=== PATIENT | male | born 1945 | race Caucasian/White ===

== ENCOUNTER 2017-01-04 10:10 | Inpatient (IN) | payer OTHER ==
[2017-01-04] MEDS ORDERED: DUONEB 0.5 MG/3 MG ONE (11:15)
[2017-01-04] MEDS: DUONEB 0.5 MG/3 MG NEB SCH ×4 (11:27→21:01)
[2017-01-04] MEDS ORDERED: NS 1/2 1000 ML IV 1,000 ML IV ONE (12:21)
[2017-01-04] MEDS: LEVAQUIN PREMIX IV 750 MG 750 MG/150 ML BAG IV SCH (12:40)
[2017-01-04] MEDS: NS 1/2 1000 ML IV 1,000 ML IV SCH (12:40)
[2017-01-04] MEDS: ZOSYN VIAL 4.5 GM IV SCH ×3 (12:40→21:33)
[2017-01-04 12:41] LABS: BASOPHILS % (AUTO) 0 % (0.2-1.0); EOSINOPHILS # (AUTO) 0.1 x10^3/uL (0.0-0.2); EOSINOPHILS % (AUTO) 0.7 % (0.9-2.9); HEMATOCRIT 36.9 % (42.0-54.0); HEMOGLOBIN 12.6 g/dL (13.5-18.0); LYMPHOCYTES # (AUTO) 1.8 X10^3/uL (1.3-2.9); LYMPHOCYTES % (AUTO) 9.5 % (21.0-51.0); MEAN CORPUSCULAR HEMOGLOBIN 28.9 pg (27.0-34.0); MEAN CORPUSCULAR HGB CONC 34.2 g/dL (33.0-35.0); MEAN CORPUSCULAR VOLUME 84.6 fL (80.0-100.0); MEAN PLATELET VOLUME 8.8 fL (7.4-11.0); MONOCYTES # (AUTO) 1.7 x10^3/uL (0.3-0.8); MONOCYTES % (AUTO) 8.6 % (0.0-13.0); NEUTROPHILS # (AUTO) 15.8 x10^3/uL (2.2-4.8); NEUTROPHILS % (AUTO) 81.2 % (42.0-75.0); PLATELET COUNT 205 X10^3/uL (150.0-450.0); RED BLOOD COUNT 4.37 X10^6/uL (4.7-6.0); RED CELL DISTRIBUTION WIDTH 14.3 % (11.6-16.5); WHITE BLOOD COUNT 19.5 X10^3/uL (3.6-10.0)
[2017-01-04] MEDS ORDERED: NS 100 ML IV + SPIKE MINIBAG* 100 ML IV ONE ×2 (12:44→20:03)
[2017-01-04 12:50] LABS: ALANINE AMINOTRANSFERASE 16 Units/L (12-78); ALBUMIN 3.1 g/dL (3.4-5.0); ALKALINE PHOSPHATASE 72 Units/L (46-116); ASPARTATE AMINO TRANSFERASE 17 Units/L (15-37); BLOOD UREA NITROGEN 14 mg/dL (7-18); CALCIUM 9.6 mg/dL (8.5-10.1); CARBON DIOXIDE 23.8 mmol/L (21-32); CHLORIDE 102 mmol/L (98-107); COR CA(FOR HYPOALB) 10.3 mg/dL (8.5-10.1); CREATININE 0.96 mg/dL (0.70-1.30); SODIUM 133 mmol/L (136-145); TOTAL PROTEIN 7.5 g/dL (6.4-8.2); eGFR BLACK RACES > 60 (>60); eGFR NON BLACK RACES > 60 (>60)
[2017-01-04] MEDS: ROBITUSSIN DM PO SCH ×3 (12:54→21:31)
--- NOTE | 2017-01-04 16:00 | RAD ---
History: Pneumonia Study: Chest PA/lateral Findings: PA and left lateral projections of the chest are compared to the previous study of January 23, 2016. Heart size is unchanged. The lower right heart border is now obscured due to contiguous par enchymal disease atelectasis versus pneumonia. The left perihilar mass obscuring the main pulmonary a rtery is again demonstrated. The left subclavian Port-A-Cath remains in place. There is been interval placement of a dual lead right-sided permanent cardiac pacemaker. Plate and screws of the base the c ervical spine are demonstrated. Impression: Interval placement of right-sided permanent cardiac pacemaker. Increasing left perihilar mass. Right middle lobe atelectasis and or pneumonia. Reported By:
--- NOTE | 2017-01-04 19:01 | DR.H&P ---
H&P - History & Physical for Day of: H&P Date: 01/04/17 - Chief Complaint Chief Complaint: is a 71 year old patient of ours who was a direct admission from our office. He presented to us with complaints of fever, productive cough and shortness of breath for the past week. Patient reports that shortness of breath is worse on exertion. On examination, lungs were noted with course wheezing and rhonchi bilaterally to auscultation. Sputum is noted to be thick and yellow. Breath sounds are diminished. Abdomen is soft, round, and non-tender. Bowel sounds are noted normal in all quadrants. We admitted patient for further treatment and evaluation. He was started on the pneumonia protocol. We planned to check CBC, CMP, chest xray, blood cultures, and sputum culture on admission. We planned to start him on Duoneb 0.5/3mg neb Q4hr, Pulmicort neb BID, Robitussin Dm 10ml po QID, Levaquin 750mg IV daily, Zosyn 4.5gm IV TID, 1/2 NS @75ml/hr. On admission, vital signs were 99.9, 83, 28, 95 % 2L NC, 141/67. He was placed on supplemental oxygen at 3l/min via nasal cannula. Labs and xrays were obtained. Abnormal lab results are as follows: WBC 19.5, RBC 4.37, Hgb 12.6, Hct 36.9, Sodium 133, Glucose 103, Calcium 10.3, Albumin 3.1, A/G Ratio 0.7. Blood Cultures x2 and sputum cultures are pending. Chest xray reported increasing left perihilar mass and right middle lobe atelectasis and or pneumonia. We planned to follow up with am labs and chest xray and continue to monitor patient. - Allergies Allergies/Adverse Reactions: Allergies Allergy/AdvReac Type Severity Reaction Status Date / Time codeine Allergy Unknown Verified 01/04/17 10:57 - Past Medical History Past Medical History: Asthma, CHF, COPD, Coronary Artery Disease, Diabetes, Dyslipidemia, GERD, Hypertension, VA Additional Medical History: Cataracts, Constipation, DDD, Lung CA - Past Surgical History Surgical History: Angioplasty/Stents, Appendectomy, Ortho Surgery, Other - Family History Family Medical History: Diabetes Mellitus, Cancer, [place], Coronary Artery Disease, Heart Failure, Hypertension - Social History Does patient currently use any type of tobacco product: No Have you used tobacco products in the last 12 months: No Type of Tobacco Use: Cigarettes How many years tobacco product used: 37 Does any household member use tobacco: No Alcohol Use: None - Medications Home Medications: Dutasteride [AVODART 0.5 MG *] 0.5 mg PO HS 01/04/17 [History Confirmed 01/04/17 ] Megestrol Acetate [MEGACE TAB 40 MG *] 20 mg PO DAILY 01/04/17 [History Confirmed 01/04/17] Pantoprazole Sodium 40 mg [PROTONIX 40 MG *] 40 mg PO DAILY 01/04/17 [History Confirmed 01/04/17] Prednisone [PREDNISONE TAB 5 MG *] 5 mg PO .QOD 01/04/17 [History Confirmed ] Vit D3-Vit K/[place]/Hops [Ostera Tablet] 1 tab PO DAILY 01/04/17 [History Confirmed 01/04/17] - Review of Systems Constitutional: Fever, Weakness Eyes: No Symptoms Reported ENT: No Symptoms Reported Respiratory: See HPI, Cough, Shortness of Breath, Sputum, Wheezing Cardiovascular: No Symptoms Reported Gastrointestinal: No Symptoms Reported Genitourinary: No Symptoms Reported Musculoskeletal: No Symptoms Reported Skin: No Symptoms Reported Neurological: Weakness - Physical Exam Vital Signs: Temperature 99.6 F Pulse Rate [Right Brachial] 103 Pulse Rate 81 Respiratory Rate 25 Blood Pressure [r arm] 141/67 Blood Pressure [Left Arm] 127/65 Blood Pressure 131/58 O2 Sat by Pulse Oximetry 96 Oriented: Normal Eyes: Normal Ear: Normal Nose: Normal Throat: Normal Respiratory: Rhonchi Throughout, Wheezes Throughout Cardiovascular: Normal : Normal Auscultation: Bowel Sounds: Normal Palpation: Normal Tenderness: Normal Skin: Normal Musculoskeletal: Normal Psychiatric: Normal Mood Description: Calm Affect: Normal Speech Pattern: Clear - Assessment/Plan (1) Community acquired pneumonia Qualifiers: Laterality: right Lung location: middle lobe of lung Qualified Code(s): J18.1 - Lobar pneumonia, unspecified organism Status: Acute Plan: ZOSYN IV, LEVAQUIN IV, DUONEBS, SUPPLEMENTAL OXYGEN, ROBITUSSIN DM QID, TUSSIONEX 5ML PO Q12H PRN, MONITOR CHEST XRAY, CONTINUE TO MONITOR PATIENT.
[2017-01-04] MEDS ORDERED: NITROGLYCERIN SL PRN (20:05)
[2017-01-04] MEDS ORDERED: IPRATROPIUM IN PRN (20:05)
[2017-01-04] MEDS ORDERED: [UNRECOGNIZED DRUG - OTHER] IN PRN (20:05)
[2017-01-04] MEDS ORDERED: ALBUTEROL SULFATE IN PRN (20:05)
[2017-01-04] MEDS ORDERED: PATIENT'S HOME MEDICATION (Multivit-Min/Fa/Lycopen/Lutein [Centrum Silver Tablet] 1 TAB) PO SCH (20:15)
[2017-01-04] MEDS ORDERED: PATIENT'S HOME MEDICATION (Levocetirizine Dihydrochloride [Xyzal] 5 MG) PO SCH (21:00)
[2017-01-04] MEDS ORDERED: CLONAZEPAM 0.5 MG PO SCH (21:00)
[2017-01-04] MEDS ORDERED: PATIENT'S HOME MEDICATION (Budesonide-Formoterol 2 INH) INH SCH (21:00)
[2017-01-04] MEDS: PULMICORT NEB TX 0.5 MG NEB SCH (21:01)
[2017-01-04] MEDS ORDERED: NITROSTAT SL PRN (21:04)
[2017-01-04] MEDS ORDERED: GLUCOPHAGE ONE (21:18)
[2017-01-04] MEDS: NEURONTIN CAP 300 MG PO SCH (21:32)
[2017-01-04] MEDS: MEGACE PO SCH (21:32)
[2017-01-04] MEDS: KLONOPIN TAB 0.5 MG PO SCH (21:32)
[2017-01-04] MEDS: FLOMAX PO SCH (21:32)
[2017-01-04] MEDS: GLUCOPHAGE PO SCH (21:33)
[2017-01-04] MEDS: AVODART PO SCH (21:33)
[2017-01-04] MEDS: LIPITOR TAB 40 MG PO SCH (21:33)
[2017-01-04] MEDS: [UNRECOGNIZED DRUG - OTHER] PO SCH (21:46)
[2017-01-04] MEDS: LOPRESSOR TAB 25 MG PO SCH (21:53)
[2017-01-04] MEDS: TYLENOL 325 MG TAB PO PRN (22:18)
[2017-01-05] MEDS: ZyrTEC TAB 10 MG PO SCH ×2 (00:22→20:30)
[2017-01-05] MEDS: DUONEB 0.5 MG/3 MG NEB SCH ×6 (01:30→21:50)
[2017-01-05] MEDS ORDERED: NS 1/2 1000 ML IV 1,000 ML IV ONE ×2 (05:18→20:19)
[2017-01-05] MEDS ORDERED: NS 100 ML IV + SPIKE MINIBAG* 100 ML IV ONE ×3 (05:19→20:21)
[2017-01-05] MEDS: ZOSYN VIAL 4.5 GM IV SCH ×3 (05:25→21:19)
[2017-01-05] MEDS: NS 1/2 1000 ML IV 1,000 ML IV SCH ×3 (05:26→20:34)
[2017-01-05] MEDS: NEURONTIN CAP 300 MG PO SCH ×3 (05:26→21:19)
[2017-01-05 06:41] LABS: BASOPHILS % (AUTO) 0 % (0.2-1.0); EOSINOPHILS # (AUTO) 0.1 x10^3/uL (0.0-0.2); EOSINOPHILS % (AUTO) 0.6 % (0.9-2.9); HEMATOCRIT 34.3 % (42.0-54.0); HEMOGLOBIN 11.6 g/dL (13.5-18.0); LYMPHOCYTES # (AUTO) 1.4 X10^3/uL (1.3-2.9); LYMPHOCYTES % (AUTO) 8.6 % (21.0-51.0); MEAN CORPUSCULAR HEMOGLOBIN 28.8 pg (27.0-34.0); MEAN CORPUSCULAR HGB CONC 33.9 g/dL (33.0-35.0); MEAN CORPUSCULAR VOLUME 84.8 fL (80.0-100.0); MEAN PLATELET VOLUME 9.5 fL (7.4-11.0); MONOCYTES # (AUTO) 1.7 x10^3/uL (0.3-0.8); MONOCYTES % (AUTO) 10.6 % (0.0-13.0); NEUTROPHILS % (AUTO) 80.2 % (42.0-75.0); PLATELET COUNT 212 X10^3/uL (150.0-450.0); RED BLOOD COUNT 4.04 X10^6/uL (4.7-6.0); RED CELL DISTRIBUTION WIDTH 14.5 % (11.6-16.5); WHITE BLOOD COUNT 16.2 X10^3/uL (3.6-10.0)
[2017-01-05 06:55] LABS: ALANINE AMINOTRANSFERASE 15 Units/L (12-78); ALBUMIN 2.7 g/dL (3.4-5.0); ALKALINE PHOSPHATASE 80 Units/L (46-116); ASPARTATE AMINO TRANSFERASE 18 Units/L (15-37); BLOOD UREA NITROGEN 9 mg/dL (7-18); CALCIUM 8.8 mg/dL (8.5-10.1); CARBON DIOXIDE 22.2 mmol/L (21-32); CHLORIDE 103 mmol/L (98-107); COR CA(FOR HYPOALB) 9.8 mg/dL (8.5-10.1); COR NA(FOR HYPERGLY) 137 mmol/L (136-145); CREATININE 0.93 mg/dL (0.70-1.30); SODIUM 136 mmol/L (136-145); TOTAL PROTEIN 6.9 g/dL (6.4-8.2); eGFR BLACK RACES > 60 (>60); eGFR NON BLACK RACES > 60 (>60)
[2017-01-05] MEDS ORDERED: GLUCOPHAGE ONE ×2 (08:16→20:21)
[2017-01-05 08:23] VITALS: BMI 17.9
[2017-01-05] MEDS: PULMICORT NEB TX 0.5 MG NEB SCH ×3 (08:59→21:50)
--- NOTE | 2017-01-05 08:59 | RAD ---
HISTORY: Pneumonia Study: Chest AP portable Comparison: January 04, 2017 Findings: There is a pacemaker present on the right. The heart is within normal limits in size. No congestive h eart failure is noted. Once again noted is the patient's left hilar mass unchanged from the prior exa mination. The lungs are mildly hyperinflated but free of acute alveolar infiltrates. No pleural effus ions are identified. The bony thorax is unremarkable. IMPRESSION: No change left hilar mass Mild hyperinflation No definite residual acute infiltrates Reported By:
[2017-01-05] MEDS ORDERED: DIGOXIN 250 MCG PO SCH (09:00)
[2017-01-05] MEDS ORDERED: VIT D3 VIT K PO SCH (09:00)
[2017-01-05] MEDS ORDERED: HOPS PO SCH (09:00)
[2017-01-05] MEDS ORDERED: [UNRECOGNIZED DRUG - OTHER] PO SCH (09:00)
[2017-01-05] MEDS ORDERED: BERBERINE PO SCH (09:00)
[2017-01-05] MEDS ORDERED: MONTELUKAST SODIUM 10 MG PO SCH (09:00)
[2017-01-05] MEDS ORDERED: PATIENT'S HOME MEDICATION (Multiple Vitamins W/ Minerals [Multiple Vitamins W/ Minerals] 1 PO SCH (09:00)
[2017-01-05] MEDS: LEVAQUIN PREMIX IV 750 MG 750 MG/150 ML BAG IV SCH (09:14)
[2017-01-05] MEDS: LANOXIN PO SCH (09:14)
[2017-01-05] MEDS: PROTONIX TAB 40 MG PO SCH (09:15)
[2017-01-05] MEDS: SINGULAIR TAB 10 MG PO SCH (09:15)
[2017-01-05] MEDS: COLACE CAP 100 MG PO SCH (09:15)
[2017-01-05] MEDS: MEGACE PO SCH (09:15)
[2017-01-05] MEDS: ROBITUSSIN DM PO SCH ×4 (09:16→20:31)
[2017-01-05] MEDS: TAB-A-VITE PO SCH (09:16)
[2017-01-05] MEDS: GLUCOPHAGE PO SCH ×2 (09:16→20:30)
[2017-01-05] MEDS: LOPRESSOR TAB 25 MG PO SCH ×2 (09:17→20:31)
[2017-01-05] MEDS: VITAMIN B-12 PO SCH (09:17)
[2017-01-05] MEDS: [UNRECOGNIZED DRUG - OTHER] PO SCH (09:25)
--- NOTE | 2017-01-05 12:26 | PCM.PROG ---
Progress Note - Progress Note for Day of Date: 01/05/17 - Subjective Subjective: WAS ADMITTED YESTERDAY FOR COMMUNITY ACQUIRED PNEUMONIA. PATIENT HAD BEEN RECEIVING ANTIBIOTICS IN THE OFFICE PRIOR TO ADMISSION, HOWEVER , PATIENT CONTINUED WITH SYMPTOMS OF PRODUCTIVE COUGH AND SHORTNESS OF BREATH DESPITE TX. HE IS ALERT AND ORIENTED, SITTING UP IN BED ON MORNING ROUNDS. PATIENT'S IS AT BEDSIDE. TODAY, PATIENT CONTINUES WITH COMPLAINTS OF PRODUCTIVE COUGH AND SHORTNESS OF BREATH. SPUTUM IN CONTAINER AT BEDSIDE IS THICK AND YELLOW. ON EXAMINATION, BILATERAL LUNGS WERE NOTED WITH COURSE WHEEZING AND RHONCHI TO AUSCULTATION. ABDOMEN IS SOFT, ROUND, AND NON TENDER. NORMAL BOWEL SOUNDS ARE NOTED IN ALL QUADRANTS. HIS VITAL SIGNS THIS MORNING ARE 98.5-97-21-99%-119/57. A CBC, CMP, AND CHEST XRAY WERE OBTAINED THIS MORNING. ABNORMAL LAB VALUES INCLUDE THE FOLLOWING: WBC 16.2, RBC 4.04, HGB 11.6 , HCT 34.3, GLUCOSE 155, ALBUMIN 2.7. BLOOD CULTURES AND SPUTUM CULTURES ARE PENDING. TODAYS CHEST XRAY REPORTED NO CHANGE IN LEFT HILAR MASS, NO ACUTE INFILTRATES. WE WILL CONTINUE WITH CURRENT PLAN OF CARE. WE PLAN TO FOLLOW UP WITH AM LABS AND CHEST XRAY AND CONTINUE TO MONITOR PATIENT. - Past Medical Family Social History Past Med/Fam/Surg Hx: No changes since H&P Allergies: Allergies codeine Allergy (Unknown, Verified 01/04/17 10:57) - Review of Systems ROS: No change since H&P - Vital Signs and I&O's Vital Signs: Temperature 99.0 F Pulse Rate [Right Brachial] 100 Pulse Rate 107 Respiratory Rate 23 Blood Pressure [r arm] 117/62 Blood Pressure [Left Arm] 119/57 Blood Pressure 131/58 O2 Sat by Pulse Oximetry 89 Intake and Output: Intake & Output 01/03/17 01/04/17 01/05/17 01/06/17 11:59 11:59 11:59 11:59 Intake Total 2605 Output Total 1700 Balance 905 - Physical Exam Oriented: Normal Eyes: Normal Ear: Normal Nose: Normal Throat: Normal Respiratory: Right, Left, Generalized, Wheezes, Rhonchi Cardiovascular: Normal : Normal Auscultation: Bowel Sounds: Normal Palpation: Normal Tenderness: Normal Skin: Normal Musculoskeletal: Normal Psychiatric: Normal Mood Description: Calm Affect: Normal Speech Pattern: Clear, Appropriate - Laboratory and Diagnostics Result Diagrams: 01/05/17 03:45 01/05/17 03:45 Labs: 01/04/17 11:30 Sputum - Expectorated Sputum Sputum Culture - Final 01/04/17 11:30 Sputum - Expectorated Sputum - Final Laboratory WBC 16.2 X10^3/uL (3.6-10.0) H 01/05/17 03:45 RBC 4.04 X10^6/uL (4.7-6.0) L 01/05/17 03:45 Hgb 11.6 g/dL (13.5-18.0) L 01/05/17 03:45 Hct 34.3 % (42.0-54.0) L 01/05/17 03:45 MCV 84.8 fL (80.0-100.0) 01/05/17 03:45 MCH 28.8 pg (27.0-34.0) 01/05/17 03:45 MCHC 33.9 g/dL (33.0-35.0) 01/05/17 03:45 RDW 14.5 % (11.6-16.5) 01/05/17 03:45 Plt Count 212 X10^3/uL (150.0-450.0) 01/05/17 03:45 MPV 9.5 fL (7.4-11.0) 01/05/17 03:45 Neut % 80.2 % (42.0-75.0) H 01/05/17 03:45 Lymph % 8.6 % (21.0-51.0) L 01/05/17 03:45 [place] % 10.6 % (0.0-13.0) 01/05/17 03:45 Eos % 0.6 % (0.9-2.9) L 01/05/17 03:45 Baso % 0 % (0.2-1.0) L 01/05/17 03:45 Neut # 13.0 x10^3/uL (2.2-4.8) H 01/05/17 03:45 Lymph # 1.4 X10^3/uL (1.3-2.9) 01/05/17 03:45 [place] # 1.7 x10^3/uL (0.3-0.8) H 01/05/17 03:45 Eos # 0.1 x10^3/uL (0.0-0.2) 01/05/17 03:45 Baso # 0.0 X10^3/uL (0.0-0.1) 01/05/17 03:45 Absolute Nucleated RBC 0.0 /100WBC 01/05/17 03:45 Sodium 136 mmol/L (136-145) 01/05/17 03:45 Corrected Sodium 137 mmol/L (136-145) 01/05/17 03:45 Potassium 3.9 mmol/L (3.5-5.1) 01/05/17 03:45 Chloride 103 mmol/L (98-107) 01/05/17 03:45 Carbon Dioxide 22.2 mmol/L (21-32) 01/05/17 03:45 BUN 9 mg/dL (7-18) 01/05/17 03:45 Creatinine 0.93 mg/dL (0.70-1.30) 01/05/17 03:45 Est GFR (MDRD) Af Amer > 60 (>60) 01/05/17 03:45 Est GFR (MDRD) Non-Af > 60 (>60) 01/05/17 03:45 Glucose 155 mg/dL (65-99) H 01/05/17 03:45 Calcium 8.8 mg/dL (8.5-10.1) 01/05/17 03:45 Corrected Calcium 9.8 mg/dL (8.5-10.1) 01/05/17 03:45 Total Bilirubin 0.70 mg/dL (0.2-1.0) 01/05/17 03:45 AST 18 Units/L (15-37) 01/05/17 03:45 ALT 15 Units/L (12-78) 01/05/17 03:45 Alkaline Phosphatase 80 Units/L (46-116) 01/05/17 03:45 Total Protein 6.9 g/dL (6.4-8.2) 01/05/17 03:45 Albumin 2.7 g/dL (3.4-5.0) L 01/05/17 03:45 Globulin 4.2 g/dL (2.5-4.5) 01/05/17 03:45 Albumin/Globulin Ratio 0.6 Ratio (1.1-2.1) L 01/05/17 03:45 - Plan (1) Community acquired pneumonia Status: Acute Qualifiers: Laterality: right Lung location: middle lobe of lung Qualified Code(s): J18.1 - Lobar pneumonia, unspecified organism Plan: ZOSYN IV, LEVAQUIN IV, DUONEBS, SUPPLEMENTAL OXYGEN, ROBITUSSIN DM QID, TUSSIONEX 5ML PO Q12H PRN, MONITOR CHEST XRAY, CONTINUE TO MONITOR PATIENT. (2) Hypertension Status: Chronic Qualifiers: Hypertension type: essential hypertension Qualified Code(s): I10 - Essential (primary) hypertension Plan: CONTINUE METOPROLOL 25MG PO BID, CONTINUE TO MONITOR (3) Decreased appetite Status: Chronic Plan: CONTINUE MEGACE 20MG PO DAILY, CONTINUE TO MONITOR (4) BPH (benign prostatic hyperplasia) Status: Chronic Qualifiers: Lower urinary tract symptom presence: symptoms present Qualified Code(s): N40.1 - Benign prostatic hyperplasia with lower urinary tract symptoms Plan: CONTINUE TAMSULOSIN 0.8MG PO HS, CONTINUE TO MONITOR (5) CAD (coronary artery disease) Status: Chronic Qualifiers: Coronary Disease-Associated Artery/Lesion type: [place] artery [place] vs. transplanted heart: [place] heart Associated angina: without angina Qualified Code(s): I25.10 - Atherosclerotic heart disease of [place] coronary artery without angina pectoris Plan: CONTINUE ASA DAILY, CONTINUE TO MONITOR (6) Diabetes Status: Chronic Qualifiers: Diabetes mellitus type: type 2 Diabetes mellitus complication status: with neurologic complications Diabetes mellitus complication detail: with unspecified neuropathy Diabetes mellitus long-term insulin use: without long-term use Qualified Code(s): E11.40 - Type 2 diabetes mellitus with diabetic neuropathy, unspecified Plan: CONTINUE METFORMIN 500MG BID (7) GERD (gastroesophageal reflux disease) Status: Chronic Qualifiers: Esophagitis presence: esophagitis presence not specified Qualified Code(s) : K21.9 - Gastro-esophageal reflux disease without esophagitis Plan: CONTINUE PROTONIX, CONTINUE TO MONITOR (8) Hyperlipidemia Status: Chronic Qualifiers: Hyperlipidemia type: mixed hyperlipidemia Qualified Code(s): E78.2 - Mixed hyperlipidemia Plan: CONTINUE LIPITOR 40MG PO HS, CONTINUE TO MONITOR
[2017-01-05] MEDS: DUONEB 0.5 MG/3 MG NEB PRN (13:28)
[2017-01-05] MEDS: TYLENOL 325 MG TAB PO PRN (16:22)
[2017-01-05] MEDS: AVODART PO SCH (20:30)
[2017-01-05] MEDS: LIPITOR TAB 40 MG PO SCH (20:30)
[2017-01-05] MEDS: FLOMAX PO SCH (20:30)
[2017-01-05] MEDS: KLONOPIN TAB 0.5 MG PO SCH (20:31)
[2017-01-06] MEDS: DUONEB 0.5 MG/3 MG NEB SCH ×6 (01:51→20:20)
[2017-01-06] MEDS ORDERED: NS 100 ML IV + SPIKE MINIBAG* 100 ML IV ONE ×3 (05:34→21:03)
[2017-01-06] MEDS: ZOSYN VIAL 4.5 GM IV SCH ×3 (05:42→21:20)
[2017-01-06] MEDS: NEURONTIN CAP 300 MG PO SCH ×3 (05:42→21:17)
[2017-01-06 06:45] LABS: BASOPHILS # (AUTO) 0.1 X10^3/uL (0.0-0.1); BASOPHILS % (AUTO) 0.7 % (0.2-1.0); EOSINOPHILS # (AUTO) 0.6 x10^3/uL (0.0-0.2); EOSINOPHILS % (AUTO) 4.1 % (0.9-2.9); HEMOGLOBIN 11.5 g/dL (13.5-18.0); LYMPHOCYTES # (AUTO) 1.5 X10^3/uL (1.3-2.9); LYMPHOCYTES % (AUTO) 11.3 % (21.0-51.0); MEAN CORPUSCULAR HEMOGLOBIN 28.5 pg (27.0-34.0); MEAN CORPUSCULAR HGB CONC 33.7 g/dL (33.0-35.0); MEAN CORPUSCULAR VOLUME 84.6 fL (80.0-100.0); MEAN PLATELET VOLUME 9.2 fL (7.4-11.0); MONOCYTES # (AUTO) 1.4 x10^3/uL (0.3-0.8); NEUTROPHILS # (AUTO) 10.1 x10^3/uL (2.2-4.8); NEUTROPHILS % (AUTO) 73.9 % (42.0-75.0); PLATELET COUNT 254 X10^3/uL (150.0-450.0); RED BLOOD COUNT 4.02 X10^6/uL (4.7-6.0); RED CELL DISTRIBUTION WIDTH 14.3 % (11.6-16.5); WHITE BLOOD COUNT 13.6 X10^3/uL (3.6-10.0)
[2017-01-06 06:46] LABS: BLOOD UREA NITROGEN 8 mg/dL (7-18); CALCIUM 9.2 mg/dL (8.5-10.1); CHLORIDE 102 mmol/L (98-107); COR NA(FOR HYPERGLY) 136 mmol/L (136-145); CREATININE 0.87 mg/dL (0.70-1.30); SODIUM 135 mmol/L (136-145); eGFR BLACK RACES > 60 (>60); eGFR NON BLACK RACES > 60 (>60)
[2017-01-06] MEDS: PULMICORT NEB TX 0.5 MG NEB SCH ×2 (08:30→20:20)
[2017-01-06] MEDS ORDERED: GLUCOPHAGE ONE ×2 (09:17→21:02)
[2017-01-06] MEDS: TORADOL 30 MG VIAL IVP SCH ×3 (09:35→21:19)
[2017-01-06] MEDS: LANOXIN PO SCH (09:39)
[2017-01-06] MEDS: LEVAQUIN PREMIX IV 750 MG 750 MG/150 ML BAG IV SCH (09:39)
[2017-01-06] MEDS: VSL#3 PO SCH (09:39)
[2017-01-06] MEDS: COLACE CAP 100 MG PO SCH (09:40)
[2017-01-06] MEDS: MEGACE PO SCH (09:40)
[2017-01-06] MEDS: LOPRESSOR TAB 25 MG PO SCH ×2 (09:40→21:18)
[2017-01-06] MEDS: PROTONIX TAB 40 MG PO SCH (09:41)
[2017-01-06] MEDS: TAB-A-VITE PO SCH (09:41)
[2017-01-06] MEDS: GLUCOPHAGE PO SCH ×2 (09:41→21:18)
[2017-01-06] MEDS: SINGULAIR TAB 10 MG PO SCH (09:41)
[2017-01-06] MEDS: ROBITUSSIN DM PO SCH ×5 (09:42→21:20)
[2017-01-06] MEDS: NS 1/2 1000 ML IV 1,000 ML IV SCH ×3 (09:43→20:51)
[2017-01-06] MEDS: VITAMIN B-12 PO SCH (09:43)
[2017-01-06] MEDS ORDERED: NS 1/2 1000 ML IV 1,000 ML IV ONE (09:53)
[2017-01-06 14:10] LABS: ALANINE AMINOTRANSFERASE 18 Units/L (12-78); ALBUMIN 2.6 g/dL (3.4-5.0); ALKALINE PHOSPHATASE 75 Units/L (46-116); ASPARTATE AMINO TRANSFERASE 15 Units/L (15-37); COR CA(FOR HYPOALB) 10.3 mg/dL (8.5-10.1); TOTAL PROTEIN 7.1 g/dL (6.4-8.2)
[2017-01-06] MEDS: DUONEB 0.5 MG/3 MG NEB PRN (17:26)
--- NOTE | 2017-01-06 20:07 | PCM.PROG ---
Progress Note - Progress Note for Day of Date: 01/06/17 - Subjective Subjective: WAS ADMITTED FOR COMMUNITY ACQUIRED PNEUMONIA. TODAY, HE IS ALERT AND ORIENTED, SITTING UP IN BED ON MORNING ROUNDS. PATIENT'S IS AT BEDSIDE. PATIENT CONTINUES WITH COMPLAINTS OF COUGH AND SHORTNESS OF BREATH, BUT DESCRIBES IT IMPROVING SINCE YESTERDAY. HE REPORTS THAT COUGH REMAINS PRODUCTIVE. HE IS ALSO NOTED WITH COMPLAINTS OF PAIN IN THE AREA OF HIS RIBS. HE REPORTS THAT IT IS WORSE WHEN HE COUGHS. ON EXAMINATION, BILATERAL LUNGS CONTINUE WITH COURSE WHEEZING AND RHONCHI TO AUSCULTATION. ABDOMEN IS SOFT, ROUND, AND NON TENDER. NORMAL BOWEL SOUNDS ARE NOTED IN ALL QUADRANTS. HIS VITAL SIGNS THIS MORNING ARE 99.2-94-24-95%-118/74. A CBC AND CMP WERE OBTAINED THIS MORNING. ABNORMAL LAB VALUES INCLUDE THE FOLLOWING: WBC 13.6, RBC 4.02, HGB 11.5, HCT 34, GLUCOSE 135, ALBUMIN 2.6. BLOOD CULTURES AND SPUTUM CULTURES ARE PENDING. A CHEST XRAY IS ALSO PENDING. TODAY, WE WILL START TORADOL 30MG IV Q6H FOR PAIN. OTHERWISE WE WILL CONTINUE WITH CURRENT PLAN OF CARE. WE PLAN TO FOLLOW UP WITH AM LABS AND CHEST XRAY AND CONTINUE TO MONITOR PATIENT. - Past Medical Family Social History Past Med/Fam/Surg Hx: No changes since H&P Allergies: Allergies codeine Allergy (Unknown, Verified 01/04/17 10:57) - Review of Systems ROS: No change since H&P - Vital Signs and I&O's Vital Signs: Temperature 99.1 F Pulse Rate [Right Brachial] 106 Pulse Rate 126 Respiratory Rate 37 Blood Pressure [r arm] 135/67 Blood Pressure [Left Arm] 118/74 Blood Pressure 131/58 O2 Sat by Pulse Oximetry 94 Intake and Output: Intake & Output 01/04/17 01/05/17 01/06/17 01/07/17 11:59 11:59 11:59 11:59 Intake Total 2605 4920 1833 Output Total 1700 3150 750 Balance 905 1770 1083 - Physical Exam Oriented: Normal Eyes: Normal Ear: Normal Nose: Normal Throat: Normal Respiratory: Right, Left, Generalized, Wheezes, Rhonchi Cardiovascular: Normal : Normal Auscultation: Bowel Sounds: Normal Palpation: Normal Tenderness: Normal Skin: Normal Musculoskeletal: Right (RIB PAIN, WORSE WHEN COUGHING), Left, Tender Psychiatric: Normal Mood Description: Calm Affect: Normal Speech Pattern: Clear, Appropriate - Laboratory and Diagnostics Result Diagrams: 01/06/17 05:57 01/06/17 05:57 Labs: 01/04/17 12:20 Blood Blood Culture - Preliminary 01/04/17 12:10 Blood Blood Culture - Preliminary 01/04/17 11:30 Sputum - Expectorated Sputum Sputum Culture - Final 01/04/17 11:30 Sputum - Expectorated Sputum - Final Laboratory WBC 13.6 X10^3/uL (3.6-10.0) H 01/06/17 05:57 RBC 4.02 X10^6/uL (4.7-6.0) L 01/06/17 05:57 Hgb 11.5 g/dL (13.5-18.0) L 01/06/17 05:57 Hct 34.0 % (42.0-54.0) L 01/06/17 05:57 MCV 84.6 fL (80.0-100.0) 01/06/17 05:57 MCH 28.5 pg (27.0-34.0) 01/06/17 05:57 MCHC 33.7 g/dL (33.0-35.0) 01/06/17 05:57 RDW 14.3 % (11.6-16.5) 01/06/17 05:57 Plt Count 254 X10^3/uL (150.0-450.0) 01/06/17 05:57 MPV 9.2 fL (7.4-11.0) 01/06/17 05:57 Neut % 73.9 % (42.0-75.0) 01/06/17 05:57 Lymph % 11.3 % (21.0-51.0) L 01/06/17 05:57 [place] % 10.0 % (0.0-13.0) 01/06/17 05:57 Eos % 4.1 % (0.9-2.9) H 01/06/17 05:57 Baso % 0.7 % (0.2-1.0) 01/06/17 05:57 Neut # 10.1 x10^3/uL (2.2-4.8) H 01/06/17 05:57 Lymph # 1.5 X10^3/uL (1.3-2.9) 01/06/17 05:57 [place] # 1.4 x10^3/uL (0.3-0.8) H 01/06/17 05:57 Eos # 0.6 x10^3/uL (0.0-0.2) H 01/06/17 05:57 Baso # 0.1 X10^3/uL (0.0-0.1) 01/06/17 05:57 Absolute Nucleated RBC 0.0 /100WBC 01/06/17 05:57 Sodium 135 mmol/L (136-145) L 01/06/17 05:57 Corrected Sodium 136 mmol/L (136-145) 01/06/17 05:57 Potassium 3.7 mmol/L (3.5-5.1) 01/06/17 05:57 Chloride 102 mmol/L (98-107) 01/06/17 05:57 Carbon Dioxide 24.0 mmol/L (21-32) 01/06/17 05:57 BUN 8 mg/dL (7-18) 01/06/17 05:57 Creatinine 0.87 mg/dL (0.70-1.30) 01/06/17 05:57 Est GFR (MDRD) Af Amer > 60 (>60) 01/06/17 05:57 Est GFR (MDRD) Non-Af > 60 (>60) 01/06/17 05:57 Glucose 134 mg/dL (65-99) H 01/06/17 05:57 POC Glucose (mg/dL) 110 mg/dL (65-99) H 01/06/17 16:02 Calcium 9.2 mg/dL (8.5-10.1) 01/06/17 05:57 Corrected Calcium 10.3 mg/dL (8.5-10.1) H 01/06/17 05:57 Total Bilirubin 0.60 mg/dL (0.2-1.0) 01/06/17 05:57 AST 15 Units/L (15-37) 01/06/17 05:57 ALT 18 Units/L (12-78) 01/06/17 05:57 Alkaline Phosphatase 75 Units/L (46-116) 01/06/17 05:57 Total Protein 7.1 g/dL (6.4-8.2) 01/06/17 05:57 Albumin 2.6 g/dL (3.4-5.0) L 01/06/17 05:57 Globulin 4.5 g/dL (2.5-4.5) 01/06/17 05:57 Albumin/Globulin Ratio 0.6 Ratio (1.1-2.1) L 01/06/17 05:57 Digoxin 0.99 ng/mL (0.9-2) 01/06/17 05:57 - Plan (1) Community acquired pneumonia Status: Acute Qualifiers: Laterality: right Lung location: middle lobe of lung Qualified Code(s): J18.1 - Lobar pneumonia, unspecified organism Plan: ZOSYN IV, LEVAQUIN IV, DUONEBS, SUPPLEMENTAL OXYGEN, ROBITUSSIN DM QID, TUSSIONEX 5ML PO Q12H PRN, MONITOR CHEST XRAY, CONTINUE TO MONITOR PATIENT. (2) Pleurisy without effusion Status: Acute Plan: TORADOL 30MG IV Q6H, CONTINUE TO MONITOR (3) Hypertension Status: Chronic Qualifiers: Hypertension type: essential hypertension Qualified Code(s): I10 - Essential (primary) hypertension Plan: CONTINUE METOPROLOL 25MG PO BID, CONTINUE TO MONITOR (4) Decreased appetite Status: Chronic Plan: CONTINUE MEGACE 20MG PO DAILY, CONTINUE TO MONITOR (5) BPH (benign prostatic hyperplasia) Status: Chronic Qualifiers: Lower urinary tract symptom presence: symptoms present Qualified Code(s): N40.1 - Benign prostatic hyperplasia with lower urinary tract symptoms Plan: CONTINUE TAMSULOSIN 0.8MG PO HS, CONTINUE TO MONITOR (6) CAD (coronary artery disease) Status: Chronic Qualifiers: Coronary Disease-Associated Artery/Lesion type: [place] artery [place] vs. 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
[2017-01-06] MEDS: AVODART PO SCH (21:17)
[2017-01-06] MEDS: FLOMAX PO SCH (21:18)
[2017-01-06] MEDS: LIPITOR TAB 40 MG PO SCH (21:18)
[2017-01-06] MEDS: ZyrTEC TAB 10 MG PO SCH (21:19)
[2017-01-06] MEDS: KLONOPIN TAB 0.5 MG PO SCH (21:19)
[2017-01-06] MEDS ORDERED: LOPRESSOR INJ 5 MG AMP IVP ONE (23:06)
[2017-01-07] MEDS ORDERED: NS 1/2 1000 ML IV 1,000 ML IV ONE ×2 (01:59→20:57)
[2017-01-07] MEDS ORDERED: NS 100 ML IV + SPIKE MINIBAG* 100 ML IV ONE ×3 (04:48→20:32)
[2017-01-07] MEDS: TORADOL 30 MG VIAL IVP SCH ×4 (04:57→21:04)
[2017-01-07] MEDS: ZOSYN VIAL 4.5 GM IV SCH ×3 (05:00→21:04)
[2017-01-07] MEDS: NEURONTIN CAP 300 MG PO SCH ×3 (05:00→21:06)
[2017-01-07] MEDS: Atrovent NEB TX 0.02% NEB SCH ×3 (05:01→17:06)
[2017-01-07] MEDS: XOPENEX 1.25 MG/3 ML NEBULE NEB SCH ×3 (05:01→17:06)
[2017-01-07] MEDS: NS 1/2 1000 ML IV 1,000 ML IV SCH ×3 (05:04→21:04)
[2017-01-07 05:11] LABS: BASOPHILS # (AUTO) 0.1 X10^3/uL (0.0-0.1); BASOPHILS % (AUTO) 0.7 % (0.2-1.0); EOSINOPHILS # (AUTO) 0.7 x10^3/uL (0.0-0.2); EOSINOPHILS % (AUTO) 6.5 % (0.9-2.9); HEMATOCRIT 33.6 % (42.0-54.0); HEMOGLOBIN 11.6 g/dL (13.5-18.0); LYMPHOCYTES # (AUTO) 1.8 X10^3/uL (1.3-2.9); MEAN CORPUSCULAR HEMOGLOBIN 29.1 pg (27.0-34.0); MEAN CORPUSCULAR HGB CONC 34.4 g/dL (33.0-35.0); MEAN CORPUSCULAR VOLUME 84.8 fL (80.0-100.0); MONOCYTES # (AUTO) 1.2 x10^3/uL (0.3-0.8); MONOCYTES % (AUTO) 10.7 % (0.0-13.0); NEUTROPHILS # (AUTO) 7.4 x10^3/uL (2.2-4.8); NEUTROPHILS % (AUTO) 66.1 % (42.0-75.0); PLATELET COUNT 263 X10^3/uL (150.0-450.0); RED BLOOD COUNT 3.97 X10^6/uL (4.7-6.0); RED CELL DISTRIBUTION WIDTH 14.3 % (11.6-16.5); WHITE BLOOD COUNT 11.2 X10^3/uL (3.6-10.0)
[2017-01-07 05:24] LABS: ALANINE AMINOTRANSFERASE 19 Units/L (12-78); ALBUMIN 2.4 g/dL (3.4-5.0); ALKALINE PHOSPHATASE 72 Units/L (46-116); ASPARTATE AMINO TRANSFERASE 18 Units/L (15-37); BLOOD UREA NITROGEN 10 mg/dL (7-18); CALCIUM 9.3 mg/dL (8.5-10.1); CHLORIDE 105 mmol/L (98-107); COR CA(FOR HYPOALB) 10.6 mg/dL (8.5-10.1); CREATININE 0.97 mg/dL (0.70-1.30); SODIUM 138 mmol/L (136-145); TOTAL PROTEIN 7.1 g/dL (6.4-8.2); eGFR BLACK RACES > 60 (>60); eGFR NON BLACK RACES > 60 (>60)
[2017-01-07] MEDS ORDERED: GLUCOPHAGE ONE ×2 (07:49→20:31)
[2017-01-07] MEDS: VSL#3 PO SCH (08:58)
[2017-01-07] MEDS: VITAMIN B-12 PO SCH (08:59)
[2017-01-07] MEDS: MEGACE PO SCH (08:59)
[2017-01-07] MEDS: TAB-A-VITE PO SCH (08:59)
[2017-01-07] MEDS: LANOXIN PO SCH (09:00)
[2017-01-07] MEDS: LOPRESSOR TAB 25 MG PO SCH ×2 (09:00→21:05)
[2017-01-07] MEDS: ROBITUSSIN DM PO SCH ×4 (09:01→21:05)
[2017-01-07] MEDS: SINGULAIR TAB 10 MG PO SCH (09:01)
[2017-01-07] MEDS: PROTONIX TAB 40 MG PO SCH (09:02)
[2017-01-07] MEDS: GLUCOPHAGE PO SCH ×2 (09:02→21:06)
[2017-01-07] MEDS: COLACE CAP 100 MG PO SCH (09:02)
[2017-01-07] MEDS: ALBUMIN HUMAN 25%- 100ML 100 ML IV SCH ×2 (09:04→09:05)
[2017-01-07] MEDS: PULMICORT NEB TX 0.5 MG NEB SCH ×2 (09:42→20:28)
--- NOTE | 2017-01-07 10:07 | PCM.PROG ---
Progress Note - Progress Note for Day of Date: 01/07/17 - Subjective Subjective: WAS ADMITTED FOR COMMUNITY ACQUIRED PNEUMONIA. TODAY, HE IS ALERT AND ORIENTED, SITTING UP IN BED ON MORNING ROUNDS. PATIENT'S IS AT BEDSIDE. PATIENT REPORTS THAT SHORTNESS OF BREATH HAS IMPROVED. HE CONTINUES WITH PRODUCTIVE COUGH AND MILD PAIN IN THE RIB AREA. ON EXAMINATION, BILATERAL LUNGS CONTINUE WITH COURSE WHEEZING AND RHONCHI TO AUSCULTATION. ABDOMEN IS SOFT , ROUND, AND NON TENDER. NORMAL BOWEL SOUNDS ARE NOTED IN ALL QUADRANTS. HIS VITAL SIGNS THIS MORNING ARE 97.9-93-16-97%-131/65. A CBC AND CMP WERE OBTAINED THIS MORNING. ABNORMAL LAB VALUES INCLUDE THE FOLLOWING: WBC 11.2, RBC 3.97, HGB 11.6, HCT 33.6, GLUCOSE 100, ALBUMIN 2.4, GLOBULIN 4.7. PRELIMINARY BLOOD CULTURE REPORTS NO GROWTH. SPUTUM CULTURE WAS REJECTED FOR POOR SAMPLE QUALITY. A CHEST XRAY IS PENDING. STAFF REPORTED THAT PATIENT COMPLAINED OF SHORTNESS OF BREATH AND FEELING LIKE HIS HEART WAS RACING THROUGHOUT THE NIGHT. AN EKG WAS OBTAINED AND REPORTED SUPRAVENTRICULAR TACHYCARDIA WITH PVCs. HR 154. HE WAS GIVEN LOPRESSOR 5MG IV X 1 DOSE. HEARTRATE RETURNED TO PATIENTS BASELINE. TODAY , WE WILL CONTINUE WITH CURRENT PLAN OF CARE. WE PLAN TO FOLLOW UP WITH AM LABS AND CHEST XRAY AND CONTINUE TO MONITOR PATIENT. - Past Medical Family Social History Past Med/Fam/Surg Hx: No changes since H&P Allergies: Allergies codeine Allergy (Unknown, Verified 01/04/17 10:57) - Review of Systems ROS: No change since H&P - Vital Signs and I&O's Vital Signs: Temperature 97.9 F Pulse Rate [Right Brachial] 92 Pulse Rate 97 Respiratory Rate 21 Blood Pressure [r arm] 136/65 Blood Pressure [Left Arm] 118/74 Blood Pressure 130/68 O2 Sat by Pulse Oximetry 97 Intake and Output: Intake & Output 01/04/17 01/05/17 01/06/17 01/07/17 11:59 11:59 11:59 11:59 Intake Total 2605 4920 3426 Output Total 1700 3150 1150 Balance 905 1770 2276 - Physical Exam Oriented: Normal Eyes: Normal Ear: Normal Nose: Normal Throat: Normal Respiratory: Right, Left, Generalized, Wheezes, Rhonchi Cardiovascular: Normal : Normal Auscultation: Bowel Sounds: Normal Palpation: Normal Tenderness: Normal Skin: Normal Musculoskeletal: Right (RIB PAIN, WORSE WHEN COUGHING), Left, Tender Psychiatric: Normal Mood Description: Calm Affect: Normal Speech Pattern: Clear, Appropriate - Laboratory and Diagnostics Result Diagrams: 01/07/17 04:15 01/07/17 04:15 Labs: 01/04/17 12:20 Blood Blood Culture - Preliminary 01/04/17 12:10 Blood Blood Culture - Preliminary 01/04/17 11:30 Sputum - Expectorated Sputum Sputum Culture - Final 01/04/17 11:30 Sputum - Expectorated Sputum - Final Laboratory WBC 11.2 X10^3/uL (3.6-10.0) H 01/07/17 04:15 RBC 3.97 X10^6/uL (4.7-6.0) L 01/07/17 04:15 Hgb 11.6 g/dL (13.5-18.0) L 01/07/17 04:15 Hct 33.6 % (42.0-54.0) L 01/07/17 04:15 MCV 84.8 fL (80.0-100.0) 01/07/17 04:15 MCH 29.1 pg (27.0-34.0) 01/07/17 04:15 MCHC 34.4 g/dL (33.0-35.0) 01/07/17 04:15 RDW 14.3 % (11.6-16.5) 01/07/17 04:15 Plt Count 263 X10^3/uL (150.0-450.0) 01/07/17 04:15 MPV 9.0 fL (7.4-11.0) 01/07/17 04:15 Neut % 66.1 % (42.0-75.0) 01/07/17 04:15 Lymph % 16.0 % (21.0-51.0) L 01/07/17 04:15 [place] % 10.7 % (0.0-13.0) 01/07/17 04:15 Eos % 6.5 % (0.9-2.9) H 01/07/17 04:15 Baso % 0.7 % (0.2-1.0) 01/07/17 04:15 Neut # 7.4 x10^3/uL (2.2-4.8) H 01/07/17 04:15 Lymph # 1.8 X10^3/uL (1.3-2.9) 01/07/17 04:15 [place] # 1.2 x10^3/uL (0.3-0.8) H 01/07/17 04:15 Eos # 0.7 x10^3/uL (0.0-0.2) H 01/07/17 04:15 Baso # 0.1 X10^3/uL (0.0-0.1) 01/07/17 04:15 Absolute Nucleated RBC 0.0 /100WBC 01/07/17 04:15 Sodium 138 mmol/L (136-145) 01/07/17 04:15 Corrected Sodium TNP 01/07/17 04:15 Potassium 3.7 mmol/L (3.5-5.1) 01/07/17 04:15 Chloride 105 mmol/L (98-107) 01/07/17 04:15 Carbon Dioxide 22.0 mmol/L (21-32) 01/07/17 04:15 BUN 10 mg/dL (7-18) 01/07/17 04:15 Creatinine 0.97 mg/dL (0.70-1.30) 01/07/17 04:15 Est GFR (MDRD) Af Amer > 60 (>60) 01/07/17 04:15 Est GFR (MDRD) Non-Af > 60 (>60) 01/07/17 04:15 Glucose 100 mg/dL (65-99) H 01/07/17 04:15 POC Glucose (mg/dL) 109 mg/dL (65-99) H 01/07/17 06:09 Calcium 9.3 mg/dL (8.5-10.1) 01/07/17 04:15 Corrected Calcium 10.6 mg/dL (8.5-10.1) H 01/07/17 04:15 Total Bilirubin 0.40 mg/dL (0.2-1.0) 01/07/17 04:15 AST 18 Units/L (15-37) 01/07/17 04:15 ALT 19 Units/L (12-78) 01/07/17 04:15 Alkaline Phosphatase 72 Units/L (46-116) 01/07/17 04:15 Total Protein 7.1 g/dL (6.4-8.2) 01/07/17 04:15 Albumin 2.4 g/dL (3.4-5.0) L 01/07/17 04:15 Globulin 4.7 g/dL (2.5-4.5) H 01/07/17 04:15 Albumin/Globulin Ratio 0.5 Ratio (1.1-2.1) L 01/07/17 04:15 Digoxin 0.99 ng/mL (0.9-2) 01/06/17 05:57 - Plan (1) Community acquired pneumonia Status: Acute Qualifiers: Laterality: right Lung location: middle lobe of lung Qualified Code(s): J18.1 - Lobar pneumonia, unspecified organism Plan: ZOSYN IV, LEVAQUIN IV, DUONEBS, SUPPLEMENTAL OXYGEN, ROBITUSSIN DM QID, TUSSIONEX 5ML PO Q12H PRN, MONITOR CHEST XRAY, CONTINUE TO MONITOR PATIENT. (2) Pleurisy without effusion Status: Acute Plan: TORADOL 30MG IV Q6H, CONTINUE TO MONITOR (3) Hypertension Status: Chronic Qualifiers: Hypertension type: essential hypertension Qualified Code(s): I10 - Essential (primary) hypertension Plan: CONTINUE METOPROLOL 25MG PO BID, CONTINUE TO MONITOR (4) Decreased appetite Status: Chronic Plan: CONTINUE MEGACE 20MG PO DAILY, CONTINUE TO MONITOR (5) BPH (benign prostatic hyperplasia) Status: Chronic Qualifiers: Lower urinary tract symptom presence: symptoms present Qualified Code(s): N40.1 - Benign prostatic hyperplasia with lower urinary tract symptoms Plan: CONTINUE TAMSULOSIN 0.8MG PO HS, CONTINUE TO MONITOR (6) CAD (coronary artery disease) Status: Chronic Qualifiers: Coronary Disease-Associated Artery/Lesion type: [place] artery [place] vs. transplanted heart: [place] heart Associated angina: without angina Qualified Code(s): I25.10 - Atherosclerotic heart disease of [place] coronary artery without angina pectoris Plan: CONTINUE ASA DAILY, CONTINUE TO MONITOR (7) Diabetes Status: Chronic Qualifiers: Diabetes mellitus type: type 2 Diabetes mellitus complication status: with neurologic complications Diabetes mellitus complication detail: with unspecified neuropathy Diabetes mellitus content development manager insulin use: without content development manager use Qualified Code(s): E11.40 - Type 2 diabetes mellitus with diabetic neuropathy, unspecified Plan: CONTINUE METFORMIN 500MG BID (8) GERD (gastroesophageal reflux disease) Status: Chronic Qualifiers: Esophagitis presence: esophagitis presence not specified Qualified Code(s) : K21.9 - Gastro-esophageal reflux disease without esophagitis Plan: CONTINUE PROTONIX, CONTINUE TO MONITOR (9) Hyperlipidemia Status: Chronic Qualifiers: Hyperlipidemia type: mixed hyperlipidemia Qualified Code(s): E78.2 - Mixed hyperlipidemia Plan: CONTINUE LIPITOR 40MG PO HS, CONTINUE TO MONITOR
[2017-01-07] MEDS: LEVAQUIN PREMIX IV 750 MG 750 MG/150 ML BAG IV SCH (10:10)
[2017-01-07] MEDS: SNACK - Diabetic Appropriate PO SCH ×2 (10:11→21:14)
[2017-01-07] MEDS: AVODART PO SCH (21:05)
[2017-01-07] MEDS: FLOMAX PO SCH (21:05)
[2017-01-07] MEDS: LIPITOR TAB 40 MG PO SCH (21:05)
[2017-01-07] MEDS: KLONOPIN TAB 0.5 MG PO SCH (21:06)
[2017-01-07] MEDS: ZyrTEC TAB 10 MG PO SCH (21:06)
[2017-01-08] MEDS: Atrovent NEB TX 0.02% NEB SCH ×4 (00:30→17:13)
[2017-01-08] MEDS: XOPENEX 1.25 MG/3 ML NEBULE NEB SCH ×4 (00:30→17:16)
[2017-01-08] MEDS: NS 1/2 1000 ML IV 1,000 ML IV SCH ×4 (03:26→13:12)
[2017-01-08] MEDS ORDERED: NS 100 ML IV + SPIKE MINIBAG* 100 ML IV ONE ×3 (04:51→20:45)
[2017-01-08] MEDS: TORADOL 30 MG VIAL IVP SCH ×4 (05:19→21:50)
[2017-01-08] MEDS: NEURONTIN CAP 300 MG PO SCH ×3 (05:20→21:49)
[2017-01-08] MEDS: ZOSYN VIAL 4.5 GM IV SCH ×3 (05:20→21:48)
[2017-01-08 08:32] LABS: BASOPHILS # (AUTO) 0.1 X10^3/uL (0.0-0.1); BASOPHILS % (AUTO) 0.7 % (0.2-1.0); EOSINOPHILS # (AUTO) 0.6 x10^3/uL (0.0-0.2); EOSINOPHILS % (AUTO) 5.1 % (0.9-2.9); HEMATOCRIT 29.4 % (42.0-54.0); HEMOGLOBIN 9.9 g/dL (13.5-18.0); LYMPHOCYTES # (AUTO) 1.7 X10^3/uL (1.3-2.9); LYMPHOCYTES % (AUTO) 14.7 % (21.0-51.0); MEAN CORPUSCULAR HEMOGLOBIN 28.7 pg (27.0-34.0); MEAN CORPUSCULAR HGB CONC 33.8 g/dL (33.0-35.0); MEAN CORPUSCULAR VOLUME 84.9 fL (80.0-100.0); MEAN PLATELET VOLUME 8.7 fL (7.4-11.0); MONOCYTES # (AUTO) 1.1 x10^3/uL (0.3-0.8); MONOCYTES % (AUTO) 9.9 % (0.0-13.0); NEUTROPHILS % (AUTO) 69.6 % (42.0-75.0); PLATELET COUNT 276 X10^3/uL (150.0-450.0); RED BLOOD COUNT 3.46 X10^6/uL (4.7-6.0); RED CELL DISTRIBUTION WIDTH 14.3 % (11.6-16.5); WHITE BLOOD COUNT 11.5 X10^3/uL (3.6-10.0)
[2017-01-08] MEDS ORDERED: GLUCOPHAGE ONE ×2 (08:38→20:42)
[2017-01-08 08:48] LABS: ALANINE AMINOTRANSFERASE 20 Units/L (12-78); ALBUMIN 2.5 g/dL (3.4-5.0); ALKALINE PHOSPHATASE 67 Units/L (46-116); ASPARTATE AMINO TRANSFERASE 20 Units/L (15-37); BLOOD UREA NITROGEN 11 mg/dL (7-18); CALCIUM 8.6 mg/dL (8.5-10.1); CARBON DIOXIDE 21.7 mmol/L (21-32); CHLORIDE 106 mmol/L (98-107); COR CA(FOR HYPOALB) 9.8 mg/dL (8.5-10.1); COR NA(FOR HYPERGLY) 140 mmol/L (136-145); CREATININE 0.96 mg/dL (0.70-1.30); SODIUM 139 mmol/L (136-145); TOTAL PROTEIN 6.6 g/dL (6.4-8.2); eGFR BLACK RACES > 60 (>60); eGFR NON BLACK RACES > 60 (>60)
[2017-01-08] MEDS: PULMICORT NEB TX 0.5 MG NEB SCH ×2 (08:51→20:30)
[2017-01-08] MEDS ORDERED: NS 1/2 1000 ML IV 1,000 ML IV ONE (09:21)
[2017-01-08] MEDS: ALBUMIN HUMAN 25%- 100ML 100 ML IV SCH (09:23)
[2017-01-08] MEDS: VSL#3 PO SCH (09:27)
[2017-01-08] MEDS: LANOXIN PO SCH (09:27)
[2017-01-08] MEDS: TAB-A-VITE PO SCH (09:29)
[2017-01-08] MEDS: PROTONIX TAB 40 MG PO SCH (09:29)
[2017-01-08] MEDS: COLACE CAP 100 MG PO SCH (09:30)
[2017-01-08] MEDS: SINGULAIR TAB 10 MG PO SCH (09:30)
[2017-01-08] MEDS: GLUCOPHAGE PO SCH ×2 (09:30→21:49)
[2017-01-08] MEDS: LOPRESSOR TAB 25 MG PO SCH ×2 (09:30→21:50)
[2017-01-08] MEDS: VITAMIN B-12 PO SCH (09:31)
[2017-01-08] MEDS: MEGACE PO SCH (09:31)
[2017-01-08] MEDS: ROBITUSSIN DM PO SCH ×4 (09:32→21:52)
[2017-01-08] MEDS: LEVAQUIN PREMIX IV 750 MG 750 MG/150 ML BAG IV SCH (10:07)
[2017-01-08] MEDS: MUCOMYST 20% 200 MG/ML NEB SCH (11:59)
[2017-01-08] MEDS ORDERED: MUCOMYST 20% 200 MG/ML NEB SCH (13:00)
[2017-01-08] MEDS: ZOFRAN INJ 4 MG VIAL IVP PRN (17:10)
[2017-01-08] MEDS: XOPENEX 1.25 MG/3 ML NEBULE NEB PRN (20:30)
[2017-01-08] MEDS: LIPITOR TAB 40 MG PO SCH (21:49)
[2017-01-08] MEDS: AVODART PO SCH (21:49)
[2017-01-08] MEDS: FLOMAX PO SCH (21:49)
[2017-01-08] MEDS: ZyrTEC TAB 10 MG PO SCH (21:50)
[2017-01-08] MEDS: KLONOPIN TAB 0.5 MG PO SCH (21:50)
[2017-01-08] MEDS: SNACK - Diabetic Appropriate PO SCH (21:58)
[2017-01-09] MEDS: MUCOMYST 20% 200 MG/ML NEB SCH ×4 (00:19→17:04)
[2017-01-09] MEDS: XOPENEX 1.25 MG/3 ML NEBULE NEB SCH ×4 (00:20→17:04)
[2017-01-09] MEDS: Atrovent NEB TX 0.02% NEB SCH ×4 (00:20→17:04)
[2017-01-09] MEDS ORDERED: NS 1/2 1000 ML IV 1,000 ML IV ONE (01:58)
[2017-01-09] MEDS: NS 1/2 1000 ML IV 1,000 ML IV SCH ×2 (03:30→23:01)
[2017-01-09] MEDS ORDERED: NS 100 ML IV + SPIKE MINIBAG* 100 ML IV ONE (04:28)
[2017-01-09] MEDS: TORADOL 30 MG VIAL IVP SCH (04:59)
[2017-01-09] MEDS: NEURONTIN CAP 300 MG PO SCH ×3 (05:00→21:04)
[2017-01-09] MEDS: ZOSYN VIAL 4.5 GM IV SCH (05:00)
[2017-01-09 05:23] LABS: ALANINE AMINOTRANSFERASE 20 Units/L (12-78); ALBUMIN 2.5 g/dL (3.4-5.0); ALKALINE PHOSPHATASE 60 Units/L (46-116); ASPARTATE AMINO TRANSFERASE 19 Units/L (15-37); BLOOD UREA NITROGEN 11 mg/dL (7-18); CALCIUM 8.7 mg/dL (8.5-10.1); CARBON DIOXIDE 23.8 mmol/L (21-32); CHLORIDE 107 mmol/L (98-107); COR CA(FOR HYPOALB) 9.9 mg/dL (8.5-10.1); CREATININE 0.89 mg/dL (0.70-1.30); SODIUM 139 mmol/L (136-145); TOTAL PROTEIN 6.3 g/dL (6.4-8.2); eGFR BLACK RACES > 60 (>60); eGFR NON BLACK RACES > 60 (>60)
[2017-01-09 05:52] LABS: BASOPHILS # (AUTO) 0.1 X10^3/uL (0.0-0.1); BASOPHILS % (AUTO) 0.7 % (0.2-1.0); EOSINOPHILS # (AUTO) 0.6 x10^3/uL (0.0-0.2); EOSINOPHILS % (AUTO) 4.8 % (0.9-2.9); HEMATOCRIT 29.7 % (42.0-54.0); HEMOGLOBIN 10.1 g/dL (13.5-18.0); LYMPHOCYTES # (AUTO) 1.8 X10^3/uL (1.3-2.9); MEAN CORPUSCULAR HEMOGLOBIN 28.9 pg (27.0-34.0); MEAN CORPUSCULAR HGB CONC 34.1 g/dL (33.0-35.0); MEAN CORPUSCULAR VOLUME 84.7 fL (80.0-100.0); MONOCYTES # (AUTO) 1.4 x10^3/uL (0.3-0.8); MONOCYTES % (AUTO) 11.4 % (0.0-13.0); NEUTROPHILS # (AUTO) 8.3 x10^3/uL (2.2-4.8); NEUTROPHILS % (AUTO) 68.1 % (42.0-75.0); PLATELET COUNT 266 X10^3/uL (150.0-450.0); RED CELL DISTRIBUTION WIDTH 14.1 % (11.6-16.5); WHITE BLOOD COUNT 12.2 X10^3/uL (3.6-10.0)
[2017-01-09] MEDS ORDERED: GLUCOPHAGE ONE ×2 (08:34→20:19)
[2017-01-09] MEDS: PULMICORT NEB TX 0.5 MG NEB SCH ×2 (08:38→20:16)
[2017-01-09] MEDS: LEVAQUIN PREMIX IV 750 MG 750 MG/150 ML BAG IV SCH (08:49)
[2017-01-09] MEDS: GLUCOPHAGE PO SCH ×2 (08:52→21:04)
[2017-01-09] MEDS: ALBUMIN HUMAN 25%- 100ML 100 ML IV SCH (08:52)
[2017-01-09] MEDS: LOPRESSOR TAB 25 MG PO SCH ×2 (08:54→21:04)
[2017-01-09] MEDS: PROTONIX TAB 40 MG PO SCH (08:54)
[2017-01-09] MEDS: MEGACE PO SCH (08:54)
[2017-01-09] MEDS: COLACE CAP 100 MG PO SCH (08:54)
[2017-01-09] MEDS: SINGULAIR TAB 10 MG PO SCH (08:55)
[2017-01-09] MEDS: ROBITUSSIN DM PO SCH ×4 (08:55→21:03)
[2017-01-09] MEDS: VITAMIN B-12 PO SCH (08:55)
[2017-01-09] MEDS: VSL#3 PO SCH (08:55)
[2017-01-09] MEDS: TAB-A-VITE PO SCH (08:55)
[2017-01-09] MEDS: LANOXIN PO SCH (09:15)
[2017-01-09] MEDS ORDERED: PHARMACY CONSULT - TPN XX SCH (10:00)
[2017-01-09] MEDS: LOMOTIL PO PRN ×2 (10:19→16:04)
[2017-01-09] MEDS: DIFLUCAN 200 MG IV PREMIX* 200 MG/100 ML BAG IV SCH (10:19)
[2017-01-09] MEDS: NYSTATIN SUSP MT SCH ×4 (10:19→21:03)
[2017-01-09] MEDS: PROCALAMINE 3 % 1,000 ML IV SCH (12:12)
[2017-01-09] MEDS: ZOFRAN INJ 4 MG VIAL IVP PRN (14:06)
--- NOTE | 2017-01-09 18:04 | PCM.PROG ---
Progress Note - Progress Note for Day of Date: 01/08/17 - Subjective Subjective: WAS ADMITTED FOR COMMUNITY ACQUIRED PNEUMONIA. TODAY, HE IS ALERT AND ORIENTED, SITTING UP IN BED ON MORNING ROUNDS. PATIENT'S IS AT BEDSIDE. PATIENT CONTINUES WITH PRODUCTIVE COUGH AND SHORTNESS OF BREATH. THICK, YELLOW SPUTUM IS NOTED AT BEDSIDE. ON EXAMINATION, BILATERAL LUNGS ARE NOTED WITH COURSE WHEEZING AND RALES TO AUSCULTATION. ABDOMEN IS SOFT, ROUND, AND NON TENDER. NORMAL BOWEL SOUNDS ARE NOTED IN ALL QUADRANTS. HIS VITAL SIGNS THIS MORNING ARE 99.0, 99, 21, 97% 3L NC, 133/66. A CBC AND CMP WERE OBTAINED THIS MORNING. ABNORMAL LAB VALUES INCLUDE THE FOLLOWING: WBC 11.5, RBC 3.46, Hgb 9.9, Hct 29.4, Glucose 124, Albumin 2.5, A/G Ratio 0.6. PRELIMINARY BLOOD CULTURE REPORTS NO GROWTH. A CHEST XRAY WAS OBTAINED AND REPORTED CARDIOMEGALY AND COPD CHANGE, PATCHY PULMONARY OPACITIES CONCERNING FOR PNEUMONIA, AND CHRONIC LEFT HILAR FULLNESS. TODAY, WE WILL ADD MUCOMYST TO NEB TX AND TRANSFER PATIENT TO THE MED/SURG FLOOR. OTHERWISE, WE WILL CONTINUE WITH CURRENT PLAN OF CARE. WE PLAN TO FOLLOW UP WITH AM LABS AND CHEST XRAY AND CONTINUE TO MONITOR PATIENT. - Past Medical Family Social History Past Med/Fam/Surg Hx: No changes since H&P Allergies: Allergies codeine Allergy (Unknown, Verified 01/04/17 10:57) - Review of Systems ROS: No change since H&P - Vital Signs and I&O's Vital Signs: Temperature 98.9 F Pulse Rate [Left Brachial] 104 Pulse Rate [Right Brachial] 100 Pulse Rate 103 Respiratory Rate 18 Blood Pressure [r arm] 137/78 Blood Pressure [Left Arm] 131/70 Blood Pressure 130/68 O2 Sat by Pulse Oximetry 96 Intake and Output: Intake & Output 01/07/17 01/08/17 01/09/17 01/10/17 11:59 11:59 11:59 11:59 Intake Total 3426 3394 3282 1530 Output Total 1150 550 775 100 Balance 2276 2844 2507 1430 - Physical Exam Oriented: Normal Eyes: Normal Ear: Normal Nose: Normal Throat: Normal Respiratory: Right, Left, Generalized, Wheezes, Rales Cardiovascular: Normal : Normal Auscultation: Bowel Sounds: Normal Palpation: Normal Tenderness: Normal Skin: Normal Musculoskeletal: Right (RIB PAIN, WORSE WHEN COUGHING), Left, Tender Psychiatric: Normal Mood Description: Calm Affect: Normal Speech Pattern: Clear, Appropriate - Laboratory and Diagnostics Result Diagrams: 01/09/17 03:30 01/09/17 03:30 Labs: 01/04/17 12:20 Blood Blood Culture - Preliminary 01/04/17 12:10 Blood Blood Culture - Preliminary 01/04/17 11:30 Sputum - Expectorated Sputum Sputum Culture - Final 01/04/17 11:30 Sputum - Expectorated Sputum - Final Laboratory WBC 12.2 X10^3/uL (3.6-10.0) H 01/09/17 03:30 RBC 3.50 X10^6/uL (4.7-6.0) L 01/09/17 03:30 Hgb 10.1 g/dL (13.5-18.0) L 01/09/17 03:30 Hct 29.7 % (42.0-54.0) L 01/09/17 03:30 MCV 84.7 fL (80.0-100.0) 01/09/17 03:30 MCH 28.9 pg (27.0-34.0) 01/09/17 03:30 MCHC 34.1 g/dL (33.0-35.0) 01/09/17 03:30 RDW 14.1 % (11.6-16.5) 01/09/17 03:30 Plt Count 266 X10^3/uL (150.0-450.0) 01/09/17 03:30 MPV 9.0 fL (7.4-11.0) 01/09/17 03:30 Neut % 68.1 % (42.0-75.0) 01/09/17 03:30 Lymph % 15.0 % (21.0-51.0) L 01/09/17 03:30 [place] % 11.4 % (0.0-13.0) 01/09/17 03:30 Eos % 4.8 % (0.9-2.9) H 01/09/17 03:30 Baso % 0.7 % (0.2-1.0) 01/09/17 03:30 Neut # 8.3 x10^3/uL (2.2-4.8) H 01/09/17 03:30 Lymph # 1.8 X10^3/uL (1.3-2.9) 01/09/17 03:30 [place] # 1.4 x10^3/uL (0.3-0.8) H 01/09/17 03:30 Eos # 0.6 x10^3/uL (0.0-0.2) H 01/09/17 03:30 Baso # 0.1 X10^3/uL (0.0-0.1) 01/09/17 03:30 Absolute Nucleated RBC 0.0 /100WBC 01/09/17 03:30 Sodium 139 mmol/L (136-145) 01/09/17 03:30 Corrected Sodium TNP 01/09/17 03:30 Potassium 4.1 mmol/L (3.5-5.1) 01/09/17 03:30 Chloride 107 mmol/L (98-107) 01/09/17 03:30 Carbon Dioxide 23.8 mmol/L (21-32) 01/09/17 03:30 BUN 11 mg/dL (7-18) 01/09/17 03:30 Creatinine 0.89 mg/dL (0.70-1.30) 01/09/17 03:30 Est GFR (MDRD) Af Amer > 60 (>60) 01/09/17 03:30 Est GFR (MDRD) Non-Af > 60 (>60) 01/09/17 03:30 Glucose 89 mg/dL (65-99) 01/09/17 03:30 POC Glucose (mg/dL) 127 mg/dL (65-99) H 01/09/17 16:02 Calcium 8.7 mg/dL (8.5-10.1) 01/09/17 03:30 Corrected Calcium 9.9 mg/dL (8.5-10.1) 01/09/17 03:30 Total Bilirubin 0.40 mg/dL (0.2-1.0) 01/09/17 03:30 AST 19 Units/L (15-37) 01/09/17 03:30 ALT 20 Units/L (12-78) 01/09/17 03:30 Alkaline Phosphatase 60 Units/L (46-116) 01/09/17 03:30 Total Protein 6.3 g/dL (6.4-8.2) L 01/09/17 03:30 Albumin 2.5 g/dL (3.4-5.0) L 01/09/17 03:30 Globulin 3.8 g/dL (2.5-4.5) 01/09/17 03:30 Albumin/Globulin Ratio 0.7 Ratio (1.1-2.1) L 01/09/17 03:30 Stl C. diff Tox B Gene Negative (NEGATIVE) 01/07/17 19:18 Stl C. diff [id number]-[id number] Negative (NEGATIVE) 01/07/17 19:18 Digoxin 1.02 ng/mL (0.9-2) 01/09/17 03:30 - Plan (1) Community acquired pneumonia Status: Acute Qualifiers: Laterality: right Lung location: middle lobe of lung Qualified Code(s): J18.1 - Lobar pneumonia, unspecified organism Plan: ZOSYN IV, LEVAQUIN IV, DUONEBS, MUCOMYST TO NEB [place], SUPPLEMENTAL OXYGEN, ROBITUSSIN DM QID, TUSSIONEX 5ML PO Q12H PRN, MONITOR CHEST XRAY, CONTINUE TO MONITOR PATIENT. (2) Pleurisy without effusion Status: Acute Plan: TORADOL 30MG IV Q6H, CONTINUE TO MONITOR (3) Hypertension Status: Chronic Qualifiers: Hypertension type: essential hypertension Qualified Code(s): I10 - Essential (primary) hypertension Plan: CONTINUE METOPROLOL 25MG PO BID, CONTINUE TO MONITOR (4) Decreased appetite Status: Chronic Plan: CONTINUE MEGACE 20MG PO DAILY, CONTINUE TO MONITOR (5) BPH (benign prostatic hyperplasia) Status: Chronic Qualifiers: Lower urinary tract symptom presence: symptoms present Plan: CONTINUE TAMSULOSIN 0.8MG PO HS, CONTINUE TO MONITOR (6) CAD (coronary artery disease) Status: Chronic Qualifiers: Coronary Disease-Associated Artery/Lesion type: [place] artery [place] vs. transplanted heart: [place] heart Associated angina: without angina Qualified Code(s): I25.10 - Atherosclerotic heart disease of [place] coronary artery without angina pectoris Plan: CONTINUE ASA DAILY, CONTINUE TO MONITOR (7) Diabetes Status: Chronic Qualifiers: Diabetes mellitus type: type 2 Diabetes mellitus complication status: with neurologic complications Diabetes mellitus complication detail: with unspecified neuropathy Diabetes mellitus manager terminal insulin use: without halfway use Qualified Code(s): E11.40 - Type 2 diabetes mellitus with diabetic neuropathy, unspecified Plan: CONTINUE METFORMIN 500MG BID (8) GERD (gastroesophageal reflux disease) Status: Chronic Qualifiers: Esophagitis presence: esophagitis presence not specified Qualified Code(s) : K21.9 - Gastro-esophageal reflux disease without esophagitis Plan: CONTINUE PROTONIX, CONTINUE TO MONITOR (9) Hyperlipidemia Status: Chronic Qualifiers: Hyperlipidemia type: mixed hyperlipidemia Qualified Code(s): E78.2 - Mixed hyperlipidemia Plan: CONTINUE LIPITOR 40MG PO HS, CONTINUE TO MONITOR
[2017-01-09] MEDS: XOPENEX 1.25 MG/3 ML NEBULE NEB PRN (20:16)
[2017-01-09] MEDS: FLOMAX PO SCH (21:03)
[2017-01-09] MEDS: LIPITOR TAB 40 MG PO SCH (21:04)
[2017-01-09] MEDS: KLONOPIN TAB 0.5 MG PO SCH (21:04)
[2017-01-09] MEDS: ZyrTEC TAB 10 MG PO SCH (21:04)
[2017-01-09] MEDS: AVODART PO SCH (21:04)
[2017-01-09 21:34] LABS: ABG ALLEN TEST POS; ABG BASE EXCESS -0.3 mmol/L (-2.0-2.0); ABG HCO3 22.6 mmol/L (22-26)
[2017-01-09] MEDS: TYLENOL 325 MG TAB PO PRN (22:34)
[2017-01-09] MEDS: SNACK - Diabetic Appropriate PO SCH (22:44)
[2017-01-10] MEDS: MUCOMYST 20% 200 MG/ML NEB SCH ×4 (00:18→17:08)
[2017-01-10] MEDS: Atrovent NEB TX 0.02% NEB SCH ×4 (00:18→17:08)
[2017-01-10] MEDS: XOPENEX 1.25 MG/3 ML NEBULE NEB SCH ×4 (00:18→17:08)
[2017-01-10] MEDS ORDERED: NS 1/2 1000 ML IV 1,000 ML IV ONE (02:21)
[2017-01-10 04:50] LABS: BASOPHILS # (AUTO) 0.1 X10^3/uL (0.0-0.1); BASOPHILS % (AUTO) 0.5 % (0.2-1.0); EOSINOPHILS # (AUTO) 0.4 x10^3/uL (0.0-0.2); EOSINOPHILS % (AUTO) 3.4 % (0.9-2.9); HEMATOCRIT 29.4 % (42.0-54.0); LYMPHOCYTES # (AUTO) 1.8 X10^3/uL (1.3-2.9); LYMPHOCYTES % (AUTO) 14.1 % (21.0-51.0); MEAN CORPUSCULAR HEMOGLOBIN 28.9 pg (27.0-34.0); MEAN CORPUSCULAR HGB CONC 34.1 g/dL (33.0-35.0); MEAN CORPUSCULAR VOLUME 84.9 fL (80.0-100.0); MONOCYTES # (AUTO) 1.4 x10^3/uL (0.3-0.8); MONOCYTES % (AUTO) 10.8 % (0.0-13.0); NEUTROPHILS # (AUTO) 9.2 x10^3/uL (2.2-4.8); NEUTROPHILS % (AUTO) 71.2 % (42.0-75.0); PLATELET COUNT 274 X10^3/uL (150.0-450.0); RED BLOOD COUNT 3.46 X10^6/uL (4.7-6.0); RED CELL DISTRIBUTION WIDTH 14.2 % (11.6-16.5); WHITE BLOOD COUNT 12.9 X10^3/uL (3.6-10.0)
[2017-01-10 05:17] LABS: ALANINE AMINOTRANSFERASE 23 Units/L (12-78); ALBUMIN 2.7 g/dL (3.4-5.0); ALKALINE PHOSPHATASE 58 Units/L (46-116); ASPARTATE AMINO TRANSFERASE 19 Units/L (15-37); BLOOD UREA NITROGEN 13 mg/dL (7-18); CALCIUM 8.7 mg/dL (8.5-10.1); CARBON DIOXIDE 22.4 mmol/L (21-32); CHLORIDE 105 mmol/L (98-107); COR CA(FOR HYPOALB) 9.7 mg/dL (8.5-10.1); COR NA(FOR HYPERGLY) 138 mmol/L (136-145); CREATININE 0.84 mg/dL (0.70-1.30); SODIUM 138 mmol/L (136-145); TOTAL PROTEIN 6.5 g/dL (6.4-8.2); eGFR BLACK RACES > 60 (>60); eGFR NON BLACK RACES > 60 (>60)
[2017-01-10] MEDS: NEURONTIN CAP 300 MG PO SCH ×3 (05:18→21:01)
[2017-01-10] MEDS: NS 1/2 1000 ML IV 1,000 ML IV SCH ×3 (05:19→21:01)
[2017-01-10] MEDS ORDERED: GLUCOPHAGE ONE (07:45)
[2017-01-10] MEDS: PULMICORT NEB TX 0.5 MG NEB SCH ×2 (08:24→20:32)
[2017-01-10] MEDS: ALBUMIN HUMAN 25%- 100ML 100 ML IV SCH (08:48)
[2017-01-10] MEDS: DIFLUCAN 200 MG IV PREMIX* 200 MG/100 ML BAG IV SCH (08:48)
[2017-01-10] MEDS: COLACE CAP 100 MG PO SCH (08:48)
[2017-01-10] MEDS: LOPRESSOR TAB 25 MG PO SCH ×2 (08:49→20:52)
[2017-01-10] MEDS: LEVAQUIN PREMIX IV 750 MG 750 MG/150 ML BAG IV SCH (08:49)
[2017-01-10] MEDS: LANOXIN PO SCH (08:49)
[2017-01-10] MEDS: GLUCOPHAGE PO SCH (08:49)
[2017-01-10] MEDS: PROTONIX TAB 40 MG PO SCH (08:50)
[2017-01-10] MEDS: VITAMIN B-12 PO SCH (08:50)
[2017-01-10] MEDS: SINGULAIR TAB 10 MG PO SCH (08:50)
[2017-01-10] MEDS: TAB-A-VITE PO SCH (08:50)
[2017-01-10] MEDS: ROBITUSSIN DM PO SCH ×4 (08:50→20:54)
[2017-01-10] MEDS: MEGACE PO SCH (08:50)
[2017-01-10] MEDS: NYSTATIN SUSP MT SCH ×4 (08:50→20:58)
[2017-01-10] MEDS: VSL#3 PO SCH (08:51)
[2017-01-10] MEDS: PROCALAMINE 3 % 1,000 ML IV SCH (10:50)
[2017-01-10] MEDS: MORPHINE SULFATE INJ 2 MG INJ IVP PRN ×2 (16:00→20:51)
[2017-01-10] MEDS ORDERED: NS 100 ML IV 100 ML IV ONE (17:56)
--- NOTE | 2017-01-10 20:26 | PCM.PROG ---
Progress Note - Progress Note for Day of Date: 01/09/17 - Subjective Subjective: WAS ADMITTED FOR COMMUNITY ACQUIRED PNEUMONIA. TODAY, HE IS ALERT AND ORIENTED, SITTING UP IN BED ON MORNING ROUNDS. PATIENT'S IS AT BEDSIDE. PATIENT CONTINUES WITH PRODUCTIVE COUGH AND SHORTNESS OF BREATH. HE ALSO REPORTS WEAKNESS, SORE THROAT, AND DIARRHEA TODAY. ON EXAMINATION, BILATERAL LUNGS CONTINUE WITH COURSE WHEEZING AND RALES TO AUSCULTATION. ABDOMEN IS SOFT, ROUND, AND NON TENDER. NORMAL BOWEL SOUNDS ARE NOTED IN ALL QUADRANTS. HIS VITAL SIGNS THIS MORNING ARE 97.6-100-18-94%129/71. A CBC, CMP, AND CHEST XRAY WERE OBTAINED THIS MORNING. ABNORMAL LAB VALUES INCLUDE THE FOLLOWING: WBC 12.2, RBC 3.50, HGB 10.1, HCT 29.7, TOTAL PROTEIN 6.3, ALBUMIN 2.5. BLOOD CULTURES REPORTS NO GROWTH. 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 TODAY, WE WILL START TPN, LOMOTIL 1 TAB QID PRN, NYSTATIN SWISH AND SWALLOW, DIFLUCAN 200MG IV DAILY FOR YEAST. WE WILL DISCONTINUE THE ZOSYN. OTHERWISE, WE WILL CONTINUE WITH CURRENT PLAN OF CARE AND TREAT FOR PNEUMONIA. WE PLAN TO FOLLOW UP WITH AM LABS AND CHEST XRAY AND CONTINUE TO MONITOR PATIENT. - Past Medical Family Social History Past Med/Fam/Surg Hx: No changes since H&P Allergies: Allergies codeine Allergy (Unknown, Verified 01/04/17 10:57) - Review of Systems ROS: No change since H&P - Vital Signs and I&O's Vital Signs: Temperature 99.0 F Pulse Rate [Left Brachial] 113 Pulse Rate [Right Brachial] 100 Pulse Rate 113 Respiratory Rate 20 Blood Pressure [r arm] 138/77 Blood Pressure [Left Arm] 131/70 Blood Pressure 130/68 O2 Sat by Pulse Oximetry 90 Intake and Output: Intake & Output 01/08/17 01/09/17 01/10/17 01/11/17 11:59 11:59 11:59 11:59 Intake Total 3394 3282 3380 640 Output Total 321 975 2151 600 Balance 2844 2507 2380 40 - Physical Exam Oriented: Normal Eyes: Normal Ear: Normal Nose: Normal Throat: Normal Respiratory: Right, Left, Generalized, Wheezes, Rales Cardiovascular: Normal : Normal Auscultation: Bowel Sounds: Normal Palpation: Normal Tenderness: Normal Skin: Normal Musculoskeletal: Right (RIB PAIN, WORSE WHEN COUGHING), Left, Tender Psychiatric: Normal Mood Description: Calm Affect: Normal Speech Pattern: Clear, Appropriate - Laboratory and Diagnostics Result Diagrams: 01/10/17 03:25 01/10/17 03:25 Labs: 01/04/17 12:20 Blood Blood Culture - Final 01/04/17 12:10 Blood Blood Culture - Final 01/04/17 11:30 Sputum - Expectorated Sputum Sputum Culture - Final 01/04/17 11:30 Sputum - Expectorated Sputum - Final Laboratory WBC 12.9 X10^3/uL (3.6-10.0) H 01/10/17 03:25 RBC 3.46 X10^6/uL (4.7-6.0) L 01/10/17 03:25 Hgb 10.0 g/dL (13.5-18.0) L 01/10/17 03:25 Hct 29.4 % (42.0-54.0) L 01/10/17 03:25 MCV 84.9 fL (80.0-100.0) 01/10/17 03:25 MCH 28.9 pg (27.0-34.0) 01/10/17 03:25 MCHC 34.1 g/dL (33.0-35.0) 01/10/17 03:25 RDW 14.2 % (11.6-16.5) 01/10/17 03:25 Plt Count 274 X10^3/uL (150.0-450.0) 01/10/17 03:25 MPV 9.0 fL (7.4-11.0) 01/10/17 03:25 Neut % 71.2 % (42.0-75.0) 01/10/17 03:25 Lymph % 14.1 % (21.0-51.0) L 01/10/17 03:25 [place] % 10.8 % (0.0-13.0) 01/10/17 03:25 Eos % 3.4 % (0.9-2.9) H 01/10/17 03:25 Baso % 0.5 % (0.2-1.0) 01/10/17 03:25 Neut # 9.2 x10^3/uL (2.2-4.8) H 01/10/17 03:25 Lymph # 1.8 X10^3/uL (1.3-2.9) 01/10/17 03:25 [place] # 1.4 x10^3/uL (0.3-0.8) H 01/10/17 03:25 Eos # 0.4 x10^3/uL (0.0-0.2) H 01/10/17 03:25 Baso # 0.1 X10^3/uL (0.0-0.1) 01/10/17 03:25 Absolute Nucleated RBC 0.0 /100WBC 01/10/17 03:25 Sample Site Rra 01/09/17 21:22 ABG pH 7.470 (7.35-7.45) H 01/09/17 21:22 ABG pCO2 31.0 mmHg (35.0-45.0) L 01/09/17 21:22 ABG pO2 55.0 mmHg (80.0-100.0) L 01/09/17 21:22 ABG HCO3 22.6 mmol/L (22-26) 01/09/17 21:22 ABG O2 Saturation 90.0 % (90-100) 01/09/17 21:22 ABG Base Excess -0.3 mmol/L (-2.0-2.0) 01/09/17 21:22 [place] Test Pos 01/09/17 21:22 A-a Gradient 134.0 mmHg 01/09/17 21:22 FiO2 32.000 01/09/17 21:22 Blood Gas Comments Yesi well, mm 01/09/17 21:22 Sodium 138 mmol/L (136-145) 01/10/17 03:25 Corrected Sodium 138 mmol/L (136-145) 01/10/17 03:25 Potassium 4.3 mmol/L (3.5-5.1) 01/10/17 03:25 Chloride 105 mmol/L (98-107) 01/10/17 03:25 Carbon Dioxide 22.4 mmol/L (21-32) 01/10/17 03:25 BUN 13 mg/dL (7-18) 01/10/17 03:25 Creatinine 0.84 mg/dL (0.70-1.30) 01/10/17 03:25 Est GFR (MDRD) Af Amer > 60 (>60) 01/10/17 03:25 Est GFR (MDRD) Non-Af > 60 (>60) 01/10/17 03:25 Glucose 120 mg/dL (65-99) H 01/10/17 03:25 POC Glucose (mg/dL) 166 mg/dL (65-99) H 01/10/17 19:39 Calcium 8.7 mg/dL (8.5-10.1) 01/10/17 03:25 Corrected Calcium 9.7 mg/dL (8.5-10.1) 01/10/17 03:25 Total Bilirubin 0.30 mg/dL (0.2-1.0) 01/10/17 03:25 AST 19 Units/L (15-37) 01/10/17 03:25 ALT 23 Units/L (12-78) 01/10/17 03:25 Alkaline Phosphatase 58 Units/L (46-116) 01/10/17 03:25 Total Protein 6.5 g/dL (6.4-8.2) 01/10/17 03:25 Albumin 2.7 g/dL (3.4-5.0) L 01/10/17 03:25 Globulin 3.8 g/dL (2.5-4.5) 01/10/17 03:25 Albumin/Globulin Ratio 0.7 Ratio (1.1-2.1) L 01/10/17 03:25 Stl C. diff Tox B Gene Negative (NEGATIVE) 01/07/17 19:18 Stl C. diff [id number] Negative (NEGATIVE) 01/07/17 19:18 Digoxin 1.02 ng/mL (0.9-2) 01/09/17 03:30 - Plan (1) Community acquired pneumonia Status: Acute Qualifiers: Laterality: right Lung location: middle lobe of lung Qualified Code(s): J18.1 - Lobar pneumonia, unspecified organism Plan: ZOSYN IV, LEVAQUIN IV, DUONEBS, MUCOMYST TO NEB [place], SUPPLEMENTAL OXYGEN, ROBITUSSIN DM QID, TUSSIONEX 5ML PO Q12H PRN, MONITOR CHEST XRAY, CONTINUE TO MONITOR PATIENT. (2) Pleurisy without effusion Status: Acute Plan: TORADOL 30MG IV Q6H, CONTINUE TO MONITOR (3) Hypertension Status: Chronic Qualifiers: Hypertension type: essential hypertension Qualified Code(s): I10 - Essential (primary) hypertension Plan: CONTINUE METOPROLOL 25MG PO BID, CONTINUE TO MONITOR (4) Decreased appetite Status: Chronic Plan: CONTINUE MEGACE 20MG PO DAILY, CONTINUE TO MONITOR (5) BPH (benign prostatic hyperplasia) Status: Chronic Qualifiers: Lower urinary tract symptom presence: symptoms present Plan: CONTINUE TAMSULOSIN 0.8MG PO HS, CONTINUE TO MONITOR (6) CAD (coronary artery disease) Status: Chronic Qualifiers: Coronary Disease-Associated Artery/Lesion type: [place] artery [place] vs. transplanted heart: [place] heart Associated angina: without angina Qualified Code(s): I25.10 - Atherosclerotic heart disease of [place] coronary artery without angina pectoris Plan: CONTINUE ASA DAILY, CONTINUE TO MONITOR (7) Diabetes Status: Chronic Qualifiers: Diabetes mellitus type: type 2 Diabetes mellitus complication status: with neurologic complications Diabetes mellitus complication detail: with unspecified neuropathy Diabetes mellitus skilled nursing insulin use: without skilled nursing use Qualified Code(s): E11.40 - Type 2 diabetes mellitus with diabetic neuropathy, unspecified Plan: CONTINUE METFORMIN 500MG BID (8) GERD (gastroesophageal reflux disease) Status: Chronic Qualifiers: Esophagitis presence: esophagitis presence not specified Qualified Code(s) : K21.9 - Gastro-esophageal reflux disease without esophagitis Plan: CONTINUE PROTONIX, CONTINUE TO MONITOR (9) Hyperlipidemia Status: Chronic Qualifiers: Hyperlipidemia type: mixed hyperlipidemia Qualified Code(s): E78.2 - Mixed hyperlipidemia Plan: CONTINUE LIPITOR 40MG PO HS, CONTINUE TO MONITOR (10) Hypoalbuminemia Status: Acute Plan: ALBUMIN 25% IV DAILY, TPN IV, CONTINUE TO MONITOR (11) Diarrhea Status: Acute Qualifiers: Diarrhea type: unspecified type Qualified Code(s): R19.7 - Diarrhea, unspecified Plan: LOMOTIL 1 TAB QID PRN, CONTINUE TO MONITOR (12) Yeast pharyngitis Status: Acute Plan: NYSTAIN SWISH AND SWALLOW 10ML QID, DIFLUCAN 200MG IV DAILY, CONTINUE TO MONITOR
[2017-01-10] MEDS: LIPITOR TAB 40 MG PO SCH (20:52)
[2017-01-10] MEDS: AVODART PO SCH (20:52)
[2017-01-10] MEDS: ZyrTEC TAB 10 MG PO SCH (20:52)
[2017-01-10] MEDS: KLONOPIN TAB 0.5 MG PO SCH (20:52)
[2017-01-10] MEDS: FLOMAX PO SCH (20:52)
[2017-01-10] MEDS: SNACK - Diabetic Appropriate PO SCH (20:53)
[2017-01-11] MEDS: XOPENEX 1.25 MG/3 ML NEBULE NEB SCH ×2 (00:56→05:05)
[2017-01-11] MEDS: MUCOMYST 20% 200 MG/ML NEB SCH ×2 (00:56→05:05)
[2017-01-11] MEDS: Atrovent NEB TX 0.02% NEB SCH ×2 (00:56→05:05)
[2017-01-11 05:18] LABS: BASOPHILS # (AUTO) 0.1 X10^3/uL (0.0-0.1); BASOPHILS % (AUTO) 0.9 % (0.2-1.0); EOSINOPHILS # (AUTO) 0.2 x10^3/uL (0.0-0.2); EOSINOPHILS % (AUTO) 2.4 % (0.9-2.9); HEMATOCRIT 30.3 % (42.0-54.0); HEMOGLOBIN 10.3 g/dL (13.5-18.0); LYMPHOCYTES % (AUTO) 19.1 % (21.0-51.0); MEAN CORPUSCULAR HEMOGLOBIN 28.8 pg (27.0-34.0); MEAN CORPUSCULAR HGB CONC 34.2 g/dL (33.0-35.0); MEAN CORPUSCULAR VOLUME 84.2 fL (80.0-100.0); MEAN PLATELET VOLUME 8.8 fL (7.4-11.0); MONOCYTES # (AUTO) 1.2 x10^3/uL (0.3-0.8); MONOCYTES % (AUTO) 11.3 % (0.0-13.0); NEUTROPHILS # (AUTO) 6.9 x10^3/uL (2.2-4.8); NEUTROPHILS % (AUTO) 66.3 % (42.0-75.0); PLATELET COUNT 312 X10^3/uL (150.0-450.0); RED CELL DISTRIBUTION WIDTH 14.1 % (11.6-16.5); WHITE BLOOD COUNT 10.4 X10^3/uL (3.6-10.0)
[2017-01-11 05:33] LABS: ALANINE AMINOTRANSFERASE 22 Units/L (12-78); ALBUMIN 2.9 g/dL (3.4-5.0); ALKALINE PHOSPHATASE 62 Units/L (46-116); ASPARTATE AMINO TRANSFERASE 17 Units/L (15-37); BLOOD UREA NITROGEN 12 mg/dL (7-18); CARBON DIOXIDE 24.5 mmol/L (21-32); CHLORIDE 105 mmol/L (98-107); COR CA(FOR HYPOALB) 9.9 mg/dL (8.5-10.1); COR NA(FOR HYPERGLY) 139 mmol/L (136-145); CREATININE 0.83 mg/dL (0.70-1.30); SODIUM 139 mmol/L (136-145); TOTAL PROTEIN 6.8 g/dL (6.4-8.2); eGFR BLACK RACES > 60 (>60); eGFR NON BLACK RACES > 60 (>60)
[2017-01-11] MEDS: NEURONTIN CAP 300 MG PO SCH ×3 (05:50→21:13)
[2017-01-11] MEDS: SINGULAIR TAB 10 MG PO SCH (08:44)
[2017-01-11] MEDS: TAB-A-VITE PO SCH (08:44)
[2017-01-11] MEDS: LOPRESSOR TAB 25 MG PO SCH ×2 (08:44→21:15)
[2017-01-11] MEDS: VITAMIN B-12 PO SCH (08:44)
[2017-01-11] MEDS: VSL#3 PO SCH (08:44)
[2017-01-11] MEDS: NYSTATIN SUSP MT SCH ×4 (08:44→21:13)
[2017-01-11] MEDS: PROTONIX TAB 40 MG PO SCH (08:45)
[2017-01-11] MEDS: ROBITUSSIN DM PO SCH ×4 (08:45→21:15)
[2017-01-11] MEDS: PULMICORT NEB TX 0.5 MG NEB SCH ×2 (08:52→20:04)
[2017-01-11] MEDS: DIFLUCAN 200 MG IV PREMIX* 200 MG/100 ML BAG IV SCH (08:52)
[2017-01-11] MEDS: ALBUMIN HUMAN 25%- 100ML 100 ML IV SCH (08:52)
[2017-01-11] MEDS: COLACE CAP 100 MG PO SCH (08:52)
[2017-01-11] MEDS: LANOXIN PO SCH (08:53)
[2017-01-11] MEDS: MEGACE PO SCH (08:53)
[2017-01-11] MEDS: LEVAQUIN PREMIX IV 750 MG 750 MG/150 ML BAG IV SCH (08:53)
[2017-01-11] MEDS: PATIENT'S HOME MEDICATION INH SCH ×2 (10:04→20:07)
[2017-01-11] MEDS ORDERED: XOPENEX 1.25 MG/3 ML NEBULE NEB PRN (10:04)
--- NOTE | 2017-01-11 11:10 | PCM.PROG ---
Progress Note - Progress Note for Day of Date: 01/10/17 - Subjective Subjective: WAS ADMITTED FOR COMMUNITY ACQUIRED PNEUMONIA. TODAY, HE IS ALERT AND ORIENTED, SITTING UP IN BED ON MORNING ROUNDS. PATIENT'S IS AT BEDSIDE. PATIENT CONTINUES WITH PRODUCTIVE COUGH ,SHORNTESS OF BREATH, AND WEAKNESS. ON EXAMINATION, RIGHT UPPER LOBE IS NOTED WITH WHEEZING. LUNG SOUNDS ARE DIMINISHED. ABDOMEN IS SOFT, ROUND, AND NON TENDER. NORMAL BOWEL SOUNDS ARE NOTED IN ALL QUADRANTS. HIS VITAL SIGNS THIS MORNING ARE 98.2-95-19-96%-141/74. A CBC, CMP, AND CHEST XRAY WERE OBTAINED THIS MORNING. ABNORMAL LAB VALUES INCLUDE THE FOLLOWING: WBC 10.4, RBC 3.60, HGB 10.3, HCT 30.3, TOTAL PROTEIN 6.3 , ALBUMIN 2.5. BLOOD CULTURES REPORTS NO GROWTH. A CHEST XRAY WAS OBTAINED AND REPORTED LEFT HILAR MASS CONSISTENT WITH MALIGNANCY, RETICULONODULAR INTERSTITIAL OPACITIES IN MID TO LOWER LUNG ZONES. THESE ARE NONSPECIFIC AN DMAY BE SECONDARY TO CHRONIC INTERSTITIAL CHANGES VERSUS ATYPICAL INFECTION, PROBABLE SKIN FOLD PROJECTED OVER LEFT LUNG APEX. TODAY, WE WILL OBTAIN A CT OF THE CHEST WITH CONTRAST TO FOLLOW UP ON CHEST XRAY RESULTS. OTHERWISE, WE WILL CONTINUE WITH CURRENT PLAN OF CARE AND TREAT FOR PNEUMONIA. WE PLAN TO FOLLOW UP WITH AM LABS AND CHEST XRAY AND CONTINUE TO MONITOR PATIENT. - Past Medical Family Social History Past Med/Fam/Surg Hx: No changes since H&P Allergies: Allergies codeine Allergy (Unknown, Verified 01/04/17 10:57) - Review of Systems ROS: No change since H&P - Vital Signs and I&O's Vital Signs: Temperature 97.9 F Pulse Rate [Left Brachial] 100 Pulse Rate [Right Brachial] 100 Pulse Rate 100 Respiratory Rate 16 Blood Pressure [r arm] 119/72 Blood Pressure [Left Arm] 111/61 Blood Pressure 130/68 O2 Sat by Pulse Oximetry 93 Intake and Output: Intake & Output 01/08/17 01/09/17 01/10/17 01/11/17 11:59 11:59 11:59 11:59 Intake Total 3394 3282 3380 940 Output Total 666 067 4841 1700 Balance 2844 2507 2380 -760 - Physical Exam Oriented: Normal Eyes: Normal Ear: Normal Nose: Normal Throat: Normal Respiratory: Right, Wheezes Cardiovascular: Normal : Normal Auscultation: Bowel Sounds: Normal Palpation: Normal Tenderness: Normal Skin: Normal Musculoskeletal: Right (RIB PAIN, WORSE WHEN COUGHING), Left, Tender Psychiatric: Normal Mood Description: Calm Affect: Normal Speech Pattern: Clear, Appropriate - Laboratory and Diagnostics Result Diagrams: 01/11/17 03:40 01/11/17 03:40 Labs: 01/04/17 12:20 Blood Blood Culture - Final 01/04/17 12:10 Blood Blood Culture - Final 01/04/17 11:30 Sputum - Expectorated Sputum Sputum Culture - Final 01/04/17 11:30 Sputum - Expectorated Sputum - Final Laboratory WBC 10.4 X10^3/uL (3.6-10.0) H 01/11/17 03:40 RBC 3.60 X10^6/uL (4.7-6.0) L 01/11/17 03:40 Hgb 10.3 g/dL (13.5-18.0) L 01/11/17 03:40 Hct 30.3 % (42.0-54.0) L 01/11/17 03:40 MCV 84.2 fL (80.0-100.0) 01/11/17 03:40 MCH 28.8 pg (27.0-34.0) 01/11/17 03:40 MCHC 34.2 g/dL (33.0-35.0) 01/11/17 03:40 RDW 14.1 % (11.6-16.5) 01/11/17 03:40 Plt Count 312 X10^3/uL (150.0-450.0) 01/11/17 03:40 MPV 8.8 fL (7.4-11.0) 01/11/17 03:40 Neut % 66.3 % (42.0-75.0) 01/11/17 03:40 Lymph % 19.1 % (21.0-51.0) L 01/11/17 03:40 [place] % 11.3 % (0.0-13.0) 01/11/17 03:40 Eos % 2.4 % (0.9-2.9) 01/11/17 03:40 Baso % 0.9 % (0.2-1.0) 01/11/17 03:40 Neut # 6.9 x10^3/uL (2.2-4.8) H 01/11/17 03:40 Lymph # 2.0 X10^3/uL (1.3-2.9) 01/11/17 03:40 [place] # 1.2 x10^3/uL (0.3-0.8) H 01/11/17 03:40 Eos # 0.2 x10^3/uL (0.0-0.2) 01/11/17 03:40 Baso # 0.1 X10^3/uL (0.0-0.1) 01/11/17 03:40 Absolute Nucleated RBC 0.0 /100WBC 01/11/17 03:40 Sample Site Rra 01/09/17 21:22 ABG pH 7.470 (7.35-7.45) H 01/09/17 21:22 ABG pCO2 31.0 mmHg (35.0-45.0) L 01/09/17 21:22 ABG pO2 55.0 mmHg (80.0-100.0) L 01/09/17 21:22 ABG HCO3 22.6 mmol/L (22-26) 01/09/17 21:22 ABG O2 Saturation 90.0 % (90-100) 01/09/17 21:22 ABG Base Excess -0.3 mmol/L (-2.0-2.0) 01/09/17 21:22 Alexander Test Pos 01/09/17 21:22 A-a Gradient 134.0 mmHg 01/09/17 21:22 FiO2 32.000 01/09/17 21:22 Blood Gas Comments Yesi well, mm 01/09/17 21:22 Sodium 139 mmol/L (136-145) 01/11/17 03:40 Corrected Sodium 139 mmol/L (136-145) 01/11/17 03:40 Potassium 4.2 mmol/L (3.5-5.1) 01/11/17 03:40 Chloride 105 mmol/L (98-107) 01/11/17 03:40 Carbon Dioxide 24.5 mmol/L (21-32) 01/11/17 03:40 BUN 12 mg/dL (7-18) 01/11/17 03:40 Creatinine 0.83 mg/dL (0.70-1.30) 01/11/17 03:40 Est GFR (MDRD) Af Amer > 60 (>60) 01/11/17 03:40 Est GFR (MDRD) Non-Af > 60 (>60) 01/11/17 03:40 Glucose 115 mg/dL (65-99) H 01/11/17 03:40 POC Glucose (mg/dL) 128 mg/dL (65-99) H 01/11/17 05:33 Calcium 9.0 mg/dL (8.5-10.1) 01/11/17 03:40 Corrected Calcium 9.9 mg/dL (8.5-10.1) 01/11/17 03:40 Total Bilirubin 0.40 mg/dL (0.2-1.0) 01/11/17 03:40 AST 17 Units/L (15-37) 01/11/17 03:40 ALT 22 Units/L (12-78) 01/11/17 03:40 Alkaline Phosphatase 62 Units/L (46-116) 01/11/17 03:40 Total Protein 6.8 g/dL (6.4-8.2) 01/11/17 03:40 Albumin 2.9 g/dL (3.4-5.0) L 01/11/17 03:40 Globulin 3.9 g/dL (2.5-4.5) 01/11/17 03:40 Albumin/Globulin Ratio 0.7 Ratio (1.1-2.1) L 01/11/17 03:40 Stl C. diff Tox B Gene Negative (NEGATIVE) 01/07/17 19:18 Stl C. diff 027-NAP1-BI Negative (NEGATIVE) 01/07/17 19:18 Digoxin 1.02 ng/mL (0.9-2) 01/09/17 03:30 - Plan (1) Community acquired pneumonia Status: Acute Qualifiers: Laterality: right Lung location: middle lobe of lung Qualified Code(s): J18.1 - Lobar pneumonia, unspecified organism Plan: ZOSYN IV, LEVAQUIN IV, DUONEBS, MUCOMYST TO NEB TX, SUPPLEMENTAL OXYGEN, ROBITUSSIN DM QID, TUSSIONEX 5ML PO Q12H PRN, MONITOR CHEST XRAY, CONTINUE TO MONITOR PATIENT. (2) Pleurisy without effusion Status: Acute Plan: TORADOL 30MG IV Q6H, CONTINUE TO MONITOR (3) Hypertension Status: Chronic Qualifiers: Hypertension type: essential hypertension Qualified Code(s): I10 - Essential (primary) hypertension Plan: CONTINUE METOPROLOL 25MG PO BID, CONTINUE TO MONITOR (4) Decreased appetite Status: Chronic Plan: CONTINUE MEGACE 20MG PO DAILY, CONTINUE TO MONITOR (5) BPH (benign prostatic hyperplasia) Status: Chronic Qualifiers: Lower urinary tract symptom presence: symptoms present Plan: CONTINUE TAMSULOSIN 0.8MG PO HS, CONTINUE TO MONITOR (6) CAD (coronary artery disease) Status: Chronic Qualifiers: Coronary Disease-Associated Artery/Lesion type: [place] artery [place] vs. transplanted heart: [place] heart Associated angina: without angina Qualified Code(s): I25.10 - Atherosclerotic heart disease of [place] coronary artery without angina pectoris Plan: CONTINUE ASA DAILY, CONTINUE TO MONITOR (7) Diabetes Status: Chronic Qualifiers: Diabetes mellitus type: type 2 Diabetes mellitus complication status: with neurologic complications Diabetes mellitus complication detail: with unspecified neuropathy Diabetes mellitus watermaster insulin use: without watermaster use Qualified Code(s): E11.40 - Type 2 diabetes mellitus with diabetic neuropathy, unspecified Plan: CONTINUE METFORMIN 500MG BID (8) GERD (gastroesophageal reflux disease) Status: Chronic Qualifiers: Esophagitis presence: esophagitis presence not specified Qualified Code(s) : K21.9 - Gastro-esophageal reflux disease without esophagitis Plan: CONTINUE PROTONIX, CONTINUE TO MONITOR (9) Hyperlipidemia Status: Chronic Qualifiers: Hyperlipidemia type: mixed hyperlipidemia Qualified Code(s): E78.2 - Mixed hyperlipidemia Plan: CONTINUE LIPITOR 40MG PO HS, CONTINUE TO MONITOR (10) Hypoalbuminemia Status: Acute Plan: ALBUMIN 25% IV DAILY, TPN IV, CONTINUE TO MONITOR (11) Diarrhea Status: Acute Qualifiers: Diarrhea type: unspecified type Qualified Code(s): R19.7 - Diarrhea, unspecified Plan: LOMOTIL 1 TAB QID PRN, CONTINUE TO MONITOR (12) Yeast pharyngitis Status: Acute Plan: NYSTAIN SWISH AND SWALLOW 10ML QID, DIFLUCAN 200MG IV DAILY, CONTINUE TO MONITOR
[2017-01-11] MEDS ORDERED: NS 1/2 1000 ML IV 1,000 ML IV ONE (20:36)
[2017-01-11] MEDS: NS 1/2 1000 ML IV 1,000 ML IV SCH (21:12)
[2017-01-11] MEDS: LIPITOR TAB 40 MG PO SCH (21:14)
[2017-01-11] MEDS: ZyrTEC TAB 10 MG PO SCH (21:14)
[2017-01-11] MEDS: AVODART PO SCH (21:14)
[2017-01-11] MEDS: KLONOPIN TAB 0.5 MG PO SCH (21:14)
[2017-01-11] MEDS: FLOMAX PO SCH (21:15)
[2017-01-11] MEDS: MORPHINE SULFATE INJ 2 MG INJ IVP PRN (21:15)
[2017-01-11] MEDS: SNACK - Diabetic Appropriate PO SCH (21:16)
[2017-01-12] MEDS: NEURONTIN CAP 300 MG PO SCH ×3 (05:41→21:19)
[2017-01-12 06:13] LABS: BASOPHILS # (AUTO) 0.1 X10^3/uL (0.0-0.1); BASOPHILS % (AUTO) 0.8 % (0.2-1.0); EOSINOPHILS # (AUTO) 0.5 x10^3/uL (0.0-0.2); HEMATOCRIT 30.3 % (42.0-54.0); HEMOGLOBIN 10.6 g/dL (13.5-18.0); LYMPHOCYTES # (AUTO) 2.3 X10^3/uL (1.3-2.9); LYMPHOCYTES % (AUTO) 22.4 % (21.0-51.0); MEAN CORPUSCULAR HEMOGLOBIN 29.4 pg (27.0-34.0); MEAN CORPUSCULAR HGB CONC 34.8 g/dL (33.0-35.0); MEAN CORPUSCULAR VOLUME 84.4 fL (80.0-100.0); MEAN PLATELET VOLUME 8.6 fL (7.4-11.0); MONOCYTES # (AUTO) 0.9 x10^3/uL (0.3-0.8); MONOCYTES % (AUTO) 9.1 % (0.0-13.0); NEUTROPHILS # (AUTO) 6.6 x10^3/uL (2.2-4.8); NEUTROPHILS % (AUTO) 62.7 % (42.0-75.0); PLATELET COUNT 307 X10^3/uL (150.0-450.0); RED CELL DISTRIBUTION WIDTH 14.3 % (11.6-16.5); WHITE BLOOD COUNT 10.5 X10^3/uL (3.6-10.0)
[2017-01-12 06:20] LABS: ALANINE AMINOTRANSFERASE 30 Units/L (12-78); ALBUMIN 3.2 g/dL (3.4-5.0); ALKALINE PHOSPHATASE 59 Units/L (46-116); ASPARTATE AMINO TRANSFERASE 31 Units/L (15-37); BLOOD UREA NITROGEN 14 mg/dL (7-18); CARBON DIOXIDE 26.1 mmol/L (21-32); CHLORIDE 105 mmol/L (98-107); COR CA(FOR HYPOALB) 9.6 mg/dL (8.5-10.1); CREATININE 0.78 mg/dL (0.70-1.30); SODIUM 139 mmol/L (136-145); eGFR BLACK RACES > 60 (>60); eGFR NON BLACK RACES > 60 (>60)
[2017-01-12] MEDS: NS 1/2 1000 ML IV 1,000 ML IV SCH ×3 (06:56→14:26)
[2017-01-12] MEDS: COLACE CAP 100 MG PO SCH (08:31)
[2017-01-12] MEDS: ALBUMIN HUMAN 25%- 100ML 100 ML IV SCH (08:31)
[2017-01-12] MEDS: DIFLUCAN 200 MG IV PREMIX* 200 MG/100 ML BAG IV SCH (08:31)
[2017-01-12] MEDS: LANOXIN PO SCH (08:32)
[2017-01-12] MEDS: NYSTATIN SUSP MT SCH ×4 (08:33→21:19)
[2017-01-12] MEDS: LOPRESSOR TAB 25 MG PO SCH ×2 (08:33→21:19)
[2017-01-12] MEDS: MEGACE PO SCH (08:33)
[2017-01-12] MEDS: LEVAQUIN PREMIX IV 750 MG 750 MG/150 ML BAG IV SCH (08:33)
[2017-01-12] MEDS: ROBITUSSIN DM PO SCH ×4 (08:34→21:20)
[2017-01-12] MEDS: VITAMIN B-12 PO SCH (08:34)
[2017-01-12] MEDS: SINGULAIR TAB 10 MG PO SCH (08:34)
[2017-01-12] MEDS: VSL#3 PO SCH (08:34)
[2017-01-12] MEDS: TAB-A-VITE PO SCH (08:34)
[2017-01-12] MEDS: PROTONIX TAB 40 MG PO SCH (08:34)
[2017-01-12] MEDS: PULMICORT NEB TX 0.5 MG NEB SCH ×2 (08:55→20:15)
[2017-01-12] MEDS: PATIENT'S HOME MEDICATION INH SCH ×4 (08:56→20:15)
[2017-01-12] MEDS: MORPHINE SULFATE INJ 2 MG INJ IVP PRN (10:45)
[2017-01-12] MEDS: PROCALAMINE 3 % 1,000 ML IV SCH (10:59)
[2017-01-12] MEDS: FLOMAX PO SCH (21:19)
[2017-01-12] MEDS: AVODART PO SCH (21:19)
[2017-01-12] MEDS: ZyrTEC TAB 10 MG PO SCH (21:19)
[2017-01-12] MEDS: SNACK - Diabetic Appropriate PO SCH (21:19)
[2017-01-12] MEDS: LIPITOR TAB 40 MG PO SCH (21:19)
[2017-01-12] MEDS: KLONOPIN TAB 0.5 MG PO SCH (21:19)
--- NOTE | 2017-01-12 23:20 | PCM.PROG ---
Progress Note - Progress Note for Day of Date: 01/11/17 - Subjective Subjective: WAS ADMITTED FOR COMMUNITY ACQUIRED PNEUMONIA. TODAY, HE IS ALERT AND ORIENTED, SITTING UP IN BED ON MORNING ROUNDS. PATIENT'S IS AT BEDSIDE. PATIENT CONTINUES WITH PRODUCTIVE COUGH AND SHORNTESS OF BREATH. ON EXAMINATION, PATIENT CONTINUES WITH WHEEZING TO THE RIGHT UPPER LOBE. LUNG SOUNDS ARE DIMINISHED. ABDOMEN IS SOFT, ROUND, AND NON TENDER. NORMAL BOWEL SOUNDS ARE NOTED IN ALL QUADRANTS. HIS VITAL SIGNS THIS MORNING ARE 97.9-100-16- 93%-119/72. A CBC AND CMP WERE OBTAINED THIS MORNING. ABNORMAL LAB VALUES INCLUDE THE FOLLOWING: WBC 10.4, RBC 3.60, HGB 10.3, HCT 30.3, GLUCOSE 115, ALBUMIN 2.9. BLOOD CULTURES REPORTS NO GROWTH. A CHEST, XRAY WAS OBTAINED AND REPORTED NO SIGNIFICANT CHANGE. WE OBTAINED PATIENTS LAST CT REPORT FROM [facility] IN [place]. WE COMPARED IT TO CHEST XRAY THAT WAS OBTAINED YESTERDAY. WHEN COMPARED, THERE APPEARS TO BE NO CHANGE IN RESULTS OF SCANS. TODAY, WE WILL CONTINUE WITH CURRENT PLAN OF CARE AND CONTINUE TO TREAT FOR PNEUMONIA. WE PLAN TO FOLLOW UP WITH AM LABS AND CHEST XRAY AND CONTINUE TO MONITOR PATIENT. - Past Medical Family Social History Past Med/Fam/Surg Hx: No changes since H&P Allergies: Allergies codeine Allergy (Unknown, Verified 01/04/17 10:57) - Review of Systems ROS: No change since H&P - Vital Signs and I&O's Vital Signs: Temperature 98.1 F Pulse Rate [Left Brachial] 89 Pulse Rate [Right Brachial] 97 Pulse Rate 91 Respiratory Rate 18 Blood Pressure [r arm] 153/81 Blood Pressure [Left Arm] 141/71 Blood Pressure 130/68 O2 Sat by Pulse Oximetry 92 Intake and Output: Intake & Output 01/10/17 01/11/17 01/12/17 01/13/17 11:59 11:59 11:59 11:59 Intake Total 3380 940 1450 720 Output Total 1000 1700 1325 1000 Balance 2380 -760 125 -280 - Physical Exam Oriented: Normal Eyes: Normal Ear: Normal Nose: Normal Throat: Normal Respiratory: Right, Wheezes Cardiovascular: Normal : Normal Auscultation: Bowel Sounds: Normal Palpation: Normal Tenderness: Normal Skin: Normal Musculoskeletal: Right (RIB PAIN, WORSE WHEN COUGHING), Left, Tender Psychiatric: Normal Mood Description: Calm Affect: Normal Speech Pattern: Clear, Appropriate - Laboratory and Diagnostics Result Diagrams: 01/12/17 03:58 01/12/17 03:58 Labs: 01/04/17 12:20 Blood Blood Culture - Final 01/04/17 12:10 Blood Blood Culture - Final 01/04/17 11:30 Sputum - Expectorated Sputum Sputum Culture - Final 01/04/17 11:30 Sputum - Expectorated Sputum - Final Laboratory WBC 10.5 X10^3/uL (3.6-10.0) H 01/12/17 03:58 RBC 3.60 X10^6/uL (4.7-6.0) L 01/12/17 03:58 Hgb 10.6 g/dL (13.5-18.0) L 01/12/17 03:58 Hct 30.3 % (42.0-54.0) L 01/12/17 03:58 MCV 84.4 fL (80.0-100.0) 01/12/17 03:58 MCH 29.4 pg (27.0-34.0) 01/12/17 03:58 MCHC 34.8 g/dL (33.0-35.0) 01/12/17 03:58 RDW 14.3 % (11.6-16.5) 01/12/17 03:58 Plt Count 307 X10^3/uL (150.0-450.0) 01/12/17 03:58 MPV 8.6 fL (7.4-11.0) 01/12/17 03:58 Neut % 62.7 % (42.0-75.0) 01/12/17 03:58 Lymph % 22.4 % (21.0-51.0) 01/12/17 03:58 [place] % 9.1 % (0.0-13.0) 01/12/17 03:58 Eos % 5.0 % (0.9-2.9) H 01/12/17 03:58 Baso % 0.8 % (0.2-1.0) 01/12/17 03:58 Neut # 6.6 x10^3/uL (2.2-4.8) H 01/12/17 03:58 Lymph # 2.3 X10^3/uL (1.3-2.9) 01/12/17 03:58 [place] # 0.9 x10^3/uL (0.3-0.8) H 01/12/17 03:58 Eos # 0.5 x10^3/uL (0.0-0.2) H 01/12/17 03:58 Baso # 0.1 X10^3/uL (0.0-0.1) 01/12/17 03:58 Absolute Nucleated RBC 0.1 /100WBC 01/12/17 03:58 Sample Site Rra 01/09/17 21:22 ABG pH 7.470 (7.35-7.45) H 01/09/17 21:22 ABG pCO2 31.0 mmHg (35.0-45.0) L 01/09/17 21:22 ABG pO2 55.0 mmHg (80.0-100.0) L 01/09/17 21:22 ABG HCO3 22.6 mmol/L (22-26) 01/09/17 21:22 ABG O2 Saturation 90.0 % (90-100) 01/09/17 21:22 ABG Base Excess -0.3 mmol/L (-2.0-2.0) 01/09/17 21:22 Alexander Test Pos 01/09/17 21:22 A-a Gradient 134.0 mmHg 01/09/17 21:22 FiO2 32.000 01/09/17 21:22 Blood Gas Comments Yesi well, mm 01/09/17 21:22 Sodium 139 mmol/L (136-145) 01/12/17 03:58 Corrected Sodium TNP 01/12/17 03:58 Potassium 4.2 mmol/L (3.5-5.1) 01/12/17 03:58 Chloride 105 mmol/L (98-107) 01/12/17 03:58 Carbon Dioxide 26.1 mmol/L (21-32) 01/12/17 03:58 BUN 14 mg/dL (7-18) 01/12/17 03:58 Creatinine 0.78 mg/dL (0.70-1.30) 01/12/17 03:58 Est GFR (MDRD) Af Amer > 60 (>60) 01/12/17 03:58 Est GFR (MDRD) Non-Af > 60 (>60) 01/12/17 03:58 Glucose 106 mg/dL (65-99) H 01/12/17 03:58 POC Glucose (mg/dL) 146 mg/dL (65-99) H 01/12/17 20:27 Calcium 9.0 mg/dL (8.5-10.1) 01/12/17 03:58 Corrected Calcium 9.6 mg/dL (8.5-10.1) 01/12/17 03:58 Total Bilirubin 0.30 mg/dL (0.2-1.0) 01/12/17 03:58 AST 31 Units/L (15-37) 01/12/17 03:58 ALT 30 Units/L (12-78) 01/12/17 03:58 Alkaline Phosphatase 59 Units/L (46-116) 01/12/17 03:58 Total Protein 7.0 g/dL (6.4-8.2) 01/12/17 03:58 Albumin 3.2 g/dL (3.4-5.0) L 01/12/17 03:58 Globulin 3.8 g/dL (2.5-4.5) 01/12/17 03:58 Albumin/Globulin Ratio 0.8 Ratio (1.1-2.1) L 01/12/17 03:58 Stl C. diff Tox B Gene Negative (NEGATIVE) 01/07/17 19:18 Stl C. diff 027-NAP1-BI Negative (NEGATIVE) 01/07/17 19:18 Digoxin 1.02 ng/mL (0.9-2) 01/09/17 03:30 - Plan (1) Community acquired pneumonia Status: Acute Qualifiers: Laterality: right Lung location: middle lobe of lung Qualified Code(s): J18.1 - Lobar pneumonia, unspecified organism Plan: ZOSYN IV, LEVAQUIN IV, DUONEBS, MUCOMYST TO NEB [place], SUPPLEMENTAL OXYGEN, ROBITUSSIN DM QID, TUSSIONEX 5ML PO Q12H PRN, MONITOR CHEST XRAY, CONTINUE TO MONITOR PATIENT. (2) Pleurisy without effusion Status: Acute Plan: TORADOL 30MG IV Q6H, CONTINUE TO MONITOR (3) Hypertension Status: Chronic Qualifiers: Hypertension type: essential hypertension Qualified Code(s): I10 - Essential (primary) hypertension Plan: CONTINUE METOPROLOL 25MG PO BID, CONTINUE TO MONITOR (4) Decreased appetite Status: Chronic Plan: CONTINUE MEGACE 20MG PO DAILY, CONTINUE TO MONITOR (5) BPH (benign prostatic hyperplasia) Status: Chronic Qualifiers: Lower urinary tract symptom presence: symptoms present Plan: CONTINUE TAMSULOSIN 0.8MG PO HS, CONTINUE TO MONITOR (6) CAD (coronary artery disease) Status: Chronic Qualifiers: Coronary Disease-Associated Artery/Lesion type: [place] artery [place] vs. transplanted heart: [place] heart Associated angina: without angina Qualified Code(s): I25.10 - Atherosclerotic heart disease of [place] coronary artery without angina pectoris Plan: CONTINUE ASA DAILY, CONTINUE TO MONITOR (7) Diabetes Status: Chronic Qualifiers: Diabetes mellitus type: type 2 Diabetes mellitus complication status: with neurologic complications Diabetes mellitus complication detail: with unspecified neuropathy Diabetes mellitus long term care social worker insulin use: without residential use Qualified Code(s): E11.40 - Type 2 diabetes mellitus with diabetic neuropathy, unspecified Plan: CONTINUE METFORMIN 500MG BID (8) GERD (gastroesophageal reflux disease) Status: Chronic Qualifiers: Esophagitis presence: esophagitis presence not specified Qualified Code(s) : K21.9 - Gastro-esophageal reflux disease without esophagitis Plan: CONTINUE PROTONIX, CONTINUE TO MONITOR (9) Hyperlipidemia Status: Chronic Qualifiers: Hyperlipidemia type: mixed hyperlipidemia Qualified Code(s): E78.2 - Mixed hyperlipidemia Plan: CONTINUE LIPITOR 40MG PO HS, CONTINUE TO MONITOR (10) Hypoalbuminemia Status: Acute Plan: ALBUMIN 25% IV DAILY, TPN IV, CONTINUE TO MONITOR (11) Diarrhea Status: Acute Qualifiers: Diarrhea type: unspecified type Qualified Code(s): R19.7 - Diarrhea, unspecified Plan: LOMOTIL 1 TAB QID PRN, CONTINUE TO MONITOR (12) Yeast pharyngitis Status: Acute Plan: NYSTAIN SWISH AND SWALLOW 10ML QID, DIFLUCAN 200MG IV DAILY, CONTINUE TO MONITOR
[2017-01-13 05:43] LABS: ALANINE AMINOTRANSFERASE 31 Units/L (12-78); ALBUMIN 3.4 g/dL (3.4-5.0); ALKALINE PHOSPHATASE 61 Units/L (46-116); ASPARTATE AMINO TRANSFERASE 25 Units/L (15-37); BLOOD UREA NITROGEN 13 mg/dL (7-18); CALCIUM 9.4 mg/dL (8.5-10.1); CHLORIDE 104 mmol/L (98-107); CREATININE 0.82 mg/dL (0.70-1.30); SODIUM 140 mmol/L (136-145); TOTAL PROTEIN 7.4 g/dL (6.4-8.2); eGFR BLACK RACES > 60 (>60); eGFR NON BLACK RACES > 60 (>60)
[2017-01-13] MEDS: NEURONTIN CAP 300 MG PO SCH ×3 (05:52→21:05)
[2017-01-13] MEDS: NS 1/2 1000 ML IV 1,000 ML IV SCH ×3 (05:52→18:07)
[2017-01-13 06:06] LABS: BASOPHILS # (AUTO) 0.1 X10^3/uL (0.0-0.1); EOSINOPHILS # (AUTO) 0.5 x10^3/uL (0.0-0.2); EOSINOPHILS % (AUTO) 4.7 % (0.9-2.9); HEMATOCRIT 31.7 % (42.0-54.0); HEMOGLOBIN 10.9 g/dL (13.5-18.0); LYMPHOCYTES # (AUTO) 2.5 X10^3/uL (1.3-2.9); LYMPHOCYTES % (AUTO) 21.9 % (21.0-51.0); MEAN CORPUSCULAR HGB CONC 34.4 g/dL (33.0-35.0); MEAN CORPUSCULAR VOLUME 84.3 fL (80.0-100.0); MEAN PLATELET VOLUME 8.6 fL (7.4-11.0); MONOCYTES # (AUTO) 1.2 x10^3/uL (0.3-0.8); MONOCYTES % (AUTO) 10.1 % (0.0-13.0); NEUTROPHILS # (AUTO) 7.2 x10^3/uL (2.2-4.8); NEUTROPHILS % (AUTO) 62.3 % (42.0-75.0); PLATELET COUNT 350 X10^3/uL (150.0-450.0); RED BLOOD COUNT 3.76 X10^6/uL (4.7-6.0); RED CELL DISTRIBUTION WIDTH 14.2 % (11.6-16.5); WHITE BLOOD COUNT 11.5 X10^3/uL (3.6-10.0)
[2017-01-13] MEDS: ALBUMIN HUMAN 25%- 100ML 100 ML IV SCH (08:10)
[2017-01-13] MEDS: COLACE CAP 100 MG PO SCH (08:10)
[2017-01-13] MEDS: DIFLUCAN 200 MG IV PREMIX* 200 MG/100 ML BAG IV SCH (08:11)
[2017-01-13] MEDS: GLUCOPHAGE PO SCH ×2 (08:12→20:24)
[2017-01-13] MEDS: LANOXIN PO SCH (08:12)
[2017-01-13] MEDS: PROTONIX TAB 40 MG PO SCH (08:13)
[2017-01-13] MEDS: NYSTATIN SUSP MT SCH ×4 (08:13→21:18)
[2017-01-13] MEDS: LOPRESSOR TAB 25 MG PO SCH ×2 (08:13→20:24)
[2017-01-13] MEDS: MEGACE PO SCH (08:13)
[2017-01-13] MEDS: LEVAQUIN PREMIX IV 750 MG 750 MG/150 ML BAG IV SCH (08:13)
[2017-01-13] MEDS: ROBITUSSIN DM PO SCH ×5 (08:14→20:23)
[2017-01-13] MEDS: VITAMIN B-12 PO SCH (08:22)
[2017-01-13] MEDS: TAB-A-VITE PO SCH (08:22)
[2017-01-13] MEDS: SINGULAIR TAB 10 MG PO SCH (08:22)
[2017-01-13] MEDS: VSL#3 PO SCH (08:22)
[2017-01-13] MEDS ORDERED: GLUCOPHAGE ONE ×2 (09:05→19:57)
[2017-01-13] MEDS: SOLU-Medrol 40 MG VIAL IVP SCH ×3 (09:08→21:05)
[2017-01-13] MEDS: PROCALAMINE 3 % 1,000 ML IV SCH (09:11)
[2017-01-13] MEDS: PULMICORT NEB TX 0.5 MG NEB SCH ×2 (09:17→20:59)
[2017-01-13] MEDS: PATIENT'S HOME MEDICATION INH SCH ×4 (09:19→21:00)
[2017-01-13] MEDS ORDERED: NS 1/2 1000 ML IV 1,000 ML IV ONE (14:34)
[2017-01-13] MEDS: HumuLIN R SUBCUT PRN ×2 (17:05→20:41)
[2017-01-13] MEDS ORDERED: SNACK - Diabetic Appropriate PO SCH (20:00)
[2017-01-13] MEDS: FLOMAX PO SCH (20:23)
[2017-01-13] MEDS: KLONOPIN TAB 0.5 MG PO SCH (20:23)
[2017-01-13] MEDS: ZyrTEC TAB 10 MG PO SCH (20:24)
[2017-01-13] MEDS: AVODART PO SCH (20:24)
[2017-01-13] MEDS: LIPITOR TAB 40 MG PO SCH (20:24)
[2017-01-13] MEDS: SNACK - Diabetic Appropriate PO SCH (20:35)
[2017-01-14 04:31] LABS: BASOPHILS % (AUTO) 0.2 % (0.2-1.0); HEMATOCRIT 33.2 % (42.0-54.0); HEMOGLOBIN 11.2 g/dL (13.5-18.0); LYMPHOCYTES # (AUTO) 1.5 X10^3/uL (1.3-2.9); LYMPHOCYTES % (AUTO) 11.4 % (21.0-51.0); MEAN CORPUSCULAR HEMOGLOBIN 28.4 pg (27.0-34.0); MEAN CORPUSCULAR HGB CONC 33.6 g/dL (33.0-35.0); MEAN CORPUSCULAR VOLUME 84.5 fL (80.0-100.0); MEAN PLATELET VOLUME 8.5 fL (7.4-11.0); MONOCYTES # (AUTO) 0.3 x10^3/uL (0.3-0.8); MONOCYTES % (AUTO) 2.3 % (0.0-13.0); NEUTROPHILS # (AUTO) 11.6 x10^3/uL (2.2-4.8); NEUTROPHILS % (AUTO) 86.1 % (42.0-75.0); PLATELET COUNT 376 X10^3/uL (150.0-450.0); RED BLOOD COUNT 3.93 X10^6/uL (4.7-6.0); RED CELL DISTRIBUTION WIDTH 14.2 % (11.6-16.5); WHITE BLOOD COUNT 13.4 X10^3/uL (3.6-10.0)
[2017-01-14 04:45] LABS: ALANINE AMINOTRANSFERASE 37 Units/L (12-78); ALBUMIN 3.7 g/dL (3.4-5.0); ALKALINE PHOSPHATASE 64 Units/L (46-116); ASPARTATE AMINO TRANSFERASE 28 Units/L (15-37); BLOOD UREA NITROGEN 19 mg/dL (7-18); CARBON DIOXIDE 24.4 mmol/L (21-32); CHLORIDE 102 mmol/L (98-107); COR NA(FOR HYPERGLY) 140 mmol/L (136-145); SODIUM 138 mmol/L (136-145); TOTAL PROTEIN 7.9 g/dL (6.4-8.2); eGFR BLACK RACES > 60 (>60); eGFR NON BLACK RACES > 60 (>60)
[2017-01-14] MEDS: NEURONTIN CAP 300 MG PO SCH ×3 (05:33→21:31)
[2017-01-14] MEDS: SOLU-Medrol 40 MG VIAL IVP SCH (05:33)
[2017-01-14] MEDS ORDERED: GLUCOPHAGE ONE ×2 (08:21→20:34)
[2017-01-14] MEDS: ALBUMIN HUMAN 25%- 100ML 100 ML IV SCH (08:33)
[2017-01-14] MEDS: MEGACE PO SCH (08:36)
[2017-01-14] MEDS: VSL#3 PO SCH (08:36)
[2017-01-14] MEDS: COLACE CAP 100 MG PO SCH (08:36)
[2017-01-14] MEDS: LANOXIN PO SCH (08:37)
[2017-01-14] MEDS: TAB-A-VITE PO SCH (08:37)
[2017-01-14] MEDS: ROBITUSSIN DM PO SCH ×5 (08:37→21:30)
[2017-01-14] MEDS: GLUCOPHAGE PO SCH ×2 (08:38→21:31)
[2017-01-14] MEDS: LOPRESSOR TAB 25 MG PO SCH ×2 (08:38→21:34)
[2017-01-14] MEDS: SINGULAIR TAB 10 MG PO SCH (08:38)
[2017-01-14] MEDS: PROTONIX TAB 40 MG PO SCH (08:38)
[2017-01-14] MEDS: NYSTATIN SUSP MT SCH ×4 (08:38→21:35)
[2017-01-14] MEDS: VITAMIN B-12 PO SCH (08:38)
--- NOTE | 2017-01-14 08:54 | PCM.PROG ---
Progress Note - Progress Note for Day of Date: 01/12/17 - Subjective Subjective: WAS ADMITTED FOR COMMUNITY ACQUIRED PNEUMONIA. TODAY, HE IS ALERT AND ORIENTED, SITTING UP IN BED ON MORNING ROUNDS. PATIENT'S IS AT BEDSIDE. PATIENT CONTINUES WITH PRODUCTIVE COUGH AND SHORNTESS OF BREATH. HE REPORTS INCREASING SHORTNESS OF BREATH SINCE YESTERDAY. HE REPORTS THAT THE RESPIRATORY DISTRESS IS WORSE WHEN HE AMBULATES. ON EXAMINATION, PATIENT CONTINUES WITH WHEEZING TO THE RIGHT UPPER LOBE. LUNG SOUNDS ARE DIMINISHED. ABDOMEN IS SOFT, ROUND, AND NON TENDER. NORMAL BOWEL SOUNDS ARE NOTED IN ALL QUADRANTS. HIS VITAL SIGNS THIS MORNING ARE 98.0-84-20-97%-143/77. A CBC AND CMP WERE OBTAINED THIS MORNING. ABNORMAL LAB VALUES INCLUDE THE FOLLOWING: WBC 10.5, RBC 3.60, HGB 10.6, HCT 30.3, GLUCOSE 106, ALBUMIN 3.2. BLOOD CULTURES REPORTS NO GROWTH. TODAY, WE WILL CONTINUE WITH CURRENT PLAN OF CARE AND CONTINUE TO TREAT FOR PNEUMONIA. HE HAS NEB TREATMENTS PRN AND INHALERS FOR SCHEDULED USE. WE PLAN TO FOLLOW UP WITH AM LABS AND CHEST XRAY AND CONTINUE TO MONITOR PATIENT. - Past Medical Family Social History Past Med/Fam/Surg Hx: No changes since H&P Allergies: Allergies codeine Allergy (Unknown, Verified 01/04/17 10:57) - Review of Systems ROS: No change since H&P - Vital Signs and I&O's Vital Signs: Temperature 98.5 F Pulse Rate [Left Brachial] 86 Pulse Rate [Right Brachial] 94 Pulse Rate 92 Respiratory Rate 20 Blood Pressure [r arm] 139/70 Blood Pressure [Left Arm] 129/69 Blood Pressure 130/68 O2 Sat by Pulse Oximetry 96 Intake and Output: Intake & Output 01/11/17 01/12/17 01/13/17 01/14/17 11:59 11:59 11:59 11:59 Intake Total 940 1450 2160 2290 Output Total 1700 1325 2500 2400 Balance -760 125 -340 -110 - Physical Exam Oriented: Normal Eyes: Normal Ear: Normal Nose: Normal Throat: Normal Respiratory: Right, Wheezes Cardiovascular: Normal : Normal Auscultation: Bowel Sounds: Normal Palpation: Normal Tenderness: Normal Skin: Normal Musculoskeletal: Right (RIB PAIN, WORSE WHEN COUGHING), Left, Tender Psychiatric: Normal Mood Description: Calm Affect: Normal Speech Pattern: Clear, Appropriate - Laboratory and Diagnostics Result Diagrams: 01/14/17 03:53 01/14/17 03:53 Labs: 01/04/17 12:20 Blood Blood Culture - Final 01/04/17 12:10 Blood Blood Culture - Final 01/04/17 11:30 Sputum - Expectorated Sputum Sputum Culture - Final 01/04/17 11:30 Sputum - Expectorated Sputum - Final Laboratory WBC 13.4 X10^3/uL (3.6-10.0) H 01/14/17 03:53 RBC 3.93 X10^6/uL (4.7-6.0) L 01/14/17 03:53 Hgb 11.2 g/dL (13.5-18.0) L 01/14/17 03:53 Hct 33.2 % (42.0-54.0) L 01/14/17 03:53 MCV 84.5 fL (80.0-100.0) 01/14/17 03:53 MCH 28.4 pg (27.0-34.0) 01/14/17 03:53 MCHC 33.6 g/dL (33.0-35.0) 01/14/17 03:53 RDW 14.2 % (11.6-16.5) 01/14/17 03:53 Plt Count 376 X10^3/uL (150.0-450.0) 01/14/17 03:53 MPV 8.5 fL (7.4-11.0) 01/14/17 03:53 Neut % 86.1 % (42.0-75.0) H 01/14/17 03:53 Lymph % 11.4 % (21.0-51.0) L 01/14/17 03:53 [place] % 2.3 % (0.0-13.0) 01/14/17 03:53 Eos % 0.0 % (0.9-2.9) L 01/14/17 03:53 Baso % 0.2 % (0.2-1.0) 01/14/17 03:53 Neut # 11.6 x10^3/uL (2.2-4.8) H 01/14/17 03:53 Lymph # 1.5 X10^3/uL (1.3-2.9) 01/14/17 03:53 [place] # 0.3 x10^3/uL (0.3-0.8) 01/14/17 03:53 Eos # 0.0 x10^3/uL (0.0-0.2) 01/14/17 03:53 Baso # 0.0 X10^3/uL (0.0-0.1) 01/14/17 03:53 Absolute Nucleated RBC 0.0 /100WBC 01/14/17 03:53 Sample Site Rra 01/09/17 21:22 ABG pH 7.470 (7.35-7.45) H 01/09/17 21:22 ABG pCO2 31.0 mmHg (35.0-45.0) L 01/09/17 21:22 ABG pO2 55.0 mmHg (80.0-100.0) L 01/09/17 21:22 ABG HCO3 22.6 mmol/L (22-26) 01/09/17 21:22 ABG O2 Saturation 90.0 % (90-100) 01/09/17 21:22 ABG Base Excess -0.3 mmol/L (-2.0-2.0) 01/09/17 21:22 Alexander Test Pos 01/09/17 21:22 A-a Gradient 134.0 mmHg 01/09/17 21:22 FiO2 32.000 01/09/17 21:22 Blood Gas Comments Yesi well, mm 01/09/17 21:22 Sodium 138 mmol/L (136-145) 01/14/17 03:53 Corrected Sodium 140 mmol/L (136-145) 01/14/17 03:53 Potassium 4.9 mmol/L (3.5-5.1) 01/14/17 03:53 Chloride 102 mmol/L (98-107) 01/14/17 03:53 Carbon Dioxide 24.4 mmol/L (21-32) 01/14/17 03:53 BUN 19 mg/dL (7-18) H 01/14/17 03:53 Creatinine 0.90 mg/dL (0.70-1.30) 01/14/17 03:53 Est GFR (MDRD) Af Amer > 60 (>60) 01/14/17 03:53 Est GFR (MDRD) Non-Af > 60 (>60) 01/14/17 03:53 Glucose 181 mg/dL (65-99) H 01/14/17 03:53 POC Glucose (mg/dL) 197 mg/dL (65-99) H 01/14/17 05:38 Calcium 10.0 mg/dL (8.5-10.1) 01/14/17 03:53 Corrected Calcium TNP 01/14/17 03:53 Total Bilirubin 0.30 mg/dL (0.2-1.0) 01/14/17 03:53 AST 28 Units/L (15-37) 01/14/17 03:53 ALT 37 Units/L (12-78) 01/14/17 03:53 Alkaline Phosphatase 64 Units/L (46-116) 01/14/17 03:53 Total Protein 7.9 g/dL (6.4-8.2) 01/14/17 03:53 Albumin 3.7 g/dL (3.4-5.0) 01/14/17 03:53 Globulin 4.2 g/dL (2.5-4.5) 01/14/17 03:53 Albumin/Globulin Ratio 0.9 Ratio (1.1-2.1) L 01/14/17 03:53 Stl C. diff Tox B Gene Negative (NEGATIVE) 01/07/17 19:18 Stl C. diff 027-NAP1-BI Negative (NEGATIVE) 01/07/17 19:18 Digoxin 1.14 ng/mL (0.9-2) 01/14/17 03:53 - Plan (1) Community acquired pneumonia Status: Acute Qualifiers: Laterality: right Lung location: middle lobe of lung Qualified Code(s): J18.1 - Lobar pneumonia, unspecified organism Plan: ZOSYN IV, LEVAQUIN IV, DUONEBS, MUCOMYST TO NEB [place], SUPPLEMENTAL OXYGEN, ROBITUSSIN DM QID, TUSSIONEX 5ML PO Q12H PRN, MONITOR CHEST XRAY, CONTINUE TO MONITOR PATIENT. (2) Pleurisy without effusion Status: Acute Plan: TORADOL 30MG IV Q6H, CONTINUE TO MONITOR (3) Hypertension Status: Chronic Qualifiers: Hypertension type: essential hypertension Qualified Code(s): I10 - Essential (primary) hypertension Plan: CONTINUE METOPROLOL 25MG PO BID, CONTINUE TO MONITOR (4) Decreased appetite Status: Chronic Plan: CONTINUE MEGACE 20MG PO DAILY, CONTINUE TO MONITOR (5) BPH (benign prostatic hyperplasia) Status: Chronic Qualifiers: Lower urinary tract symptom presence: symptoms present Plan: CONTINUE TAMSULOSIN 0.8MG PO HS, CONTINUE TO MONITOR (6) CAD (coronary artery disease) Status: Chronic Qualifiers: Coronary Disease-Associated Artery/Lesion type: [place] artery [place] vs. transplanted heart: [place] heart Associated angina: without angina Qualified Code(s): I25.10 - Atherosclerotic heart disease of [place] coronary artery without angina pectoris Plan: CONTINUE ASA DAILY, CONTINUE TO MONITOR (7) Diabetes Status: Chronic Qualifiers: Diabetes mellitus type: type 2 Diabetes mellitus complication status: with neurologic complications Diabetes mellitus complication detail: with unspecified neuropathy Diabetes mellitus intermediate project manager insulin use: without fpc use Qualified Code(s): E11.40 - Type 2 diabetes mellitus with diabetic neuropathy, unspecified Plan: CONTINUE METFORMIN 500MG BID (8) GERD (gastroesophageal reflux disease) Status: Chronic Qualifiers: Esophagitis presence: esophagitis presence not specified Qualified Code(s) : K21.9 - Gastro-esophageal reflux disease without esophagitis Plan: CONTINUE PROTONIX, CONTINUE TO MONITOR (9) Hyperlipidemia Status: Chronic Qualifiers: Hyperlipidemia type: mixed hyperlipidemia Qualified Code(s): E78.2 - Mixed hyperlipidemia Plan: CONTINUE LIPITOR 40MG PO HS, CONTINUE TO MONITOR (10) Hypoalbuminemia Status: Acute Plan: ALBUMIN 25% IV DAILY, TPN IV, CONTINUE TO MONITOR (11) Diarrhea Status: Acute Qualifiers: Diarrhea type: unspecified type Qualified Code(s): R19.7 - Diarrhea, unspecified Plan: LOMOTIL 1 TAB QID PRN, CONTINUE TO MONITOR (12) Yeast pharyngitis Status: Acute Plan: NYSTAIN SWISH AND SWALLOW 10ML QID, DIFLUCAN 200MG IV DAILY, CONTINUE TO MONITOR
[2017-01-14] MEDS: PULMICORT NEB TX 0.5 MG NEB SCH ×2 (09:00→20:01)
[2017-01-14] MEDS: PATIENT'S HOME MEDICATION INH SCH (09:00)
[2017-01-14] MEDS: NS 1/2 1000 ML IV 1,000 ML IV SCH ×2 (09:09→23:30)
[2017-01-14] MEDS: DIFLUCAN 200 MG IV PREMIX* 200 MG/100 ML BAG IV SCH (09:16)
[2017-01-14] MEDS ORDERED: PATIENT'S HOME MEDICATION INH SCH (10:00)
[2017-01-14] MEDS: LEVAQUIN PREMIX IV 750 MG 750 MG/150 ML BAG IV SCH (10:17)
[2017-01-14] MEDS ORDERED: PATIENT'S HOME MEDICATION PO SCH ×3 (11:00→21:00)
[2017-01-14] MEDS: HumuLIN R SUBCUT PRN ×3 (11:16→21:33)
[2017-01-14] MEDS: SOLU-Medrol 125 MG VIAL IVP SCH ×2 (13:15→21:32)
[2017-01-14] MEDS: PROCALAMINE 3 % 1,000 ML IV SCH (13:22)
[2017-01-14] MEDS: COMBIVENT RESPIMAT IN SCH ×3 (13:49→20:02)
[2017-01-14] MEDS: SNACK - Diabetic Appropriate PO SCH (21:30)
[2017-01-14] MEDS: FLOMAX PO SCH (21:31)
[2017-01-14] MEDS: LIPITOR TAB 40 MG PO SCH (21:32)
[2017-01-14] MEDS: AVODART PO SCH (21:32)
[2017-01-14] MEDS: ZyrTEC TAB 10 MG PO SCH (21:32)
[2017-01-14] MEDS: KLONOPIN TAB 0.5 MG PO SCH (21:33)
[2017-01-15 05:16] LABS: BASOPHILS % (AUTO) 0.1 % (0.2-1.0); HEMOGLOBIN 11.1 g/dL (13.5-18.0); LYMPHOCYTES # (AUTO) 1.8 X10^3/uL (1.3-2.9); LYMPHOCYTES % (AUTO) 8.9 % (21.0-51.0); MEAN CORPUSCULAR HEMOGLOBIN 28.5 pg (27.0-34.0); MEAN CORPUSCULAR HGB CONC 33.5 g/dL (33.0-35.0); MEAN PLATELET VOLUME 8.7 fL (7.4-11.0); MONOCYTES # (AUTO) 0.5 x10^3/uL (0.3-0.8); MONOCYTES % (AUTO) 2.6 % (0.0-13.0); NEUTROPHILS # (AUTO) 17.7 x10^3/uL (2.2-4.8); NEUTROPHILS % (AUTO) 88.4 % (42.0-75.0); PLATELET COUNT 382 X10^3/uL (150.0-450.0); RED BLOOD COUNT 3.88 X10^6/uL (4.7-6.0); RED CELL DISTRIBUTION WIDTH 14.3 % (11.6-16.5)
[2017-01-15 05:31] LABS: ALANINE AMINOTRANSFERASE 27 Units/L (12-78); ALBUMIN 3.6 g/dL (3.4-5.0); ALKALINE PHOSPHATASE 53 Units/L (46-116); ASPARTATE AMINO TRANSFERASE 15 Units/L (15-37); BLOOD UREA NITROGEN 24 mg/dL (7-18); CALCIUM 9.7 mg/dL (8.5-10.1); CARBON DIOXIDE 22.6 mmol/L (21-32); CHLORIDE 100 mmol/L (98-107); COR NA(FOR HYPERGLY) 140 mmol/L (136-145); CREATININE 0.97 mg/dL (0.70-1.30); SODIUM 137 mmol/L (136-145); TOTAL PROTEIN 7.5 g/dL (6.4-8.2); eGFR BLACK RACES > 60 (>60); eGFR NON BLACK RACES > 60 (>60)
[2017-01-15] MEDS: SOLU-Medrol 125 MG VIAL IVP SCH (06:01)
[2017-01-15] MEDS: NEURONTIN CAP 300 MG PO SCH (06:01)
[2017-01-15] MEDS: HumuLIN R SUBCUT PRN (06:02)
[2017-01-15 07:48] VITALS: BP 145/79
[2017-01-15] MEDS ORDERED: GLUCOPHAGE ONE (08:07)
[2017-01-15] MEDS: LEVAQUIN PREMIX IV 750 MG 750 MG/150 ML BAG IV SCH (08:15)
[2017-01-15] MEDS: DIFLUCAN 200 MG IV PREMIX* 200 MG/100 ML BAG IV SCH (08:15)
[2017-01-15] MEDS: LOPRESSOR TAB 25 MG PO SCH (08:15)
[2017-01-15] MEDS: VSL#3 PO SCH (08:15)
[2017-01-15] MEDS: ALBUMIN HUMAN 25%- 100ML 100 ML IV SCH (08:15)
[2017-01-15] MEDS: GLUCOPHAGE PO SCH (08:15)
[2017-01-15] MEDS: SINGULAIR TAB 10 MG PO SCH (08:15)
[2017-01-15] MEDS: COLACE CAP 100 MG PO SCH (08:15)
[2017-01-15] MEDS: LANOXIN PO SCH (08:15)
[2017-01-15] MEDS: NYSTATIN SUSP MT SCH (08:15)
[2017-01-15] MEDS: VITAMIN B-12 PO SCH (08:15)
[2017-01-15] MEDS: MEGACE PO SCH (08:15)
[2017-01-15] MEDS: TAB-A-VITE PO SCH (08:15)
[2017-01-15] MEDS: PROTONIX TAB 40 MG PO SCH (08:15)
[2017-01-15] MEDS: ROBITUSSIN DM PO SCH (08:36)
[2017-01-15] MEDS: PULMICORT NEB TX 0.5 MG NEB SCH (08:53)
--- NOTE | 2017-01-15 21:17 | PCM.PROG ---
Progress Note - Progress Note for Day of Date: 01/13/17 - Subjective Subjective: WAS ADMITTED FOR COMMUNITY ACQUIRED PNEUMONIA. TODAY, HE IS ALERT AND ORIENTED, SITTING UP IN BED ON MORNING ROUNDS. PATIENT'S IS AT BEDSIDE. HE REPORTS THAT HIS SHORTNESS OF BREATH TODAY IS WORSE THAN YESTERDAY. ON EXAMINATION, PATIENT CONTINUES WITH WHEEZING TO THE RIGHT UPPER LOBE, WHICH HAS DECREASED SINCE YESTERDAY. LUNG SOUNDS CONTINUE TO BE DIMINISHED. ABDOMEN IS SOFT, ROUND, AND NON TENDER. NORMAL BOWEL SOUNDS ARE NOTED IN ALL QUADRANTS. HE IS NOTED ON NASAL CANNULA AT 4LPM AT THIS TIME. HIS VITAL SIGNS THIS MORNING ARE 98.5-84-20-95%-131/73. A CBC AND CMP WERE OBTAINED THIS MORNING. ABNORMAL LAB VALUES INCLUDE THE FOLLOWING: WBC 11.5, RBC 3.76, HGB 10.9, HCT 31.7, GLUCOSE 102. NO CHANGE IS NOTED IN TODAYS CHEST XRAY. TODAY , WE WILL START SOLU-MEDROL 40MG IV Q8H, AND SYMBICORT INHALER. WE WILL CONTINUE WITH CURRENT PLAN OF CARE AND CONTINUE TO TREAT FOR PNEUMONIA. HE HAS NEB TREATMENTS PRN. 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 PATIENT REPORTS THAT HE HAS A SCHEDULED APPOINTMENT FOR 02/13/17. WE WILL CALL 'S OFFICE TO MOVE APPOINTMENT UP IF POSSIBLE. WE PLAN TO FOLLOW UP WITH AM LABS AND CHEST XRAY AND CONTINUE TO MONITOR PATIENT. - Past Medical Family Social History Past Med/Fam/Surg Hx: No changes since H&P Allergies: Allergies codeine Allergy (Unknown, Verified 01/04/17 10:57) - Review of Systems ROS: No change since H&P - Vital Signs and I&O's Vital Signs: Temperature 98.3 F Pulse Rate [Left Brachial] 99 Pulse Rate [Right Brachial] 90 Pulse Rate 90 Respiratory Rate 20 Blood Pressure [r arm] 142/71 Blood Pressure [Left Arm] 145/79 Blood Pressure 130/68 O2 Sat by Pulse Oximetry 95 Intake and Output: Intake & Output 01/13/17 01/14/17 01/15/17 01/16/17 11:59 11:59 11:59 11:59 Intake Total 2160 2290 2481 Output Total 2500 2400 1300 Balance -340 -110 1181 - Physical Exam Oriented: Normal Eyes: Normal Ear: Normal Nose: Normal Throat: Normal Respiratory: Right, Wheezes Cardiovascular: Normal : Normal Auscultation: Bowel Sounds: Normal Palpation: Normal Tenderness: Normal Skin: Normal Musculoskeletal: Right (RIB PAIN, WORSE WHEN COUGHING), Left, Tender Psychiatric: Normal Mood Description: Calm Affect: Normal Speech Pattern: Clear, Appropriate - Laboratory and Diagnostics Result Diagrams: 01/15/17 04:07 01/15/17 04:07 Labs: 01/04/17 12:20 Blood Blood Culture - Final 01/04/17 12:10 Blood Blood Culture - Final 01/04/17 11:30 Sputum - Expectorated Sputum Sputum Culture - Final 01/04/17 11:30 Sputum - Expectorated Sputum - Final Laboratory WBC 20.0 X10^3/uL (3.6-10.0) H 01/15/17 04:07 RBC 3.88 X10^6/uL (4.7-6.0) L 01/15/17 04:07 Hgb 11.1 g/dL (13.5-18.0) L 01/15/17 04:07 Hct 33.0 % (42.0-54.0) L 01/15/17 04:07 MCV 85.0 fL (80.0-100.0) 01/15/17 04:07 MCH 28.5 pg (27.0-34.0) 01/15/17 04:07 MCHC 33.5 g/dL (33.0-35.0) 01/15/17 04:07 RDW 14.3 % (11.6-16.5) 01/15/17 04:07 Plt Count 382 X10^3/uL (150.0-450.0) 01/15/17 04:07 MPV 8.7 fL (7.4-11.0) 01/15/17 04:07 Neut % 88.4 % (42.0-75.0) H 01/15/17 04:07 Lymph % 8.9 % (21.0-51.0) L 01/15/17 04:07 [place] % 2.6 % (0.0-13.0) 01/15/17 04:07 Eos % 0.0 % (0.9-2.9) L 01/15/17 04:07 Baso % 0.1 % (0.2-1.0) L 01/15/17 04:07 Neut # 17.7 x10^3/uL (2.2-4.8) H 01/15/17 04:07 Lymph # 1.8 X10^3/uL (1.3-2.9) 01/15/17 04:07 [place] # 0.5 x10^3/uL (0.3-0.8) 01/15/17 04:07 Eos # 0.0 x10^3/uL (0.0-0.2) 01/15/17 04:07 Baso # 0.0 X10^3/uL (0.0-0.1) 01/15/17 04:07 Absolute Nucleated RBC 0.0 /100WBC 01/15/17 04:07 Sample Site Rra 01/09/17 21:22 ABG pH 7.470 (7.35-7.45) H 01/09/17 21:22 ABG pCO2 31.0 mmHg (35.0-45.0) L 01/09/17 21:22 ABG pO2 55.0 mmHg (80.0-100.0) L 01/09/17 21:22 ABG HCO3 22.6 mmol/L (22-26) 01/09/17 21:22 ABG O2 Saturation 90.0 % (90-100) 01/09/17 21:22 ABG Base Excess -0.3 mmol/L (-2.0-2.0) 01/09/17 21:22 Alexander Test Pos 01/09/17 21:22 A-a Gradient 134.0 mmHg 01/09/17 21:22 FiO2 32.000 01/09/17 21:22 Blood Gas Comments Yesi well, mm 01/09/17 21:22 Sodium 137 mmol/L (136-145) 01/15/17 04:07 Corrected Sodium 140 mmol/L (136-145) 01/15/17 04:07 Potassium 4.3 mmol/L (3.5-5.1) 01/15/17 04:07 Chloride 100 mmol/L (98-107) 01/15/17 04:07 Carbon Dioxide 22.6 mmol/L (21-32) 01/15/17 04:07 BUN 24 mg/dL (7-18) H 01/15/17 04:07 Creatinine 0.97 mg/dL (0.70-1.30) 01/15/17 04:07 Est GFR (MDRD) Af Amer > 60 (>60) 01/15/17 04:07 Est GFR (MDRD) Non-Af > 60 (>60) 01/15/17 04:07 Glucose 205 mg/dL (65-99) H 01/15/17 04:07 POC Glucose (mg/dL) 224 mg/dL (65-99) H 01/15/17 05:35 Calcium 9.7 mg/dL (8.5-10.1) 01/15/17 04:07 Corrected Calcium TNP 01/15/17 04:07 Total Bilirubin 0.30 mg/dL (0.2-1.0) 01/15/17 04:07 AST 15 Units/L (15-37) 01/15/17 04:07 ALT 27 Units/L (12-78) 01/15/17 04:07 Alkaline Phosphatase 53 Units/L (46-116) 01/15/17 04:07 Total Protein 7.5 g/dL (6.4-8.2) 01/15/17 04:07 Albumin 3.6 g/dL (3.4-5.0) 01/15/17 04:07 Globulin 3.9 g/dL (2.5-4.5) 01/15/17 04:07 Albumin/Globulin Ratio 0.9 Ratio (1.1-2.1) L 01/15/17 04:07 Stl C. diff Tox B Gene Negative (NEGATIVE) 01/07/17 19:18 Stl C. diff [id number]-NAP1-BI Negative (NEGATIVE) 01/07/17 19:18 Digoxin 1.14 ng/mL (0.9-2) 01/14/17 03:53 - Plan (1) Community acquired pneumonia Status: Acute Qualifiers: Laterality: right Lung location: middle lobe of lung Qualified Code(s): J18.1 - Lobar pneumonia, unspecified organism Plan: ZOSYN IV, LEVAQUIN IV, SOLU-MEDROL 40MG IV Q8H, DUONEBS, MUCOMYST TO NEB TX, SUPPLEMENTAL OXYGEN, ROBITUSSIN DM QID, TUSSIONEX 5ML PO Q12H PRN, MONITOR CHEST XRAY, CONTINUE TO MONITOR PATIENT. (2) Pleurisy without effusion Status: Acute Plan: TORADOL 30MG IV Q6H, CONTINUE TO MONITOR (3) Hypertension Status: Chronic Qualifiers: Hypertension type: essential hypertension Qualified Code(s): I10 - Essential (primary) hypertension Plan: CONTINUE METOPROLOL 25MG PO BID, CONTINUE TO MONITOR (4) Decreased appetite Status: Chronic Plan: CONTINUE MEGACE 20MG PO DAILY, CONTINUE TO MONITOR (5) BPH (benign prostatic hyperplasia) Status: Chronic Qualifiers: Lower urinary tract symptom presence: symptoms present Plan: CONTINUE TAMSULOSIN 0.8MG PO HS, CONTINUE TO MONITOR (6) CAD (coronary artery disease) Status: Chronic Qualifiers: Coronary Disease-Associated Artery/Lesion type: [place] artery [place] vs. transplanted heart: [place] heart Associated angina: without angina Qualified Code(s): I25.10 - Atherosclerotic heart disease of [place] coronary artery without angina pectoris Plan: CONTINUE ASA DAILY, CONTINUE TO MONITOR (7) Diabetes Status: Chronic Qualifiers: Diabetes mellitus type: type 2 Diabetes mellitus complication status: with neurologic complications Diabetes mellitus complication detail: with unspecified neuropathy Diabetes mellitus retirement insulin use: without terminal manager use Qualified Code(s): E11.40 - Type 2 diabetes mellitus with diabetic neuropathy, unspecified Plan: CONTINUE METFORMIN 500MG BID (8) GERD (gastroesophageal reflux disease) Status: Chronic Qualifiers: Esophagitis presence: esophagitis presence not specified Qualified Code(s) : K21.9 - Gastro-esophageal reflux disease without esophagitis Plan: CONTINUE PROTONIX, CONTINUE TO MONITOR (9) Hyperlipidemia Status: Chronic Qualifiers: Hyperlipidemia type: mixed hyperlipidemia Qualified Code(s): E78.2 - Mixed hyperlipidemia Plan: CONTINUE LIPITOR 40MG PO HS, CONTINUE TO MONITOR (10) Hypoalbuminemia Status: Acute Plan: ALBUMIN 25% IV DAILY, TPN IV, CONTINUE TO MONITOR (11) Diarrhea Status: Acute Qualifiers: Diarrhea type: unspecified type Qualified Code(s): R19.7 - Diarrhea, unspecified Plan: LOMOTIL 1 TAB QID PRN, CONTINUE TO MONITOR (12) Yeast pharyngitis Status: Acute Plan: NYSTAIN SWISH AND SWALLOW 10ML QID, DIFLUCAN 200MG IV DAILY, CONTINUE TO MONITOR
--- NOTE | 2017-01-15 22:32 | PCM.PROG ---
Progress Note - Progress Note for Day of Date: 01/14/17 - Subjective Subjective: WAS ADMITTED FOR COMMUNITY ACQUIRED PNEUMONIA. TODAY, HE IS ALERT AND ORIENTED, SITTING UP IN BED ON MORNING ROUNDS. PATIENT'S IS AT BEDSIDE. HE CONTINUES WITH INCREASED SHORTNESS OF BREATH DESPITE CHANGES IN MEDICATION YESTERDAY. ON EXAMINATION, PATIENT CONTINUES WITH WHEEZING TO THE RIGHT UPPER LOBE AND DIMINISHED LUNG SOUNDS. ABDOMEN IS SOFT, ROUND, AND NON TENDER. NORMAL BOWEL SOUNDS ARE NOTED IN ALL QUADRANTS. HE IS NOTED ON NASAL CANNULA AT 4LPM AT THIS TIME. HIS VITAL SIGNS THIS MORNING ARE 98.5-94-20-96%- 139/70. A CBC AND CMP WERE OBTAINED THIS MORNING. ABNORMAL LAB VALUES INCLUDE THE FOLLOWING: WBC 13.4, RBC 3.93, HGB 11.2, HCT 33.2, GLUCOSE 181.. TODAY, WE WILL INCREASE SOLU-MEDROL TO 125MG IV Q8H. WE WILL CONTINUE WITH CURRENT PLAN OF CARE AND CONTINUE TO TREAT FOR PNEUMONIA. WE SPOKE WITH OFFICE AND HAVE PATIENT SCHEDULED FOR A FOLLOW UP VISIT WITH HIS WAITRESS ON 01/21. WE PLAN TO FOLLOW UP WITH AM LABS AND CHEST XRAY AND CONTINUE TO MONITOR PATIENT. - Past Medical Family Social History Past Med/Fam/Surg Hx: No changes since H&P Allergies: Allergies codeine Allergy (Unknown, Verified 01/04/17 10:57) - Review of Systems ROS: No change since H&P - Vital Signs and I&O's Vital Signs: Temperature 98.3 F Pulse Rate [Left Brachial] 99 Pulse Rate [Right Brachial] 90 Pulse Rate 90 Respiratory Rate 20 Blood Pressure [r arm] 142/71 Blood Pressure [Left Arm] 145/79 Blood Pressure 130/68 O2 Sat by Pulse Oximetry 95 Intake and Output: Intake & Output 01/13/17 01/14/17 01/15/17 01/16/17 11:59 11:59 11:59 11:59 Intake Total 2160 2290 2481 Output Total 2500 2400 1300 Balance -340 -110 1181 - Physical Exam Oriented: Normal Eyes: Normal Ear: Normal Nose: Normal Throat: Normal Respiratory: Right, Diminished, Wheezes Cardiovascular: Normal : Normal Auscultation: Bowel Sounds: Normal Palpation: Normal Tenderness: Normal Skin: Normal Musculoskeletal: Right (RIB PAIN, WORSE WHEN COUGHING), Left, Tender Psychiatric: Normal Mood Description: Calm Affect: Normal Speech Pattern: Clear, Appropriate - Laboratory and Diagnostics Result Diagrams: 01/15/17 04:07 01/15/17 04:07 Labs: 01/04/17 12:20 Blood Blood Culture - Final 01/04/17 12:10 Blood Blood Culture - Final 01/04/17 11:30 Sputum - Expectorated Sputum Sputum Culture - Final 01/04/17 11:30 Sputum - Expectorated Sputum - Final Laboratory WBC 20.0 X10^3/uL (3.6-10.0) H 01/15/17 04:07 RBC 3.88 X10^6/uL (4.7-6.0) L 01/15/17 04:07 Hgb 11.1 g/dL (13.5-18.0) L 01/15/17 04:07 Hct 33.0 % (42.0-54.0) L 01/15/17 04:07 MCV 85.0 fL (80.0-100.0) 01/15/17 04:07 MCH 28.5 pg (27.0-34.0) 01/15/17 04:07 MCHC 33.5 g/dL (33.0-35.0) 01/15/17 04:07 RDW 14.3 % (11.6-16.5) 01/15/17 04:07 Plt Count 382 X10^3/uL (150.0-450.0) 01/15/17 04:07 MPV 8.7 fL (7.4-11.0) 01/15/17 04:07 Neut % 88.4 % (42.0-75.0) H 01/15/17 04:07 Lymph % 8.9 % (21.0-51.0) L 01/15/17 04:07 [place] % 2.6 % (0.0-13.0) 01/15/17 04:07 Eos % 0.0 % (0.9-2.9) L 01/15/17 04:07 Baso % 0.1 % (0.2-1.0) L 01/15/17 04:07 Neut # 17.7 x10^3/uL (2.2-4.8) H 01/15/17 04:07 Lymph # 1.8 X10^3/uL (1.3-2.9) 01/15/17 04:07 [place] # 0.5 x10^3/uL (0.3-0.8) 01/15/17 04:07 Eos # 0.0 x10^3/uL (0.0-0.2) 01/15/17 04:07 Baso # 0.0 X10^3/uL (0.0-0.1) 01/15/17 04:07 Absolute Nucleated RBC 0.0 /100WBC 01/15/17 04:07 Sample Site Rra 01/09/17 21:22 ABG pH 7.470 (7.35-7.45) H 01/09/17 21:22 ABG pCO2 31.0 mmHg (35.0-45.0) L 01/09/17 21:22 ABG pO2 55.0 mmHg (80.0-100.0) L 01/09/17 21:22 ABG HCO3 22.6 mmol/L (22-26) 01/09/17 21:22 ABG O2 Saturation 90.0 % (90-100) 01/09/17 21:22 ABG Base Excess -0.3 mmol/L (-2.0-2.0) 01/09/17 21:22 Alexander Test Pos 01/09/17 21:22 A-a Gradient 134.0 mmHg 01/09/17 21:22 FiO2 32.000 01/09/17 21:22 Blood Gas Comments Yesi well, mm 01/09/17 21:22 Sodium 137 mmol/L (136-145) 01/15/17 04:07 Corrected Sodium 140 mmol/L (136-145) 01/15/17 04:07 Potassium 4.3 mmol/L (3.5-5.1) 01/15/17 04:07 Chloride 100 mmol/L (98-107) 01/15/17 04:07 Carbon Dioxide 22.6 mmol/L (21-32) 01/15/17 04:07 BUN 24 mg/dL (7-18) H 01/15/17 04:07 Creatinine 0.97 mg/dL (0.70-1.30) 01/15/17 04:07 Est GFR (MDRD) Af Amer > 60 (>60) 01/15/17 04:07 Est GFR (MDRD) Non-Af > 60 (>60) 01/15/17 04:07 Glucose 205 mg/dL (65-99) H 01/15/17 04:07 POC Glucose (mg/dL) 224 mg/dL (65-99) H 01/15/17 05:35 Calcium 9.7 mg/dL (8.5-10.1) 01/15/17 04:07 Corrected Calcium TNP 01/15/17 04:07 Total Bilirubin 0.30 mg/dL (0.2-1.0) 01/15/17 04:07 AST 15 Units/L (15-37) 01/15/17 04:07 ALT 27 Units/L (12-78) 01/15/17 04:07 Alkaline Phosphatase 53 Units/L (46-116) 01/15/17 04:07 Total Protein 7.5 g/dL (6.4-8.2) 01/15/17 04:07 Albumin 3.6 g/dL (3.4-5.0) 01/15/17 04:07 Globulin 3.9 g/dL (2.5-4.5) 01/15/17 04:07 Albumin/Globulin Ratio 0.9 Ratio (1.1-2.1) L 01/15/17 04:07 Stl C. diff Tox B Gene Negative (NEGATIVE) 01/07/17 19:18 Stl C. diff [id number]-[id number] Negative (NEGATIVE) 01/07/17 19:18 Digoxin 1.14 ng/mL (0.9-2) 01/14/17 03:53 - Plan (1) Community acquired pneumonia Status: Acute Qualifiers: Laterality: right Lung location: middle lobe of lung Qualified Code(s): J18.1 - Lobar pneumonia, unspecified organism Plan: ZOSYN IV, LEVAQUIN IV, SOLU-MEDROL 125MG IV Q8H, DUONEBS, MUCOMYST TO NEB TX, SUPPLEMENTAL OXYGEN, ROBITUSSIN DM QID, TUSSIONEX 5ML PO Q12H PRN, MONITOR CHEST XRAY, CONTINUE TO MONITOR PATIENT. (2) Pleurisy without effusion Status: Acute Plan: TORADOL 30MG IV Q6H, CONTINUE TO MONITOR (3) Hypertension Status: Chronic Qualifiers: Hypertension type: essential hypertension Qualified Code(s): I10 - Essential (primary) hypertension Plan: CONTINUE METOPROLOL 25MG PO BID, CONTINUE TO MONITOR (4) Decreased appetite Status: Chronic Plan: CONTINUE MEGACE 20MG PO DAILY, CONTINUE TO MONITOR (5) BPH (benign prostatic hyperplasia) Status: Chronic Qualifiers: Lower urinary tract symptom presence: symptoms present Plan: CONTINUE TAMSULOSIN 0.8MG PO HS, CONTINUE TO MONITOR (6) CAD (coronary artery disease) Status: Chronic Qualifiers: Coronary Disease-Associated Artery/Lesion type: [place] artery [place] vs. transplanted heart: [place] heart Associated angina: without angina Qualified Code(s): I25.10 - Atherosclerotic heart disease of [place] coronary artery without angina pectoris Plan: CONTINUE ASA DAILY, CONTINUE TO MONITOR (7) Diabetes Status: Chronic Qualifiers: Diabetes mellitus type: type 2 Diabetes mellitus complication status: with neurologic complications Diabetes mellitus complication detail: with unspecified neuropathy Diabetes mellitus jail insulin use: without jail use Qualified Code(s): E11.40 - Type 2 diabetes mellitus with diabetic neuropathy, unspecified Plan: CONTINUE METFORMIN 500MG BID (8) GERD (gastroesophageal reflux disease) Status: Chronic Qualifiers: Esophagitis presence: esophagitis presence not specified Qualified Code(s) : K21.9 - Gastro-esophageal reflux disease without esophagitis Plan: CONTINUE PROTONIX, CONTINUE TO MONITOR (9) Hyperlipidemia Status: Chronic Qualifiers: Hyperlipidemia type: mixed hyperlipidemia Qualified Code(s): E78.2 - Mixed hyperlipidemia Plan: CONTINUE LIPITOR 40MG PO HS, CONTINUE TO MONITOR (10) Hypoalbuminemia Status: Acute Plan: ALBUMIN 25% IV DAILY, TPN IV, CONTINUE TO MONITOR (11) Diarrhea Status: Acute Qualifiers: Diarrhea type: unspecified type Qualified Code(s): R19.7 - Diarrhea, unspecified Plan: LOMOTIL 1 TAB QID PRN, CONTINUE TO MONITOR (12) Yeast pharyngitis Status: Acute Plan: NYSTAIN SWISH AND SWALLOW 10ML QID, DIFLUCAN 200MG IV DAILY, CONTINUE TO MONITOR
== END 2017-01-15 11:20 | disposition home health service (06) | DRG 195 ==
LOC: ICU 10:10 → MED/SURG 01-08 14:10
PROVIDERS: ADMIT Internal Medicine; ATTEND Internal Medicine
DX: J18.9 Pneumonia, unspecified organism (principal); R09.1 Pleurisy; N40.0 Benign prostatic hyperplasia without lower urinary tract symptoms; E88.09 Other disorders of plasma-protein metabolism, not elsewhere classified; J02.8 Acute pharyngitis due to other specified organisms; B96.89 Other specified bacterial agents as the cause of diseases classified elsewhere; R19.7 Diarrhea, unspecified; I10 Essential (primary) hypertension; E11.9 Type 2 diabetes mellitus without complications; E78.5 Hyperlipidemia, unspecified; Z85.118 Personal history of other malignant neoplasm of bronchus and lung; I25.10 Atherosclerotic heart disease of native coronary artery without angina pectoris; J44.9 Chronic obstructive pulmonary disease, unspecified
CPT/HCPCS: 36415; 36600; 71010; 71020; 71260; 80053; 80162; 82803; 85025; 87040; 87205; 87493; 93005; 94640; A4222; B5200; P9047; S0179; J1450; J1815; J1885; J1956; J2270; J2405; J2543; J2920; J2930; J3490; J7608; J7620; J7626; J7644

== ENCOUNTER 2017-06-28 20:30 | Inpatient (IN) | payer OTHER ==
--- NOTE | 2017-06-28 21:43 | DR.GENAD ---
HPI - PCP Primary Care Physician: JUAQUIN - HPI Comment HPI Comment: INCREASING SOB. HOME MEDS DID NOT HELP. DIFFUSE ABDOMINAL PAIN THAT IS GETTING WORSE. TOOK [facility] BEFORE COMING. - Complaint/Symptoms Chief Complaint Doctors Comments: COUGH AND INCREASING SOB TIMES FEW DAYS. WORSE SINCE THIS AFTERNOON. PATIENT HAVE COPD AND IS OXYGEN DEPENDENT AND STERIOD DEPENDENT. Chief Complaint:: SHORT OF BREATH AND PAIN IN SIDES WHEN TAKE A BREATH. STARTED AROUND LUNCH TIME 1 TO 2 PM - Nurses notes reviewed Nurses Notes Review: Yes - Source History Provided: Patient - Mode of Arrival Mode of Arrival: Wheelchair - Timing Onset of Chief Complaint: 06/28/17 Came on: Suddenly - Duration Duration: Constant Duration: Days - Severity Severity: Moderate PMH - PMH Past Medical History: Yes Past Medical History: Angina, Asthma, COPD, Diabetes Past Medical History Comment: Rafael FELIX. 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 Past Surgical History: Yes Surgical History: Angioplasty/Stents, Appendectomy, Ortho Surgery, Other - Family History History of Family Medical Conditions: Yes Family Medical History: Cancer, PR, Coronary Artery Disease, Heart Failure, Hypertension - Social History Does any household member use tobacco: No Alcohol Use: None Do you use any recreational Drugs:: No Lives With: Spouse Lives Where: Assisted Care - infectious screening In the last 2 months have you had wt loss of >10#?: NO Have you had fever, night sweats or hemotysis?: No Have you traveled outside the country in the last 6 months?: No Isolation: Standard ROS - Review of Systems Constitutional: Chills, Weakness, Fatigue. negative: Fever Eyes: negative: Eye Pain, Discharge ENTM: Nose Congestion. negative: Ear Pain, Nose Discharge, Throat Pain Respiratoy: Productive Cough, Short of Breath, Wheezing. negative: Hemoptysis Cardiovascular: Chest Pain, Edema Gastrointestinal/Abdominal: negative: Abdominal Pain, Constipation, Diarrhea, Nausea, Vomiting Genitourinary: negative: Dysuria, Frequency, Hematuria Neurological: Headache, Weakness, Dizziness Musculoskeletal: Joint Pain Integumentary: No Symptoms Reported Hematologic/Lymphatic: No Symptoms Reported All Other Systems: Reviewed and Negative PE - Vital Signs Vitals: Temperature 98.9 F Pulse Rate 116 Respiratory Rate 22 Blood Pressure [r arm] 142/71 Blood Pressure [Left Arm] 145/79 Blood Pressure 80/49 O2 Sat by Pulse Oximetry 89 - General Limitations: No Limitations General Appearance: Alert, In Distress - Head Head Exam: Normal Inspection - Eyes Eye exam: Normal Appearance - ENT ENT Exam: Normal External Ear Exam External Ear Exam: Normal External Inspection TM/Canal Exam: Bilateral Normal Nose Exam: Normal Nose Exam Mouth Exam: Normal Inspection Throat Exam: Normal Inspection - Neck Neck Exam: Trachea Midline - Chest Chest Inspection: Symmetric Chest Wall Rise - Respiratory Respiratory Exam: Accessory Muscle Use, Respiratory Distress Respiratory Exam: Bilateral Wheezing, Bilateral Rhonchi, Left Wheezing, Left Rhonchi, Right Wheezing, Right Rhonchi, Upper Wheezing, Upper Rhonchi, Lower Wheezing, Lower Rhonchi - Cardiovascular Cardiovascular Exam: Regular Rate, Normal Rhythm, Normal Heart Sounds - Abdominal Exam Abdominal Exam: Normal Bowel Sounds, Soft. negative: Distention, Tenderness - Extremities Extremities Exam: Normal Inspection - Back Back Exam: Normal Inspection - Neurologic Neurological Exam: Alert, Oriented X3 - Psychiatric Psychiatric Exam: Normal Affect, Normal Mood - Skin Skin Exam: Normal Color. negative: Cyanosis MDM - Additional Information Additional Information Obtained From: Family - Differential Diagnosis Differential Diagnosis: RESPIRATORY DISTRESS, COPD EXACERBATION, PNEUMONIA, CHF Course - Treatment Treatment: SEE ORDERS. - Consultation Consultation Comments: DISCUSS PATIENT WITH DR. DUMONT. HE WILL ADMIT PATIENT. - Education/Counseling Education/Counseling: Patient, Education Educated On: Treatment, Diagnosis, Needs for Follow Up ROR - Labs Reviewed Laboratory Results Reviewed?: Yes Result Diagrams: 06/29/17 05:20 06/29/17 05:20 Laboratory: WBC 21.4 X10^3/uL (3.6-10.0) H 06/28/17 21:50 RBC 5.05 X10^6/uL (4.7-6.0) 06/28/17 21:50 Hgb 14.3 g/dL (13.5-18.0) 06/28/17 21:50 Hct 42.4 % (42.0-54.0) 06/28/17 21:50 MCV 83.9 fL (80.0-100.0) 06/28/17 21:50 MCH 28.4 pg (27.0-34.0) 06/28/17 21:50 MCHC 33.8 g/dL (33.0-35.0) 06/28/17 21:50 RDW 16.5 % (11.6-16.5) 06/28/17 21:50 Plt Count 260 X10^3/uL (150.0-450.0) 06/28/17 21:50 Plt Count Comment Adequate (ADEQUATE) 06/28/17 21:50 MPV 8.9 fL (7.4-11.0) 06/28/17 21:50 Neut % (Auto) 87.2 % (42.0-75.0) H 06/28/17 21:50 Lymph % (Auto) 7.8 % (21.0-51.0) L 06/28/17 21:50 [place] % (Auto) 4.7 % (0.0-13.0) 06/28/17 21:50 Eos % (Auto) 0.2 % (0.9-2.9) L 06/28/17 21:50 Baso % (Auto) 0.1 % (0.2-1.0) L 06/28/17 21:50 Neut # (Auto) 18.7 x10^3/uL (2.2-4.8) H 06/28/17 21:50 Lymph # (Auto) 1.7 X10^3/uL (1.3-2.9) 06/28/17 21:50 [place] # (Auto) 1.0 x10^3/uL (0.3-0.8) H 06/28/17 21:50 Eos # (Auto) 0.0 x10^3/uL (0.0-0.2) 06/28/17 21:50 Baso # (Auto) 0.0 X10^3/uL (0.0-0.1) 06/28/17 21:50 Absolute Nucleated RBC 0.0 /100WBC 06/28/17 21:50 Total Counted 100 06/28/17 21:50 Neutrophils % (Manual) 68 % (39-76) 06/28/17 21:50 Band Neutrophils % 13 % (0-10) H 06/28/17 21:50 Lymphocytes % (Manual) 12 % (13-43) L 06/28/17 21:50 Monocytes % (Manual) 7 % (4-9) 06/28/17 21:50 Plt Morphology Comment Normal (NORMAL) 06/28/17 21:50 RBC Morphology Normal (NORMAL) 06/28/17 21:50 Sample Site Rrad 06/28/17 23:03 ABG pH 7.490 (7.35-7.45) H 06/28/17 23:03 ABG pCO2 28.0 mmHg (35.0-45.0) L 06/28/17 23:03 ABG pO2 56.0 mmHg (80.0-100.0) L 06/28/17 23:03 ABG HCO3 21.3 mmol/L (22-26) L 06/28/17 23:03 ABG O2 Saturation 91.0 % (90-100) 06/28/17 23:03 ABG Base Excess -1.0 mmol/L (-2.0-2.0) 06/28/17 23:03 Alexander Test Pos 06/28/17 23:03 A-a Gradient 137.0 mmHg 06/28/17 23:03 FiO2 32.000 06/28/17 23:03 Blood Gas Comments Yesi abg well-mtf 06/28/17 23:03 Sodium 138 mmol/L (136-145) 06/28/17 21:50 Corrected Sodium 140 mmol/L (136-145) 06/28/17 21:50 Potassium 3.1 mmol/L (3.5-5.1) L 06/28/17 21:50 Chloride 100 mmol/L (98-107) 06/28/17 21:50 Carbon Dioxide 24.8 mmol/L (21-32) 06/28/17 21:50 BUN 16 mg/dL (7-18) 06/28/17 21:50 Creatinine 1.42 mg/dL (0.70-1.30) H 06/28/17 21:50 Est GFR (MDRD) Af Amer > 60 (>60) 06/28/17 21:50 Est GFR (MDRD) Non-Af 52 (>60) L 06/28/17 21:50 Glucose 202 mg/dL (65-99) H 06/28/17 21:50 Calcium 8.9 mg/dL (8.5-10.1) 06/28/17 21:50 Corrected Calcium 9.5 mg/dL (8.5-10.1) 06/28/17 21:50 Total Bilirubin 0.40 mg/dL (0.2-1.0) 06/28/17 21:50 AST 20 Units/L (15-37) 06/28/17 21:50 ALT 31 Units/L (12-78) 06/28/17 21:50 Alkaline Phosphatase 62 Units/L (46-116) 06/28/17 21:50 Creatine Kinase 156 Units/L (39-308) 06/28/17 21:50 CK-MB (CK-2) 2.0 ng/mL (0-4.0) 06/28/17 21:50 CK/CKMB % Calc 1.3 % (<4) 06/28/17 21:50 Troponin I 0.04 ng/mL (0-1.5) 06/28/17 21:50 Total Protein 7.4 g/dL (6.4-8.2) 06/28/17 21:50 Albumin 3.2 g/dL (3.4-5.0) L 06/28/17 21:50 Globulin 4.2 g/dL (2.5-4.5) 06/28/17 21:50 Albumin/Globulin Ratio 0.8 Ratio (1.1-2.1) L 06/28/17 21:50 Amylase 22 Units/L (25-115) L 06/28/17 21:50 Lipase 70 Units/L (73-393) L 06/28/17 21:50 - XRAY XRAY Interpreted by: Radiologist XRAY Findings: REPORT DISCUSS WITH PATIENT. - EKG Rhythm: ST (EKG NOTED.) - Diagnosis Discharge Problem: Respiratory distress, Abdominal pain Pneumonia Qualifiers: Pneumonia type: due to unspecified organism Laterality: bilateral Lung location : lower lobe of lung Qualified Code(s): J18.1 - Lobar pneumonia, unspecified organism - Discharge Plan Disposition: ADMITTED INPATIENT Condition: Stable - Follow ups/Referrals - Instructions
[2017-06-28] MEDS ORDERED: DUONEB 0.5 MG/3 MG NEB ONE (21:46)
[2017-06-28] MEDS ORDERED: SOLU-Medrol 125 MG VIAL IVP ONE (21:46)
[2017-06-28] MEDS ORDERED: SOLU-Medrol 125 MG VIAL ONE (21:53)
[2017-06-28 22:11] LABS: BASOPHILS % (AUTO) 0.1 % (0.2-1.0); EOSINOPHILS % (AUTO) 0.2 % (0.9-2.9); HEMATOCRIT 42.4 % (42.0-54.0); HEMOGLOBIN 14.3 g/dL (13.5-18.0); LYMPHOCYTES # (AUTO) 1.7 X10^3/uL (1.3-2.9); LYMPHOCYTES % (AUTO) 7.8 % (21.0-51.0); MEAN CORPUSCULAR HEMOGLOBIN 28.4 pg (27.0-34.0); MEAN CORPUSCULAR HGB CONC 33.8 g/dL (33.0-35.0); MEAN CORPUSCULAR VOLUME 83.9 fL (80.0-100.0); MEAN PLATELET VOLUME 8.9 fL (7.4-11.0); MONOCYTES % (AUTO) 4.7 % (0.0-13.0); NEUTROPHILS # (AUTO) 18.7 x10^3/uL (2.2-4.8); NEUTROPHILS % (AUTO) 87.2 % (42.0-75.0); PLATELET COUNT 260 X10^3/uL (150.0-450.0); RED BLOOD COUNT 5.05 X10^6/uL (4.7-6.0); RED CELL DISTRIBUTION WIDTH 16.5 % (11.6-16.5); WHITE BLOOD COUNT 21.4 X10^3/uL (3.6-10.0)
[2017-06-28 22:31] LABS: BLOOD UREA NITROGEN 16 mg/dL (7-18); CALCIUM 8.9 mg/dL (8.5-10.1); CARBON DIOXIDE 24.8 mmol/L (21-32); CHLORIDE 100 mmol/L (98-107); COR NA(FOR HYPERGLY) 140 mmol/L (136-145); CREATININE 1.42 mg/dL (0.70-1.30); SODIUM 138 mmol/L (136-145); TROPONIN I 0.04 ng/mL (0-1.5); eGFR BLACK RACES > 60 (>60); eGFR NON BLACK RACES 52 (>60)
[2017-06-28 22:32] LABS: ALANINE AMINOTRANSFERASE 31 Units/L (12-78); ALBUMIN 3.2 g/dL (3.4-5.0); ALKALINE PHOSPHATASE 62 Units/L (46-116); AMYLASE 22 Units/L (25-115); ASPARTATE AMINO TRANSFERASE 20 Units/L (15-37); CKMB % 1.3 % (<4); COR CA(FOR HYPOALB) 9.5 mg/dL (8.5-10.1); CREATINE KINASE 156 Units/L (39-308); LIPASE 70 Units/L (73-393); TOTAL PROTEIN 7.4 g/dL (6.4-8.2)
--- NOTE | 2017-06-28 22:39 | RAD ---
Chest, AP portable Indication: Shortness of breath Comparison: 01/15/2017 Findings: The heart size is normal. The right subclavian approach cardiac device and leads are noted. Stable positioning of the left subclavian Port-A-Cath. There is unchanged left hilar prominence with associated pleural parenchymal scarring. Severe emphysema is noted. There is right basilar airspace disease. The left lung is essentially clear. No large pleural effusion. Findings: Right basilar airspace disease likely representing pneumonia. Follow-up to resolution recommended to exclude underlying lesion. Unchanged left hilar prominence with associated scarring. Emphysema. Reported By:
[2017-06-28 22:48] LABS: BAND NEUTROPHILS % 13 % (0-10); PLATELET MORPHOLOGY COMMENT NORMAL (NORMAL)
[2017-06-28] MEDS ORDERED: ROCEPHIN 1 GM IV PREMIX 1 GM/50 ML IV.SOLN. IV ONE (22:54)
[2017-06-28] MEDS ORDERED: K-LYTE EFFERVESCENT PO ONE (23:02)
[2017-06-28] MEDS ORDERED: ROCEPHIN VIAL 1 GM ONE (23:08)
[2017-06-28] MEDS ORDERED: K-LYTE EFFERVESCENT ONE (23:08)
[2017-06-28] MEDS ORDERED: NS 100 ML IV + SPIKE MINIBAG* 100 ML IV ONE (23:09)
[2017-06-28 23:21] LABS: ABG ALLEN TEST POS; ABG HCO3 21.3 mmol/L (22-26)
[2017-06-29] MEDS ORDERED: SALINE 3% 15 ML NEB TX ONE (00:03)
[2017-06-29] MEDS ORDERED: SALINE 3% 15 ML NEB TX NEB ONE (00:08)
[2017-06-29] MEDS ORDERED: MORPHINE SULFATE INJ 2 MG INJ IVP ONE (00:30)
[2017-06-29] MEDS ORDERED: ZOFRAN INJ 4 MG VIAL IM ONE (00:32)
[2017-06-29] MEDS ORDERED: ZOFRAN INJ 4 MG VIAL ONE (00:48)
[2017-06-29] MEDS ORDERED: MORPHINE SULFATE INJ 2 MG INJ ONE (00:48)
[2017-06-29] MEDS ORDERED: ZOFRAN INJ 4 MG VIAL IVP ONE (00:56)
--- NOTE | 2017-06-29 01:31 | CT ---
CT abdomen and pelvis without contrast Indication: Right-sided chest abdominal pain Comparison: None available Technique: Multiple axial images of the abdomen and pelvis were obtained from the lung bases to the pubic symphy sis without the administration of IV contrast. Findings: Dense consolidation is noted within the right middle lobe, right lower lobe and to a much lesser degr ee left lower lobe consistent with multi focal pneumonia. Mild centrilobular and paraseptal emphysema . Heart size is normal with small pericardial effusion. Limited evaluation given lack of IV contrast demonstrates no focal hepatic lesion. At least 2 large stones are noted within otherwise unremarkable gallbladder. No pericholecystic fluid or gallbladder wall thickening. Bile ducts are normal in calib er. The spleen, pancreas and adrenal glands are normal. The right kidney contains an approximate 4 mm stone within its lower pole. The left kidney is without evidence of nephrolithiasis, hydronephrosis or mass. Upper GI tract is without evidence of mass or obstruction. Urinary bladder is distended. Lani tral calcification are noted within the prostate gland. The rectum is normal. There is moderate diver ticulosis of the distal colon without evidence of acute diverticulitis. Previous appendectomy is note d. Abdominal aorta is normal in caliber with scattered calcified atherosclerotic disease. No free flu id or mesenteric adenopathy. Review of bone windows demonstrates no acute osseous abnormality. Impression: 1. Dense consolidation within the right middle lobe, right lower lobe and to lesser degree left lower lobe is consistent multi focal bronchopneumonia. 2. Moderate centrilobular and paraseptal emphysema. 3. Cholelithiasis without evidence of acute cholecystitis. 4. Diverticulosis without evidence of acute diverticulitis. 5. A 4 mm nonobstructing nephrolithiasis within the right kidney. 6. Refer to above for other incidental findings. IMPRESSION: Reported By:
[2017-06-29 01:43] LABS: CKMB % 1.3 % (<4); CREATINE KINASE MB 1.6 ng/mL (0-4.0); TROPONIN I 0.03 ng/mL (0-1.5)
[2017-06-29] MEDS ORDERED: TUSSIONEX PENNKINETIC SUSP PO PRN (02:51)
[2017-06-29] MEDS ORDERED: ZOFRAN INJ 4 MG VIAL IVP PRN (02:58)
[2017-06-29] MEDS: DUONEB 0.5 MG/3 MG NEB SCH ×6 (03:21→20:35)
[2017-06-29] MEDS ORDERED: NITROGLYCERIN SL PRN (03:34)
[2017-06-29] MEDS ORDERED: NS 1/2 1000 ML IV 1,000 ML IV ONE ×2 (04:18→17:02)
[2017-06-29] MEDS: NS 1/2 1000 ML IV 1,000 ML IV SCH ×2 (04:34→17:09)
[2017-06-29 04:54] VITALS: BMI 24.4
[2017-06-29 05:49] LABS: BASOPHILS % (AUTO) 0.1 % (0.2-1.0); HEMATOCRIT 35.2 % (42.0-54.0); HEMOGLOBIN 11.8 g/dL (13.5-18.0); LYMPHOCYTES # (AUTO) 0.9 X10^3/uL (1.3-2.9); LYMPHOCYTES % (AUTO) 3.1 % (21.0-51.0); MEAN CORPUSCULAR HEMOGLOBIN 28.3 pg (27.0-34.0); MEAN CORPUSCULAR HGB CONC 33.7 g/dL (33.0-35.0); MEAN CORPUSCULAR VOLUME 84.1 fL (80.0-100.0); MEAN PLATELET VOLUME 9.1 fL (7.4-11.0); MONOCYTES # (AUTO) 1.3 x10^3/uL (0.3-0.8); MONOCYTES % (AUTO) 4.7 % (0.0-13.0); NEUTROPHILS # (AUTO) 26.3 x10^3/uL (2.2-4.8); NEUTROPHILS % (AUTO) 92.1 % (42.0-75.0); PLATELET COUNT 208 X10^3/uL (150.0-450.0); RED BLOOD COUNT 4.18 X10^6/uL (4.7-6.0); RED CELL DISTRIBUTION WIDTH 16.2 % (11.6-16.5)
[2017-06-29 06:03] LABS: ALANINE AMINOTRANSFERASE 24 Units/L (12-78); ALBUMIN 2.6 g/dL (3.4-5.0); ALKALINE PHOSPHATASE 47 Units/L (46-116); ASPARTATE AMINO TRANSFERASE 19 Units/L (15-37); BLOOD UREA NITROGEN 20 mg/dL (7-18); CALCIUM 8.3 mg/dL (8.5-10.1); CARBON DIOXIDE 21.7 mmol/L (21-32); CHLORIDE 100 mmol/L (98-107); COR CA(FOR HYPOALB) 9.4 mg/dL (8.5-10.1); COR NA(FOR HYPERGLY) 139 mmol/L (136-145); CREATININE 1.44 mg/dL (0.70-1.30); SODIUM 134 mmol/L (136-145); TOTAL PROTEIN 6.4 g/dL (6.4-8.2); eGFR BLACK RACES > 60 (>60); eGFR NON BLACK RACES 52 (>60)
[2017-06-29] MEDS: NEURONTIN CAP 300 MG PO SCH ×3 (06:26→21:10)
[2017-06-29] MEDS: PREDNISONE TAB 5 MG PO SCH ×2 (06:27→17:09)
[2017-06-29] MEDS: HumuLIN R SUBCUT PRN ×2 (06:27→12:26)
[2017-06-29] MEDS: MORPHINE SULFATE INJ 2 MG INJ IVP PRN ×3 (06:28→20:50)
[2017-06-29] MEDS ORDERED: NITROSTAT SL PRN (06:33)
[2017-06-29 06:39] LABS: BAND NEUTROPHILS % 8 % (0-10)
[2017-06-29 06:40] LABS: PLATELET MORPHOLOGY COMMENT NORMAL (NORMAL); TOXIC GRANULATION 3+; WHITE BLOOD COUNT 28.5 X10^3/uL (3.6-10.0)
[2017-06-29 07:31] LABS: BILIRUBIN,URINE NEGATIVE (NEGATIVE); BLOOD/HEMOGLOBIN,URINE 4+ (NEGATIVE); GLUCOSE, URINE 3+ (NEGATIVE); KETONES,URINE 1+ (NEGATIVE); LEUKOCYTE ESTERASE ,URINE 1+ (NEGATIVE); NITRITES,URINE NEGATIVE (NEGATIVE); PROTEIN,URINE 1+ (NEGATIVE); UROBILINOGEN,URINE NORMAL (NORMAL)
[2017-06-29 07:43] LABS: CKMB % 1.6 % (<4); CREATINE KINASE MB 1.5 ng/mL (0-4.0); TROPONIN I 0.03 ng/mL (0-1.5)
[2017-06-29] MEDS ORDERED: GLUCOPHAGE ONE ×2 (08:07→20:13)
[2017-06-29 08:22] LABS: APPEARANCE,URINE HAZY (CLEAR); COLOR,URINE AMBER (YELLOW)
[2017-06-29 08:23] LABS: SQUAMOUS EPITHELIAL CELL,UR FEW /HPF (NEGATIVE)
[2017-06-29 08:24] LABS: BACTERIA,URINE TRACE /HPF (NEGATIVE); MUCUS,URINE FEW /HPF (NEGATIVE)
[2017-06-29] MEDS: PULMICORT NEB TX 0.5 MG NEB SCH ×2 (08:30→20:35)
[2017-06-29] MEDS: ROCEPHIN 1 GM IV PREMIX 1 GM/50 ML IV.SOLN. IV SCH (08:45)
[2017-06-29] MEDS: COLACE CAP 100 MG PO SCH (08:52)
[2017-06-29] MEDS: GLUCOPHAGE PO SCH ×2 (08:53→20:46)
[2017-06-29] MEDS: LANOXIN PO SCH ×2 (08:54→09:41)
[2017-06-29] MEDS: LEVAQUIN PREMIX IV 750 MG 750 MG/150 ML BAG IV SCH (08:55)
[2017-06-29] MEDS: LOPRESSOR TAB 50 MG PO SCH ×2 (08:55→20:48)
[2017-06-29] MEDS: PRADAXA PO SCH ×2 (08:55→20:44)
[2017-06-29] MEDS: PROTONIX TAB 40 MG PO SCH (08:55)
[2017-06-29] MEDS: MEGACE PO SCH ×2 (08:55→20:46)
[2017-06-29] MEDS: ROBITUSSIN DM PO SCH ×4 (08:56→20:48)
[2017-06-29] MEDS: ZyrTEC TAB 10 MG PO SCH (08:56)
[2017-06-29] MEDS ORDERED: HOPS PO SCH (09:00)
[2017-06-29] MEDS ORDERED: BERBERINE PO SCH (09:00)
[2017-06-29] MEDS ORDERED: VIT D3 VIT K PO SCH (09:00)
[2017-06-29] MEDS ORDERED: MONTELUKAST SODIUM 10 MG PO SCH (09:00)
[2017-06-29] MEDS ORDERED: PATIENT'S HOME MEDICATION (Multivit-Min/Fa/Lycopen/Lutein [Centrum Silver Tablet] 1 TAB) PO SCH (09:00)
[2017-06-29] MEDS ORDERED: PATIENT'S HOME MEDICATION (Multiple Vitamins W/ Minerals [Multiple Vitamins W/ Minerals] 1 PO SCH (09:00)
[2017-06-29] MEDS ORDERED: DIGOXIN 250 MCG PO SCH (09:00)
[2017-06-29] MEDS ORDERED: [UNRECOGNIZED DRUG - OTHER] PO SCH (09:00)
[2017-06-29] MEDS ORDERED: PATIENT'S HOME MEDICATION (Budesonide-Formoterol 2 INH) INH SCH (09:00)
[2017-06-29] MEDS: TAMIFLU PO SCH ×2 (10:51→20:45)
[2017-06-29] MEDS: AMARYL TAB 4 MG PO SCH ×2 (11:35→17:09)
[2017-06-29 12:12] LABS: CKMB % 1.8 % (<4); CREATINE KINASE 95 Units/L (39-308); CREATINE KINASE MB 1.7 ng/mL (0-4.0); TROPONIN I < 0.02 ng/mL (0-1.5)
[2017-06-29] MEDS: MILK OF MAGNESIA PO PRN ×2 (14:55→21:09)
[2017-06-29] MEDS ORDERED: SNACK - Diabetic Appropriate PO SCH (20:00)
[2017-06-29] MEDS: SNACK - Diabetic Appropriate PO SCH (20:44)
[2017-06-29] MEDS: SINGULAIR TAB 10 MG PO SCH (20:46)
[2017-06-29] MEDS: FLOMAX PO SCH (20:47)
[2017-06-29] MEDS: KLONOPIN TAB 0.5 MG PO SCH (20:47)
[2017-06-29] MEDS: AVODART PO SCH (20:47)
[2017-06-29] MEDS: LIPITOR TAB 40 MG PO SCH (20:48)
[2017-06-29] MEDS ORDERED: CLONAZEPAM 0.5 MG PO SCH (21:00)
[2017-06-29] MEDS ORDERED: PATIENT'S HOME MEDICATION (Levocetirizine Dihydrochloride [Xyzal] 5 MG) PO SCH (21:00)
[2017-06-30] MEDS ORDERED: NS 1/2 1000 ML IV 1,000 ML IV ONE ×2 (00:23→21:35)
[2017-06-30] MEDS: DUONEB 0.5 MG/3 MG NEB SCH ×6 (01:23→21:17)
[2017-06-30] MEDS: NS 1/2 1000 ML IV 1,000 ML IV SCH ×3 (04:35→21:41)
[2017-06-30] MEDS: NEURONTIN CAP 300 MG PO SCH ×3 (06:05→21:43)
[2017-06-30] MEDS: PREDNISONE TAB 5 MG PO SCH ×2 (06:06→16:26)
[2017-06-30] MEDS: AMARYL TAB 4 MG PO SCH ×2 (06:06→16:26)
[2017-06-30] MEDS: HumuLIN R SUBCUT PRN ×2 (06:09→11:45)
[2017-06-30 06:37] LABS: ALANINE AMINOTRANSFERASE 24 Units/L (12-78); ALBUMIN 2.4 g/dL (3.4-5.0); ALKALINE PHOSPHATASE 53 Units/L (46-116); ASPARTATE AMINO TRANSFERASE 21 Units/L (15-37); BLOOD UREA NITROGEN 14 mg/dL (7-18); CALCIUM 8.8 mg/dL (8.5-10.1); CARBON DIOXIDE 25.6 mmol/L (21-32); CHLORIDE 101 mmol/L (98-107); COR CA(FOR HYPOALB) 10.1 mg/dL (8.5-10.1); COR NA(FOR HYPERGLY) 138 mmol/L (136-145); CREATININE 0.91 mg/dL (0.70-1.30); SODIUM 135 mmol/L (136-145); TOTAL PROTEIN 6.7 g/dL (6.4-8.2); eGFR BLACK RACES > 60 (>60); eGFR NON BLACK RACES > 60 (>60)
[2017-06-30 06:50] LABS: LACTIC ACID 2.4 mmol/L (0.4-2.0)
--- NOTE | 2017-06-30 06:52 | RAD ---
Examination: AP chest History: Bilateral pneumonia, SOB Comparison 06/28/2017 Findings: Continued normal heart size. Improving infiltrate right lower lobe. Clearing is incomplete, however. No new abnormality. Persistent enlargement and distortion of the left hilar complex as befo re. Impression: Improving pneumonia right lower lung. Stable appearance of abnormal left hilar complex wh ich may represent fibrosis and/or residual or recurrent tumor. Reported By:
[2017-06-30 07:01] LABS: BASOPHILS % (AUTO) 0.1 % (0.2-1.0); EOSINOPHILS % (AUTO) 0.1 % (0.9-2.9); HEMATOCRIT 32.8 % (42.0-54.0); HEMOGLOBIN 11.1 g/dL (13.5-18.0); LYMPHOCYTES # (AUTO) 1.3 X10^3/uL (1.3-2.9); LYMPHOCYTES % (AUTO) 6.2 % (21.0-51.0); MEAN CORPUSCULAR HEMOGLOBIN 28.2 pg (27.0-34.0); MEAN CORPUSCULAR HGB CONC 33.9 g/dL (33.0-35.0); MEAN CORPUSCULAR VOLUME 83.1 fL (80.0-100.0); MONOCYTES # (AUTO) 1.3 x10^3/uL (0.3-0.8); MONOCYTES % (AUTO) 6.1 % (0.0-13.0); NEUTROPHILS # (AUTO) 18.2 x10^3/uL (2.2-4.8); NEUTROPHILS % (AUTO) 87.5 % (42.0-75.0); PLATELET COUNT 206 X10^3/uL (150.0-450.0); RED BLOOD COUNT 3.95 X10^6/uL (4.7-6.0); RED CELL DISTRIBUTION WIDTH 16.7 % (11.6-16.5); WHITE BLOOD COUNT 20.8 X10^3/uL (3.6-10.0)
[2017-06-30] MEDS ORDERED: GLUCOPHAGE ONE ×2 (07:47→21:33)
[2017-06-30] MEDS: LANOXIN PO SCH (08:45)
[2017-06-30] MEDS: GLUCOPHAGE PO SCH ×2 (08:45→21:44)
[2017-06-30] MEDS: COLACE CAP 100 MG PO SCH (08:45)
[2017-06-30] MEDS: ROCEPHIN 1 GM IV PREMIX 1 GM/50 ML IV.SOLN. IV SCH (08:45)
[2017-06-30] MEDS: LOPRESSOR TAB 50 MG PO SCH ×2 (08:47→21:44)
[2017-06-30] MEDS: ROBITUSSIN DM PO SCH (08:47)
[2017-06-30] MEDS: PROTONIX TAB 40 MG PO SCH (08:47)
[2017-06-30] MEDS: LEVAQUIN PREMIX IV 750 MG 750 MG/150 ML BAG IV SCH (08:47)
[2017-06-30] MEDS: PRADAXA PO SCH ×2 (08:47→21:45)
[2017-06-30] MEDS: MEGACE PO SCH ×2 (08:47→21:44)
[2017-06-30] MEDS: TAMIFLU PO SCH ×2 (08:47→21:45)
[2017-06-30] MEDS: ZyrTEC TAB 10 MG PO SCH (08:47)
[2017-06-30] MEDS: MILK OF MAGNESIA PO PRN ×3 (08:48→21:43)
[2017-06-30] MEDS: PULMICORT NEB TX 0.5 MG NEB SCH ×2 (09:00→21:17)
[2017-06-30] MEDS: MUCINEX DM PO SCH ×2 (09:51→21:43)
[2017-06-30] MEDS ORDERED: FORTAZ or TAZICEF INJ ONE (10:07)
[2017-06-30] MEDS ORDERED: NS 100 ML IV + SPIKE MINIBAG* 100 ML IV ONE (10:08)
[2017-06-30] MEDS: FORTAZ or TAZICEF INJ 1 GM in NS 100 ML IV + SPIKE MINIBAG* 100 ML IV SCH ×3 (10:11→21:42)
[2017-06-30] MEDS: MORPHINE SULFATE INJ 2 MG INJ IVP PRN (10:19)
[2017-06-30] MEDS ORDERED: TORADOL 30 MG VIAL IVP PRN (11:37)
[2017-06-30] MEDS: HumuLIN R SC PRN (16:26)
[2017-06-30] MEDS: TUSSIONEX PENNKINETIC SUSP PO SCH (21:42)
[2017-06-30] MEDS: FLOMAX PO SCH (21:43)
[2017-06-30] MEDS: SINGULAIR TAB 10 MG PO SCH (21:44)
[2017-06-30] MEDS: AVODART PO SCH (21:44)
[2017-06-30] MEDS: LIPITOR TAB 40 MG PO SCH (21:44)
[2017-06-30] MEDS: KLONOPIN TAB 0.5 MG PO SCH (21:44)
[2017-06-30] MEDS: SNACK - Diabetic Appropriate PO SCH (21:53)
[2017-07-01] MEDS: DUONEB 0.5 MG/3 MG NEB SCH ×6 (01:14→21:34)
[2017-07-01] MEDS: FORTAZ or TAZICEF INJ 1 GM in NS 100 ML IV + SPIKE MINIBAG* 100 ML IV SCH ×3 (05:38→21:04)
[2017-07-01] MEDS: NEURONTIN CAP 300 MG PO SCH ×3 (05:39→21:08)
[2017-07-01 05:56] LABS: ALANINE AMINOTRANSFERASE 24 Units/L (12-78); ALBUMIN 2.4 g/dL (3.4-5.0); ALKALINE PHOSPHATASE 60 Units/L (46-116); ASPARTATE AMINO TRANSFERASE 19 Units/L (15-37); BLOOD UREA NITROGEN 11 mg/dL (7-18); CALCIUM 8.5 mg/dL (8.5-10.1); CARBON DIOXIDE 26.4 mmol/L (21-32); CHLORIDE 100 mmol/L (98-107); COR CA(FOR HYPOALB) 9.8 mg/dL (8.5-10.1); COR NA(FOR HYPERGLY) 138 mmol/L (136-145); CREATININE 0.79 mg/dL (0.70-1.30); SODIUM 136 mmol/L (136-145); TOTAL PROTEIN 6.9 g/dL (6.4-8.2); eGFR BLACK RACES > 60 (>60); eGFR NON BLACK RACES > 60 (>60)
[2017-07-01 05:58] LABS: BASOPHILS % (AUTO) 0 % (0.2-1.0); EOSINOPHILS # (AUTO) 0.1 x10^3/uL (0.0-0.2); EOSINOPHILS % (AUTO) 0.5 % (0.9-2.9); HEMATOCRIT 33.5 % (42.0-54.0); HEMOGLOBIN 11.3 g/dL (13.5-18.0); LYMPHOCYTES # (AUTO) 1.3 X10^3/uL (1.3-2.9); MEAN CORPUSCULAR HEMOGLOBIN 28.1 pg (27.0-34.0); MEAN CORPUSCULAR HGB CONC 33.8 g/dL (33.0-35.0); MEAN CORPUSCULAR VOLUME 83.3 fL (80.0-100.0); MEAN PLATELET VOLUME 9.3 fL (7.4-11.0); MONOCYTES % (AUTO) 6.2 % (0.0-13.0); NEUTROPHILS # (AUTO) 13.4 x10^3/uL (2.2-4.8); NEUTROPHILS % (AUTO) 85.3 % (42.0-75.0); PLATELET COUNT 219 X10^3/uL (150.0-450.0); RED BLOOD COUNT 4.03 X10^6/uL (4.7-6.0); RED CELL DISTRIBUTION WIDTH 16.3 % (11.6-16.5); WHITE BLOOD COUNT 15.8 X10^3/uL (3.6-10.0)
[2017-07-01] MEDS: PREDNISONE TAB 5 MG PO SCH ×2 (06:02→16:41)
[2017-07-01] MEDS: AMARYL TAB 4 MG PO SCH (06:02)
--- NOTE | 2017-07-01 06:50 | RAD ---
History: Dyspnea and chest pain. Exam: Single-view chest. Comparison: 06/30/2017. Findings: The trachea is midline. The cardiac silhouette is stable. There is an unchanged left-sided port a cat heter CVL and right-sided, stable, pacing device. A left suprahilar mass lesion and soft tissue fulln ess in the right hilum which could reflect post radiation fibrosis or malignancy is unchanged. Backgr ound changes of COPD remain. Chronic interstitial thickening is observed. There is an unchanged infil trate in the medial aspect of the right lung base. No other changes are seen. No pneumothorax. The brianna fabricio are stable. Impression: Unchanged RLL (medial) infiltrate/pneumonia. Background pulmonary findings of COPD with a left suprah ilar masslike lesion. No other cardiopulmonary changes are observed. Reported By:
[2017-07-01] MEDS: PULMICORT NEB TX 0.5 MG NEB SCH ×2 (08:10→21:34)
[2017-07-01] MEDS ORDERED: GLUCOPHAGE ONE ×2 (09:57→20:47)
[2017-07-01] MEDS: COLACE CAP 100 MG PO SCH ×2 (10:00→10:23)
[2017-07-01] MEDS: GLUCOPHAGE PO SCH ×2 (10:00→21:08)
[2017-07-01] MEDS: LOPRESSOR TAB 50 MG PO SCH ×2 (10:01→21:07)
[2017-07-01] MEDS: LANOXIN PO SCH (10:01)
[2017-07-01] MEDS: LEVAQUIN PREMIX IV 750 MG 750 MG/150 ML BAG IV SCH (10:01)
[2017-07-01] MEDS: PRADAXA PO SCH ×2 (10:02→21:07)
[2017-07-01] MEDS: MUCINEX DM PO SCH ×2 (10:02→21:15)
[2017-07-01] MEDS: MEGACE PO SCH ×2 (10:02→21:08)
[2017-07-01] MEDS: TAMIFLU PO SCH ×2 (10:03→21:08)
[2017-07-01] MEDS: ZyrTEC TAB 10 MG PO SCH (10:03)
[2017-07-01] MEDS: PROTONIX TAB 40 MG PO SCH (10:03)
--- NOTE | 2017-07-01 10:53 | DR.H&P ---
H&P - History & Physical for Day of: H&P Date: 06/29/17 - Chief Complaint Chief Complaint: short of breath, cough, abdominal pain - Allergies Allergies/Adverse Reactions: Allergies Allergy/AdvReac Type Severity Reaction Status Date / Time codeine Allergy Unknown Verified 01/04/17 10:57 - History of Present Illness History of Present Illness: is a 72 year old patient of ours who presented to ER complaining of shortness of breath with chest discomfort upon inspiration. He reports that symptoms started around 1PM and have progressively gotten worse. Associated symptoms are cough, chills, weakness, fatigue, headache, dizziness, and diffuse abdominal pain. He denies diarrhea or vomiting. Patient has a history significant for COPD and is oxygen and steroid dependent. Upon auscultation patient is noted with scattered wheezing and rhonchi in bilateral lung arellano. On arrival, his vitals were 98.9, 142, 22, 90 NC 80/49. Labs were obtained. Abnormal lab values include the following: WBC 21.4, Potassium 3.1, Creatinine 1.42, GFR Non A famer 52, Albumin 3.2, Albumin Globulin ratio 0.8, Amylase 22, Lipase 70. Urine Clean Catch reveals: [place] color, appearance Hazy, Protein 1+, Glucose 3+, Ketones 1+, Occult Blood 4+, Leukocyte 1+, RBC 5-10,WBC 3-5. Sputum culture and blood cultures are pending. ABG ph 7.490, pco2 28.0, po2 56.0, Hco3 21.3. Chest Xray was obtained and revealed: The unchanged left hilar prominence with associated pleural parenchymal scaring. Severe emphysema is noted heart size is normal. The right subclavian approach cardiac device and leads are noted. Stable positioning of the left subclavian Port A Cath. There is left hilar prominence with associated pleural parenchymal scarring. Severe emphysema is noted. There is right basilar airspace disease. Right basilar air space disease likely representing pneumonia. Follow up recommended to exclude underlying lesion. Unchanged left hilar prominence with scarring. EKG revealed: 115 Rate sinus Tach, proable left atrial enlarement, right axis deviation. He was given solu-medrol 125mg iv x 1, duoneb x 1, and rocephin 1gm iv x 1 in the ER with only slight improvement in symptoms. We admitted patient to the hospital for aggressive IV antibiotic therapy, respiratory treatments, and supplemental oxygen. We plan to follow up with AM labs and chest xray and continue to monitor patient. - Past Medical History Past Medical History: Angina, Asthma, COPD, Diabetes Additional Medical History: Cataracts, Constipation, DDD, Lung CA - Past Surgical History Surgical History: Angioplasty/Stents, Appendectomy, Ortho Surgery, Other - Family History Family Medical History: Cancer, [place], Coronary Artery Disease, Heart Failure, Hypertension - Social History Does patient currently use any type of tobacco product: No Have you used tobacco products in the last 12 months: No Type of Tobacco Use: None Does any household member use tobacco: No Alcohol Use: None Drug Use: None - Medications Home Medications: Dabigatran Etexilate Mesylate [PRADAXA 75 MG *] 150 mg PO BID 06/29/17 [History Confirmed 06/29/17] Dutasteride [Dutasteride] 1 cap PO DAILY 06/29/17 [History Confirmed 06/29/17] Glimepiride 1 tab PO BID 06/29/17 [History Confirmed 06/29/17] - Review of Systems Constitutional: See HPI, Chills, Weakness, Malaise Eyes: No Symptoms Reported ENT: No Symptoms Reported, Nose Congestion Respiratory: Cough, Shortness of Breath, Wheezing Cardiovascular: Chest Pain, Edema, Light Headedness Gastrointestinal: Abdominal Pain Genitourinary: No Symptoms Reported Musculoskeletal: No Symptoms Reported Skin: No Symptoms Reported Neurological: Weakness, Other (headache) - Physical Exam Vital Signs: Temperature 98.6 F Pulse Rate [Left Brachial] 107 Pulse Rate 107 Respiratory Rate 20 Blood Pressure [r arm] 108/68 Blood Pressure [Left Arm] 113/63 Blood Pressure 80/49 O2 Sat by Pulse Oximetry 95 Oriented: Normal Eyes: Normal Ear: Normal Nose: Normal Throat: Normal Respiratory: Rhonchi Throughout, Wheezes Throughout Cardiovascular: Edema (bilateral lower extremity pitting edema) : Normal Auscultation: Bowel Sounds: Normal Palpation: Normal Tenderness: Diffuse, Mild. negative: Rebound, Guarding, Rigidity Skin: Normal Musculoskeletal: Normal Psychiatric: Normal Mood Description: Calm Speech Pattern: Clear - Assessment/Plan (1) Pneumonia Qualifiers: Pneumonia type: due to unspecified organism Laterality: bilateral Lung location: lower lobe of lung Qualified Code(s): J18.1 - Lobar pneumonia, unspecified organism Status: Acute Plan: respiratory treatments, supplemental oxygen, rocephin 1gm iv daily, tussionex prn, continue to monitor (2) Abdominal pain Qualifiers: Abdominal location: generalized Qualified Code(s): R10.84 - Generalized abdominal pain Status: Acute Plan: continue to monitor
[2017-07-01] MEDS: HumuLIN R SC PRN (13:34)
[2017-07-01] MEDS: NS 1/2 1000 ML IV 1,000 ML IV SCH ×2 (16:10)
[2017-07-01] MEDS ORDERED: NS 1/2 1000 ML IV 1,000 ML IV ONE (16:15)
[2017-07-01] MEDS: FLOMAX PO SCH (21:07)
[2017-07-01] MEDS: AVODART PO SCH (21:07)
[2017-07-01] MEDS: LIPITOR TAB 40 MG PO SCH (21:08)
[2017-07-01] MEDS: SINGULAIR TAB 10 MG PO SCH (21:08)
[2017-07-01] MEDS: KLONOPIN TAB 0.5 MG PO SCH (21:08)
[2017-07-01] MEDS: SNACK - Diabetic Appropriate PO SCH (21:15)
[2017-07-01] MEDS: TUSSIONEX PENNKINETIC SUSP PO SCH (21:15)
[2017-07-02 00:19] LABS: CKMB % 3.7 % (<4); CREATINE KINASE 38 Units/L (39-308); CREATINE KINASE MB 1.4 ng/mL (0-4.0); TROPONIN I < 0.02 ng/mL (0-1.5)
[2017-07-02] MEDS: NS 1/2 1000 ML IV 1,000 ML IV SCH ×3 (01:07→17:34)
[2017-07-02] MEDS: DUONEB 0.5 MG/3 MG NEB SCH (01:11)
[2017-07-02] MEDS ORDERED: NS 1/2 1000 ML IV 1,000 ML IV ONE ×2 (05:54→21:51)
[2017-07-02] MEDS: FORTAZ or TAZICEF INJ 1 GM in NS 100 ML IV + SPIKE MINIBAG* 100 ML IV SCH ×4 (05:56→21:10)
[2017-07-02] MEDS: NEURONTIN CAP 300 MG PO SCH ×3 (05:58→21:18)
[2017-07-02] MEDS: PREDNISONE TAB 5 MG PO SCH ×2 (06:01→16:55)
[2017-07-02 06:09] LABS: BASOPHILS % (AUTO) 0.3 % (0.2-1.0); EOSINOPHILS # (AUTO) 0.2 x10^3/uL (0.0-0.2); EOSINOPHILS % (AUTO) 1.8 % (0.9-2.9); HEMATOCRIT 35.7 % (42.0-54.0); LYMPHOCYTES # (AUTO) 1.6 X10^3/uL (1.3-2.9); MEAN CORPUSCULAR HGB CONC 33.5 g/dL (33.0-35.0); MEAN CORPUSCULAR VOLUME 83.6 fL (80.0-100.0); MEAN PLATELET VOLUME 8.9 fL (7.4-11.0); MONOCYTES % (AUTO) 7.7 % (0.0-13.0); NEUTROPHILS # (AUTO) 10.1 x10^3/uL (2.2-4.8); NEUTROPHILS % (AUTO) 78.2 % (42.0-75.0); PLATELET COUNT 255 X10^3/uL (150.0-450.0); RED BLOOD COUNT 4.27 X10^6/uL (4.7-6.0); RED CELL DISTRIBUTION WIDTH 16.2 % (11.6-16.5); WHITE BLOOD COUNT 12.9 X10^3/uL (3.6-10.0)
[2017-07-02 06:10] LABS: ALANINE AMINOTRANSFERASE 21 Units/L (12-78); ALBUMIN 2.3 g/dL (3.4-5.0); ALKALINE PHOSPHATASE 58 Units/L (46-116); ASPARTATE AMINO TRANSFERASE 14 Units/L (15-37); BLOOD UREA NITROGEN 12 mg/dL (7-18); CALCIUM 8.7 mg/dL (8.5-10.1); CHLORIDE 100 mmol/L (98-107); COR CA(FOR HYPOALB) 10.1 mg/dL (8.5-10.1); COR NA(FOR HYPERGLY) 137 mmol/L (136-145); CREATININE 0.88 mg/dL (0.70-1.30); SODIUM 135 mmol/L (136-145); eGFR BLACK RACES > 60 (>60); eGFR NON BLACK RACES > 60 (>60)
--- NOTE | 2017-07-02 07:56 | RAD ---
Exam: Chest frontal view dated 07/02/2017 at 7:07 a.m. History: 72-year-old male with shortness of breath. Comparison: Previous chest radiograph from 07/01/2017. Findings: No interval change in position of support devices. Heart size remains within normal limits. Left supr ahilar mass is again seen. COPD with chronic interstitial changes again noted as well. No acute infil trate or significant effusion on either side. Impression: No significant interval change since previous exam from 07/01/2017. Reported By:
[2017-07-02] MEDS: PULMICORT NEB TX 0.5 MG NEB SCH ×2 (08:45→21:35)
[2017-07-02] MEDS: XOPENEX 1.25 MG/3 ML NEBULE NEB SCH ×4 (08:45→21:35)
[2017-07-02] MEDS ORDERED: GLUCOPHAGE ONE ×2 (09:19→19:44)
[2017-07-02] MEDS: MUCINEX DM PO SCH ×2 (10:02→22:52)
[2017-07-02] MEDS: PRADAXA PO SCH ×2 (10:03→21:11)
[2017-07-02] MEDS: ZyrTEC TAB 10 MG PO SCH (10:03)
[2017-07-02] MEDS: LOPRESSOR TAB 50 MG PO SCH ×2 (10:03→21:12)
[2017-07-02] MEDS: TAMIFLU PO SCH ×2 (10:03→21:11)
[2017-07-02] MEDS: GLUCOPHAGE PO SCH ×2 (10:04→21:12)
[2017-07-02] MEDS: LANOXIN PO SCH (10:04)
[2017-07-02] MEDS: PROTONIX TAB 40 MG PO SCH (10:05)
[2017-07-02] MEDS: MEGACE PO SCH ×2 (10:05→21:11)
[2017-07-02] MEDS: LEVAQUIN PREMIX IV 750 MG 750 MG/150 ML BAG IV SCH (10:05)
[2017-07-02] MEDS ORDERED: [UNRECOGNIZED DRUG - OTHER] IN PRN (10:28)
[2017-07-02] MEDS ORDERED: ALBUTEROL SULFATE IN PRN (10:28)
[2017-07-02] MEDS ORDERED: IPRATROPIUM IN PRN (10:28)
[2017-07-02] MEDS ORDERED: PATIENT'S HOME MEDICATION (Tiotropium Bromide Monohydrate 1 CAP) IN SCH (10:30)
[2017-07-02] MEDS: COLACE CAP 100 MG PO SCH (11:24)
[2017-07-02] MEDS: VITAMIN B-12 PO SCH (12:25)
--- NOTE | 2017-07-02 13:08 | PCM.PROG ---
Progress Note - Progress Note for Day of Date: 06/30/17 - Subjective Subjective: IS BEING TREATED FOR PNEUMONIA AND ABDOMINAL PAIN. TODAY, HE IS ALERT AND ORIENTED, SITTING UP IN BED ON MORNING ROUNDS. HE CONTINUES WITH COMPLAINTS OF SHORTNESS OF BREATH, PRODUCTIVE COUGH, GENERALIZED WEAKNESS, AND DIFFUSE ABDOMINAL PAIN. ON EXAMINATION, HEART IS REGULAR IN RATE AND RHYTHM. BILATERAL LUNGS CONTINUE WITH SCATTERED WHEEZING AND RHONCHI TO BILATERAL LUNG BREWER. HE IS CURRENTLY UTILIZING OXYGEN VIA NASAL CANNULAT AT 2L /MIN. ABDOMEN IS ROUND, SOFT, AND NOTED WITH MILD, DIFFUSE TENDERNESS TO PALPATION. NORMAL BOWEL SOUNDS ARE NOTED IN ALL QUADRANTS. THERE IS NORMAL RANGE OF MOTION NOTED TO ALL EXTREMITIES. HIS VITALS THIS MORNING ARE 98.0-100- 20-96%-107/66. LABS WERE OBTAINED. ABNORMAL LAB VALUES INCLUDE THE FOLLOWING: WBC 20.8, RBC 3.95, HGB 11.1, HCT 32.8, SODIUM 135, GLUCOSE 239, LACTIC ACID 2.4 , ALBUMIN 2.4. BLOOD CULTURES AND SPUTUM CULTURES ARE PENDING RESULTS. A CHEST XRAY WAS OBTAINED THIS MORNING AND REVEALED IMPROVING PNEUMONIA RIGHT LOWER LUNG. STABLE APPEARANCE OF ABNORMAL LEFT HILAR COMPLEX WHICH MAY REPRESENT FIBROSIS AND/OR RESIDUAL OR RECURRENT TUMOR. WE DISCONTINUED THE ROCEPHIN AND STARTED LEVAQUIN AND FORTAZ IV. WE ALSO STARTED HIM ON TAMIFLU. WE WILL CONTINUE WITH CURRENT PLAN OF CARE TODAY. WE PLAN TO FOLLOW UP WITH AM LABS AND CHEST XRAY AND WILL CONTINUE TO [facility]. - Past Medical Family Social History Past Med/Fam/Surg Hx: No changes since H&P Allergies: Allergies codeine Allergy (Unknown, Verified 01/04/17 10:57) - Review of Systems ROS: No change since H&P - Vital Signs and I&O's Vital Signs: Temperature 98.1 F Pulse Rate [Left Brachial] 98 Pulse Rate 106 Respiratory Rate 20 Blood Pressure [r arm] 108/68 Blood Pressure [Left Arm] 127/79 Blood Pressure 80/49 O2 Sat by Pulse Oximetry 96 Intake and Output: Intake & Output 06/30/17 07/01/17 07/02/17 07/03/17 11:59 11:59 11:59 11:59 Intake Total 2550 3720 2400 Output Total 500 Balance 0 3720 2400 - Physical Exam Oriented: Normal Eyes: Normal Ear: Normal Nose: Normal Throat: Normal Respiratory: Generalized, Wheezes, Rhonchi Cardiovascular: Edema (bilateral lower extremity pitting edema) : Normal Auscultation: Bowel Sounds: Normal Palpation: Normal Tenderness: Diffuse, Mild. negative: Rebound, Guarding, Rigidity Skin: Normal Musculoskeletal: Normal Psychiatric: Normal Mood Description: Calm Speech Pattern: Clear, Appropriate - Laboratory and Diagnostics Result Diagrams: 07/02/17 05:05 07/02/17 05:05 Labs: 06/29/17 00:19 Sputum - Expectorated Sputum Sputum Culture - Preliminary 06/29/17 00:19 Sputum - Expectorated Sputum - Final 06/28/17 21:52 Blood Blood Culture - Preliminary 06/28/17 21:50 Blood Blood Culture - Preliminary Laboratory WBC 12.9 X10^3/uL (3.6-10.0) H 07/02/17 05:05 RBC 4.27 X10^6/uL (4.7-6.0) L 07/02/17 05:05 Hgb 12.0 g/dL (13.5-18.0) L 07/02/17 05:05 Hct 35.7 % (42.0-54.0) L 07/02/17 05:05 MCV 83.6 fL (80.0-100.0) 07/02/17 05:05 MCH 28.0 pg (27.0-34.0) 07/02/17 05:05 MCHC 33.5 g/dL (33.0-35.0) 07/02/17 05:05 RDW 16.2 % (11.6-16.5) 07/02/17 05:05 Plt Count 255 X10^3/uL (150.0-450.0) 07/02/17 05:05 Plt Count Comment Adequate (ADEQUATE) 06/29/17 05:20 MPV 8.9 fL (7.4-11.0) 07/02/17 05:05 Neut % (Auto) 78.2 % (42.0-75.0) H 07/02/17 05:05 Lymph % (Auto) 12.0 % (21.0-51.0) L 07/02/17 05:05 [place] % (Auto) 7.7 % (0.0-13.0) 07/02/17 05:05 Eos % (Auto) 1.8 % (0.9-2.9) 07/02/17 05:05 Baso % (Auto) 0.3 % (0.2-1.0) 07/02/17 05:05 Neut # (Auto) 10.1 x10^3/uL (2.2-4.8) H 07/02/17 05:05 Lymph # (Auto) 1.6 X10^3/uL (1.3-2.9) 07/02/17 05:05 [place] # (Auto) 1.0 x10^3/uL (0.3-0.8) H 07/02/17 05:05 Eos # (Auto) 0.2 x10^3/uL (0.0-0.2) 07/02/17 05:05 Baso # (Auto) 0.0 X10^3/uL (0.0-0.1) 07/02/17 05:05 Absolute Nucleated RBC 0.0 /100WBC 07/02/17 05:05 Total Counted 100 06/29/17 05:20 Neutrophils % (Manual) 86 % (39-76) H 06/29/17 05:20 Band Neutrophils % 8 % (0-10) 06/29/17 05:20 Lymphocytes % (Manual) 3 % (13-43) L 06/29/17 05:20 Monocytes % (Manual) 3 % (4-9) L 06/29/17 05:20 Toxic Granulation 3+ A 06/29/17 05:20 Plt Morphology Comment Normal (NORMAL) 06/29/17 05:20 RBC Morphology Normal (NORMAL) 06/29/17 05:20 Sample Site Rrad 06/28/17 23:03 ABG pH 7.490 (7.35-7.45) H 06/28/17 23:03 ABG pCO2 28.0 mmHg (35.0-45.0) L 06/28/17 23:03 ABG pO2 56.0 mmHg (80.0-100.0) L 06/28/17 23:03 ABG HCO3 21.3 mmol/L (22-26) L 06/28/17 23:03 ABG O2 Saturation 91.0 % (90-100) 06/28/17 23:03 ABG Base Excess -1.0 mmol/L (-2.0-2.0) 06/28/17 23:03 Alexander Test Pos 06/28/17 23:03 A-a Gradient 137.0 mmHg 06/28/17 23:03 FiO2 32.000 06/28/17 23:03 Blood Gas Comments Yesi abg well-mtf 06/28/17 23:03 Sodium 135 mmol/L (136-145) L 07/02/17 05:05 Corrected Sodium 137 mmol/L (136-145) 07/02/17 05:05 Potassium 4.3 mmol/L (3.5-5.1) 07/02/17 05:05 Chloride 100 mmol/L (98-107) 07/02/17 05:05 Carbon Dioxide 23.0 mmol/L (21-32) 07/02/17 05:05 BUN 12 mg/dL (7-18) 07/02/17 05:05 Creatinine 0.88 mg/dL (0.70-1.30) 07/02/17 05:05 Est GFR (MDRD) Af Amer > 60 (>60) 07/02/17 05:05 Est GFR (MDRD) Non-Af > 60 (>60) 07/02/17 05:05 Glucose 178 mg/dL (65-99) H 07/02/17 05:05 POC Glucose (mg/dL) 282 mg/dL (65-99) H 07/02/17 12:32 Lactic Acid 2.4 mmol/L (0.4-2.0) H 06/30/17 06:00 Calcium 8.7 mg/dL (8.5-10.1) 07/02/17 05:05 Corrected Calcium 10.1 mg/dL (8.5-10.1) 07/02/17 05:05 Total Bilirubin 0.20 mg/dL (0.2-1.0) 07/02/17 05:05 AST 14 Units/L (15-37) L 07/02/17 05:05 ALT 21 Units/L (12-78) 07/02/17 05:05 Alkaline Phosphatase 58 Units/L (46-116) 07/02/17 05:05 Creatine Kinase 38 Units/L (39-308) L 07/01/17 23:52 CK-MB (CK-2) 1.4 ng/mL (0-4.0) 07/01/17 23:52 CK/CKMB % Calc 3.7 % (<4) 07/01/17 23:52 Troponin I < 0.02 ng/mL (0-1.5) 07/01/17 23:52 Total Protein 7.0 g/dL (6.4-8.2) 07/02/17 05:05 Albumin 2.3 g/dL (3.4-5.0) L 07/02/17 05:05 Globulin 4.7 g/dL (2.5-4.5) H 07/02/17 05:05 Albumin/Globulin Ratio 0.5 Ratio (1.1-2.1) L 07/02/17 05:05 Amylase 22 Units/L (25-115) L 06/28/17 21:50 Lipase 70 Units/L (73-393) L 06/28/17 21:50 Specimen Type Clean catch urine 06/29/17 07:07 Urine Color Lou (YELLOW) 06/29/17 07:07 Urine Appearance Hazy (CLEAR) 06/29/17 07:07 Urine pH 6.0 (5.0 - 8.0) 06/29/17 07:07 Ur Specific [place] 1.010 (1.000-1.030) 06/29/17 07:07 Urine Protein 1+ (NEGATIVE) 06/29/17 07:07 Urine Glucose (UA) 3+ (NEGATIVE) 06/29/17 07:07 Urine Ketones 1+ (NEGATIVE) 06/29/17 07:07 Urine Occult Blood 4+ (NEGATIVE) 06/29/17 07:07 Urine Nitrite Negative (NEGATIVE) 06/29/17 07:07 Urine Bilirubin Negative (NEGATIVE) 06/29/17 07:07 Urine Urobilinogen Normal (NORMAL) 06/29/17 07:07 Ur Leukocyte Esterase 1+ (NEGATIVE) 06/29/17 07:07 Urine RBC 5-10 /HPF (NONE SEEN) 06/29/17 07:07 Urine WBC 3-5 /HPF (NONE SEEN) 06/29/17 07:07 Ur Squamous Epith Cells Few /HPF (NEGATIVE) 06/29/17 07:07 Urine Bacteria Trace /HPF (NEGATIVE) 06/29/17 07:07 Urine Mucus Few /HPF (NEGATIVE) 06/29/17 07:07 Ur Culture Indicated? No/not indicated 06/29/17 07:07 Digoxin 1.55 ng/mL (0.9-2) 06/29/17 05:20 - Plan (1) Pneumonia Status: Acute Qualifiers: Pneumonia type: due to unspecified organism Laterality: bilateral Lung location: lower lobe of lung Qualified Code(s): J18.1 - Lobar pneumonia, unspecified organism Plan: respiratory treatments, supplemental oxygen, fortaz iv, levaquin iv, tussionex prn, continue to monitor (2) Abdominal pain Status: Acute Qualifiers: Abdominal location: generalized Qualified Code(s): R10.84 - Generalized abdominal pain Plan: continue to monitor
[2017-07-02] MEDS: HumuLIN R SC PRN ×2 (13:28→21:18)
--- NOTE | 2017-07-02 20:44 | PCM.PROG ---
Progress Note - Progress Note for Day of Date: 07/01/17 - Subjective Subjective: IS BEING TREATED FOR PNEUMONIA AND ABDOMINAL PAIN. TODAY, HE IS ALERT AND ORIENTED, SITTING UP IN BED ON MORNING ROUNDS. HE CONTINUES WITH COMPLAINTS OF SHORTNESS OF BREATH, PRODUCTIVE COUGH, GENERALIZED WEAKNESS. HE DENIES ABDOMINAL PAIN THIS MORNING. ON EXAMINATION, HEART IS REGULAR IN RATE AND RHYTHM. BILATERAL LUNGS CONTINUE WITH SCATTERED WHEEZING AND RHONCHI TO BILATERAL LUNG BREWER. HE IS CURRENTLY UTILIZING OXYGEN VIA NASAL CANNULAT AT 2L /MIN. ABDOMEN IS ROUND, SOFT, AND NOTED WITH MILD, DIFFUSE TENDERNESS TO PALPATION. NORMAL BOWEL SOUNDS ARE NOTED IN ALL QUADRANTS. THERE IS NORMAL RANGE OF MOTION NOTED TO ALL EXTREMITIES. HIS VITALS THIS MORNING ARE 98.6-107- 20-90%-113/63. LABS WERE OBTAINED. ABNORMAL LAB VALUES INCLUDE THE FOLLOWING: WBC DECREASED FROM 20.8 TO 15.8, RBC 4.03, HGB 11.3, HCT 33.5, GLUCOSE 195, ALBUMIN 2.4. BLOOD CULTURES AND SPUTUM CULTURES ARE PENDING RESULTS. A CHEST XRAY WAS OBTAINED THIS MORNING AND REVEALED UNCHANGED RIGHT LOWER LOBE INFILTRATE/PNEUMONIA. BACKGROUND PULMONARY FINDINGS OF COPD WITH A LEFT SUPRAHILAR MASSLIKE LESION. TODAY, WE WILL CONTINUE WITH CURRENT PLAN OF CARE FOR PNEUMONIA. WE PLAN TO FOLLOW UP WITH AM LABS AND CHEST XRAY AND WILL CONTINUE TO [facility]. - Past Medical Family Social History Past Med/Fam/Surg Hx: No changes since H&P Allergies: Allergies codeine Allergy (Unknown, Verified 01/04/17 10:57) - Review of Systems ROS: No change since H&P - Vital Signs and I&O's Vital Signs: Temperature 98.2 F Pulse Rate [Left Brachial] 96 Pulse Rate 106 Respiratory Rate 20 Blood Pressure [r arm] 108/68 Blood Pressure [Left Arm] 114/67 Blood Pressure 80/49 O2 Sat by Pulse Oximetry 94 Intake and Output: Intake & Output 06/30/17 07/01/17 07/02/17 07/03/17 11:59 11:59 11:59 11:59 Intake Total 2550 3720 2400 920 Output Total 500 Balance 2049 3720 2400 920 - Physical Exam Oriented: Normal Eyes: Normal Ear: Normal Nose: Normal Throat: Normal Respiratory: Generalized, Wheezes, Rhonchi Cardiovascular: Edema (bilateral lower extremity pitting edema) : Normal Auscultation: Bowel Sounds: Normal Palpation: Normal Tenderness: Diffuse, Mild. negative: Rebound, Guarding, Rigidity Skin: Normal Musculoskeletal: Normal Psychiatric: Normal Mood Description: Calm Speech Pattern: Clear, Appropriate - Laboratory and Diagnostics Result Diagrams: 07/02/17 05:05 07/02/17 05:05 Labs: 06/29/17 00:19 Sputum - Expectorated Sputum Sputum Culture - Preliminary 06/29/17 00:19 Sputum - Expectorated Sputum - Final 06/28/17 21:52 Blood Blood Culture - Preliminary 06/28/17 21:50 Blood Blood Culture - Preliminary Laboratory WBC 12.9 X10^3/uL (3.6-10.0) H 07/02/17 05:05 RBC 4.27 X10^6/uL (4.7-6.0) L 07/02/17 05:05 Hgb 12.0 g/dL (13.5-18.0) L 07/02/17 05:05 Hct 35.7 % (42.0-54.0) L 07/02/17 05:05 MCV 83.6 fL (80.0-100.0) 07/02/17 05:05 MCH 28.0 pg (27.0-34.0) 07/02/17 05:05 MCHC 33.5 g/dL (33.0-35.0) 07/02/17 05:05 RDW 16.2 % (11.6-16.5) 07/02/17 05:05 Plt Count 255 X10^3/uL (150.0-450.0) 07/02/17 05:05 Plt Count Comment Adequate (ADEQUATE) 06/29/17 05:20 MPV 8.9 fL (7.4-11.0) 07/02/17 05:05 Neut % (Auto) 78.2 % (42.0-75.0) H 07/02/17 05:05 Lymph % (Auto) 12.0 % (21.0-51.0) L 07/02/17 05:05 [place] % (Auto) 7.7 % (0.0-13.0) 07/02/17 05:05 Eos % (Auto) 1.8 % (0.9-2.9) 07/02/17 05:05 Baso % (Auto) 0.3 % (0.2-1.0) 07/02/17 05:05 Neut # (Auto) 10.1 x10^3/uL (2.2-4.8) H 07/02/17 05:05 Lymph # (Auto) 1.6 X10^3/uL (1.3-2.9) 07/02/17 05:05 [place] # (Auto) 1.0 x10^3/uL (0.3-0.8) H 07/02/17 05:05 Eos # (Auto) 0.2 x10^3/uL (0.0-0.2) 07/02/17 05:05 Baso # (Auto) 0.0 X10^3/uL (0.0-0.1) 07/02/17 05:05 Absolute Nucleated RBC 0.0 /100WBC 07/02/17 05:05 Total Counted 100 06/29/17 05:20 Neutrophils % (Manual) 86 % (39-76) H 06/29/17 05:20 Band Neutrophils % 8 % (0-10) 06/29/17 05:20 Lymphocytes % (Manual) 3 % (13-43) L 06/29/17 05:20 Monocytes % (Manual) 3 % (4-9) L 06/29/17 05:20 Toxic Granulation 3+ A 06/29/17 05:20 Plt Morphology Comment Normal (NORMAL) 06/29/17 05:20 RBC Morphology Normal (NORMAL) 06/29/17 05:20 Sample Site Rrad 06/28/17 23:03 ABG pH 7.490 (7.35-7.45) H 06/28/17 23:03 ABG pCO2 28.0 mmHg (35.0-45.0) L 06/28/17 23:03 ABG pO2 56.0 mmHg (80.0-100.0) L 06/28/17 23:03 ABG HCO3 21.3 mmol/L (22-26) L 06/28/17 23:03 ABG O2 Saturation 91.0 % (90-100) 06/28/17 23:03 ABG Base Excess -1.0 mmol/L (-2.0-2.0) 06/28/17 23:03 Alexander Test Pos 06/28/17 23:03 A-a Gradient 137.0 mmHg 06/28/17 23:03 FiO2 32.000 06/28/17 23:03 Blood Gas Comments Yesi abg well-mtf 06/28/17 23:03 Sodium 135 mmol/L (136-145) L 07/02/17 05:05 Corrected Sodium 137 mmol/L (136-145) 07/02/17 05:05 Potassium 4.3 mmol/L (3.5-5.1) 07/02/17 05:05 Chloride 100 mmol/L (98-107) 07/02/17 05:05 Carbon Dioxide 23.0 mmol/L (21-32) 07/02/17 05:05 BUN 12 mg/dL (7-18) 07/02/17 05:05 Creatinine 0.88 mg/dL (0.70-1.30) 07/02/17 05:05 Est GFR (MDRD) Af Amer > 60 (>60) 07/02/17 05:05 Est GFR (MDRD) Non-Af > 60 (>60) 07/02/17 05:05 Glucose 178 mg/dL (65-99) H 07/02/17 05:05 POC Glucose (mg/dL) 259 mg/dL (65-99) H 07/02/17 20:13 Lactic Acid 2.4 mmol/L (0.4-2.0) H 06/30/17 06:00 Calcium 8.7 mg/dL (8.5-10.1) 07/02/17 05:05 Corrected Calcium 10.1 mg/dL (8.5-10.1) 07/02/17 05:05 Total Bilirubin 0.20 mg/dL (0.2-1.0) 07/02/17 05:05 AST 14 Units/L (15-37) L 07/02/17 05:05 ALT 21 Units/L (12-78) 07/02/17 05:05 Alkaline Phosphatase 58 Units/L (46-116) 07/02/17 05:05 Creatine Kinase 38 Units/L (39-308) L 07/01/17 23:52 CK-MB (CK-2) 1.4 ng/mL (0-4.0) 07/01/17 23:52 CK/CKMB % Calc 3.7 % (<4) 07/01/17 23:52 Troponin I < 0.02 ng/mL (0-1.5) 07/01/17 23:52 Total Protein 7.0 g/dL (6.4-8.2) 07/02/17 05:05 Albumin 2.3 g/dL (3.4-5.0) L 07/02/17 05:05 Globulin 4.7 g/dL (2.5-4.5) H 07/02/17 05:05 Albumin/Globulin Ratio 0.5 Ratio (1.1-2.1) L 07/02/17 05:05 Amylase 22 Units/L (25-115) L 06/28/17 21:50 Lipase 70 Units/L (73-393) L 06/28/17 21:50 Specimen Type Clean catch urine 06/29/17 07:07 Urine Color Lou (YELLOW) 06/29/17 07:07 Urine Appearance Hazy (CLEAR) 06/29/17 07:07 Urine pH 6.0 (5.0 - 8.0) 06/29/17 07:07 Ur Specific [place] 1.010 (1.000-1.030) 06/29/17 07:07 Urine Protein 1+ (NEGATIVE) 06/29/17 07:07 Urine Glucose (UA) 3+ (NEGATIVE) 06/29/17 07:07 Urine Ketones 1+ (NEGATIVE) 06/29/17 07:07 Urine Occult Blood 4+ (NEGATIVE) 06/29/17 07:07 Urine Nitrite Negative (NEGATIVE) 06/29/17 07:07 Urine Bilirubin Negative (NEGATIVE) 06/29/17 07:07 Urine Urobilinogen Normal (NORMAL) 06/29/17 07:07 Ur Leukocyte Esterase 1+ (NEGATIVE) 06/29/17 07:07 Urine RBC 5-10 /HPF (NONE SEEN) 06/29/17 07:07 Urine WBC 3-5 /HPF (NONE SEEN) 06/29/17 07:07 Ur Squamous Epith Cells Few /HPF (NEGATIVE) 06/29/17 07:07 Urine Bacteria Trace /HPF (NEGATIVE) 06/29/17 07:07 Urine Mucus Few /HPF (NEGATIVE) 06/29/17 07:07 Ur Culture Indicated? No/not indicated 06/29/17 07:07 Digoxin 1.55 ng/mL (0.9-2) 06/29/17 05:20 - Plan (1) Pneumonia Status: Acute Qualifiers: Pneumonia type: due to unspecified organism Laterality: bilateral Lung location: lower lobe of lung Qualified Code(s): J18.1 - Lobar pneumonia, unspecified organism Plan: respiratory treatments, supplemental oxygen, fortaz iv, levaquin iv, tussionex prn, continue to monitor (2) Abdominal pain Status: Resolved Qualifiers: Abdominal location: generalized Qualified Code(s): R10.84 - Generalized abdominal pain Plan: continue to monitor
[2017-07-02] MEDS: SNACK - Diabetic Appropriate PO SCH (21:10)
[2017-07-02] MEDS: KLONOPIN TAB 0.5 MG PO SCH (21:11)
[2017-07-02] MEDS: SINGULAIR TAB 10 MG PO SCH (21:11)
[2017-07-02] MEDS: FLOMAX PO SCH (21:12)
[2017-07-02] MEDS: AVODART PO SCH (21:12)
[2017-07-02] MEDS: LIPITOR TAB 40 MG PO SCH (21:16)
[2017-07-02] MEDS: TUSSIONEX PENNKINETIC SUSP PO SCH (21:17)
[2017-07-03] MEDS: FORTAZ or TAZICEF INJ 1 GM in NS 100 ML IV + SPIKE MINIBAG* 100 ML IV SCH ×3 (05:19→21:20)
[2017-07-03] MEDS: NEURONTIN CAP 300 MG PO SCH ×3 (05:20→21:20)
[2017-07-03] MEDS: NS 1/2 1000 ML IV 1,000 ML IV SCH ×3 (05:20→20:16)
[2017-07-03] MEDS: HumuLIN R SC PRN ×3 (05:39→20:20)
[2017-07-03] MEDS: PREDNISONE TAB 5 MG PO SCH ×2 (06:01→16:19)
[2017-07-03 06:18] LABS: BASOPHILS # (AUTO) 0.1 X10^3/uL (0.0-0.1); BASOPHILS % (AUTO) 0.5 % (0.2-1.0); EOSINOPHILS # (AUTO) 0.4 x10^3/uL (0.0-0.2); EOSINOPHILS % (AUTO) 3.1 % (0.9-2.9); HEMOGLOBIN 12.5 g/dL (13.5-18.0); LYMPHOCYTES # (AUTO) 1.5 X10^3/uL (1.3-2.9); LYMPHOCYTES % (AUTO) 12.1 % (21.0-51.0); MEAN CORPUSCULAR HEMOGLOBIN 28.3 pg (27.0-34.0); MEAN CORPUSCULAR HGB CONC 33.8 g/dL (33.0-35.0); MEAN CORPUSCULAR VOLUME 83.7 fL (80.0-100.0); MEAN PLATELET VOLUME 8.6 fL (7.4-11.0); MONOCYTES # (AUTO) 1.1 x10^3/uL (0.3-0.8); MONOCYTES % (AUTO) 8.9 % (0.0-13.0); NEUTROPHILS # (AUTO) 9.5 x10^3/uL (2.2-4.8); NEUTROPHILS % (AUTO) 75.4 % (42.0-75.0); PLATELET COUNT 278 X10^3/uL (150.0-450.0); RED BLOOD COUNT 4.42 X10^6/uL (4.7-6.0); RED CELL DISTRIBUTION WIDTH 16.2 % (11.6-16.5); WHITE BLOOD COUNT 12.6 X10^3/uL (3.6-10.0)
[2017-07-03 06:35] LABS: ALANINE AMINOTRANSFERASE 20 Units/L (12-78); ALBUMIN 2.4 g/dL (3.4-5.0); ALKALINE PHOSPHATASE 55 Units/L (46-116); ASPARTATE AMINO TRANSFERASE 13 Units/L (15-37); BLOOD UREA NITROGEN 12 mg/dL (7-18); CALCIUM 8.5 mg/dL (8.5-10.1); CARBON DIOXIDE 22.7 mmol/L (21-32); CHLORIDE 100 mmol/L (98-107); COR CA(FOR HYPOALB) 9.8 mg/dL (8.5-10.1); COR NA(FOR HYPERGLY) 135 mmol/L (136-145); CREATININE 0.89 mg/dL (0.70-1.30); SODIUM 133 mmol/L (136-145); TOTAL PROTEIN 7.3 g/dL (6.4-8.2); eGFR BLACK RACES > 60 (>60); eGFR NON BLACK RACES > 60 (>60)
[2017-07-03 07:07] LABS: BAND NEUTROPHILS % 2 % (0-10); PLATELET MORPHOLOGY COMMENT NORMAL (NORMAL)
--- NOTE | 2017-07-03 08:21 | RAD ---
HISTORY: Shortness of breath. Prior history of hypertension, NE, diabetes, cancer Study: Single-view chest Comparison: 07/02/2017. Findings: There is again evidence of lower cervical spine surgery with metallic plate and screws. Right-sided p acemaker is seen with intact leads. Left-sided LifePort is present with the tip in the mid SVC. Trach ea is midline. Heart size is normal. The left upper hilar mass is unchanged from prior studies. There is hyperinflation of both lungs with increased interstitial markings compatible with COPD. A very sm all focus of atelectasis or infiltrate is present involving the right lung base medially. No dense co nsolidation, pleural fluid or pneumothorax is seen. Osseous structures are intact. IMPRESSION: COPD with a small focus of atelectasis or infiltrate in the medial aspect of the right lung base. Stable left hilar mass. Reported By:
[2017-07-03] MEDS ORDERED: GLUCOPHAGE ONE ×2 (08:43→19:36)
[2017-07-03] MEDS: COLACE CAP 100 MG PO SCH (08:51)
[2017-07-03] MEDS: PROTONIX TAB 40 MG PO SCH (08:51)
[2017-07-03] MEDS: PRADAXA PO SCH ×2 (08:51→20:17)
[2017-07-03] MEDS: TAMIFLU PO SCH ×2 (08:51→20:17)
[2017-07-03] MEDS: VITAMIN B-12 PO SCH (08:51)
[2017-07-03] MEDS: GLUCOPHAGE PO SCH ×2 (08:52→20:18)
[2017-07-03] MEDS: LOPRESSOR TAB 50 MG PO SCH ×2 (08:52→20:15)
[2017-07-03] MEDS: MUCINEX DM PO SCH ×2 (08:52→20:18)
[2017-07-03] MEDS: LANOXIN PO SCH (08:52)
[2017-07-03] MEDS: MEGACE PO SCH ×2 (08:52→20:17)
[2017-07-03] MEDS: ZyrTEC TAB 10 MG PO SCH (08:53)
[2017-07-03] MEDS: LEVAQUIN PREMIX IV 750 MG 750 MG/150 ML BAG IV SCH (08:53)
[2017-07-03] MEDS: XOPENEX 1.25 MG/3 ML NEBULE NEB SCH ×4 (09:29→21:30)
[2017-07-03] MEDS: PULMICORT NEB TX 0.5 MG NEB SCH ×2 (09:29→21:30)
[2017-07-03] MEDS ORDERED: NS 1/2 1000 ML IV 1,000 ML IV ONE (14:50)
[2017-07-03] MEDS: FLOMAX PO SCH (20:15)
[2017-07-03] MEDS: SINGULAIR TAB 10 MG PO SCH (20:15)
[2017-07-03] MEDS: AVODART PO SCH (20:16)
[2017-07-03] MEDS: SNACK - Diabetic Appropriate PO SCH (20:17)
[2017-07-03] MEDS: LIPITOR TAB 40 MG PO SCH (20:17)
[2017-07-03] MEDS: KLONOPIN TAB 0.5 MG PO SCH (20:18)
[2017-07-03] MEDS: TUSSIONEX PENNKINETIC SUSP PO SCH (20:19)
--- NOTE | 2017-07-03 20:54 | PCM.PROG ---
Progress Note - Progress Note for Day of Date: 07/02/17 - Subjective Subjective: IS BEING TREATED FOR PNEUMONIA AND ABDOMINAL PAIN. TODAY, HE IS ALERT AND ORIENTED, SITTING UP IN BED ON MORNING ROUNDS. HE CONTINUES WITH COMPLAINTS OF SHORTNESS OF BREATH, PRODUCTIVE COUGH, GENERALIZED WEAKNESS. HE DENIES ABDOMINAL PAIN THIS MORNING. PATIENT HAD AN EPISODE OF TACHYCARDIA AROUND MIDNIGHT. EKG OBTAINED AND REVEALED SINUS TACHYCARDIA WITH HR 112. CARDIAC ENZYMES WITHIN NORMAL LIMITS. ON EXAMINATION, HEART IS REGULAR IN RATE AND RHYTHM. BILATERAL LUNGS CONTINUE WITH SCATTERED WHEEZING AND RHONCHI TO BILATERAL LUNG BREWER. HE IS CURRENTLY UTILIZING OXYGEN VIA NASAL CANNULAT AT 2L /MIN. ABDOMEN IS ROUND, SOFT, AND NOTED WITH MILD, DIFFUSE TENDERNESS TO PALPATION. NORMAL BOWEL SOUNDS ARE NOTED IN ALL QUADRANTS. THERE IS NORMAL RANGE OF MOTION NOTED TO ALL EXTREMITIES. HIS VITALS THIS MORNING ARE 98.1-101- 20-96%-110/69. LABS WERE OBTAINED. ABNORMAL LAB VALUES INCLUDE THE FOLLOWING: WBC 12.9, RBC 4.27, HGB 12.0, HCT 35.7, SODIUM 135, GLUCOSE 178, AST 14, ALBUMIN 2.3. BLOOD CULTURES AND SPUTUM CULTURES ARE PENDING RESULTS. A CHEST XRAY WAS OBTAINED THIS MORNING AND REVEALED LEFT SUPRAHILAR MASS SEEN AGAIN. COPD WITH CHRONIC INTERSTITIAL CHANGES. TODAY, WE WILL CONTINUE WITH CURRENT PLAN OF CARE FOR PNEUMONIA. WE PLAN TO FOLLOW UP WITH AM LABS AND CHEST XRAY AND WILL CONTINUE TO [facility]. - Past Medical Family Social History Past Med/Fam/Surg Hx: No changes since H&P Allergies: Allergies codeine Allergy (Unknown, Verified 01/04/17 10:57) - Review of Systems ROS: No change since H&P - Vital Signs and I&O's Vital Signs: Temperature 98.4 F Pulse Rate [Left Brachial] 104 Pulse Rate 85 Respiratory Rate 20 Blood Pressure [r arm] 108/68 Blood Pressure [Left Arm] 115/64 Blood Pressure 80/49 O2 Sat by Pulse Oximetry 95 Intake and Output: Intake & Output 07/01/17 07/02/17 07/03/17 07/04/17 11:59 11:59 11:59 11:59 Intake Total 3720 2400 3100 1760 Balance 3720 2400 3100 1760 - Physical Exam Oriented: Normal Eyes: Normal Ear: Normal Nose: Normal Throat: Normal Respiratory: Generalized, Wheezes, Rhonchi Cardiovascular: Edema (bilateral lower extremity pitting edema) : Normal Auscultation: Bowel Sounds: Normal Palpation: Normal Tenderness: Diffuse, Mild. negative: Rebound, Guarding, Rigidity Skin: Normal Musculoskeletal: Normal Psychiatric: Normal Mood Description: Calm Speech Pattern: Clear, Appropriate - Laboratory and Diagnostics Result Diagrams: 07/03/17 05:35 07/03/17 05:35 Labs: 06/29/17 00:19 Sputum - Expectorated Sputum Sputum Culture - Final Streptococcus Pneumoniae Methicillin Resis Staph Aureus 06/29/17 00:19 Sputum - Expectorated Sputum - Final 06/28/17 21:52 Blood Blood Culture - Preliminary 06/28/17 21:50 Blood Blood Culture - Preliminary Laboratory WBC 12.6 X10^3/uL (3.6-10.0) H 07/03/17 05:35 RBC 4.42 X10^6/uL (4.7-6.0) L 07/03/17 05:35 Hgb 12.5 g/dL (13.5-18.0) L 07/03/17 05:35 Hct 37.0 % (42.0-54.0) L 07/03/17 05:35 MCV 83.7 fL (80.0-100.0) 07/03/17 05:35 MCH 28.3 pg (27.0-34.0) 07/03/17 05:35 MCHC 33.8 g/dL (33.0-35.0) 07/03/17 05:35 RDW 16.2 % (11.6-16.5) 07/03/17 05:35 Plt Count 278 X10^3/uL (150.0-450.0) 07/03/17 05:35 Plt Count Comment Adequate (ADEQUATE) 07/03/17 05:35 MPV 8.6 fL (7.4-11.0) 07/03/17 05:35 Neut % (Auto) 75.4 % (42.0-75.0) H 07/03/17 05:35 Lymph % (Auto) 12.1 % (21.0-51.0) L 07/03/17 05:35 [place] % (Auto) 8.9 % (0.0-13.0) 07/03/17 05:35 Eos % (Auto) 3.1 % (0.9-2.9) H 07/03/17 05:35 Baso % (Auto) 0.5 % (0.2-1.0) 07/03/17 05:35 Neut # (Auto) 9.5 x10^3/uL (2.2-4.8) H 07/03/17 05:35 Lymph # (Auto) 1.5 X10^3/uL (1.3-2.9) 07/03/17 05:35 [place] # (Auto) 1.1 x10^3/uL (0.3-0.8) H 07/03/17 05:35 Eos # (Auto) 0.4 x10^3/uL (0.0-0.2) H 07/03/17 05:35 Baso # (Auto) 0.1 X10^3/uL (0.0-0.1) 07/03/17 05:35 Absolute Nucleated RBC 0.0 /100WBC 07/03/17 05:35 Total Counted 100 07/03/17 05:35 Neutrophils % (Manual) 70 % (39-76) 07/03/17 05:35 Band Neutrophils % 2 % (0-10) 07/03/17 05:35 Lymphocytes % (Manual) 20 % (13-43) 07/03/17 05:35 Monocytes % (Manual) 4 % (4-9) 07/03/17 05:35 Eosinophils % (Manual) 4 % (0-6) 07/03/17 05:35 Toxic Granulation 3+ A 06/29/17 05:20 Plt Morphology Comment Normal (NORMAL) 07/03/17 05:35 RBC Morphology Normal (NORMAL) 07/03/17 05:35 Sample Site Rrad 06/28/17 23:03 ABG pH 7.490 (7.35-7.45) H 06/28/17 23:03 ABG pCO2 28.0 mmHg (35.0-45.0) L 06/28/17 23:03 ABG pO2 56.0 mmHg (80.0-100.0) L 06/28/17 23:03 ABG HCO3 21.3 mmol/L (22-26) L 06/28/17 23:03 ABG O2 Saturation 91.0 % (90-100) 06/28/17 23:03 ABG Base Excess -1.0 mmol/L (-2.0-2.0) 06/28/17 23:03 Alexander Test Pos 06/28/17 23:03 A-a Gradient 137.0 mmHg 06/28/17 23:03 FiO2 32.000 06/28/17 23:03 Blood Gas Comments Yesi abg well-mtf 06/28/17 23:03 Sodium 133 mmol/L (136-145) L 07/03/17 05:35 Corrected Sodium 135 mmol/L (136-145) L 07/03/17 05:35 Potassium 4.8 mmol/L (3.5-5.1) 07/03/17 05:35 Chloride 100 mmol/L (98-107) 07/03/17 05:35 Carbon Dioxide 22.7 mmol/L (21-32) 07/03/17 05:35 BUN 12 mg/dL (7-18) 07/03/17 05:35 Creatinine 0.89 mg/dL (0.70-1.30) 07/03/17 05:35 Est GFR (MDRD) Af Amer > 60 (>60) 07/03/17 05:35 Est GFR (MDRD) Non-Af > 60 (>60) 07/03/17 05:35 Glucose 200 mg/dL (65-99) H 07/03/17 05:35 POC Glucose (mg/dL) 304 mg/dL (65-99) H 07/03/17 19:55 Lactic Acid 2.4 mmol/L (0.4-2.0) H 06/30/17 06:00 Calcium 8.5 mg/dL (8.5-10.1) 07/03/17 05:35 Corrected Calcium 9.8 mg/dL (8.5-10.1) 07/03/17 05:35 Total Bilirubin 0.20 mg/dL (0.2-1.0) 07/03/17 05:35 AST 13 Units/L (15-37) L 07/03/17 05:35 ALT 20 Units/L (12-78) 07/03/17 05:35 Alkaline Phosphatase 55 Units/L (46-116) 07/03/17 05:35 Creatine Kinase 38 Units/L (39-308) L 07/01/17 23:52 CK-MB (CK-2) 1.4 ng/mL (0-4.0) 07/01/17 23:52 CK/CKMB % Calc 3.7 % (<4) 07/01/17 23:52 Troponin I < 0.02 ng/mL (0-1.5) 07/01/17 23:52 Total Protein 7.3 g/dL (6.4-8.2) 07/03/17 05:35 Albumin 2.4 g/dL (3.4-5.0) L 07/03/17 05:35 Globulin 4.9 g/dL (2.5-4.5) H 07/03/17 05:35 Albumin/Globulin Ratio 0.5 Ratio (1.1-2.1) L 07/03/17 05:35 Amylase 22 Units/L (25-115) L 06/28/17 21:50 Lipase 70 Units/L (73-393) L 06/28/17 21:50 Specimen Type Clean catch urine 06/29/17 07:07 Urine Color Lou (YELLOW) 06/29/17 07:07 Urine Appearance Hazy (CLEAR) 06/29/17 07:07 Urine pH 6.0 (5.0 - 8.0) 06/29/17 07:07 Ur Specific [place] 1.010 (1.000-1.030) 06/29/17 07:07 Urine Protein 1+ (NEGATIVE) 06/29/17 07:07 Urine Glucose (UA) 3+ (NEGATIVE) 06/29/17 07:07 Urine Ketones 1+ (NEGATIVE) 06/29/17 07:07 Urine Occult Blood 4+ (NEGATIVE) 06/29/17 07:07 Urine Nitrite Negative (NEGATIVE) 06/29/17 07:07 Urine Bilirubin Negative (NEGATIVE) 06/29/17 07:07 Urine Urobilinogen Normal (NORMAL) 06/29/17 07:07 Ur Leukocyte Esterase 1+ (NEGATIVE) 06/29/17 07:07 Urine RBC 5-10 /HPF (NONE SEEN) 06/29/17 07:07 Urine WBC 3-5 /HPF (NONE SEEN) 06/29/17 07:07 Ur Squamous Epith Cells Few /HPF (NEGATIVE) 06/29/17 07:07 Urine Bacteria Trace /HPF (NEGATIVE) 06/29/17 07:07 Urine Mucus Few /HPF (NEGATIVE) 06/29/17 07:07 Ur Culture Indicated? No/not indicated 06/29/17 07:07 Digoxin 1.55 ng/mL (0.9-2) 06/29/17 05:20 - Plan (1) Pneumonia Status: Acute Qualifiers: Pneumonia type: due to unspecified organism Laterality: bilateral Lung location: lower lobe of lung Qualified Code(s): J18.1 - Lobar pneumonia, unspecified organism Plan: respiratory treatments, supplemental oxygen, fortaz iv, levaquin iv, tussionex prn, continue to monitor (2) Abdominal pain Status: Resolved Qualifiers: Abdominal location: generalized Qualified Code(s): R10.84 - Generalized abdominal pain Plan: continue to monitor
[2017-07-04] MEDS ORDERED: NS 1/2 1000 ML IV 1,000 ML IV ONE ×2 (03:13→21:22)
[2017-07-04] MEDS: FORTAZ or TAZICEF INJ 1 GM in NS 100 ML IV + SPIKE MINIBAG* 100 ML IV SCH (05:35)
[2017-07-04] MEDS: NEURONTIN CAP 300 MG PO SCH ×3 (05:35→21:32)
[2017-07-04] MEDS: HumuLIN R SC PRN ×4 (05:36→20:42)
[2017-07-04 05:55] LABS: ALANINE AMINOTRANSFERASE 20 Units/L (12-78); ALBUMIN 2.3 g/dL (3.4-5.0); ALKALINE PHOSPHATASE 55 Units/L (46-116); ASPARTATE AMINO TRANSFERASE 13 Units/L (15-37); BLOOD UREA NITROGEN 11 mg/dL (7-18); CALCIUM 8.8 mg/dL (8.5-10.1); CARBON DIOXIDE 26.8 mmol/L (21-32); CHLORIDE 99 mmol/L (98-107); COR CA(FOR HYPOALB) 10.2 mg/dL (8.5-10.1); COR NA(FOR HYPERGLY) 136 mmol/L (136-145); CREATININE 0.93 mg/dL (0.70-1.30); SODIUM 134 mmol/L (136-145); eGFR BLACK RACES > 60 (>60); eGFR NON BLACK RACES > 60 (>60)
[2017-07-04 06:00] LABS: BASOPHILS # (AUTO) 0.1 X10^3/uL (0.0-0.1); BASOPHILS % (AUTO) 0.6 % (0.2-1.0); EOSINOPHILS # (AUTO) 0.5 x10^3/uL (0.0-0.2); EOSINOPHILS % (AUTO) 2.9 % (0.9-2.9); HEMATOCRIT 37.6 % (42.0-54.0); HEMOGLOBIN 12.7 g/dL (13.5-18.0); LYMPHOCYTES # (AUTO) 2.3 X10^3/uL (1.3-2.9); LYMPHOCYTES % (AUTO) 14.7 % (21.0-51.0); MEAN CORPUSCULAR HEMOGLOBIN 28.1 pg (27.0-34.0); MEAN CORPUSCULAR HGB CONC 33.7 g/dL (33.0-35.0); MEAN CORPUSCULAR VOLUME 83.3 fL (80.0-100.0); MEAN PLATELET VOLUME 8.8 fL (7.4-11.0); MONOCYTES # (AUTO) 1.6 x10^3/uL (0.3-0.8); MONOCYTES % (AUTO) 10.1 % (0.0-13.0); NEUTROPHILS # (AUTO) 11.1 x10^3/uL (2.2-4.8); NEUTROPHILS % (AUTO) 71.7 % (42.0-75.0); PLATELET COUNT 294 X10^3/uL (150.0-450.0); RED BLOOD COUNT 4.52 X10^6/uL (4.7-6.0); RED CELL DISTRIBUTION WIDTH 15.9 % (11.6-16.5); WHITE BLOOD COUNT 15.5 X10^3/uL (3.6-10.0)
[2017-07-04] MEDS: PREDNISONE TAB 5 MG PO SCH ×2 (06:04→16:46)
[2017-07-04 06:57] LABS: BAND NEUTROPHILS % 2 % (0-10); PLATELET MORPHOLOGY COMMENT NORMAL (NORMAL)
--- NOTE | 2017-07-04 07:03 | RAD ---
Examination: AP chest History: SOB Comparison reference 07/03/2017 Findings: Continued normal heart size. Persistent infiltrate medial right lower lung. Persistent defo rmity of the left hilar complex which may be related to fibrosis or underlying malignancy. Cardiac pa cer and injection port stable in position. Impression: No change in 1 day. See above. Reported By:
[2017-07-04] MEDS ORDERED: GLUCOPHAGE ONE ×2 (08:34→19:34)
[2017-07-04] MEDS: PROTONIX TAB 40 MG PO SCH (09:07)
[2017-07-04] MEDS: VITAMIN B-12 PO SCH (09:07)
[2017-07-04] MEDS: PRADAXA PO SCH ×2 (09:07→20:40)
[2017-07-04] MEDS: NS 1/2 1000 ML IV 1,000 ML IV SCH ×2 (09:07→22:09)
[2017-07-04] MEDS: ZyrTEC TAB 10 MG PO SCH (09:08)
[2017-07-04] MEDS: LANOXIN PO SCH (09:08)
[2017-07-04] MEDS: GLUCOPHAGE PO SCH ×2 (09:08→20:41)
[2017-07-04] MEDS: MUCINEX DM PO SCH ×2 (09:08→20:39)
[2017-07-04] MEDS: LOPRESSOR TAB 50 MG PO SCH ×2 (09:11→20:40)
[2017-07-04] MEDS: TAMIFLU PO SCH ×2 (09:11→20:40)
[2017-07-04] MEDS: COLACE CAP 100 MG PO SCH (09:11)
[2017-07-04] MEDS: MEGACE PO SCH ×2 (09:11→20:41)
[2017-07-04] MEDS: LEVAQUIN PREMIX IV 750 MG 750 MG/150 ML BAG IV SCH (09:12)
[2017-07-04] MEDS: PULMICORT NEB TX 0.5 MG NEB SCH ×2 (09:20→20:15)
[2017-07-04] MEDS: XOPENEX 1.25 MG/3 ML NEBULE NEB SCH ×4 (09:20→20:15)
[2017-07-04] MEDS ORDERED: PHARMACY CONSULT - VANCOMYCIN XX SCH (11:00)
[2017-07-04] MEDS: VANCOMYCIN HCL 1 GM VIAL 1 GM in D5W 250 ML IV 250 ML IV SCH ×2 (11:30→20:41)
[2017-07-04] MEDS: BACTRIM DS TAB PO SCH ×2 (11:30→20:40)
[2017-07-04] MEDS: SNACK - Diabetic Appropriate PO SCH (20:39)
[2017-07-04] MEDS: TUSSIONEX PENNKINETIC SUSP PO SCH (20:39)
[2017-07-04] MEDS: FLOMAX PO SCH (20:40)
[2017-07-04] MEDS: LIPITOR TAB 40 MG PO SCH (20:40)
[2017-07-04] MEDS: KLONOPIN TAB 0.5 MG PO SCH (20:41)
[2017-07-04] MEDS: AVODART PO SCH (20:41)
[2017-07-04] MEDS: SINGULAIR TAB 10 MG PO SCH (20:41)
--- NOTE | 2017-07-04 21:03 | PCM.PROG ---
Progress Note - Progress Note for Day of Date: 07/03/17 - Subjective Subjective: IS BEING TREATED FOR PNEUMONIA AND ABDOMINAL PAIN. TODAY, HE IS ALERT AND ORIENTED, SITTING UP IN BED ON MORNING ROUNDS. HE CONTINUES WITH COMPLAINTS OF SHORTNESS OF BREATH, PRODUCTIVE COUGH, GENERALIZED WEAKNESS. HE CONTINUES TO REPORT DIFFICULTY COUGHING UP SPUTUM. ON EXAMINATION, HEART IS REGULAR IN RATE AND RHYTHM. BILATERAL LUNGS CONTINUE WITH SCATTERED WHEEZING AND RHONCHI TO BILATERAL LUNG BREWER. HE IS CURRENTLY UTILIZING OXYGEN VIA NASAL CANNULAT AT 2L/MIN. ABDOMEN IS ROUND, SOFT, AND NOTED WITH MILD, DIFFUSE TENDERNESS TO PALPATION. NORMAL BOWEL SOUNDS ARE NOTED IN ALL QUADRANTS. THERE IS NORMAL RANGE OF MOTION NOTED TO ALL EXTREMITIES. HIS VITALS THIS MORNING ARE 98.5-96-20-92%-115/71. LABS WERE OBTAINED. ABNORMAL LAB VALUES INCLUDE THE FOLLOWING: WB2.6, RBC 4.42, HGB 12.5, HCT 37.6, SODIUM 133, GLUCOSE 200, AST 13 , ALBUMIN 2.4, GLOBULIN 4.9. BLOOD CULTURES AND SPUTUM CULTURES ARE PENDING RESULTS. A CHEST XRAY WAS OBTAINED THIS MORNING AND REVEALED COPD WITH A SMALL FOCUS OF ATELECTASIS OR INFILTRATE IN THE MEDIAL ASPECT OF THE RIGHT LUNG BASE. STABLE LEFT HILAR MASS. TODAY, WE WILL START THE SMART VEST. WE WILL CONTINUE WITH CURRENT IV ANTIBIOTICS, RESPIRATORY TREATMENTS, AND CURRENT PLAN OF CARE. WE PLAN TO FOLLOW UP WITH AM LABS AND CHEST XRAY AND WILL CONTINUE TO [facility]. - Past Medical Family Social History Past Med/Fam/Surg Hx: No changes since H&P Allergies: Allergies codeine Allergy (Unknown, Verified 01/04/17 10:57) - Review of Systems ROS: No change since H&P - Vital Signs and I&O's Vital Signs: Temperature 98.5 F Pulse Rate [Right Brachial] 119 Pulse Rate [Left Brachial] 91 Pulse Rate 94 Respiratory Rate 18 Blood Pressure [r arm] 124/67 Blood Pressure [Left Arm] 121/65 Blood Pressure 80/49 O2 Sat by Pulse Oximetry 95 Intake and Output: Intake & Output 07/02/17 07/03/17 07/04/17 07/05/17 11:59 11:59 11:59 11:59 Intake Total 2400 3100 2593 2212 Balance 2400 3100 2593 2212 - Physical Exam Oriented: Normal Eyes: Normal Ear: Normal Nose: Normal Throat: Normal Respiratory: Generalized, Wheezes, Rhonchi Cardiovascular: Edema (bilateral lower extremity pitting edema) : Normal Auscultation: Bowel Sounds: Normal Palpation: Normal Tenderness: Diffuse, Mild. negative: Rebound, Guarding, Rigidity Skin: Normal Musculoskeletal: Normal Psychiatric: Normal Mood Description: Calm Speech Pattern: Clear, Appropriate - Laboratory and Diagnostics Result Diagrams: 07/04/17 04:58 07/04/17 04:58 Labs: 06/28/17 21:52 Blood Blood Culture - Final 06/28/17 21:50 Blood Blood Culture - Final 06/29/17 00:19 Sputum - Expectorated Sputum Sputum Culture - Final Streptococcus Pneumoniae Methicillin Resis Staph Aureus 06/29/17 00:19 Sputum - Expectorated Sputum - Final Laboratory WBC 15.5 X10^3/uL (3.6-10.0) H 07/04/17 04:58 RBC 4.52 X10^6/uL (4.7-6.0) L 07/04/17 04:58 Hgb 12.7 g/dL (13.5-18.0) L 07/04/17 04:58 Hct 37.6 % (42.0-54.0) L 07/04/17 04:58 MCV 83.3 fL (80.0-100.0) 07/04/17 04:58 MCH 28.1 pg (27.0-34.0) 07/04/17 04:58 MCHC 33.7 g/dL (33.0-35.0) 07/04/17 04:58 RDW 15.9 % (11.6-16.5) 07/04/17 04:58 Plt Count 294 X10^3/uL (150.0-450.0) 07/04/17 04:58 Plt Count Comment Adequate (ADEQUATE) 07/04/17 04:58 MPV 8.8 fL (7.4-11.0) 07/04/17 04:58 Neut % (Auto) 71.7 % (42.0-75.0) 07/04/17 04:58 Lymph % (Auto) 14.7 % (21.0-51.0) L 07/04/17 04:58 [place] % (Auto) 10.1 % (0.0-13.0) 07/04/17 04:58 Eos % (Auto) 2.9 % (0.9-2.9) 07/04/17 04:58 Baso % (Auto) 0.6 % (0.2-1.0) 07/04/17 04:58 Neut # (Auto) 11.1 x10^3/uL (2.2-4.8) H 07/04/17 04:58 Lymph # (Auto) 2.3 X10^3/uL (1.3-2.9) 07/04/17 04:58 [place] # (Auto) 1.6 x10^3/uL (0.3-0.8) H 07/04/17 04:58 Eos # (Auto) 0.5 x10^3/uL (0.0-0.2) H 07/04/17 04:58 Baso # (Auto) 0.1 X10^3/uL (0.0-0.1) 07/04/17 04:58 Absolute Nucleated RBC 0.0 /100WBC 07/04/17 04:58 Total Counted 100 07/04/17 04:58 Neutrophils % (Manual) 78 % (39-76) H 07/04/17 04:58 Band Neutrophils % 2 % (0-10) 07/04/17 04:58 Lymphocytes % (Manual) 16 % (13-43) 07/04/17 04:58 Monocytes % (Manual) 4 % (4-9) 07/04/17 04:58 Eosinophils % (Manual) 4 % (0-6) 07/03/17 05:35 Toxic Granulation 3+ A 06/29/17 05:20 Plt Morphology Comment Normal (NORMAL) 07/04/17 04:58 RBC Morphology Normal (NORMAL) 07/04/17 04:58 Sample Site Rrad 06/28/17 23:03 ABG pH 7.490 (7.35-7.45) H 06/28/17 23:03 ABG pCO2 28.0 mmHg (35.0-45.0) L 06/28/17 23:03 ABG pO2 56.0 mmHg (80.0-100.0) L 06/28/17 23:03 ABG HCO3 21.3 mmol/L (22-26) L 06/28/17 23:03 ABG O2 Saturation 91.0 % (90-100) 06/28/17 23:03 ABG Base Excess -1.0 mmol/L (-2.0-2.0) 06/28/17 23:03 Alexander Test Pos 06/28/17 23:03 A-a Gradient 137.0 mmHg 06/28/17 23:03 FiO2 32.000 06/28/17 23:03 Blood Gas Comments Yesi abg well-mtf 06/28/17 23:03 Sodium 134 mmol/L (136-145) L 07/04/17 04:58 Corrected Sodium 136 mmol/L (136-145) 07/04/17 04:58 Potassium 4.6 mmol/L (3.5-5.1) 07/04/17 04:58 Chloride 99 mmol/L (98-107) 07/04/17 04:58 Carbon Dioxide 26.8 mmol/L (21-32) 07/04/17 04:58 BUN 11 mg/dL (7-18) 07/04/17 04:58 Creatinine 0.93 mg/dL (0.70-1.30) 07/04/17 04:58 Est GFR (MDRD) Af Amer > 60 (>60) 07/04/17 04:58 Est GFR (MDRD) Non-Af > 60 (>60) 07/04/17 04:58 Glucose 197 mg/dL (65-99) H 07/04/17 04:58 POC Glucose (mg/dL) 309 mg/dL (65-99) H 07/04/17 20:12 Lactic Acid 2.4 mmol/L (0.4-2.0) H 06/30/17 06:00 Calcium 8.8 mg/dL (8.5-10.1) 07/04/17 04:58 Corrected Calcium 10.2 mg/dL (8.5-10.1) H 07/04/17 04:58 Total Bilirubin 0.20 mg/dL (0.2-1.0) 07/04/17 04:58 AST 13 Units/L (15-37) L 07/04/17 04:58 ALT 20 Units/L (12-78) 07/04/17 04:58 Alkaline Phosphatase 55 Units/L (46-116) 07/04/17 04:58 Creatine Kinase 38 Units/L (39-308) L 07/01/17 23:52 CK-MB (CK-2) 1.4 ng/mL (0-4.0) 07/01/17 23:52 CK/CKMB % Calc 3.7 % (<4) 07/01/17 23:52 Troponin I < 0.02 ng/mL (0-1.5) 07/01/17 23:52 Total Protein 7.0 g/dL (6.4-8.2) 07/04/17 04:58 Albumin 2.3 g/dL (3.4-5.0) L 07/04/17 04:58 Globulin 4.7 g/dL (2.5-4.5) H 07/04/17 04:58 Albumin/Globulin Ratio 0.5 Ratio (1.1-2.1) L 07/04/17 04:58 Amylase 22 Units/L (25-115) L 06/28/17 21:50 Lipase 70 Units/L (73-393) L 06/28/17 21:50 Specimen Type Clean catch urine 06/29/17 07:07 Urine Color Lou (YELLOW) 06/29/17 07:07 Urine Appearance Hazy (CLEAR) 06/29/17 07:07 Urine pH 6.0 (5.0 - 8.0) 06/29/17 07:07 Ur Specific [place] 1.010 (1.000-1.030) 06/29/17 07:07 Urine Protein 1+ (NEGATIVE) 06/29/17 07:07 Urine Glucose (UA) 3+ (NEGATIVE) 06/29/17 07:07 Urine Ketones 1+ (NEGATIVE) 06/29/17 07:07 Urine Occult Blood 4+ (NEGATIVE) 06/29/17 07:07 Urine Nitrite Negative (NEGATIVE) 06/29/17 07:07 Urine Bilirubin Negative (NEGATIVE) 06/29/17 07:07 Urine Urobilinogen Normal (NORMAL) 06/29/17 07:07 Ur Leukocyte Esterase 1+ (NEGATIVE) 06/29/17 07:07 Urine RBC 5-10 /HPF (NONE SEEN) 06/29/17 07:07 Urine WBC 3-5 /HPF (NONE SEEN) 06/29/17 07:07 Ur Squamous Epith Cells Few /HPF (NEGATIVE) 06/29/17 07:07 Urine Bacteria Trace /HPF (NEGATIVE) 06/29/17 07:07 Urine Mucus Few /HPF (NEGATIVE) 06/29/17 07:07 Ur Culture Indicated? No/not indicated 06/29/17 07:07 Digoxin 1.55 ng/mL (0.9-2) 06/29/17 05:20 - Plan (1) Pneumonia Status: Acute Qualifiers: Pneumonia type: due to unspecified organism Laterality: bilateral Lung location: lower lobe of lung Qualified Code(s): J18.1 - Lobar pneumonia, unspecified organism Plan: respiratory treatments, supplemental oxygen, fortaz iv, levaquin iv, tussionex prn, continue to monitor (2) Abdominal pain Status: Resolved Qualifiers: Abdominal location: generalized Qualified Code(s): R10.84 - Generalized abdominal pain Plan: continue to monitor
[2017-07-05] MEDS: NEURONTIN CAP 300 MG PO SCH ×3 (05:16→22:00)
[2017-07-05] MEDS: PREDNISONE TAB 5 MG PO SCH ×2 (06:02→16:32)
[2017-07-05 06:12] LABS: BASOPHILS # (AUTO) 0.1 X10^3/uL (0.0-0.1); BASOPHILS % (AUTO) 0.5 % (0.2-1.0); EOSINOPHILS # (AUTO) 0.4 x10^3/uL (0.0-0.2); EOSINOPHILS % (AUTO) 2.4 % (0.9-2.9); HEMATOCRIT 37.5 % (42.0-54.0); HEMOGLOBIN 12.6 g/dL (13.5-18.0); LYMPHOCYTES # (AUTO) 2.2 X10^3/uL (1.3-2.9); LYMPHOCYTES % (AUTO) 15.1 % (21.0-51.0); MEAN CORPUSCULAR HEMOGLOBIN 27.8 pg (27.0-34.0); MEAN CORPUSCULAR HGB CONC 33.6 g/dL (33.0-35.0); MEAN CORPUSCULAR VOLUME 82.8 fL (80.0-100.0); MEAN PLATELET VOLUME 8.7 fL (7.4-11.0); MONOCYTES # (AUTO) 1.6 x10^3/uL (0.3-0.8); MONOCYTES % (AUTO) 10.6 % (0.0-13.0); NEUTROPHILS # (AUTO) 10.6 x10^3/uL (2.2-4.8); NEUTROPHILS % (AUTO) 71.4 % (42.0-75.0); PLATELET COUNT 276 X10^3/uL (150.0-450.0); RED BLOOD COUNT 4.53 X10^6/uL (4.7-6.0); RED CELL DISTRIBUTION WIDTH 16.3 % (11.6-16.5); WHITE BLOOD COUNT 14.8 X10^3/uL (3.6-10.0)
[2017-07-05 06:20] LABS: ALANINE AMINOTRANSFERASE 18 Units/L (12-78); ALBUMIN 2.4 g/dL (3.4-5.0); ALKALINE PHOSPHATASE 54 Units/L (46-116); ASPARTATE AMINO TRANSFERASE 15 Units/L (15-37); BLOOD UREA NITROGEN 10 mg/dL (7-18); CALCIUM 8.4 mg/dL (8.5-10.1); CARBON DIOXIDE 22.6 mmol/L (21-32); CHLORIDE 101 mmol/L (98-107); COR CA(FOR HYPOALB) 9.7 mg/dL (8.5-10.1); COR NA(FOR HYPERGLY) 136 mmol/L (136-145); CREATININE 0.84 mg/dL (0.70-1.30); SODIUM 134 mmol/L (136-145); eGFR BLACK RACES > 60 (>60); eGFR NON BLACK RACES > 60 (>60)
[2017-07-05 06:34] LABS: BAND NEUTROPHILS % 2 % (0-10)
[2017-07-05 06:35] LABS: PLATELET MORPHOLOGY COMMENT NORMAL (NORMAL)
--- NOTE | 2017-07-05 07:44 | RAD ---
HISTORY: Shortness of breath Study: Chest AP portable Comparison: 07/04/2017 Findings: There is a pacemaker present on the right. There is a port present on the left. The heart is within n ormal limits in size. Persistent enlargement and increased density again identified in the left hilum likely representing mass. The lungs are hyperinflated. Emphysematous changes are present in the uppe r lobes. Mild interstitial lung changes are present in the lower lobes. No acute alveolar infiltrates or pleural effusions are identified. IMPRESSION: No acute infiltrates Emphysematous COPD No change left hilar mass Reported By:
[2017-07-05] MEDS: PULMICORT NEB TX 0.5 MG NEB SCH ×2 (08:43→21:47)
[2017-07-05] MEDS: XOPENEX 1.25 MG/3 ML NEBULE NEB SCH ×4 (08:43→21:48)
[2017-07-05] MEDS ORDERED: GLUCOPHAGE ONE ×2 (08:56→19:19)
[2017-07-05] MEDS: LEVAQUIN PREMIX IV 750 MG 750 MG/150 ML BAG IV SCH (10:04)
[2017-07-05] MEDS: VANCOMYCIN HCL 1 GM VIAL 1 GM in D5W 250 ML IV 250 ML IV SCH ×2 (10:04→20:56)
[2017-07-05] MEDS: GLUCOPHAGE PO SCH ×2 (10:05→20:54)
[2017-07-05] MEDS: MEGACE PO SCH ×2 (10:05→20:54)
[2017-07-05] MEDS: LANOXIN PO SCH (10:05)
[2017-07-05] MEDS: BACTRIM DS TAB PO SCH ×2 (10:06→20:54)
[2017-07-05] MEDS: COLACE CAP 100 MG PO SCH (10:06)
[2017-07-05] MEDS: MUCINEX DM PO SCH ×2 (10:06→20:54)
[2017-07-05] MEDS: PROTONIX TAB 40 MG PO SCH (10:06)
[2017-07-05] MEDS: VITAMIN B-12 PO SCH (10:06)
[2017-07-05] MEDS: ZyrTEC TAB 10 MG PO SCH (10:06)
[2017-07-05] MEDS: PRADAXA PO SCH ×2 (10:07→20:53)
[2017-07-05] MEDS: LOPRESSOR TAB 50 MG PO SCH ×2 (10:07→20:54)
[2017-07-05] MEDS: TAMIFLU PO SCH ×2 (10:07→20:55)
[2017-07-05] MEDS ORDERED: PNEUMOVAX 23 IM ONE (11:00)
[2017-07-05] MEDS: HumuLIN R SC PRN ×2 (11:47→20:56)
[2017-07-05] MEDS: NS 1/2 1000 ML IV 1,000 ML IV SCH ×2 (13:37→18:08)
[2017-07-05] MEDS ORDERED: NS 1/2 1000 ML IV 1,000 ML IV ONE (18:04)
[2017-07-05] MEDS ORDERED: PHARMACY COMMENT IV ONE (20:30)
[2017-07-05 20:42] LABS: CREATININE 1.07 mg/dL (0.70-1.30); VANCOMYCIN,TROUGH 8.5 ug/mL (15-20)
[2017-07-05] MEDS: FLOMAX PO SCH (20:53)
[2017-07-05] MEDS: SNACK - Diabetic Appropriate PO SCH (20:53)
[2017-07-05] MEDS: LIPITOR TAB 40 MG PO SCH (20:53)
[2017-07-05] MEDS: AVODART PO SCH (20:55)
[2017-07-05] MEDS: KLONOPIN TAB 0.5 MG PO SCH (20:55)
[2017-07-05] MEDS: SINGULAIR TAB 10 MG PO SCH (20:55)
[2017-07-05] MEDS: TUSSIONEX PENNKINETIC SUSP PO SCH (20:57)
[2017-07-06] MEDS: NEURONTIN CAP 300 MG PO SCH ×3 (05:26→21:53)
[2017-07-06 05:35] LABS: BASOPHILS # (AUTO) 0.1 X10^3/uL (0.0-0.1); BASOPHILS % (AUTO) 1.1 % (0.2-1.0); EOSINOPHILS # (AUTO) 0.3 x10^3/uL (0.0-0.2); EOSINOPHILS % (AUTO) 2.1 % (0.9-2.9); HEMATOCRIT 39.4 % (42.0-54.0); HEMOGLOBIN 13.4 g/dL (13.5-18.0); LYMPHOCYTES % (AUTO) 15.3 % (21.0-51.0); MEAN CORPUSCULAR HEMOGLOBIN 28.4 pg (27.0-34.0); MEAN CORPUSCULAR HGB CONC 33.9 g/dL (33.0-35.0); MEAN CORPUSCULAR VOLUME 83.7 fL (80.0-100.0); MEAN PLATELET VOLUME 8.5 fL (7.4-11.0); MONOCYTES # (AUTO) 1.3 x10^3/uL (0.3-0.8); MONOCYTES % (AUTO) 9.5 % (0.0-13.0); NEUTROPHILS # (AUTO) 9.5 x10^3/uL (2.2-4.8); PLATELET COUNT 300 X10^3/uL (150.0-450.0); RED BLOOD COUNT 4.71 X10^6/uL (4.7-6.0); RED CELL DISTRIBUTION WIDTH 15.9 % (11.6-16.5); WHITE BLOOD COUNT 13.2 X10^3/uL (3.6-10.0)
[2017-07-06] MEDS ORDERED: NS 1/2 1000 ML IV 1,000 ML IV ONE ×2 (05:39→20:26)
[2017-07-06] MEDS: NS 1/2 1000 ML IV 1,000 ML IV SCH ×2 (05:43→22:37)
[2017-07-06 05:47] LABS: ALANINE AMINOTRANSFERASE 18 Units/L (12-78); ALBUMIN 2.5 g/dL (3.4-5.0); ALKALINE PHOSPHATASE 60 Units/L (46-116); ASPARTATE AMINO TRANSFERASE 14 Units/L (15-37); BLOOD UREA NITROGEN 12 mg/dL (7-18); CALCIUM 9.1 mg/dL (8.5-10.1); CARBON DIOXIDE 25.7 mmol/L (21-32); CHLORIDE 99 mmol/L (98-107); COR CA(FOR HYPOALB) 10.3 mg/dL (8.5-10.1); COR NA(FOR HYPERGLY) 138 mmol/L (136-145); CREATININE 0.94 mg/dL (0.70-1.30); SODIUM 136 mmol/L (136-145); TOTAL PROTEIN 7.4 g/dL (6.4-8.2); eGFR BLACK RACES > 60 (>60); eGFR NON BLACK RACES > 60 (>60)
[2017-07-06] MEDS: PREDNISONE TAB 5 MG PO SCH ×2 (06:06→17:59)
[2017-07-06 06:08] LABS: PLATELET MORPHOLOGY COMMENT NORMAL (NORMAL)
[2017-07-06] MEDS ORDERED: GLUCOPHAGE ONE ×2 (08:36→20:17)
[2017-07-06] MEDS: XOPENEX 1.25 MG/3 ML NEBULE NEB SCH ×4 (09:16→21:36)
[2017-07-06] MEDS: PULMICORT NEB TX 0.5 MG NEB SCH ×2 (09:16→21:36)
[2017-07-06] MEDS: LEVAQUIN PREMIX IV 750 MG 750 MG/150 ML BAG IV SCH (09:29)
[2017-07-06] MEDS: PRADAXA PO SCH ×2 (09:29→21:53)
[2017-07-06] MEDS: MUCINEX DM PO SCH ×2 (09:30→21:54)
[2017-07-06] MEDS: TAMIFLU PO SCH ×2 (09:30→21:57)
[2017-07-06] MEDS: GLUCOPHAGE PO SCH ×2 (09:30→21:57)
[2017-07-06] MEDS: COLACE CAP 100 MG PO SCH (09:30)
[2017-07-06] MEDS: VITAMIN B-12 PO SCH (09:30)
[2017-07-06] MEDS: MEGACE PO SCH ×2 (09:30→21:56)
[2017-07-06] MEDS: LANOXIN PO SCH (09:31)
[2017-07-06] MEDS: LOPRESSOR TAB 50 MG PO SCH ×2 (09:31→21:56)
[2017-07-06] MEDS: BACTRIM DS TAB PO SCH ×2 (09:31→21:56)
[2017-07-06] MEDS: ZyrTEC TAB 10 MG PO SCH (09:31)
[2017-07-06] MEDS: PROTONIX TAB 40 MG PO SCH (09:31)
[2017-07-06] MEDS: VANCOMYCIN HCL 1 GM VIAL 1 GM in D5W 250 ML IV 250 ML IV SCH ×2 (09:47→22:36)
[2017-07-06] MEDS: HumuLIN R SC PRN ×2 (13:09→22:38)
[2017-07-06] MEDS: FLOMAX PO SCH (21:52)
[2017-07-06] MEDS: LIPITOR TAB 40 MG PO SCH (21:53)
[2017-07-06] MEDS: AVODART PO SCH (21:56)
[2017-07-06] MEDS: SINGULAIR TAB 10 MG PO SCH (21:57)
[2017-07-06] MEDS: TUSSIONEX PENNKINETIC SUSP PO SCH (21:58)
[2017-07-06] MEDS: KLONOPIN TAB 0.5 MG PO SCH (21:58)
[2017-07-06] MEDS: SNACK - Diabetic Appropriate PO SCH (22:37)
[2017-07-07 05:41] LABS: ABG BASE EXCESS -0.4 mmol/L (-2.0-2.0); ABG HCO3 19.7 mmol/L (22-26)
[2017-07-07 05:44] LABS: ABG ALLEN TEST POS
[2017-07-07 05:54] LABS: BASOPHILS # (AUTO) 0.1 X10^3/uL (0.0-0.1); EOSINOPHILS # (AUTO) 0.3 x10^3/uL (0.0-0.2); EOSINOPHILS % (AUTO) 2.9 % (0.9-2.9); HEMATOCRIT 36.7 % (42.0-54.0); HEMOGLOBIN 12.5 g/dL (13.5-18.0); LYMPHOCYTES # (AUTO) 1.8 X10^3/uL (1.3-2.9); LYMPHOCYTES % (AUTO) 15.5 % (21.0-51.0); MEAN CORPUSCULAR HEMOGLOBIN 28.1 pg (27.0-34.0); MEAN CORPUSCULAR VOLUME 82.8 fL (80.0-100.0); MEAN PLATELET VOLUME 8.3 fL (7.4-11.0); MONOCYTES # (AUTO) 0.9 x10^3/uL (0.3-0.8); MONOCYTES % (AUTO) 7.9 % (0.0-13.0); NEUTROPHILS # (AUTO) 8.6 x10^3/uL (2.2-4.8); NEUTROPHILS % (AUTO) 72.7 % (42.0-75.0); PLATELET COUNT 277 X10^3/uL (150.0-450.0); RED BLOOD COUNT 4.44 X10^6/uL (4.7-6.0); WHITE BLOOD COUNT 11.8 X10^3/uL (3.6-10.0)
[2017-07-07 06:01] LABS: ALANINE AMINOTRANSFERASE 18 Units/L (12-78); ALBUMIN 2.3 g/dL (3.4-5.0); ALKALINE PHOSPHATASE 61 Units/L (46-116); ASPARTATE AMINO TRANSFERASE 16 Units/L (15-37); BLOOD UREA NITROGEN 11 mg/dL (7-18); CALCIUM 8.1 mg/dL (8.5-10.1); CARBON DIOXIDE 25.7 mmol/L (21-32); CHLORIDE 99 mmol/L (98-107); COR CA(FOR HYPOALB) 9.5 mg/dL (8.5-10.1); COR NA(FOR HYPERGLY) 135 mmol/L (136-145); CREATININE 0.88 mg/dL (0.70-1.30); SODIUM 133 mmol/L (136-145); TOTAL PROTEIN 6.9 g/dL (6.4-8.2); eGFR BLACK RACES > 60 (>60); eGFR NON BLACK RACES > 60 (>60)
[2017-07-07 06:23] LABS: BAND NEUTROPHILS % 1 % (0-10)
[2017-07-07 06:24] LABS: PLATELET MORPHOLOGY COMMENT NORMAL (NORMAL)
[2017-07-07] MEDS ORDERED: NS 1/2 1000 ML IV 1,000 ML IV ONE (06:32)
[2017-07-07] MEDS: PREDNISONE TAB 5 MG PO SCH ×2 (06:35→16:50)
[2017-07-07] MEDS: NEURONTIN CAP 300 MG PO SCH ×3 (06:35→22:43)
[2017-07-07] MEDS: HumuLIN R SC PRN ×3 (06:36→23:27)
[2017-07-07] MEDS: NS 1/2 1000 ML IV 1,000 ML IV SCH ×2 (06:36→22:47)
--- NOTE | 2017-07-07 07:29 | RAD ---
HISTORY: 72-year-old male with bilateral lower lobe pneumonia. Study: Frontal view of the chest. Comparison: Chest radiograph 07/05/2017 Findings: Surgical and support devices are stable. The trachea is midline. The cardiac silhouette is stable. Unchanged appearance left hilar mass with diffuse chronic interstitial disease and basilar scarring without pneumothorax or effusion. Soft tis sues are unremarkable. Osseous structures are unremarkable. IMPRESSION: 1. No significant interval change. Reported By:
[2017-07-07] MEDS: XOPENEX 1.25 MG/3 ML NEBULE NEB SCH ×4 (08:50→20:14)
[2017-07-07] MEDS: PULMICORT NEB TX 0.5 MG NEB SCH ×2 (08:50→20:14)
[2017-07-07] MEDS ORDERED: GLUCOPHAGE ONE ×2 (08:52→20:52)
[2017-07-07 10:06] LABS: CREATININE 1.02 mg/dL (0.70-1.30)
[2017-07-07] MEDS: PROTONIX TAB 40 MG PO SCH (10:08)
[2017-07-07] MEDS: COLACE CAP 100 MG PO SCH (10:08)
[2017-07-07] MEDS: PRADAXA PO SCH ×2 (10:08→22:43)
[2017-07-07] MEDS: VANCOMYCIN HCL 1 GM VIAL 1 GM in D5W 250 ML IV 250 ML IV SCH ×2 (10:08→22:48)
[2017-07-07] MEDS: VITAMIN B-12 PO SCH (10:09)
[2017-07-07] MEDS: LANOXIN PO SCH (10:09)
[2017-07-07] MEDS: MUCINEX DM PO SCH ×2 (10:09→22:42)
[2017-07-07] MEDS: BACTRIM DS TAB PO SCH ×2 (10:10→22:46)
[2017-07-07] MEDS: MEGACE PO SCH ×2 (10:10→22:45)
[2017-07-07] MEDS: GLUCOPHAGE PO SCH ×2 (10:10→22:47)
[2017-07-07] MEDS: TAMIFLU PO SCH ×2 (10:10→22:45)
[2017-07-07] MEDS: LOPRESSOR TAB 50 MG PO SCH ×2 (10:10→22:46)
[2017-07-07] MEDS: ZyrTEC TAB 10 MG PO SCH (10:11)
[2017-07-07] MEDS: LEVAQUIN PREMIX IV 750 MG 750 MG/150 ML BAG IV SCH (10:16)
[2017-07-07] MEDS: SNACK - Diabetic Appropriate PO SCH (22:42)
[2017-07-07] MEDS: AVODART PO SCH (22:44)
[2017-07-07] MEDS: SINGULAIR TAB 10 MG PO SCH (22:45)
[2017-07-07] MEDS: KLONOPIN TAB 0.5 MG PO SCH (22:45)
[2017-07-07] MEDS: FLOMAX PO SCH (22:45)
[2017-07-07] MEDS: LIPITOR TAB 40 MG PO SCH (22:46)
[2017-07-07] MEDS: TUSSIONEX PENNKINETIC SUSP PO SCH (22:48)
[2017-07-08] MEDS ORDERED: NS 1/2 1000 ML IV 1,000 ML IV ONE (03:13)
[2017-07-08 05:28] LABS: BASOPHILS # (AUTO) 0.1 X10^3/uL (0.0-0.1); BASOPHILS % (AUTO) 0.7 % (0.2-1.0); EOSINOPHILS # (AUTO) 0.1 x10^3/uL (0.0-0.2); HEMATOCRIT 36.6 % (42.0-54.0); HEMOGLOBIN 12.5 g/dL (13.5-18.0); LYMPHOCYTES # (AUTO) 1.3 X10^3/uL (1.3-2.9); LYMPHOCYTES % (AUTO) 10.9 % (21.0-51.0); MEAN CORPUSCULAR HEMOGLOBIN 28.2 pg (27.0-34.0); MEAN CORPUSCULAR HGB CONC 34.2 g/dL (33.0-35.0); MEAN CORPUSCULAR VOLUME 82.5 fL (80.0-100.0); MEAN PLATELET VOLUME 8.4 fL (7.4-11.0); MONOCYTES # (AUTO) 0.8 x10^3/uL (0.3-0.8); MONOCYTES % (AUTO) 6.4 % (0.0-13.0); NEUTROPHILS # (AUTO) 9.8 x10^3/uL (2.2-4.8); PLATELET COUNT 281 X10^3/uL (150.0-450.0); RED BLOOD COUNT 4.43 X10^6/uL (4.7-6.0); WHITE BLOOD COUNT 12.1 X10^3/uL (3.6-10.0)
[2017-07-08 05:33] LABS: ALANINE AMINOTRANSFERASE 19 Units/L (12-78); ALBUMIN 2.3 g/dL (3.4-5.0); ALKALINE PHOSPHATASE 63 Units/L (46-116); ASPARTATE AMINO TRANSFERASE 14 Units/L (15-37); BLOOD UREA NITROGEN 10 mg/dL (7-18); CALCIUM 8.4 mg/dL (8.5-10.1); CARBON DIOXIDE 25.3 mmol/L (21-32); CHLORIDE 100 mmol/L (98-107); COR CA(FOR HYPOALB) 9.8 mg/dL (8.5-10.1); COR NA(FOR HYPERGLY) 135 mmol/L (136-145); CREATININE 0.86 mg/dL (0.70-1.30); SODIUM 132 mmol/L (136-145); TOTAL PROTEIN 7.4 g/dL (6.4-8.2); eGFR BLACK RACES > 60 (>60); eGFR NON BLACK RACES > 60 (>60)
[2017-07-08 05:59] LABS: BAND NEUTROPHILS % 7 % (0-10); PLATELET MORPHOLOGY COMMENT NORMAL (NORMAL)
[2017-07-08] MEDS: NEURONTIN CAP 300 MG PO SCH (06:25)
[2017-07-08] MEDS: HumuLIN R SC PRN (06:26)
[2017-07-08] MEDS: PREDNISONE TAB 5 MG PO SCH (06:26)
[2017-07-08] MEDS ORDERED: NS 100 ML IV 100 ML IV ONE (07:25)
--- NOTE | 2017-07-08 08:01 | CT ---
HISTORY: Follow-up pneumonia Study: CT chest with contrast Comparison: 01/10/2017 Technique: Axial post-contrast images with coronal and sagittal reformats. Dose reduction procedures were used with mA/kv adjusted for body size. Findings: Examination of the mediastinum demonstrated no evidence for mediastinal masses. Sub carinal lymphaden opathy is unchanged from the prior examination. No right hilar adenopathy is identified. There is no significant change in the appearance of the patient's left hilar mass with some distal atelectasis an d consolidation abutting the medial pneumomediastinum. This may represent post irradiation change and the patient's known left hilar mass. 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 No pleural effusions are identified. No chest wall or axillary abnormality is identified. Those portions of the upper abdominal organs visualized were within normal limits with the exception of cholelithia sis. Examination of the lung arellano demonstrated the lungs to be hyperinflated. Diffuse severe change s of centrilobular emphysema are again identified. Changes of paraseptal emphysema are also present a s is some interstitial lung disease. The interstitial lung disease is most prominent in the right low er lobe with there is some honeycombing and fibrosis present. No residual alveolar infiltrates are pr esent. IMPRESSION: No change left hilar mass with associated distal consolidation/atelectasis abutting the mediastinum. PET-CT would be required in order to exclude residual neoplasm No change sub carinal adenopathy Severe emphysema Interstitial lung changes with some fibrotic change and honeycombing in the right lower lobe No residual alveolar infiltrates present. Reported By:
[2017-07-08] MEDS: PULMICORT NEB TX 0.5 MG NEB SCH (08:39)
[2017-07-08] MEDS: XOPENEX 1.25 MG/3 ML NEBULE NEB SCH (08:39)
[2017-07-08] MEDS ORDERED: GLUCOPHAGE ONE (09:03)
[2017-07-08] MEDS: VANCOMYCIN HCL 1 GM VIAL 1 GM in D5W 250 ML IV 250 ML IV SCH (09:13)
[2017-07-08] MEDS: LEVAQUIN PREMIX IV 750 MG 750 MG/150 ML BAG IV SCH (09:13)
[2017-07-08] MEDS: PRADAXA PO SCH (09:14)
[2017-07-08] MEDS: TAMIFLU PO SCH (09:15)
[2017-07-08] MEDS: COLACE CAP 100 MG PO SCH (09:15)
[2017-07-08] MEDS: MEGACE PO SCH (09:15)
[2017-07-08] MEDS: LANOXIN PO SCH (09:15)
[2017-07-08] MEDS: MUCINEX DM PO SCH (09:15)
[2017-07-08] MEDS: ZyrTEC TAB 10 MG PO SCH (09:15)
[2017-07-08] MEDS: LOPRESSOR TAB 50 MG PO SCH (09:16)
[2017-07-08] MEDS: VITAMIN B-12 PO SCH (09:16)
[2017-07-08] MEDS: BACTRIM DS TAB PO SCH (09:17)
[2017-07-08] MEDS: PROTONIX TAB 40 MG PO SCH (09:17)
[2017-07-08] MEDS: GLUCOPHAGE PO SCH (10:24)
[2017-07-08 10:31] VITALS: BP 123/63
[2017-07-08] MEDS: NS 1/2 1000 ML IV 1,000 ML IV SCH (11:04)
== END 2017-07-08 12:34 | disposition home or self-care (01) | DRG 195 ==
LOC: ER 20:42 → MED/SURG 06-29 02:48
PROVIDERS: ADMIT Obstetrics & Gynecology Obstetrics; ATTEND Internal Medicine
PROC: 3E0234Z Introduction of Serum, Toxoid and Vaccine into Muscle, Percutaneous Approach (ICD-10-PCS; principal; 2017-07-05)
DX: J18.1 Lobar pneumonia, unspecified organism (principal); R10.84 Generalized abdominal pain; R06.02 Shortness of breath; J44.9 Chronic obstructive pulmonary disease, unspecified; Z99.81 Dependence on supplemental oxygen; Z95.0 Presence of cardiac pacemaker; R06.03 Acute respiratory distress; R53.1 Weakness; R00.0 Tachycardia, unspecified; R60.0 Localized edema; E11.65 Type 2 diabetes mellitus with hyperglycemia; Z23 Encounter for immunization; Z85.118 Personal history of other malignant neoplasm of bronchus and lung
CPT/HCPCS: 36415; 36600; 71045; 71260; 74176; 80053; 80162; 80202; 81001; 82150; 82550; 82553; 82565; 82803; 82947; 83605; 83690; 84484; 85025; 87040; 87070; 87077; 87186; 87205; 93005; 94640; 94669; 94760; 96365; 96374; 96375; 99231; 99284; A4222; G9035; S0179; S0195; J0696; J0713; J1815; J1885; J1956; J2270; J2405; J2930; J3370; J7506; J7620; J7626

== ENCOUNTER 2018-06-05 09:46 | Inpatient (IN) ==
[2018-06-05] MEDS: DUONEB 0.5 MG/3 MG NEB SCH ×3 (12:08→20:21)
[2018-06-05 12:13] LABS: BASOPHILS # (AUTO) 0.1 X10^3/uL (0.0-0.1); BASOPHILS % (AUTO) 0.6 % (0.2-1.0); EOSINOPHILS # (AUTO) 0.1 x10^3/uL (0.0-0.2); EOSINOPHILS % (AUTO) 0.4 % (0.9-2.9); HEMATOCRIT 32.5 % (42.0-54.0); HEMOGLOBIN 10.3 g/dL (13.5-18.0); LYMPHOCYTES % (AUTO) 5.8 % (21.0-51.0); MEAN CORPUSCULAR HEMOGLOBIN 25.3 pg (27.0-34.0); MEAN CORPUSCULAR HGB CONC 31.7 g/dL (33.0-35.0); MEAN PLATELET VOLUME 8.2 fL (7.4-11.0); MONOCYTES % (AUTO) 6.2 % (0.0-13.0); NEUTROPHILS # (AUTO) 14.4 x10^3/uL (2.2-4.8); PLATELET COUNT 332 X10^3/uL (150.0-450.0); RED BLOOD COUNT 4.07 X10^6/uL (4.7-6.0); RED CELL DISTRIBUTION WIDTH 17.7 % (11.6-16.5); WHITE BLOOD COUNT 16.6 X10^3/uL (3.6-10.0)
[2018-06-05 12:18] LABS: PLATELET MORPHOLOGY COMMENT NORMAL (NORMAL)
[2018-06-05 12:25] LABS: ALANINE AMINOTRANSFERASE 43 Units/L (12-78); ALBUMIN 2.7 g/dL (3.4-5.0); ALKALINE PHOSPHATASE 104 Units/L (46-116); ASPARTATE AMINO TRANSFERASE 26 Units/L (15-37); BLOOD UREA NITROGEN 13 mg/dL (7-18); CALCIUM 9.4 mg/dL (8.5-10.1); CHLORIDE 99 mmol/L (98-107); COR CA(FOR HYPOALB) 10.4 mg/dL (8.5-10.1); COR NA(FOR HYPERGLY) 140 mmol/L (136-145); CREATININE 1.03 mg/dL (0.70-1.30); SODIUM 136 mmol/L (136-145); TOTAL PROTEIN 6.9 g/dL (6.4-8.2); eGFR NON BLACK RACES > 60 (>60)
[2018-06-05] MEDS ORDERED: NS 1/2 1000 ML IV 1,000 ML IV ONE ×2 (12:44→20:33)
[2018-06-05] MEDS: TESSALON PERLES PO SCH ×3 (12:59→21:12)
[2018-06-05] MEDS: NS 1/2 1000 ML IV 1,000 ML IV SCH (12:59)
[2018-06-05] MEDS: LEVAQUIN PREMIX IV 750 MG 750 MG/150 ML BAG IV SCH (13:00)
--- NOTE | 2018-06-05 13:01 | RAD ---
HISTORY: Pneumonia shortness of breath history of hypertension COPD and lung cancer Study: Two-view chest Comparison: PA and lateral chest 01/04/2017. Technique: PA and lateral chest Findings: Pacemaker is in place battery over the right anterior thorax with both leads in the superior right ventricle. There is a lower C-spine anterior fusion plate from prior anterior fusion surgery. Indwelling central venous catheter is seen entering on the left tip in the superior vena cava. Heart size is normal the lungs are hyperexpanded. There is stable bilateral apical pleural scarring. There is stable parenchymal scarring extending from the left hilar fullness conceded consistent with site of treated lung cancer this left hilar fullness/mass in [place] hilar stranding is stable unchanged from the older film of 01/04/2017. There are no acute infiltrates effusions or nodularity. There is no new adenopathy IMPRESSION: 1. Chronic lung changes with persistent left hilar fullness and stranding consistent with site of prior treated lung cancer. Indwelling left subclavian port. Pacemaker is in place on the right. There are chronic lung changes in the lung bases but no acute infiltrates to suggest pneumonia. No significant changes seen compared to 07/07/2017 and two-view chest 01/04/2017. Reported By:
[2018-06-05 14:33] VITALS: BMI 21.6
[2018-06-05] MEDS: VSL#3 PO SCH (14:56)
[2018-06-05] MEDS: ROBITUSSIN DM PO SCH ×3 (14:56→20:36)
[2018-06-05] MEDS ORDERED: ULTRAM ONE (14:57)
[2018-06-05] MEDS: ULTRAM PO PRN (15:02)
[2018-06-05] MEDS ORDERED: NITROSTAT SL PRN (17:10)
[2018-06-05] MEDS ORDERED: GLUCOPHAGE ONE (19:19)
[2018-06-05] MEDS ORDERED: TORADOL 30 MG VIAL IVP ONE (20:18)
[2018-06-05] MEDS: PULMICORT NEB TX 0.5 MG NEB SCH (20:21)
[2018-06-05] MEDS: SNACK - Diabetic Appropriate PO SCH (20:36)
[2018-06-05] MEDS: GLUCOPHAGE PO SCH (20:37)
[2018-06-05] MEDS: PRADAXA PO SCH (20:37)
[2018-06-05] MEDS: AMARYL TAB 4 MG PO SCH (20:37)
[2018-06-05] MEDS: PROTONIX TAB 40 MG PO SCH (20:37)
[2018-06-05] MEDS: PREDNISONE TAB 5 MG PO SCH (20:39)
[2018-06-05] MEDS: KLONOPIN TAB 0.5 MG PO SCH (20:39)
[2018-06-05] MEDS: LIPITOR TAB 40 MG PO SCH (20:39)
[2018-06-05] MEDS: LOPRESSOR TAB 50 MG PO SCH (20:39)
[2018-06-05] MEDS: FLOMAX PO SCH (20:40)
[2018-06-05] MEDS: MEGACE PO SCH (20:40)
[2018-06-05] MEDS: HumuLIN R SUBCUT PRN (20:41)
[2018-06-05] MEDS: ZyrTEC TAB 10 MG PO SCH (20:42)
[2018-06-05] MEDS ORDERED: PROVENTIL NEB TX 0.083% 2.5MG/ 3ML NEB SCH (21:00)
[2018-06-05] MEDS ORDERED: PATIENT'S HOME MEDICATION (Budesonide-Formoterol 2 INH) INH SCH (21:00)
[2018-06-05] MEDS ORDERED: PROTONIX TAB 40 MG PO SCH (21:00)
[2018-06-05] MEDS: NEURONTIN CAP 300 MG PO SCH (21:12)
[2018-06-06] MEDS: DUONEB 0.5 MG/3 MG NEB SCH ×6 (00:41→20:47)
[2018-06-06] MEDS: NS 1/2 1000 ML IV 1,000 ML IV SCH ×2 (01:26→18:35)
[2018-06-06] MEDS ORDERED: NS 1/2 1000 ML IV 1,000 ML IV ONE (04:48)
[2018-06-06] MEDS: NEURONTIN CAP 300 MG PO SCH ×3 (05:07→21:02)
[2018-06-06] MEDS: TESSALON PERLES PO SCH ×3 (05:07→21:02)
[2018-06-06 05:27] LABS: BASOPHILS % (AUTO) 0.3 % (0.2-1.0); EOSINOPHILS % (AUTO) 0.3 % (0.9-2.9); HEMATOCRIT 32.3 % (42.0-54.0); HEMOGLOBIN 10.2 g/dL (13.5-18.0); LYMPHOCYTES # (AUTO) 1.1 X10^3/uL (1.3-2.9); LYMPHOCYTES % (AUTO) 8.3 % (21.0-51.0); MEAN CORPUSCULAR HEMOGLOBIN 25.3 pg (27.0-34.0); MEAN CORPUSCULAR HGB CONC 31.6 g/dL (33.0-35.0); MEAN CORPUSCULAR VOLUME 80.2 fL (80.0-100.0); MEAN PLATELET VOLUME 8.9 fL (7.4-11.0); MONOCYTES % (AUTO) 7.6 % (0.0-13.0); NEUTROPHILS # (AUTO) 11.3 x10^3/uL (2.2-4.8); NEUTROPHILS % (AUTO) 83.5 % (42.0-75.0); PLATELET COUNT 331 X10^3/uL (150.0-450.0); RED BLOOD COUNT 4.03 X10^6/uL (4.7-6.0); WHITE BLOOD COUNT 13.5 X10^3/uL (3.6-10.0)
[2018-06-06 05:39] LABS: ALANINE AMINOTRANSFERASE 41 Units/L (12-78); ALBUMIN 2.6 g/dL (3.4-5.0); ALKALINE PHOSPHATASE 102 Units/L (46-116); ASPARTATE AMINO TRANSFERASE 24 Units/L (15-37); BLOOD UREA NITROGEN 8 mg/dL (7-18); CARBON DIOXIDE 27.9 mmol/L (21-32); CHLORIDE 103 mmol/L (98-107); COR CA(FOR HYPOALB) 10.1 mg/dL (8.5-10.1); COR NA(FOR HYPERGLY) 141 mmol/L (136-145); CREATININE 0.85 mg/dL (0.70-1.30); SODIUM 139 mmol/L (136-145); TOTAL PROTEIN 6.7 g/dL (6.4-8.2); eGFR NON BLACK RACES > 60 (>60)
[2018-06-06 05:44] LABS: HYPOCHROMASIA SLIGHT; MICROCYTOSIS SLIGHT; PLATELET MORPHOLOGY COMMENT NORMAL (NORMAL)
--- NOTE | 2018-06-06 06:54 | RAD ---
HISTORY: Pneumonia, shortness of breath Study: Chest AP portable Comparison: 06/05/2018 Findings: There is a pacemaker present on the right. There is a left-sided port present. The heart is within normal limits in size. No congestive heart failure is noted. Left hilar mass is unchanged. The lungs are hyperinflated but free of acute alveolar infiltrates. Interstitial lung changes are present bilaterally there is some pleuro parenchymal scarring in the right lung apex and along the left lateral chest wall. The bony thorax is unremarkable. IMPRESSION: Hyperinflation with chronic appearing interstitial infiltrates consistent with COPD in the appropriate clinical setting No definite acute alveolar infiltrates No change left hilar mass Reported By:
[2018-06-06] MEDS ORDERED: GLUCOPHAGE ONE ×2 (08:53→20:45)
[2018-06-06] MEDS ORDERED: Atrovent NEB TX 0.02% NEB SCH ×2 (09:00)
[2018-06-06] MEDS ORDERED: PATIENT'S HOME MEDICATION (Tiotropium Bromide Monohydrate 1 CAP) IN SCH (09:00)
[2018-06-06] MEDS: PROTONIX TAB 40 MG PO SCH ×2 (09:06→20:53)
[2018-06-06] MEDS: GLUCOPHAGE PO SCH ×2 (09:06→20:54)
[2018-06-06] MEDS: PROSCAR PO SCH (09:06)
[2018-06-06] MEDS: IMDUR PO SCH (09:06)
[2018-06-06] MEDS: PREDNISONE TAB 5 MG PO SCH ×2 (09:06→20:54)
[2018-06-06] MEDS: SINGULAIR TAB 10 MG PO SCH (09:07)
[2018-06-06] MEDS: PRADAXA PO SCH ×2 (09:07→20:53)
[2018-06-06] MEDS: LANOXIN PO SCH (09:07)
[2018-06-06] MEDS: MEGACE PO SCH ×2 (09:07→20:54)
[2018-06-06] MEDS: CARDIZEM CD 180 MG PO SCH (09:07)
[2018-06-06] MEDS: AMARYL TAB 4 MG PO SCH ×2 (09:08→20:54)
[2018-06-06] MEDS: LOPRESSOR TAB 50 MG PO SCH ×2 (09:09→20:54)
[2018-06-06] MEDS: VSL#3 PO SCH (09:09)
[2018-06-06] MEDS: LEVAQUIN PREMIX IV 750 MG 750 MG/150 ML BAG IV SCH (09:09)
[2018-06-06] MEDS: ASPIRIN PO SCH (09:09)
[2018-06-06] MEDS: ROBITUSSIN DM PO SCH ×4 (09:09→20:53)
[2018-06-06] MEDS: VIT D3 VIT K BERBERINE HOPS PO SCH (09:10)
[2018-06-06] MEDS: PULMICORT NEB TX 0.5 MG NEB SCH ×2 (09:22→20:47)
[2018-06-06] MEDS: DIFLUCAN 200 MG IV PREMIX* 200 MG/100 ML BAG IV SCH (11:51)
[2018-06-06] MEDS: VITAMIN B-12 PO SCH (11:52)
[2018-06-06] MEDS: TAB-A-VITE PO SCH (11:52)
[2018-06-06] MEDS: LUTEIN 20 MG PO SCH (11:53)
[2018-06-06] MEDS: MUCOMYST 20% 200 MG/ML NEB SCH ×3 (12:04→20:50)
[2018-06-06] MEDS: ULTRAM PO PRN (18:34)
[2018-06-06] MEDS ORDERED: SNACK - Diabetic Appropriate PO SCH (20:00)
[2018-06-06] MEDS: FLOMAX PO SCH (20:53)
[2018-06-06] MEDS: KLONOPIN TAB 0.5 MG PO SCH (20:53)
[2018-06-06] MEDS: ZyrTEC TAB 10 MG PO SCH (20:54)
[2018-06-06] MEDS: LIPITOR TAB 40 MG PO SCH (20:55)
[2018-06-06] MEDS: SNACK - Diabetic Appropriate PO SCH (21:01)
[2018-06-07] MEDS: DUONEB 0.5 MG/3 MG NEB SCH ×6 (01:45→20:55)
[2018-06-07 04:54] LABS: BASOPHILS # (AUTO) 0.1 X10^3/uL (0.0-0.1); BASOPHILS % (AUTO) 0.6 % (0.2-1.0); EOSINOPHILS # (AUTO) 0.1 x10^3/uL (0.0-0.2); EOSINOPHILS % (AUTO) 0.5 % (0.9-2.9); HEMATOCRIT 32.6 % (42.0-54.0); HEMOGLOBIN 10.2 g/dL (13.5-18.0); LYMPHOCYTES % (AUTO) 6.6 % (21.0-51.0); MEAN CORPUSCULAR HGB CONC 31.3 g/dL (33.0-35.0); MEAN CORPUSCULAR VOLUME 79.9 fL (80.0-100.0); MEAN PLATELET VOLUME 8.7 fL (7.4-11.0); MONOCYTES # (AUTO) 1.3 x10^3/uL (0.3-0.8); MONOCYTES % (AUTO) 8.5 % (0.0-13.0); NEUTROPHILS # (AUTO) 13.1 x10^3/uL (2.2-4.8); NEUTROPHILS % (AUTO) 83.8 % (42.0-75.0); PLATELET COUNT 329 X10^3/uL (150.0-450.0); RED BLOOD COUNT 4.08 X10^6/uL (4.7-6.0); RED CELL DISTRIBUTION WIDTH 18.6 % (11.6-16.5); WHITE BLOOD COUNT 15.6 X10^3/uL (3.6-10.0)
[2018-06-07 05:10] LABS: ALANINE AMINOTRANSFERASE 38 Units/L (12-78); ALBUMIN 2.5 g/dL (3.4-5.0); ALKALINE PHOSPHATASE 106 Units/L (46-116); ASPARTATE AMINO TRANSFERASE 23 Units/L (15-37); BLOOD UREA NITROGEN 9 mg/dL (7-18); CARBON DIOXIDE 25.9 mmol/L (21-32); CHLORIDE 102 mmol/L (98-107); COR CA(FOR HYPOALB) 10.2 mg/dL (8.5-10.1); COR NA(FOR HYPERGLY) 141 mmol/L (136-145); CREATININE 0.92 mg/dL (0.70-1.30); SODIUM 137 mmol/L (136-145); TOTAL PROTEIN 6.4 g/dL (6.4-8.2); eGFR NON BLACK RACES > 60 (>60)
[2018-06-07 05:23] LABS: HYPOCHROMASIA SLIGHT; MICROCYTOSIS SLIGHT; PLATELET MORPHOLOGY COMMENT NORMAL (NORMAL)
[2018-06-07] MEDS: TESSALON PERLES PO SCH ×4 (05:34→21:13)
[2018-06-07] MEDS: NEURONTIN CAP 300 MG PO SCH ×4 (05:35→21:13)
[2018-06-07] MEDS: HumuLIN R SUBCUT PRN ×4 (05:43→21:14)
[2018-06-07] MEDS: TORADOL 15 MG VIAL IVP PRN ×2 (05:44→15:37)
[2018-06-07] MEDS: NS 1/2 1000 ML IV 1,000 ML IV SCH ×3 (05:46→22:31)
[2018-06-07] MEDS ORDERED: NS 1/2 1000 ML IV 1,000 ML IV ONE ×2 (05:52→21:24)
--- NOTE | 2018-06-07 06:05 | RAD ---
Examination: Portable AP chest History: SOB, lung cancer Comparison 06/06/2018 Findings: Continued normal heart size with stable position of pacing device and left subclavian injection port. Pulmonary hyperinflation and fibrosis with large left hilar mass. Impression: No change in appearance of the chest since 1 day prior. Reported By:
[2018-06-07] MEDS: MUCOMYST 20% 200 MG/ML NEB SCH ×4 (08:36→20:55)
[2018-06-07] MEDS: PULMICORT NEB TX 0.5 MG NEB SCH ×2 (08:36→20:55)
[2018-06-07] MEDS ORDERED: GLUCOPHAGE ONE ×2 (09:02→20:33)
[2018-06-07] MEDS: DIFLUCAN 200 MG IV PREMIX* 200 MG/100 ML BAG IV SCH (09:38)
[2018-06-07] MEDS: GLUCOPHAGE PO SCH ×2 (09:39→21:13)
[2018-06-07] MEDS: MEGACE PO SCH ×2 (09:39→21:13)
[2018-06-07] MEDS: PREDNISONE TAB 5 MG PO SCH ×2 (09:40→21:13)
[2018-06-07] MEDS: AMARYL TAB 4 MG PO SCH ×2 (09:40→21:13)
[2018-06-07] MEDS: PROTONIX TAB 40 MG PO SCH ×2 (09:40→21:14)
[2018-06-07] MEDS: LOPRESSOR TAB 50 MG PO SCH ×2 (09:40→21:13)
[2018-06-07] MEDS: PRADAXA PO SCH ×2 (09:40→21:14)
[2018-06-07] MEDS: PROSCAR PO SCH (09:40)
[2018-06-07] MEDS: SINGULAIR TAB 10 MG PO SCH (09:40)
[2018-06-07] MEDS: ASPIRIN PO SCH (09:41)
[2018-06-07] MEDS: IMDUR PO SCH (09:41)
[2018-06-07] MEDS: VSL#3 PO SCH (09:42)
[2018-06-07] MEDS: CARDIZEM CD 180 MG PO SCH (09:42)
[2018-06-07] MEDS: ROBITUSSIN DM PO SCH ×4 (09:44→21:15)
[2018-06-07] MEDS: INSULIN DEGLUDEC 30 UNIT SUBCUT SCH (09:45)
[2018-06-07] MEDS: VIT D3 VIT K BERBERINE HOPS PO SCH (09:46)
[2018-06-07] MEDS: LEVAQUIN PREMIX IV 750 MG 750 MG/150 ML BAG IV SCH (10:41)
[2018-06-07] MEDS: LANOXIN PO SCH (10:41)
[2018-06-07] MEDS: TAB-A-VITE PO SCH (12:40)
[2018-06-07] MEDS: VITAMIN B-12 PO SCH (12:40)
[2018-06-07] MEDS: LUTEIN 20 MG PO SCH (12:41)
[2018-06-07] MEDS: SNACK - Diabetic Appropriate PO SCH (20:00)
[2018-06-07] MEDS: LIPITOR TAB 40 MG PO SCH (21:12)
[2018-06-07] MEDS: ZyrTEC TAB 10 MG PO SCH (21:13)
[2018-06-07] MEDS: FLOMAX PO SCH (21:13)
[2018-06-07] MEDS: KLONOPIN TAB 0.5 MG PO SCH (21:14)
[2018-06-08] MEDS: DUONEB 0.5 MG/3 MG NEB SCH ×6 (00:56→20:43)
[2018-06-08 05:06] LABS: BASOPHILS # (AUTO) 0.1 X10^3/uL (0.0-0.1); BASOPHILS % (AUTO) 0.7 % (0.2-1.0); EOSINOPHILS # (AUTO) 0.2 x10^3/uL (0.0-0.2); EOSINOPHILS % (AUTO) 1.3 % (0.9-2.9); HEMATOCRIT 29.9 % (42.0-54.0); HEMOGLOBIN 9.5 g/dL (13.5-18.0); LYMPHOCYTES # (AUTO) 0.9 X10^3/uL (1.3-2.9); LYMPHOCYTES % (AUTO) 7.3 % (21.0-51.0); MEAN CORPUSCULAR HEMOGLOBIN 25.2 pg (27.0-34.0); MEAN CORPUSCULAR HGB CONC 31.6 g/dL (33.0-35.0); MEAN CORPUSCULAR VOLUME 79.8 fL (80.0-100.0); MEAN PLATELET VOLUME 8.6 fL (7.4-11.0); MONOCYTES # (AUTO) 0.9 x10^3/uL (0.3-0.8); MONOCYTES % (AUTO) 7.2 % (0.0-13.0); NEUTROPHILS # (AUTO) 10.5 x10^3/uL (2.2-4.8); NEUTROPHILS % (AUTO) 83.5 % (42.0-75.0); PLATELET COUNT 312 X10^3/uL (150.0-450.0); RED BLOOD COUNT 3.75 X10^6/uL (4.7-6.0); RED CELL DISTRIBUTION WIDTH 18.1 % (11.6-16.5); WHITE BLOOD COUNT 12.5 X10^3/uL (3.6-10.0)
[2018-06-08 05:12] LABS: ALANINE AMINOTRANSFERASE 31 Units/L (12-78); ALBUMIN 2.3 g/dL (3.4-5.0); ALKALINE PHOSPHATASE 96 Units/L (46-116); ASPARTATE AMINO TRANSFERASE 20 Units/L (15-37); BLOOD UREA NITROGEN 10 mg/dL (7-18); CALCIUM 8.8 mg/dL (8.5-10.1); CARBON DIOXIDE 24.7 mmol/L (21-32); CHLORIDE 104 mmol/L (98-107); COR CA(FOR HYPOALB) 10.2 mg/dL (8.5-10.1); COR NA(FOR HYPERGLY) 142 mmol/L (136-145); CREATININE 0.95 mg/dL (0.70-1.30); SODIUM 139 mmol/L (136-145); eGFR NON BLACK RACES > 60 (>60)
[2018-06-08 05:44] LABS: ANISOCYTOSIS SLIGHT; HYPOCHROMASIA SLIGHT; PLATELET MORPHOLOGY COMMENT NORMAL (NORMAL)
[2018-06-08] MEDS: NEURONTIN CAP 300 MG PO SCH ×3 (05:50→21:06)
[2018-06-08] MEDS: TESSALON PERLES PO SCH ×3 (05:50→21:05)
[2018-06-08] MEDS: HumuLIN R SUBCUT PRN ×4 (05:50→20:17)
[2018-06-08] MEDS: PULMICORT NEB TX 0.5 MG NEB SCH ×2 (08:40→20:43)
[2018-06-08] MEDS: MUCOMYST 20% 200 MG/ML NEB SCH ×4 (08:40→20:43)
[2018-06-08] MEDS ORDERED: GLUCOPHAGE ONE ×2 (09:08→19:58)
--- NOTE | 2018-06-08 09:08 | RAD ---
Examination: Portable AP chest History: SOB, lung cancer Comparison 06/07/2018 Findings: Continued normal heart size, pulmonary hyperinflation/fibrosis and left hilar mass. Stable position of cardiac pacemaker. Impression: No change. Reported By:
[2018-06-08] MEDS: DIFLUCAN 200 MG IV PREMIX* 200 MG/100 ML BAG IV SCH (09:41)
[2018-06-08] MEDS: ROBITUSSIN DM PO SCH ×4 (09:43→20:17)
[2018-06-08] MEDS: PREDNISONE TAB 5 MG PO SCH ×2 (09:43→20:17)
[2018-06-08] MEDS: PRADAXA PO SCH ×2 (09:43→20:16)
[2018-06-08] MEDS: PROSCAR PO SCH (09:44)
[2018-06-08] MEDS: MEGACE PO SCH ×2 (09:44→20:17)
[2018-06-08] MEDS: GLUCOPHAGE PO SCH ×2 (09:44→20:17)
[2018-06-08] MEDS: LOPRESSOR TAB 50 MG PO SCH ×2 (09:44→20:16)
[2018-06-08] MEDS: PROTONIX TAB 40 MG PO SCH ×2 (09:44→20:16)
[2018-06-08] MEDS: LANOXIN PO SCH (09:45)
[2018-06-08] MEDS: SINGULAIR TAB 10 MG PO SCH (09:45)
[2018-06-08] MEDS: IMDUR PO SCH (09:45)
[2018-06-08] MEDS: CARDIZEM CD 180 MG PO SCH (09:45)
[2018-06-08] MEDS: ASPIRIN PO SCH (09:45)
[2018-06-08] MEDS: AMARYL TAB 4 MG PO SCH ×2 (09:45→20:16)
[2018-06-08] MEDS: VSL#3 PO SCH (09:46)
[2018-06-08] MEDS: VIT D3 VIT K BERBERINE HOPS PO SCH (09:47)
[2018-06-08] MEDS: INSULIN DEGLUDEC 30 UNIT SUBCUT SCH (09:48)
[2018-06-08] MEDS: INVANZ INJ 1 GM VIAL 1 GM in NS 100 ML IV + SPIKE MINIBAG* 100 ML IV SCH (11:00)
[2018-06-08] MEDS: NS 1/2 1000 ML IV 1,000 ML IV SCH ×2 (11:27→23:30)
[2018-06-08] MEDS ORDERED: NS 1/2 1000 ML IV 1,000 ML IV ONE (11:30)
[2018-06-08] MEDS: VITAMIN B-12 PO SCH (14:01)
[2018-06-08] MEDS: TAB-A-VITE PO SCH (14:02)
[2018-06-08] MEDS: LUTEIN 20 MG PO SCH (14:02)
[2018-06-08] MEDS: TORADOL 15 MG VIAL IVP PRN (17:28)
--- NOTE | 2018-06-08 19:15 | PCM.PROG ---
Progress Note - Progress Note for Day of Date of Exam: 06/06/18 - Subjective Subjective: WAS ADMITTED FOR BRONCHOPNEUMONIA AND A COPD EXACERBATION. TODAY, HE IS ALERT AND ORIENTED, LYING IN BED ON MORNING ROUNDS. HE CONTINUES WITH A PRODUCTIVE COUGH AND SHORTNESS OF BREATH. ON EXAMINATION, HEART IS REGULAR IN RATE AND RHYTHM. BILATERAL LUNGS ARE NOTED WITH SCATTERED WHEEZING. ABDOMEN IS ROUND, SOFT, AND NON-TENDER WITH NORMAL BOWEL SOUNDS NOTED IN ALL QUADRANTS. HIS VITALS THIS MORNING ARE 98.4-97-18-93%-136/76. LABS WERE OBTAINED. ABNORMAL LAB VALUES INCLUDE THE FOLLOWING: WBC 13.5, RBC 4.03, HGB 10.02, HCT 32.3, GLUCOSE 165, ALBUMIN 2.6. A CHEST XRAY WAS OBTAINED AND REVEALED: Hyperinflation with chronic appearing interstitial infiltrates consistent with COPD in the appropriate clinical setting. No definite acute alveolar infiltrates. No change left hilar mass. HE IS CURRENTLY RECEIVING IV LEVAQUIN, IV FORTAZ, RESPIRATORY TREATMENTS, AND SUPPLEMENTAL OXYGEN. TODAY, WE WILL ADD PULMICORT, DIFLUCAN 200MG IV DAILY, AND THE SMART VEST. OTHERWISE, WE WILL CONTINUE WITH CURRENT PLAN OF CARE. WE PLAN TO FOLLOW UP WITH AM LABS AND CONTINUE TO MONITOR. - Past Medical Family Social History Past Med/Fam/Surg Hx: No changes since H&P Allergies: Allergies codeine Allergy (Unknown, Verified 04/27/18 04:54) cefdinir Allergy (Verified 04/27/18 04:55) Sulfa (Sulfonamide Antibiotics) Allergy (Verified 04/27/18 04:55) - Review of Systems ROS: No change since H&P - Vital Signs and I&O's Vital Signs: Temperature 98.7 F Pulse Rate [Right Brachial] 94 Pulse Rate 97 Respiratory Rate 22 Blood Pressure [Right Arm] 121/68 Blood Pressure [Left Arm] 112/58 Blood Pressure 112/58 O2 Sat by Pulse Oximetry 96 Intake and Output: Intake & Output 06/06/18 06/07/18 06/08/18 06/09/18 11:59 11:59 11:59 11:59 Intake Total 2300 / 2300 1580 / 1580 2330 / 2330 780 / 780 Output Total 2500 / 2500 4450 / 4450 2225 / 2225 700 / 700 Balance -200 / -200 -2870 / -2870 105 / 105 80 / 80 - Physical Exam Oriented: Normal Eyes: Normal Ear: Normal Nose: Normal Throat: Normal Respiratory: Generalized, Wheezes, Rhonchi Cardiovascular: Normal : Normal Auscultation: Bowel Sounds: Normal Palpation: Normal Tenderness: Normal Skin: Normal Musculoskeletal: Normal Psychiatric: Normal Mood Description: Calm Affect: Normal Speech Pattern: Clear, Appropriate - Laboratory and Diagnostics Result Diagrams: 06/08/18 04:15 06/08/18 04:15 Labs: 06/05/18 12:03 Blood Blood Culture - Preliminary 06/05/18 11:58 Blood Blood Culture - Preliminary 06/05/18 12:19 Sputum - Expectorated Sputum Sputum Culture - Final Enterobacter Aerogenes 06/05/18 12:19 Sputum - Expectorated Sputum - Final Laboratory WBC 12.5 X10^3/uL (3.6-10.0) H 06/08/18 04:15 RBC 3.75 X10^6/uL (4.7-6.0) L 06/08/18 04:15 Hgb 9.5 g/dL (13.5-18.0) L 06/08/18 04:15 Hct 29.9 % (42.0-54.0) L 06/08/18 04:15 MCV 79.8 fL (80.0-100.0) L 06/08/18 04:15 MCH 25.2 pg (27.0-34.0) L 06/08/18 04:15 MCHC 31.6 g/dL (33.0-35.0) L 06/08/18 04:15 RDW 18.1 % (11.6-16.5) H 06/08/18 04:15 Plt Count 312 X10^3/uL (150.0-450.0) 06/08/18 04:15 Plt Count Comment Adequate (ADEQUATE) 06/08/18 04:15 MPV 8.6 fL (7.4-11.0) 06/08/18 04:15 Neut % (Auto) 83.5 % (42.0-75.0) H 06/08/18 04:15 Lymph % (Auto) 7.3 % (21.0-51.0) L 06/08/18 04:15 [place] % (Auto) 7.2 % (0.0-13.0) 06/08/18 04:15 Eos % (Auto) 1.3 % (0.9-2.9) 06/08/18 04:15 Baso % (Auto) 0.7 % (0.2-1.0) 06/08/18 04:15 Neut # (Auto) 10.5 x10^3/uL (2.2-4.8) H 06/08/18 04:15 Lymph # (Auto) 0.9 X10^3/uL (1.3-2.9) L 06/08/18 04:15 [place] # (Auto) 0.9 x10^3/uL (0.3-0.8) H 06/08/18 04:15 Eos # (Auto) 0.2 x10^3/uL (0.0-0.2) 06/08/18 04:15 Baso # (Auto) 0.1 X10^3/uL (0.0-0.1) 06/08/18 04:15 Absolute Nucleated RBC 0.0 /100WBC 06/08/18 04:15 Plt Morphology Comment Normal (NORMAL) 06/08/18 04:15 RBC Morphology Abnormal (NORMAL) 06/08/18 04:15 Hypochromasia Slight A 06/08/18 04:15 Anisocytosis Slight A 06/08/18 04:15 Microcytosis Slight A 06/07/18 04:00 Sodium 139 mmol/L (136-145) 06/08/18 04:15 Corrected Sodium 142 mmol/L (136-145) 06/08/18 04:15 Potassium 4.2 mmol/L (3.5-5.1) 06/08/18 04:15 Chloride 104 mmol/L (98-107) 06/08/18 04:15 Carbon Dioxide 24.7 mmol/L (21-32) 06/08/18 04:15 BUN 10 mg/dL (7-18) 06/08/18 04:15 Creatinine 0.95 mg/dL (0.70-1.30) 06/08/18 04:15 Est GFR (MDRD) Af Amer > 60 (>60) 06/08/18 04:15 Est GFR (MDRD) Non-Af > 60 (>60) 06/08/18 04:15 Glucose 217 mg/dL (65-99) H 06/08/18 04:15 POC Glucose (mg/dL) 186 mg/dL (65-99) H 06/08/18 17:24 Calcium 8.8 mg/dL (8.5-10.1) 06/08/18 04:15 Corrected Calcium 10.2 mg/dL (8.5-10.1) H 06/08/18 04:15 Total Bilirubin 0.20 mg/dL (0.2-1.0) 06/08/18 04:15 AST 20 Units/L (15-37) 06/08/18 04:15 ALT 31 Units/L (12-78) 06/08/18 04:15 Alkaline Phosphatase 96 Units/L (46-116) 06/08/18 04:15 Total Protein 6.0 g/dL (6.4-8.2) L 06/08/18 04:15 Albumin 2.3 g/dL (3.4-5.0) L 06/08/18 04:15 Globulin 3.7 g/dL (2.5-4.5) 06/08/18 04:15 Albumin/Globulin Ratio 0.6 Ratio (1.1-2.1) L 06/08/18 04:15 Digoxin 1.05 ng/mL (0.9-2) 06/07/18 04:00 - Plan (1) Bronchopneumonia Status: Acute Plan: IV FORTAZ AND LEVAQUIN, RESPIRATORY TX, SUPPLEMENTAL OXYGEN, SMART VEST, CONTINUE TO MONITOR (2) COPD exacerbation Status: Acute Plan: RESPIRATORY TX, SUPPLEMENTAL OXYGEN, SMART VEST, CONTINUE TO MONITOR (3) Yeast pharyngitis Status: Acute Plan: DIFLUCAN 200MG IV DAILY, CONTINUE TO MONITOR
[2018-06-08] MEDS: SNACK - Diabetic Appropriate PO SCH (20:00)
[2018-06-08] MEDS: LIPITOR TAB 40 MG PO SCH (20:16)
[2018-06-08] MEDS: ZyrTEC TAB 10 MG PO SCH (20:16)
[2018-06-08] MEDS: KLONOPIN TAB 0.5 MG PO SCH (20:17)
[2018-06-08] MEDS: FLOMAX PO SCH (20:17)
[2018-06-09] MEDS: DUONEB 0.5 MG/3 MG NEB SCH ×8 (00:58→20:00)
[2018-06-09] MEDS ORDERED: NS 1/2 1000 ML IV 1,000 ML IV ONE ×2 (02:32→16:51)
[2018-06-09] MEDS: NS 1/2 1000 ML IV 1,000 ML IV SCH ×2 (02:53→16:57)
[2018-06-09 05:23] LABS: BASOPHILS # (AUTO) 0.1 X10^3/uL (0.0-0.1); BASOPHILS % (AUTO) 0.9 % (0.2-1.0); EOSINOPHILS # (AUTO) 0.2 x10^3/uL (0.0-0.2); EOSINOPHILS % (AUTO) 2.1 % (0.9-2.9); HEMATOCRIT 28.8 % (42.0-54.0); HEMOGLOBIN 9.3 g/dL (13.5-18.0); LYMPHOCYTES # (AUTO) 1.1 X10^3/uL (1.3-2.9); LYMPHOCYTES % (AUTO) 9.9 % (21.0-51.0); MEAN CORPUSCULAR HEMOGLOBIN 25.3 pg (27.0-34.0); MEAN CORPUSCULAR HGB CONC 32.2 g/dL (33.0-35.0); MEAN CORPUSCULAR VOLUME 78.6 fL (80.0-100.0); MEAN PLATELET VOLUME 8.7 fL (7.4-11.0); MONOCYTES # (AUTO) 0.9 x10^3/uL (0.3-0.8); MONOCYTES % (AUTO) 7.7 % (0.0-13.0); NEUTROPHILS # (AUTO) 8.8 x10^3/uL (2.2-4.8); NEUTROPHILS % (AUTO) 79.4 % (42.0-75.0); PLATELET COUNT 325 X10^3/uL (150.0-450.0); RED BLOOD COUNT 3.66 X10^6/uL (4.7-6.0); RED CELL DISTRIBUTION WIDTH 18.6 % (11.6-16.5); WHITE BLOOD COUNT 11.1 X10^3/uL (3.6-10.0)
[2018-06-09 05:31] LABS: ALANINE AMINOTRANSFERASE 33 Units/L (12-78); ALBUMIN 2.3 g/dL (3.4-5.0); ALKALINE PHOSPHATASE 97 Units/L (46-116); ASPARTATE AMINO TRANSFERASE 23 Units/L (15-37); BLOOD UREA NITROGEN 12 mg/dL (7-18); CALCIUM 8.8 mg/dL (8.5-10.1); CARBON DIOXIDE 25.3 mmol/L (21-32); CHLORIDE 103 mmol/L (98-107); COR CA(FOR HYPOALB) 10.2 mg/dL (8.5-10.1); COR NA(FOR HYPERGLY) 141 mmol/L (136-145); CREATININE 0.86 mg/dL (0.70-1.30); SODIUM 138 mmol/L (136-145); TOTAL PROTEIN 6.1 g/dL (6.4-8.2); eGFR NON BLACK RACES > 60 (>60)
[2018-06-09 05:55] LABS: HYPOCHROMASIA SLIGHT; PLATELET MORPHOLOGY COMMENT NORMAL (NORMAL)
[2018-06-09 05:56] LABS: ANISOCYTOSIS SLIGHT
[2018-06-09] MEDS: HumuLIN R SUBCUT PRN ×4 (06:12→20:52)
[2018-06-09] MEDS: TESSALON PERLES PO SCH ×3 (06:12→21:00)
[2018-06-09] MEDS: NEURONTIN CAP 300 MG PO SCH ×3 (06:12→21:00)
--- NOTE | 2018-06-09 06:45 | RAD ---
HISTORY: Shortness of breath Study: Chest AP portable Comparison: 06/08/2018, 06/07/2018 Findings: There is a pacemaker present on the right. There is a port present on the left. The heart is within normal limits in size. No congestive heart failure is noted. The lungs are hyperinflated. Diffuse chronic interstitial lung disease is stable. Left hilar mass is stable. No acute alveolar infiltrates or pleural effusions are identified. The bony thorax is unremarkable. IMPRESSION: No change from the prior examination Reported By:
[2018-06-09] MEDS: PULMICORT NEB TX 0.5 MG NEB SCH ×2 (08:17→20:00)
[2018-06-09] MEDS: MUCOMYST 20% 200 MG/ML NEB SCH ×2 (08:17→08:18)
[2018-06-09] MEDS ORDERED: GLUCOPHAGE ONE ×2 (09:33→19:31)
[2018-06-09] MEDS: DIFLUCAN 200 MG IV PREMIX* 200 MG/100 ML BAG IV SCH (09:41)
[2018-06-09] MEDS: PRADAXA PO SCH ×2 (09:43→20:50)
[2018-06-09] MEDS: LOPRESSOR TAB 50 MG PO SCH ×2 (09:44→20:47)
[2018-06-09] MEDS: IMDUR PO SCH (09:44)
[2018-06-09] MEDS: LANOXIN PO SCH (09:44)
[2018-06-09] MEDS: VSL#3 PO SCH (09:45)
[2018-06-09] MEDS: ASPIRIN PO SCH (09:46)
[2018-06-09] MEDS: CARDIZEM CD 180 MG PO SCH (09:46)
[2018-06-09] MEDS: MEGACE PO SCH ×2 (09:46→20:50)
[2018-06-09] MEDS: GLUCOPHAGE PO SCH ×2 (09:46→20:49)
[2018-06-09] MEDS: PROSCAR PO SCH (09:46)
[2018-06-09] MEDS: PREDNISONE TAB 5 MG PO SCH (09:47)
[2018-06-09] MEDS: SINGULAIR TAB 10 MG PO SCH (09:47)
[2018-06-09] MEDS: PROTONIX TAB 40 MG PO SCH ×2 (09:47→20:49)
[2018-06-09] MEDS: AMARYL TAB 4 MG PO SCH ×2 (09:47→20:47)
[2018-06-09] MEDS: VIT D3 VIT K BERBERINE HOPS PO SCH (09:48)
[2018-06-09] MEDS: ROBITUSSIN DM PO SCH ×4 (09:48→20:47)
[2018-06-09] MEDS: INSULIN DEGLUDEC 30 UNIT SUBCUT SCH (09:48)
[2018-06-09] MEDS: INVANZ INJ 1 GM VIAL 1 GM in NS 100 ML IV + SPIKE MINIBAG* 100 ML IV SCH (11:11)
[2018-06-09] MEDS: VITAMIN B-12 PO SCH (11:18)
[2018-06-09] MEDS: SOLU-Medrol 40 MG VIAL IVP SCH ×3 (11:19→21:00)
[2018-06-09] MEDS: TAB-A-VITE PO SCH (11:19)
[2018-06-09] MEDS: LUTEIN 20 MG PO SCH (14:14)
[2018-06-09] MEDS: TORADOL 15 MG VIAL IVP PRN (17:00)
[2018-06-09] MEDS: KLONOPIN TAB 0.5 MG PO SCH (20:48)
[2018-06-09] MEDS: SNACK - Diabetic Appropriate PO SCH (20:48)
[2018-06-09] MEDS: LIPITOR TAB 40 MG PO SCH (20:48)
[2018-06-09] MEDS: FLOMAX PO SCH (20:50)
[2018-06-09] MEDS: ZyrTEC TAB 10 MG PO SCH (20:51)
--- NOTE | 2018-06-09 21:24 | PCM.PROG ---
Progress Note - Progress Note for Day of Date of Exam: 06/09/18 - Subjective Subjective: WAS ADMITTED FOR BRONCHOPNEUMONIA AND A COPD EXACERBATION. TODAY, HE IS ALERT AND ORIENTED, LYING IN BED ON MORNING ROUNDS. HE CONTINUES WITH A PRODUCTIVE COUGH AND SHORTNESS OF BREATH. ON EXAMINATION, HEART IS REGULAR IN RATE AND RHYTHM. BILATERAL LUNGS CONTINUE WITH COURSE, SCATTERED WHEEZING. ABDOMEN IS ROUND, SOFT, AND NON-TENDER WITH NORMAL BOWEL SOUNDS NOTED IN ALL QUADRANTS. HIS VITALS THIS MORNING ARE 99.5-88-22-94%-128/96. LABS WERE OBTAINED. ABNORMAL LAB VALUES INCLUDE THE FOLLOWING: WBC 11.1, RBC 3.66, HGB 9.3, HCT 28.8, GLUCOSE 209, TOTAL PROTEIN 6.1, ALBUMIN 2.3. A CHEST XRAY WAS OBTAINED AND REVEALED NO CHANGE FROM YESTERDAY. HE IS CURRENTLY RECEIVING INVANZ 1GM IV DAILY, DIFLUCAN 200MG IV DAILY, RESPIRATORY TREATMENTS, AND SUPPLEMENTAL OXYGEN. TODAY, WE WILL DISCONTINUE THE PREDNISONE THAT HE IS CURRENTLY RECEIVING AND ADD SOLU-MEDROL 80MG IV Q8H. OTHERWISE, WE WILL CONTINUE WITH CURRENT PLAN OF CARE. WE PLAN TO FOLLOW UP WITH AM LABS AND CONTINUE TO MONITOR. - Past Medical Family Social History Past Med/Fam/Surg Hx: No changes since H&P Allergies: Allergies codeine Allergy (Unknown, Verified 04/27/18 04:54) cefdinir Allergy (Verified 04/27/18 04:55) Sulfa (Sulfonamide Antibiotics) Allergy (Verified 04/27/18 04:55) - Review of Systems ROS: No change since H&P - Vital Signs and I&O's Vital Signs: Temperature 98.0 F Pulse Rate [Right Brachial] 99 Pulse Rate 72 Respiratory Rate 20 Blood Pressure [Right Arm] 135/73 Blood Pressure [Left Arm] 112/58 Blood Pressure 112/58 O2 Sat by Pulse Oximetry 93 Intake and Output: Intake & Output 06/07/18 06/08/18 06/09/18 06/10/18 11:59 11:59 11:59 11:59 Intake Total 1580 / 1580 2330 / 2330 2620 / 2620 720 / 720 Output Total 4450 / 4450 2225 / 2225 1175 / 1175 500 / 500 Balance -2870 / -2870 105 / 105 1445 / 1445 220 / 220 - Physical Exam Oriented: Normal Eyes: Normal Ear: Normal Nose: Normal Throat: Normal Respiratory: Generalized, Wheezes, Rhonchi Cardiovascular: Normal : Normal Auscultation: Bowel Sounds: Normal Palpation: Normal Tenderness: Normal Skin: Normal Musculoskeletal: Normal Psychiatric: Normal Mood Description: Calm Affect: Normal Speech Pattern: Clear, Appropriate - Laboratory and Diagnostics Result Diagrams: 06/09/18 04:10 06/09/18 04:10 Labs: 06/05/18 12:03 Blood Blood Culture - Preliminary 06/05/18 11:58 Blood Blood Culture - Preliminary 06/05/18 12:19 Sputum - Expectorated Sputum Sputum Culture - Final Enterobacter Aerogenes 06/05/18 12:19 Sputum - Expectorated Sputum - Final Laboratory WBC 11.1 X10^3/uL (3.6-10.0) H 06/09/18 04:10 RBC 3.66 X10^6/uL (4.7-6.0) L 06/09/18 04:10 Hgb 9.3 g/dL (13.5-18.0) L 06/09/18 04:10 Hct 28.8 % (42.0-54.0) L 06/09/18 04:10 MCV 78.6 fL (80.0-100.0) L 06/09/18 04:10 MCH 25.3 pg (27.0-34.0) L 06/09/18 04:10 MCHC 32.2 g/dL (33.0-35.0) L 06/09/18 04:10 RDW 18.6 % (11.6-16.5) H 06/09/18 04:10 Plt Count 325 X10^3/uL (150.0-450.0) 06/09/18 04:10 Plt Count Comment Adequate (ADEQUATE) 06/09/18 04:10 MPV 8.7 fL (7.4-11.0) 06/09/18 04:10 Neut % (Auto) 79.4 % (42.0-75.0) H 06/09/18 04:10 Lymph % (Auto) 9.9 % (21.0-51.0) L 06/09/18 04:10 [place] % (Auto) 7.7 % (0.0-13.0) 06/09/18 04:10 Eos % (Auto) 2.1 % (0.9-2.9) 06/09/18 04:10 Baso % (Auto) 0.9 % (0.2-1.0) 06/09/18 04:10 Neut # (Auto) 8.8 x10^3/uL (2.2-4.8) H 06/09/18 04:10 Lymph # (Auto) 1.1 X10^3/uL (1.3-2.9) L 06/09/18 04:10 [place] # (Auto) 0.9 x10^3/uL (0.3-0.8) H 06/09/18 04:10 Eos # (Auto) 0.2 x10^3/uL (0.0-0.2) 06/09/18 04:10 Baso # (Auto) 0.1 X10^3/uL (0.0-0.1) 06/09/18 04:10 Absolute Nucleated RBC 0.1 /100WBC 06/09/18 04:10 Plt Morphology Comment Normal (NORMAL) 06/09/18 04:10 RBC Morphology Abnormal (NORMAL) 06/09/18 04:10 Hypochromasia Slight A 06/09/18 04:10 Anisocytosis Slight A 06/09/18 04:10 Microcytosis Slight A 06/07/18 04:00 Sodium 138 mmol/L (136-145) 06/09/18 04:10 Corrected Sodium 141 mmol/L (136-145) 06/09/18 04:10 Potassium 4.1 mmol/L (3.5-5.1) 06/09/18 04:10 Chloride 103 mmol/L (98-107) 06/09/18 04:10 Carbon Dioxide 25.3 mmol/L (21-32) 06/09/18 04:10 BUN 12 mg/dL (7-18) 06/09/18 04:10 Creatinine 0.86 mg/dL (0.70-1.30) 06/09/18 04:10 Est GFR (MDRD) Af Amer > 60 (>60) 06/09/18 04:10 Est GFR (MDRD) Non-Af > 60 (>60) 06/09/18 04:10 Glucose 209 mg/dL (65-99) H 06/09/18 04:10 POC Glucose (mg/dL) 322 mg/dL (65-99) H 06/09/18 20:35 Calcium 8.8 mg/dL (8.5-10.1) 06/09/18 04:10 Corrected Calcium 10.2 mg/dL (8.5-10.1) H 06/09/18 04:10 Total Bilirubin 0.20 mg/dL (0.2-1.0) 06/09/18 04:10 AST 23 Units/L (15-37) 06/09/18 04:10 ALT 33 Units/L (12-78) 06/09/18 04:10 Alkaline Phosphatase 97 Units/L (46-116) 06/09/18 04:10 Total Protein 6.1 g/dL (6.4-8.2) L 06/09/18 04:10 Albumin 2.3 g/dL (3.4-5.0) L 06/09/18 04:10 Globulin 3.8 g/dL (2.5-4.5) 06/09/18 04:10 Albumin/Globulin Ratio 0.6 Ratio (1.1-2.1) L 06/09/18 04:10 Digoxin 1.05 ng/mL (0.9-2) 06/07/18 04:00 - Plan (1) Bronchopneumonia Status: Acute Plan: INVANZ 1GM IV DAILY, SOLU-MEDROL 80MG IV Q8H, RESPIRATORY TX, SUPPLEMENTAL OXYGEN, SMART VEST, CONTINUE TO MONITOR (2) COPD exacerbation Status: Acute Plan: RESPIRATORY TX, SUPPLEMENTAL OXYGEN, SMART VEST, CONTINUE TO MONITOR (3) Yeast pharyngitis Status: Inactive Plan: DIFLUCAN 200MG IV DAILY, CONTINUE TO MONITOR
[2018-06-10] MEDS: DUONEB 0.5 MG/3 MG NEB SCH ×6 (01:47→20:15)
[2018-06-10] MEDS ORDERED: NS 1/2 1000 ML IV 1,000 ML IV ONE ×2 (04:08→17:04)
[2018-06-10] MEDS: NS 1/2 1000 ML IV 1,000 ML IV SCH ×2 (04:21→17:10)
[2018-06-10] MEDS: SOLU-Medrol 40 MG VIAL IVP SCH ×3 (05:09→21:05)
[2018-06-10] MEDS: TESSALON PERLES PO SCH ×3 (05:09→21:04)
[2018-06-10] MEDS: NEURONTIN CAP 300 MG PO SCH ×3 (05:09→21:04)
[2018-06-10 05:20] LABS: BASOPHILS % (AUTO) 0.1 % (0.2-1.0); HEMATOCRIT 28.7 % (42.0-54.0); HEMOGLOBIN 9.3 g/dL (13.5-18.0); LYMPHOCYTES # (AUTO) 0.7 X10^3/uL (1.3-2.9); LYMPHOCYTES % (AUTO) 6.6 % (21.0-51.0); MEAN CORPUSCULAR HEMOGLOBIN 25.4 pg (27.0-34.0); MEAN CORPUSCULAR HGB CONC 32.4 g/dL (33.0-35.0); MEAN CORPUSCULAR VOLUME 78.6 fL (80.0-100.0); MEAN PLATELET VOLUME 8.8 fL (7.4-11.0); MONOCYTES # (AUTO) 0.2 x10^3/uL (0.3-0.8); MONOCYTES % (AUTO) 2.1 % (0.0-13.0); NEUTROPHILS # (AUTO) 9.3 x10^3/uL (2.2-4.8); NEUTROPHILS % (AUTO) 91.2 % (42.0-75.0); PLATELET COUNT 331 X10^3/uL (150.0-450.0); RED BLOOD COUNT 3.65 X10^6/uL (4.7-6.0); RED CELL DISTRIBUTION WIDTH 18.3 % (11.6-16.5); WHITE BLOOD COUNT 10.1 X10^3/uL (3.6-10.0)
[2018-06-10 05:29] LABS: ALANINE AMINOTRANSFERASE 30 Units/L (12-78); ALBUMIN 2.4 g/dL (3.4-5.0); ALKALINE PHOSPHATASE 105 Units/L (46-116); ASPARTATE AMINO TRANSFERASE 22 Units/L (15-37); BLOOD UREA NITROGEN 14 mg/dL (7-18); CHLORIDE 103 mmol/L (98-107); COR CA(FOR HYPOALB) 10.3 mg/dL (8.5-10.1); COR NA(FOR HYPERGLY) 143 mmol/L (136-145); CREATININE 0.97 mg/dL (0.70-1.30); SODIUM 138 mmol/L (136-145); TOTAL PROTEIN 6.4 g/dL (6.4-8.2); eGFR NON BLACK RACES > 60 (>60)
[2018-06-10] MEDS: HumuLIN R SUBCUT PRN ×4 (05:30→20:32)
[2018-06-10 06:12] LABS: HYPOCHROMASIA SLIGHT; PLATELET MORPHOLOGY COMMENT NORMAL (NORMAL)
--- NOTE | 2018-06-10 06:39 | RAD ---
HISTORY: Shortness of breath Study: Chest AP portable Comparison: 06/09/2018 Findings: There is a port present on the left. There is a pacemaker present on the right obscuring a portion of the right upper lobe. Heart remains within normal limits in size. No congestive heart failure is noted. The aorta is calcified. The lungs are hyperinflated. Diffuse chronic interstitial lung changes are stable. No change left hilar mass. No alveolar infiltrates or pleural effusions are identified. The bony thorax is unremarkable. IMPRESSION: No change hyperinflation with diffuse chronic interstitial lung changes No change left hilar mass Reported By:
[2018-06-10] MEDS: PULMICORT NEB TX 0.5 MG NEB SCH ×2 (08:36→20:15)
[2018-06-10] MEDS ORDERED: GLUCOPHAGE ONE ×2 (08:57→19:13)
[2018-06-10] MEDS: INVANZ INJ 1 GM VIAL 1 GM in NS 100 ML IV + SPIKE MINIBAG* 100 ML IV SCH (09:07)
[2018-06-10] MEDS: INSULIN DEGLUDEC 30 UNIT SUBCUT SCH (09:09)
[2018-06-10] MEDS: ASPIRIN PO SCH (09:40)
[2018-06-10] MEDS: DIFLUCAN 200 MG IV PREMIX* 200 MG/100 ML BAG IV SCH (09:40)
[2018-06-10] MEDS: VSL#3 PO SCH (09:40)
[2018-06-10] MEDS: LANOXIN PO SCH (09:41)
[2018-06-10] MEDS: CARDIZEM CD 180 MG PO SCH (09:44)
[2018-06-10] MEDS: PROTONIX TAB 40 MG PO SCH ×2 (09:45→20:28)
[2018-06-10] MEDS: GLUCOPHAGE PO SCH ×2 (09:45→20:28)
[2018-06-10] MEDS: PROSCAR PO SCH (09:46)
[2018-06-10] MEDS: LOPRESSOR TAB 50 MG PO SCH ×2 (09:46→20:28)
[2018-06-10] MEDS: AMARYL TAB 4 MG PO SCH ×2 (09:47→20:29)
[2018-06-10] MEDS: MEGACE PO SCH ×2 (09:47→20:28)
[2018-06-10] MEDS: SINGULAIR TAB 10 MG PO SCH (09:47)
[2018-06-10] MEDS: IMDUR PO SCH (09:47)
[2018-06-10] MEDS: PRADAXA PO SCH ×2 (09:48→20:31)
[2018-06-10] MEDS: ROBITUSSIN DM PO SCH ×4 (09:48→20:30)
[2018-06-10] MEDS: VIT D3 VIT K BERBERINE HOPS PO SCH (10:00)
[2018-06-10] MEDS: LUTEIN 20 MG PO SCH (12:20)
[2018-06-10] MEDS: TAB-A-VITE PO SCH (12:20)
[2018-06-10] MEDS: VITAMIN B-12 PO SCH (12:21)
[2018-06-10] MEDS: LIPITOR TAB 40 MG PO SCH (20:28)
[2018-06-10] MEDS: ZyrTEC TAB 10 MG PO SCH (20:28)
[2018-06-10] MEDS: KLONOPIN TAB 0.5 MG PO SCH (20:29)
[2018-06-10] MEDS: SNACK - Diabetic Appropriate PO SCH (20:29)
[2018-06-10] MEDS: FLOMAX PO SCH (20:29)
[2018-06-10] MEDS: TORADOL 15 MG VIAL IVP PRN (20:31)
--- NOTE | 2018-06-10 21:22 | PCM.PROG ---
Progress Note - Progress Note for Day of Date of Exam: 06/10/18 - Subjective Subjective: WAS ADMITTED FOR BRONCHOPNEUMONIA AND A COPD EXACERBATION. TODAY, HE IS ALERT AND ORIENTED, LYING IN BED ON MORNING ROUNDS. HE CONTINUES WITH A PRODUCTIVE COUGH AND SHORTNESS OF BREATH. ON EXAMINATION, HEART IS REGULAR IN RATE AND RHYTHM. BILATERAL LUNGS CONTINUE WITH COURSE, SCATTERED WHEEZING. ABDOMEN IS ROUND, SOFT, AND NON-TENDER WITH NORMAL BOWEL SOUNDS NOTED IN ALL QUADRANTS. HIS VITALS THIS MORNING ARE 98.2-111-22-93%-133/70. LABS WERE OBTAINED. ABNORMAL LAB VALUES INCLUDE THE FOLLOWING: WBC 10.1, rbc 3.65, hgb 9.3, hct 28.7, glucose 292, albumin 2.4. A CHEST XRAY WAS OBTAINED AND REVEALED: No change hyperinflation with diffuse chronic interstitial lung changes. No cosme nge left hilar mass. HE IS CURRENTLY RECEIVING INVANZ 1GM IV DAILY, DIFLUCAN 200MG IV DAILY, RESPIRATORY TREATMENTS, SUPPLEMENTAL OXYGEN, AND SOLU-MEDROL 80MG IV Q8H. WE WILL CONTINUE WITH CURRENT PLAN OF CARE TODAY. OTHERWISE, WE PLAN TO FOLLOW UP WITH AM LABS AND CONTINUE TO MONITOR. - Past Medical Family Social History Past Med/Fam/Surg Hx: No changes since H&P Allergies: Allergies codeine Allergy (Unknown, Verified 04/27/18 04:54) cefdinir Allergy (Verified 04/27/18 04:55) Sulfa (Sulfonamide Antibiotics) Allergy (Verified 04/27/18 04:55) - Review of Systems ROS: No change since H&P - Vital Signs and I&O's Vital Signs: Temperature 98.1 F Pulse Rate [Right Brachial] 102 Pulse Rate 88 Respiratory Rate 22 Blood Pressure [Right Arm] 121/61 Blood Pressure [Left Arm] 112/58 Blood Pressure 112/58 O2 Sat by Pulse Oximetry 99 Intake and Output: Intake & Output 06/08/18 06/09/18 06/10/18 06/11/18 11:59 11:59 11:59 11:59 Intake Total 2330 / 2330 2620 / 2620 2250 / 2250 640 / 640 Output Total 2225 / 2225 1175 / 1175 1400 / 1400 400 / 400 Balance 105 / 105 1445 / 1445 850 / 850 240 / 240 - Physical Exam Oriented: Normal Eyes: Normal Ear: Normal Nose: Normal Throat: Normal Respiratory: Generalized, Wheezes, Rhonchi Cardiovascular: Normal : Normal Auscultation: Bowel Sounds: Normal Tenderness: Normal Skin: Normal Musculoskeletal: Normal Psychiatric: Normal Mood Description: Calm Affect: Normal Speech Pattern: Clear, Appropriate - Laboratory and Diagnostics Result Diagrams: 06/10/18 04:18 06/10/18 04:18 Labs: 06/05/18 12:03 Blood Blood Culture - Final 06/05/18 11:58 Blood Blood Culture - Final 06/05/18 12:19 Sputum - Expectorated Sputum Sputum Culture - Final Enterobacter Aerogenes 06/05/18 12:19 Sputum - Expectorated Sputum - Final Laboratory WBC 10.1 X10^3/uL (3.6-10.0) H 06/10/18 04:18 RBC 3.65 X10^6/uL (4.7-6.0) L 06/10/18 04:18 Hgb 9.3 g/dL (13.5-18.0) L 06/10/18 04:18 Hct 28.7 % (42.0-54.0) L 06/10/18 04:18 MCV 78.6 fL (80.0-100.0) L 06/10/18 04:18 MCH 25.4 pg (27.0-34.0) L 06/10/18 04:18 MCHC 32.4 g/dL (33.0-35.0) L 06/10/18 04:18 RDW 18.3 % (11.6-16.5) H 06/10/18 04:18 Plt Count 331 X10^3/uL (150.0-450.0) 06/10/18 04:18 Plt Count Comment Adequate (ADEQUATE) 06/10/18 04:18 MPV 8.8 fL (7.4-11.0) 06/10/18 04:18 Neut % (Auto) 91.2 % (42.0-75.0) H 06/10/18 04:18 Lymph % (Auto) 6.6 % (21.0-51.0) L 06/10/18 04:18 [place] % (Auto) 2.1 % (0.0-13.0) 06/10/18 04:18 Eos % (Auto) 0.0 % (0.9-2.9) L 06/10/18 04:18 Baso % (Auto) 0.1 % (0.2-1.0) L 06/10/18 04:18 Neut # (Auto) 9.3 x10^3/uL (2.2-4.8) H 06/10/18 04:18 Lymph # (Auto) 0.7 X10^3/uL (1.3-2.9) L 06/10/18 04:18 [place] # (Auto) 0.2 x10^3/uL (0.3-0.8) L 06/10/18 04:18 Eos # (Auto) 0.0 x10^3/uL (0.0-0.2) 06/10/18 04:18 Baso # (Auto) 0.0 X10^3/uL (0.0-0.1) 06/10/18 04:18 Absolute Nucleated RBC 0.0 /100WBC 06/10/18 04:18 Total Counted 100 06/10/18 04:18 Neutrophils % (Manual) 93 % (39-76) H 06/10/18 04:18 Lymphocytes % (Manual) 5 % (13-43) L 06/10/18 04:18 Monocytes % (Manual) 2 % (4-9) L 06/10/18 04:18 Plt Morphology Comment Normal (NORMAL) 06/10/18 04:18 RBC Morphology Abnormal (NORMAL) 06/10/18 04:18 Hypochromasia Slight A 06/10/18 04:18 Anisocytosis Slight A 06/09/18 04:10 Microcytosis Slight A 06/07/18 04:00 Sodium 138 mmol/L (136-145) 06/10/18 04:18 Corrected Sodium 143 mmol/L (136-145) 06/10/18 04:18 Potassium 4.2 mmol/L (3.5-5.1) 06/10/18 04:18 Chloride 103 mmol/L (98-107) 06/10/18 04:18 Carbon Dioxide 24.0 mmol/L (21-32) 06/10/18 04:18 BUN 14 mg/dL (7-18) 06/10/18 04:18 Creatinine 0.97 mg/dL (0.70-1.30) 06/10/18 04:18 Est GFR (MDRD) Af Amer > 60 (>60) 06/10/18 04:18 Est GFR (MDRD) Non-Af > 60 (>60) 06/10/18 04:18 Glucose 292 mg/dL (65-99) H 06/10/18 04:18 POC Glucose (mg/dL) 322 mg/dL (65-99) H 06/09/18 20:35 Calcium 9.0 mg/dL (8.5-10.1) 06/10/18 04:18 Corrected Calcium 10.3 mg/dL (8.5-10.1) H 06/10/18 04:18 Total Bilirubin 0.20 mg/dL (0.2-1.0) 06/10/18 04:18 AST 22 Units/L (15-37) 06/10/18 04:18 ALT 30 Units/L (12-78) 06/10/18 04:18 Alkaline Phosphatase 105 Units/L (46-116) 06/10/18 04:18 Total Protein 6.4 g/dL (6.4-8.2) 06/10/18 04:18 Albumin 2.4 g/dL (3.4-5.0) L 06/10/18 04:18 Globulin 4.0 g/dL (2.5-4.5) 06/10/18 04:18 Albumin/Globulin Ratio 0.6 Ratio (1.1-2.1) L 06/10/18 04:18 Digoxin 1.05 ng/mL (0.9-2) 06/07/18 04:00 - Plan (1) Bronchopneumonia Status: Acute Plan: INVANZ 1GM IV DAILY, SOLU-MEDROL 80MG IV Q8H, RESPIRATORY TX, SUPPLEMENTAL OXYGEN, SMART VEST, CONTINUE TO MONITOR (2) COPD exacerbation Status: Acute Plan: RESPIRATORY TX, SUPPLEMENTAL OXYGEN, SMART VEST, CONTINUE TO MONITOR (3) Yeast pharyngitis Status: Inactive Plan: DIFLUCAN 200MG IV DAILY, CONTINUE TO MONITOR
[2018-06-11] MEDS: DUONEB 0.5 MG/3 MG NEB SCH ×6 (01:23→20:40)
[2018-06-11] MEDS: SOLU-Medrol 40 MG VIAL IVP SCH ×3 (05:12→21:10)
[2018-06-11] MEDS: NEURONTIN CAP 300 MG PO SCH ×4 (05:12→21:09)
[2018-06-11] MEDS: TESSALON PERLES PO SCH ×4 (05:12→21:07)
[2018-06-11 05:29] LABS: BASOPHILS % (AUTO) 0.1 % (0.2-1.0); HEMATOCRIT 28.7 % (42.0-54.0); HEMOGLOBIN 9.2 g/dL (13.5-18.0); LYMPHOCYTES # (AUTO) 0.6 X10^3/uL (1.3-2.9); LYMPHOCYTES % (AUTO) 4.7 % (21.0-51.0); MEAN CORPUSCULAR HEMOGLOBIN 25.3 pg (27.0-34.0); MEAN CORPUSCULAR VOLUME 79.1 fL (80.0-100.0); MEAN PLATELET VOLUME 8.8 fL (7.4-11.0); MONOCYTES # (AUTO) 0.5 x10^3/uL (0.3-0.8); MONOCYTES % (AUTO) 3.6 % (0.0-13.0); NEUTROPHILS # (AUTO) 11.7 x10^3/uL (2.2-4.8); NEUTROPHILS % (AUTO) 91.6 % (42.0-75.0); PLATELET COUNT 344 X10^3/uL (150.0-450.0); RED BLOOD COUNT 3.63 X10^6/uL (4.7-6.0); RED CELL DISTRIBUTION WIDTH 18.5 % (11.6-16.5); WHITE BLOOD COUNT 12.8 X10^3/uL (3.6-10.0)
[2018-06-11] MEDS: HumuLIN R SUBCUT PRN ×4 (05:33→21:12)
[2018-06-11 05:41] LABS: ALANINE AMINOTRANSFERASE 29 Units/L (12-78); ALBUMIN 2.3 g/dL (3.4-5.0); ALKALINE PHOSPHATASE 92 Units/L (46-116); ASPARTATE AMINO TRANSFERASE 24 Units/L (15-37); BLOOD UREA NITROGEN 23 mg/dL (7-18); CALCIUM 8.9 mg/dL (8.5-10.1); CARBON DIOXIDE 23.7 mmol/L (21-32); CHLORIDE 105 mmol/L (98-107); COR CA(FOR HYPOALB) 10.3 mg/dL (8.5-10.1); COR NA(FOR HYPERGLY) 144 mmol/L (136-145); CREATININE 1.01 mg/dL (0.70-1.30); SODIUM 140 mmol/L (136-145); eGFR NON BLACK RACES > 60 (>60)
[2018-06-11 06:01] LABS: BAND NEUTROPHILS % 1 % (0-10)
[2018-06-11 06:02] LABS: HYPOCHROMASIA SLIGHT; PLATELET MORPHOLOGY COMMENT NORMAL (NORMAL)
--- NOTE | 2018-06-11 06:59 | RAD ---
HISTORY: Shortness of breath Study: Chest AP portable Comparison: 06/10/2018 Findings: There is a pacemaker present on the right. There is a port present on the left. The heart is within normal limits in size. The lungs remain hyperinflated and involved with diffuse chronic interstitial lung disease. Left hilar mass is unchanged. No acute infiltrates or pleural effusions are identified. The bony thorax is unremarkable. IMPRESSION: Stable hyperinflation with diffuse chronic interstitial lung disease, consistent with COPD in the appropriate clinical setting No change left hilar mass Reported By:
[2018-06-11] MEDS ORDERED: GLUCOPHAGE ONE ×2 (08:45→20:35)
[2018-06-11] MEDS ORDERED: NS 1/2 1000 ML IV 1,000 ML IV ONE ×2 (08:47→23:31)
[2018-06-11] MEDS: NS 1/2 1000 ML IV 1,000 ML IV SCH ×2 (08:50→23:27)
[2018-06-11] MEDS: DIFLUCAN 200 MG IV PREMIX* 200 MG/100 ML BAG IV SCH (08:51)
[2018-06-11] MEDS: AMARYL TAB 4 MG PO SCH ×2 (08:59→21:11)
[2018-06-11] MEDS: PROTONIX TAB 40 MG PO SCH ×2 (08:59→21:06)
[2018-06-11] MEDS: PRADAXA PO SCH ×2 (08:59→21:06)
[2018-06-11] MEDS: PROSCAR PO SCH (09:00)
[2018-06-11] MEDS: MEGACE PO SCH ×2 (09:00→21:09)
[2018-06-11] MEDS: GLUCOPHAGE PO SCH ×2 (09:00→21:10)
[2018-06-11] MEDS: LOPRESSOR TAB 50 MG PO SCH ×2 (09:00→21:09)
[2018-06-11] MEDS: IMDUR PO SCH (09:00)
[2018-06-11] MEDS: ASPIRIN PO SCH (09:00)
[2018-06-11] MEDS: SINGULAIR TAB 10 MG PO SCH (09:00)
[2018-06-11] MEDS: LANOXIN PO SCH (09:01)
[2018-06-11] MEDS: PULMICORT NEB TX 0.5 MG NEB SCH ×2 (09:02→20:39)
[2018-06-11] MEDS: ROBITUSSIN DM PO SCH ×4 (09:02→21:10)
[2018-06-11] MEDS: INSULIN DEGLUDEC 30 UNIT SUBCUT SCH (09:02)
[2018-06-11] MEDS: CARDIZEM CD 180 MG PO SCH (09:02)
[2018-06-11] MEDS: VIT D3 VIT K BERBERINE HOPS PO SCH (09:03)
[2018-06-11] MEDS: VSL#3 PO SCH (10:25)
[2018-06-11] MEDS: INVANZ INJ 1 GM VIAL 1 GM in NS 100 ML IV + SPIKE MINIBAG* 100 ML IV SCH (10:26)
[2018-06-11] MEDS: TAB-A-VITE PO SCH (12:24)
[2018-06-11] MEDS: VITAMIN B-12 PO SCH (12:24)
[2018-06-11] MEDS: LUTEIN 20 MG PO SCH (12:24)
[2018-06-11] MEDS: CULTURELLE PRO-WELL PROBIOTIC CAP PO SCH (14:24)
[2018-06-11] MEDS: TORADOL 15 MG VIAL IVP PRN (19:20)
[2018-06-11] MEDS: FLOMAX PO SCH (21:05)
[2018-06-11] MEDS: KLONOPIN TAB 0.5 MG PO SCH (21:07)
[2018-06-11] MEDS: ZyrTEC TAB 10 MG PO SCH (21:08)
[2018-06-11] MEDS: LIPITOR TAB 40 MG PO SCH (21:08)
[2018-06-11] MEDS: SNACK - Diabetic Appropriate PO SCH (21:11)
[2018-06-12] MEDS: DUONEB 0.5 MG/3 MG NEB SCH ×6 (01:19→20:14)
[2018-06-12] MEDS: NEURONTIN CAP 300 MG PO SCH ×3 (05:07→20:59)
[2018-06-12] MEDS: TESSALON PERLES PO SCH ×3 (05:08→21:00)
[2018-06-12] MEDS: SOLU-Medrol 40 MG VIAL IVP SCH (05:09)
[2018-06-12] MEDS: HumuLIN R SUBCUT PRN ×4 (05:22→21:04)
[2018-06-12 05:33] LABS: BASOPHILS % (AUTO) 0 % (0.2-1.0); HEMATOCRIT 27.3 % (42.0-54.0); HEMOGLOBIN 8.9 g/dL (13.5-18.0); LYMPHOCYTES # (AUTO) 0.5 X10^3/uL (1.3-2.9); LYMPHOCYTES % (AUTO) 4.7 % (21.0-51.0); MEAN CORPUSCULAR HEMOGLOBIN 25.8 pg (27.0-34.0); MEAN CORPUSCULAR HGB CONC 32.7 g/dL (33.0-35.0); MEAN CORPUSCULAR VOLUME 78.9 fL (80.0-100.0); MEAN PLATELET VOLUME 8.7 fL (7.4-11.0); MONOCYTES # (AUTO) 0.3 x10^3/uL (0.3-0.8); MONOCYTES % (AUTO) 3.6 % (0.0-13.0); NEUTROPHILS # (AUTO) 8.9 x10^3/uL (2.2-4.8); NEUTROPHILS % (AUTO) 91.7 % (42.0-75.0); PLATELET COUNT 330 X10^3/uL (150.0-450.0); RED BLOOD COUNT 3.46 X10^6/uL (4.7-6.0); RED CELL DISTRIBUTION WIDTH 18.4 % (11.6-16.5); WHITE BLOOD COUNT 9.7 X10^3/uL (3.6-10.0)
[2018-06-12 05:36] LABS: ALANINE AMINOTRANSFERASE 35 Units/L (12-78); ALBUMIN 2.2 g/dL (3.4-5.0); ALKALINE PHOSPHATASE 87 Units/L (46-116); ASPARTATE AMINO TRANSFERASE 24 Units/L (15-37); BLOOD UREA NITROGEN 22 mg/dL (7-18); CALCIUM 8.9 mg/dL (8.5-10.1); CARBON DIOXIDE 24.8 mmol/L (21-32); CHLORIDE 104 mmol/L (98-107); COR CA(FOR HYPOALB) 10.3 mg/dL (8.5-10.1); COR NA(FOR HYPERGLY) 144 mmol/L (136-145); SODIUM 139 mmol/L (136-145); TOTAL PROTEIN 5.7 g/dL (6.4-8.2); eGFR NON BLACK RACES > 60 (>60)
[2018-06-12 06:11] LABS: PLATELET MORPHOLOGY COMMENT NORMAL (NORMAL)
[2018-06-12 06:12] LABS: ANISOCYTOSIS SLIGHT; HYPOCHROMASIA 1+
--- NOTE | 2018-06-12 06:55 | RAD ---
HISTORY: Shortness of breath Study: Chest AP portable Comparison: 06/11/2018 Findings: There is a pacemaker present on the right partially obscuring the right upper lobe. There is a left-sided port present. The heart is within normal limits in size. Hyperinflation with diffuse chronic interstitial lung disease is unchanged in degree or distribution. Left hilar mass is unchanged. No acute alveolar infiltrates or pleural effusions are identified. The bony thorax is unremarkable. IMPRESSION: No significant change from the prior examination Reported By:
[2018-06-12] MEDS: NS 1/2 1000 ML IV 1,000 ML IV SCH ×3 (07:49→20:00)
[2018-06-12] MEDS: PULMICORT NEB TX 0.5 MG NEB SCH ×2 (08:49→20:14)
[2018-06-12] MEDS ORDERED: GLUCOPHAGE ONE ×2 (09:14→19:58)
[2018-06-12] MEDS: CULTURELLE PRO-WELL PROBIOTIC CAP PO SCH (09:24)
[2018-06-12] MEDS: DIFLUCAN 200 MG IV PREMIX* 200 MG/100 ML BAG IV SCH (09:24)
[2018-06-12] MEDS: INVANZ INJ 1 GM VIAL 1 GM in NS 100 ML IV + SPIKE MINIBAG* 100 ML IV SCH (09:25)
[2018-06-12] MEDS: ROBITUSSIN DM PO SCH ×4 (09:26→20:42)
[2018-06-12] MEDS: AMARYL TAB 4 MG PO SCH ×2 (09:26→20:42)
[2018-06-12] MEDS: SINGULAIR TAB 10 MG PO SCH (09:26)
[2018-06-12] MEDS: PRADAXA PO SCH ×2 (09:26→20:45)
[2018-06-12] MEDS: LANOXIN PO SCH (09:27)
[2018-06-12] MEDS: IMDUR PO SCH (09:27)
[2018-06-12] MEDS: ASPIRIN PO SCH (09:27)
[2018-06-12] MEDS: GLUCOPHAGE PO SCH ×2 (09:27→20:41)
[2018-06-12] MEDS: PROTONIX TAB 40 MG PO SCH ×2 (09:27→20:43)
[2018-06-12] MEDS: PROSCAR PO SCH (09:27)
[2018-06-12] MEDS: LOPRESSOR TAB 50 MG PO SCH ×2 (09:28→20:43)
[2018-06-12] MEDS: CARDIZEM CD 180 MG PO SCH (09:36)
[2018-06-12] MEDS: MEGACE PO SCH ×2 (09:36→20:43)
[2018-06-12] MEDS: VIT D3 VIT K BERBERINE HOPS PO SCH (09:39)
[2018-06-12] MEDS: INSULIN DEGLUDEC 30 UNIT SUBCUT SCH (09:49)
[2018-06-12] MEDS: TAB-A-VITE PO SCH (12:02)
[2018-06-12] MEDS: LUTEIN 20 MG PO SCH (12:02)
[2018-06-12] MEDS: VITAMIN B-12 PO SCH (12:02)
[2018-06-12] MEDS: MUCOMYST 20% 200 MG/ML NEB SCH ×4 (12:22→20:15)
[2018-06-12] MEDS ORDERED: NS 1/2 1000 ML IV 1,000 ML IV ONE (19:21)
--- NOTE | 2018-06-12 20:39 | PCM.PROG ---
Progress Note - Progress Note for Day of Date of Exam: 06/11/18 - Subjective Subjective: WAS ADMITTED FOR BRONCHOPNEUMONIA AND COPD EXACERBATION. TODAY, HE IS ALERT AND ORIENTED, LYING IN BED ON MORNING ROUNDS. HE CONTINUES WITH A PRODUCTIVE COUGH AND SHORTNESS OF BREATH, SLIGHTLY IMPROVED SINCE YESTERDAY. ON EXAMINATION, HEART IS REGULAR IN RATE AND RHYTHM. BILATERAL LUNGS CONTINUE WITH COURSE, SCATTERED WHEEZING. ABDOMEN IS ROUND, SOFT, AND NON-TENDER WITH NORMAL BOWEL SOUNDS NOTED IN ALL QUADRANTS. HIS VITALS THIS MORNING ARE 98.0-110-22-94%-135/64. LABS WERE OBTAINED. ABNORMAL LAB VALUES INCLUDE THE FOLLOWING: WBC 12.8, RBC 3.36, HGB 9.2, HCT 28.7, BUN 23, GLUCOSE 287, TOTAL PROTEIN 6.0, ALBUMIN 2.3. A CHEST XRAY WAS OBTAINED AND REVEALED: Stable hyperinflation with diffuse chronic interstitial lung disease, consistent with COPD in the appropriate clinical setting. No change left hilar mass. SPUTUM CULTURE IS POSITIVE FOR ENTEROBACTER AEROGENES. HE IS CURRENTLY RECEIVING INVANZ 1GM IV DAILY, DIFLUCAN 200MG IV DAILY, RESPIRATORY TREATMENTS, SUPPLEMENTAL OXYGEN, AND SOLU-MEDROL 80MG IV Q8H. WE WILL CONTINUE WITH CURRENT PLAN OF CARE TODAY. OTHERWISE, WE PLAN TO FOLLOW UP WITH AM LABS AND CONTINUE TO MONITOR. - Past Medical Family Social History Past Med/Fam/Surg Hx: No changes since H&P Allergies: Allergies codeine Allergy (Unknown, Verified 04/27/18 04:54) cefdinir Allergy (Verified 04/27/18 04:55) Sulfa (Sulfonamide Antibiotics) Allergy (Verified 04/27/18 04:55) - Review of Systems ROS: No change since H&P - Vital Signs and I&O's Vital Signs: Temperature 97.9 F Pulse Rate [Right Brachial] 104 Pulse Rate 98 Respiratory Rate 22 Blood Pressure [Right Arm] 121/64 Blood Pressure [Left Arm] 112/58 Blood Pressure 112/58 O2 Sat by Pulse Oximetry 96 Intake and Output: Intake & Output 06/10/18 06/11/18 06/12/18 06/13/18 11:59 11:59 11:59 11:59 Intake Total 2250 / 2250 3040 / 3040 1850 / 1850 480 / 480 Output Total 1400 / 1400 700 / 700 700 / 700 500 / 500 Balance 850 / 850 2340 / 2340 1150 / 1150 -20 / -20 - Physical Exam Oriented: Normal Eyes: Normal Ear: Normal Nose: Normal Throat: Normal Respiratory: Generalized, Wheezes, Rhonchi Cardiovascular: Normal : Normal Auscultation: Bowel Sounds: Normal Palpation: Normal Tenderness: Normal Skin: Normal Musculoskeletal: Normal Psychiatric: Normal Mood Description: Calm Affect: Normal Speech Pattern: Clear, Appropriate - Laboratory and Diagnostics Result Diagrams: 06/12/18 04:24 06/12/18 04:24 Labs: 06/05/18 12:03 Blood Blood Culture - Final 06/05/18 11:58 Blood Blood Culture - Final 06/05/18 12:19 Sputum - Expectorated Sputum Sputum Culture - Final Enterobacter Aerogenes 06/05/18 12:19 Sputum - Expectorated Sputum - Final Laboratory WBC 9.7 X10^3/uL (3.6-10.0) 06/12/18 04:24 RBC 3.46 X10^6/uL (4.7-6.0) L 06/12/18 04:24 Hgb 8.9 g/dL (13.5-18.0) L 06/12/18 04:24 Hct 27.3 % (42.0-54.0) L 06/12/18 04:24 MCV 78.9 fL (80.0-100.0) L 06/12/18 04:24 MCH 25.8 pg (27.0-34.0) L 06/12/18 04:24 MCHC 32.7 g/dL (33.0-35.0) L 06/12/18 04:24 RDW 18.4 % (11.6-16.5) H 06/12/18 04:24 Plt Count 330 X10^3/uL (150.0-450.0) 06/12/18 04:24 Plt Count Comment Adequate (ADEQUATE) 06/12/18 04:24 MPV 8.7 fL (7.4-11.0) 06/12/18 04:24 Neut % (Auto) 91.7 % (42.0-75.0) H 06/12/18 04:24 Lymph % (Auto) 4.7 % (21.0-51.0) L 06/12/18 04:24 [place] % (Auto) 3.6 % (0.0-13.0) 06/12/18 04:24 Eos % (Auto) 0.0 % (0.9-2.9) L 06/12/18 04:24 Baso % (Auto) 0 % (0.2-1.0) L 06/12/18 04:24 Neut # (Auto) 8.9 x10^3/uL (2.2-4.8) H 06/12/18 04:24 Lymph # (Auto) 0.5 X10^3/uL (1.3-2.9) L 06/12/18 04:24 [place] # (Auto) 0.3 x10^3/uL (0.3-0.8) 06/12/18 04:24 Eos # (Auto) 0.0 x10^3/uL (0.0-0.2) 06/12/18 04:24 Baso # (Auto) 0.0 X10^3/uL (0.0-0.1) 06/12/18 04:24 Absolute Nucleated RBC 0.1 /100WBC 06/12/18 04:24 Total Counted 100 06/12/18 04:24 Neutrophils % (Manual) 93 % (39-76) H 06/12/18 04:24 Band Neutrophils % 1 % (0-10) 06/11/18 04:24 Lymphocytes % (Manual) 4 % (13-43) L 06/12/18 04:24 Monocytes % (Manual) 3 % (4-9) L 06/12/18 04:24 Plt Morphology Comment Normal (NORMAL) 06/12/18 04:24 RBC Morphology Abnormal (NORMAL) 06/12/18 04:24 Hypochromasia 1+ A 06/12/18 04:24 Anisocytosis Slight A 06/12/18 04:24 Microcytosis Slight A 06/07/18 04:00 Sodium 139 mmol/L (136-145) 06/12/18 04:24 Corrected Sodium 144 mmol/L (136-145) 06/12/18 04:24 Potassium 4.0 mmol/L (3.5-5.1) 06/12/18 04:24 Chloride 104 mmol/L (98-107) 06/12/18 04:24 Carbon Dioxide 24.8 mmol/L (21-32) 06/12/18 04:24 BUN 22 mg/dL (7-18) H 06/12/18 04:24 Creatinine 1.00 mg/dL (0.70-1.30) 06/12/18 04:24 Est GFR (MDRD) Af Amer > 60 (>60) 06/12/18 04:24 Est GFR (MDRD) Non-Af > 60 (>60) 06/12/18 04:24 Glucose 306 mg/dL (65-99) H 06/12/18 04:24 POC Glucose (mg/dL) 322 mg/dL (65-99) H 06/09/18 20:35 Calcium 8.9 mg/dL (8.5-10.1) 06/12/18 04:24 Corrected Calcium 10.3 mg/dL (8.5-10.1) H 06/12/18 04:24 Total Bilirubin 0.20 mg/dL (0.2-1.0) 06/12/18 04:24 AST 24 Units/L (15-37) 06/12/18 04:24 ALT 35 Units/L (12-78) 06/12/18 04:24 Alkaline Phosphatase 87 Units/L (46-116) 06/12/18 04:24 Total Protein 5.7 g/dL (6.4-8.2) L 06/12/18 04:24 Albumin 2.2 g/dL (3.4-5.0) L 06/12/18 04:24 Globulin 3.5 g/dL (2.5-4.5) 06/12/18 04:24 Albumin/Globulin Ratio 0.6 Ratio (1.1-2.1) L 06/12/18 04:24 Digoxin 1.05 ng/mL (0.9-2) 06/07/18 04:00 - Plan (1) Bronchopneumonia Status: Acute Plan: INVANZ 1GM IV DAILY, SOLU-MEDROL 80MG IV Q8H, RESPIRATORY TX, SUPPLEMENTAL OXYGEN, SMART VEST, CONTINUE TO MONITOR (2) COPD exacerbation Status: Acute Plan: RESPIRATORY TX, SUPPLEMENTAL OXYGEN, SMART VEST, CONTINUE TO MONITOR
[2018-06-12] MEDS: LIPITOR TAB 40 MG PO SCH (20:42)
[2018-06-12] MEDS: KLONOPIN TAB 0.5 MG PO SCH (20:43)
[2018-06-12] MEDS: ZyrTEC TAB 10 MG PO SCH (20:44)
[2018-06-12] MEDS: FLOMAX PO SCH (20:44)
[2018-06-12] MEDS: SNACK - Diabetic Appropriate PO SCH (20:46)
[2018-06-12] MEDS: TORADOL 15 MG VIAL IVP PRN (20:59)
[2018-06-13] MEDS: DUONEB 0.5 MG/3 MG NEB SCH ×6 (01:50→20:00)
[2018-06-13 05:08] LABS: BASOPHILS % (AUTO) 0.1 % (0.2-1.0); HEMATOCRIT 28.7 % (42.0-54.0); HEMOGLOBIN 9.3 g/dL (13.5-18.0); LYMPHOCYTES # (AUTO) 1.2 X10^3/uL (1.3-2.9); LYMPHOCYTES % (AUTO) 9.8 % (21.0-51.0); MEAN CORPUSCULAR HEMOGLOBIN 25.2 pg (27.0-34.0); MEAN CORPUSCULAR HGB CONC 32.3 g/dL (33.0-35.0); MEAN CORPUSCULAR VOLUME 78.2 fL (80.0-100.0); MEAN PLATELET VOLUME 8.5 fL (7.4-11.0); MONOCYTES # (AUTO) 0.9 x10^3/uL (0.3-0.8); MONOCYTES % (AUTO) 7.7 % (0.0-13.0); NEUTROPHILS # (AUTO) 9.8 x10^3/uL (2.2-4.8); NEUTROPHILS % (AUTO) 82.4 % (42.0-75.0); PLATELET COUNT 335 X10^3/uL (150.0-450.0); RED BLOOD COUNT 3.68 X10^6/uL (4.7-6.0); RED CELL DISTRIBUTION WIDTH 18.4 % (11.6-16.5); WHITE BLOOD COUNT 11.9 X10^3/uL (3.6-10.0)
[2018-06-13] MEDS: NEURONTIN CAP 300 MG PO SCH ×3 (05:18→21:00)
[2018-06-13] MEDS: TESSALON PERLES PO SCH ×3 (05:19→21:00)
[2018-06-13 05:27] LABS: ALANINE AMINOTRANSFERASE 35 Units/L (12-78); ALBUMIN 2.2 g/dL (3.4-5.0); ALKALINE PHOSPHATASE 87 Units/L (46-116); ASPARTATE AMINO TRANSFERASE 22 Units/L (15-37); BLOOD UREA NITROGEN 19 mg/dL (7-18); CALCIUM 8.5 mg/dL (8.5-10.1); CARBON DIOXIDE 29.1 mmol/L (21-32); CHLORIDE 103 mmol/L (98-107); COR CA(FOR HYPOALB) 9.9 mg/dL (8.5-10.1); COR NA(FOR HYPERGLY) 139 mmol/L (136-145); CREATININE 0.78 mg/dL (0.70-1.30); SODIUM 137 mmol/L (136-145); TOTAL PROTEIN 5.6 g/dL (6.4-8.2); eGFR NON BLACK RACES > 60 (>60)
[2018-06-13 05:40] LABS: ANISOCYTOSIS SLIGHT; HYPOCHROMASIA 1+; PLATELET MORPHOLOGY COMMENT NORMAL (NORMAL)
--- NOTE | 2018-06-13 07:00 | RAD ---
HISTORY: Shortness of breath Study: Chest AP portable Comparison: 06/12/2018 Findings: There is a port present on the left. There is a pacemaker present on the right. The heart is within normal limits in size. Hyperinflation with diffuse chronic interstitial lung disease is stable. Left hilar mass is stable. No acute alveolar infiltrates or pleural effusions are identified. IMPRESSION: No significant change from the prior examination Reported By:
[2018-06-13] MEDS ORDERED: GLUCOPHAGE ONE (08:49)
[2018-06-13] MEDS: PULMICORT NEB TX 0.5 MG NEB SCH ×2 (08:52→20:00)
[2018-06-13] MEDS: MUCOMYST 20% 200 MG/ML NEB SCH ×4 (08:53→20:00)
[2018-06-13] MEDS: INVANZ INJ 1 GM VIAL 1 GM in NS 100 ML IV + SPIKE MINIBAG* 100 ML IV SCH (08:54)
[2018-06-13] MEDS: LANOXIN PO SCH (08:55)
[2018-06-13] MEDS: PRADAXA PO SCH ×2 (08:55→20:16)
[2018-06-13] MEDS: MEGACE PO SCH ×2 (08:55→20:14)
[2018-06-13] MEDS: LOPRESSOR TAB 50 MG PO SCH ×2 (08:56→20:15)
[2018-06-13] MEDS: AMARYL TAB 4 MG PO SCH ×2 (08:56→20:15)
[2018-06-13] MEDS: SINGULAIR TAB 10 MG PO SCH (08:56)
[2018-06-13] MEDS: PROSCAR PO SCH (08:56)
[2018-06-13] MEDS: ROBITUSSIN DM PO SCH ×4 (08:56→20:18)
[2018-06-13] MEDS: IMDUR PO SCH (08:56)
[2018-06-13] MEDS: GLUCOPHAGE PO SCH ×2 (08:56→09:14)
[2018-06-13] MEDS: PROTONIX TAB 40 MG PO SCH ×2 (08:56→20:15)
[2018-06-13] MEDS: CULTURELLE PRO-WELL PROBIOTIC CAP PO SCH (09:00)
[2018-06-13] MEDS: ASPIRIN PO SCH (09:00)
[2018-06-13] MEDS: DIFLUCAN 200 MG IV PREMIX* 200 MG/100 ML BAG IV SCH (09:00)
[2018-06-13] MEDS: CARDIZEM CD 180 MG PO SCH (09:00)
[2018-06-13] MEDS: INSULIN DEGLUDEC 30 UNIT SUBCUT SCH (09:12)
[2018-06-13] MEDS: VIT D3 VIT K BERBERINE HOPS PO SCH (09:12)
[2018-06-13] MEDS: LASIX IVP SCH ×2 (09:57→20:17)
--- NOTE | 2018-06-13 11:12 | CT ---
HISTORY: Pneumonia Study: CT chest with contrast Comparison: 07/08/2017 Technique: Multiple axial images of the chest were obtained from the thoracic inlet to the upper abdomen after the administration of IV contrast. Findings: The mediastinum does not demonstrate significant pathological lymphadenopathy. There is no paracardial effusion observed. The thoracic aorta is normal in its contour without evidence for aneurysmal dilatation. The central pulmonary arterial system does not demonstrate central filling defects to suggest pulmonary emboli. Evaluation of the lung parenchyma demonstrates diffuse emphysematous lung changes throughout the right and left chest with chronic interstitial lung changes noted to be present. Scattered airspace opacity within the right and left base left greater than right is noted with associated ground-glass opacities suggesting underlying infectious etiologies and acute pneumonitis. Reactive lymphadenopathy within right and left hilar regions is observed without definite pathological enlargement. The bony thorax is unremarkable in its appearance. The visualized portions of the upper abdomen are grossly unremarkable. IMPRESSION: Airspace opacity of the right and left base is observed with surrounding ground-glass opacities consistent with developing multifocal pneumonia and acute pneumonitis. Diffuse emphysematous lung changes throughout the right and left chest with associated chronic interstitial lung changes in interlobular septal thickening. Associated bronchiectasis or honeycombing can be identified at this time. Reported By:
[2018-06-13] MEDS: HumuLIN R SUBCUT PRN (11:59)
[2018-06-13] MEDS: VITAMIN B-12 PO SCH (14:24)
[2018-06-13] MEDS: TAB-A-VITE PO SCH (14:24)
[2018-06-13] MEDS: LUTEIN 20 MG PO SCH (14:24)
[2018-06-13] MEDS ORDERED: MILK OF MAGNESIA PO PRN (19:17)
[2018-06-13] MEDS: FLOMAX PO SCH (20:13)
[2018-06-13] MEDS: COLACE CAP 100 MG PO PRN (20:13)
[2018-06-13] MEDS: KLONOPIN TAB 0.5 MG PO SCH (20:14)
[2018-06-13] MEDS: LIPITOR TAB 40 MG PO SCH (20:14)
[2018-06-13] MEDS: TORADOL 15 MG VIAL IVP PRN (20:16)
[2018-06-13] MEDS: ZyrTEC TAB 10 MG PO SCH (20:16)
[2018-06-13] MEDS: SNACK - Diabetic Appropriate PO SCH (20:18)
[2018-06-14] MEDS: DUONEB 0.5 MG/3 MG NEB SCH ×5 (00:06→20:25)
[2018-06-14 05:13] LABS: BASOPHILS % (AUTO) 0.2 % (0.2-1.0); EOSINOPHILS # (AUTO) 0.2 x10^3/uL (0.0-0.2); HEMATOCRIT 31.4 % (42.0-54.0); HEMOGLOBIN 10.2 g/dL (13.5-18.0); LYMPHOCYTES % (AUTO) 10.5 % (21.0-51.0); MEAN CORPUSCULAR HEMOGLOBIN 25.1 pg (27.0-34.0); MEAN CORPUSCULAR HGB CONC 32.3 g/dL (33.0-35.0); MEAN CORPUSCULAR VOLUME 77.8 fL (80.0-100.0); MEAN PLATELET VOLUME 8.4 fL (7.4-11.0); MONOCYTES # (AUTO) 0.6 x10^3/uL (0.3-0.8); MONOCYTES % (AUTO) 6.4 % (0.0-13.0); NEUTROPHILS # (AUTO) 8.1 x10^3/uL (2.2-4.8); NEUTROPHILS % (AUTO) 80.9 % (42.0-75.0); PLATELET COUNT 329 X10^3/uL (150.0-450.0); RED BLOOD COUNT 4.04 X10^6/uL (4.7-6.0); RED CELL DISTRIBUTION WIDTH 18.6 % (11.6-16.5)
[2018-06-14 05:24] LABS: ALANINE AMINOTRANSFERASE 33 Units/L (12-78); ALBUMIN 2.1 g/dL (3.4-5.0); ALKALINE PHOSPHATASE 90 Units/L (46-116); ASPARTATE AMINO TRANSFERASE 26 Units/L (15-37); BLOOD UREA NITROGEN 19 mg/dL (7-18); CALCIUM 8.4 mg/dL (8.5-10.1); CARBON DIOXIDE 33.8 mmol/L (21-32); CHLORIDE 99 mmol/L (98-107); COR CA(FOR HYPOALB) 9.9 mg/dL (8.5-10.1); COR NA(FOR HYPERGLY) 141 mmol/L (136-145); CREATININE 0.87 mg/dL (0.70-1.30); SODIUM 139 mmol/L (136-145); TOTAL PROTEIN 5.7 g/dL (6.4-8.2); eGFR NON BLACK RACES > 60 (>60)
[2018-06-14] MEDS: NEURONTIN CAP 300 MG PO SCH ×3 (05:33→21:43)
[2018-06-14] MEDS: TESSALON PERLES PO SCH ×3 (05:34→21:44)
[2018-06-14] MEDS: HumuLIN R SUBCUT PRN ×4 (05:37→21:01)
[2018-06-14 05:47] LABS: ANISOCYTOSIS SLIGHT; HYPOCHROMASIA 1+; PLATELET MORPHOLOGY COMMENT NORMAL (NORMAL)
--- NOTE | 2018-06-14 05:49 | RAD ---
Examination: AP chest History: SOB, lung cancer Comparison 06/13/2018 Findings: Continued normal heart size with pulmonary hyperaeration, and interstitial fibrosis and parenchymal distortion. Suspect acute bibasal infiltrates as suggested on recent chest CT. Left subclavian catheter terminates in the SVC. Impression: Continued findings of emphysema/COPD and fibrosis. Localized distortion of the left hilar complex may be related to fibrotic scarring although recurrent/residual neoplasm not excluded. Probable bibasal acute infiltrates. Reported By:
[2018-06-14] MEDS ORDERED: K-RIDER 10 MEQ/NS 100 ML 10 MEQ/100 ML BAG IV PRN (05:59)
[2018-06-14] MEDS ORDERED: POTASSIUM CHL 40 MEQ/NS 0.45% 500 ML IV PRN (05:59)
[2018-06-14] MEDS ORDERED: POTASSIUM CHL 60 MEQ/NS 0.45% 500 ML IV PRN (05:59)
[2018-06-14] MEDS ORDERED: MICRO K EXTEN CAP 10 MEQ PO PRN (05:59)
[2018-06-14] MEDS ORDERED: KLOR-CON PO PRN (05:59)
[2018-06-14] MEDS ORDERED: POTASSIUM CHLORIDE LIQ 20 MEQ UDC PO PRN (05:59)
[2018-06-14] MEDS: PRADAXA PO SCH ×3 (08:26→21:00)
[2018-06-14] MEDS: DIFLUCAN 200 MG IV PREMIX* 200 MG/100 ML BAG IV SCH (08:35)
[2018-06-14] MEDS: LANOXIN PO SCH (08:40)
[2018-06-14] MEDS: MEGACE PO SCH ×2 (08:40→20:43)
[2018-06-14] MEDS: PROTONIX TAB 40 MG PO SCH ×2 (08:40→20:43)
[2018-06-14] MEDS: LOPRESSOR TAB 50 MG PO SCH ×2 (08:40→20:59)
[2018-06-14] MEDS: ASPIRIN PO SCH (08:40)
[2018-06-14] MEDS: IMDUR PO SCH (08:40)
[2018-06-14] MEDS: ROBITUSSIN DM PO SCH ×3 (08:42→20:42)
[2018-06-14] MEDS: INVANZ INJ 1 GM VIAL 1 GM in NS 100 ML IV + SPIKE MINIBAG* 100 ML IV SCH (08:42)
[2018-06-14] MEDS: PROSCAR PO SCH (08:42)
[2018-06-14] MEDS: CARDIZEM CD 180 MG PO SCH (08:42)
[2018-06-14] MEDS: CULTURELLE PRO-WELL PROBIOTIC CAP PO SCH (08:42)
[2018-06-14] MEDS: SINGULAIR TAB 10 MG PO SCH (08:42)
[2018-06-14] MEDS: PULMICORT NEB TX 0.5 MG NEB SCH ×2 (08:48→20:25)
[2018-06-14] MEDS: MUCOMYST 20% 200 MG/ML NEB SCH ×4 (08:49→20:26)
[2018-06-14] MEDS ORDERED: PHARMACY CONSULT - VANCOMYCIN XX SCH (10:00)
[2018-06-14] MEDS ORDERED: DEPO TESTOSTERONE IM SCH (10:00)
[2018-06-14] MEDS: K-DUR TAB 20 MEQ PO PRN (10:43)
[2018-06-14] MEDS: AMARYL TAB 4 MG PO SCH ×2 (10:46→20:43)
[2018-06-14] MEDS: INSULIN DEGLUDEC 30 UNIT SUBCUT SCH (10:46)
[2018-06-14] MEDS: VANCOMYCIN HCL 1 GM VIAL 1 G in NS 250 ML IV 250 ML IV SCH ×2 (10:47→21:00)
[2018-06-14] MEDS: SOLU-Cortef INJ IVP SCH ×3 (10:47→21:43)
[2018-06-14] MEDS ORDERED: Atrovent NEB TX 0.02% NEB SCH (12:00)
[2018-06-14] MEDS ORDERED: XOPENEX 1.25 MG/3 ML NEBULE NEB SCH (12:00)
[2018-06-14] MEDS: LUTEIN 20 MG PO SCH (12:35)
[2018-06-14] MEDS: VITAMIN B-12 PO SCH (12:35)
[2018-06-14] MEDS: TAB-A-VITE PO SCH (12:35)
[2018-06-14] MEDS ORDERED: DEPO-TESTOSTERONE IM NR (14:00)
[2018-06-14] MEDS: VIT D3 VIT K BERBERINE HOPS PO SCH (14:32)
[2018-06-14] MEDS: KLONOPIN TAB 0.5 MG PO SCH (20:42)
[2018-06-14] MEDS: LIPITOR TAB 40 MG PO SCH (20:43)
[2018-06-14] MEDS: FLOMAX PO SCH (20:43)
[2018-06-14] MEDS: SNACK - Diabetic Appropriate PO SCH (20:59)
[2018-06-14] MEDS ORDERED: TORADOL 15 MG VIAL IVP ONE (21:10)
[2018-06-14] MEDS: ZyrTEC TAB 10 MG PO SCH (21:42)
[2018-06-15] MEDS: DUONEB 0.5 MG/3 MG NEB SCH ×6 (00:18→20:42)
[2018-06-15] MEDS: TESSALON PERLES PO SCH ×3 (05:06→21:02)
[2018-06-15] MEDS: NEURONTIN CAP 300 MG PO SCH ×3 (05:06→21:02)
[2018-06-15 05:14] LABS: BASOPHILS % (AUTO) 0 % (0.2-1.0); EOSINOPHILS % (AUTO) 0.1 % (0.9-2.9); HEMATOCRIT 28.8 % (42.0-54.0); HEMOGLOBIN 9.3 g/dL (13.5-18.0); LYMPHOCYTES # (AUTO) 0.5 X10^3/uL (1.3-2.9); LYMPHOCYTES % (AUTO) 4.9 % (21.0-51.0); MEAN CORPUSCULAR HGB CONC 32.4 g/dL (33.0-35.0); MEAN CORPUSCULAR VOLUME 77.2 fL (80.0-100.0); MEAN PLATELET VOLUME 8.5 fL (7.4-11.0); MONOCYTES # (AUTO) 0.5 x10^3/uL (0.3-0.8); MONOCYTES % (AUTO) 4.8 % (0.0-13.0); NEUTROPHILS # (AUTO) 8.5 x10^3/uL (2.2-4.8); NEUTROPHILS % (AUTO) 90.2 % (42.0-75.0); PLATELET COUNT 310 X10^3/uL (150.0-450.0); RED BLOOD COUNT 3.73 X10^6/uL (4.7-6.0); WHITE BLOOD COUNT 9.4 X10^3/uL (3.6-10.0)
[2018-06-15] MEDS: SOLU-Cortef INJ IVP SCH ×3 (05:18→21:02)
[2018-06-15 05:27] LABS: ALANINE AMINOTRANSFERASE 30 Units/L (12-78); ALBUMIN 1.9 g/dL (3.4-5.0); ALKALINE PHOSPHATASE 85 Units/L (46-116); ASPARTATE AMINO TRANSFERASE 24 Units/L (15-37); BLOOD UREA NITROGEN 16 mg/dL (7-18); CALCIUM 8.7 mg/dL (8.5-10.1); CARBON DIOXIDE 29.7 mmol/L (21-32); CHLORIDE 102 mmol/L (98-107); COR CA(FOR HYPOALB) 10.4 mg/dL (8.5-10.1); COR NA(FOR HYPERGLY) 141 mmol/L (136-145); CREATININE 0.72 mg/dL (0.70-1.30); SODIUM 138 mmol/L (136-145); TOTAL PROTEIN 5.6 g/dL (6.4-8.2); eGFR NON BLACK RACES > 60 (>60)
[2018-06-15] MEDS: HumuLIN R SUBCUT PRN ×4 (05:49→20:56)
[2018-06-15 05:56] LABS: BAND NEUTROPHILS % 2 % (0-10); HYPOCHROMASIA 1+; PLATELET MORPHOLOGY COMMENT NORMAL (NORMAL)
[2018-06-15 05:57] LABS: ANISOCYTOSIS SLIGHT; MICROCYTOSIS SLIGHT
--- NOTE | 2018-06-15 06:49 | RAD ---
Examination: Chest, PA and lateral views History: Pneumonia COPD Comparison 06/14/2018 Findings: Continued normal heart size with no significant change in appearance of heart, lungs or pleural spaces. Extensive chronic scarring and pulmonary hyperaeration again noted. Suspect mild bibasal infiltrates. Left subclavian line extends to SVC. Impression: No change in appearance of the chest since 06/14/2018. Reported By:
[2018-06-15] MEDS: ROBITUSSIN DM PO SCH ×5 (07:03→20:47)
[2018-06-15] MEDS ORDERED: NS 250 ML IV 250 ML IV ONE (07:51)
[2018-06-15] MEDS: DIFLUCAN 200 MG IV PREMIX* 200 MG/100 ML BAG IV SCH (08:27)
[2018-06-15] MEDS: VANCOMYCIN HCL 1 GM VIAL 1 G in NS 250 ML IV 250 ML IV SCH (08:28)
[2018-06-15] MEDS: SINGULAIR TAB 10 MG PO SCH (08:31)
[2018-06-15] MEDS: PROSCAR PO SCH (08:32)
[2018-06-15] MEDS: AMARYL TAB 4 MG PO SCH ×2 (08:35→20:48)
[2018-06-15] MEDS: PRADAXA PO SCH ×2 (08:35→20:55)
[2018-06-15] MEDS: VIT D3 VIT K BERBERINE HOPS PO SCH (08:35)
[2018-06-15] MEDS: MEGACE PO SCH ×2 (08:36→20:48)
[2018-06-15] MEDS: LANOXIN PO SCH (08:36)
[2018-06-15] MEDS: LOPRESSOR TAB 50 MG PO SCH ×2 (08:36→20:54)
[2018-06-15] MEDS: PROTONIX TAB 40 MG PO SCH ×2 (08:36→20:48)
[2018-06-15] MEDS: CULTURELLE PRO-WELL PROBIOTIC CAP PO SCH (08:37)
[2018-06-15] MEDS: CARDIZEM CD 180 MG PO SCH (08:37)
[2018-06-15] MEDS: ASPIRIN PO SCH (08:37)
[2018-06-15] MEDS: IMDUR PO SCH (08:38)
[2018-06-15] MEDS: INVANZ INJ 1 GM VIAL 1 GM in NS 100 ML IV + SPIKE MINIBAG* 100 ML IV SCH (08:39)
[2018-06-15] MEDS: PULMICORT NEB TX 0.5 MG NEB SCH ×2 (09:30→20:42)
[2018-06-15] MEDS: LUTEIN 20 MG PO SCH (13:11)
[2018-06-15] MEDS: VITAMIN B-12 PO SCH (13:12)
[2018-06-15] MEDS: TAB-A-VITE PO SCH (13:12)
[2018-06-15] MEDS ORDERED: NS 100 ML IV 100 ML with VENOFER 400 MG IV NR ×4 (14:00)
[2018-06-15] MEDS ORDERED: GLUCOPHAGE ONE (19:14)
[2018-06-15] MEDS ORDERED: PHARMACY COMMENT IV NR (20:30)
[2018-06-15] MEDS: ZyrTEC TAB 10 MG PO SCH (20:48)
[2018-06-15] MEDS: LIPITOR TAB 40 MG PO SCH (20:48)
[2018-06-15] MEDS: KLONOPIN TAB 0.5 MG PO SCH (20:48)
[2018-06-15] MEDS: FLOMAX PO SCH (20:48)
[2018-06-15] MEDS: SNACK - Diabetic Appropriate PO SCH (20:53)
[2018-06-15] MEDS: GLUCOPHAGE PO SCH (20:54)
[2018-06-15] MEDS: INSULIN DEGLUDEC 30 UNIT SUBCUT SCH (21:12)
[2018-06-15] MEDS: ULTRAM PO PRN (21:16)
[2018-06-15 21:17] LABS: CREATININE 1.05 mg/dL (0.70-1.30); VANCOMYCIN,TROUGH 8.3 ug/mL (15-20)
[2018-06-15] MEDS ORDERED: VANCOMYCIN HCL 500 MG VIAL 250 MG, VANCOMYCIN HCL 1 GM VIAL 1 G in D5W 250 ML IV 250 ML IV SCH (22:00)
[2018-06-15] MEDS ORDERED: PHARMACY CONSULT - VANCOMYCIN XX SCH (22:00)
[2018-06-15] MEDS ORDERED: NS 250 ML IV 250 ML IV PRN (23:19)
[2018-06-15] MEDS ORDERED: VANCOMYCIN HCL 1 GM VIAL ONE (23:38)
[2018-06-15] MEDS ORDERED: VANCOMYCIN HCL 500 MG VIAL ONE (23:38)
[2018-06-15] MEDS: VANCOMYCIN HCL 500 MG VIAL 250 MG, VANCOMYCIN HCL 1 GM VIAL 1 G in NS 250 ML IV 250 ML IV SCH (23:40)
[2018-06-16] MEDS: DUONEB 0.5 MG/3 MG NEB SCH ×6 (01:36→21:11)
[2018-06-16] MEDS: NEURONTIN CAP 300 MG PO SCH ×3 (05:16→21:03)
[2018-06-16] MEDS: SOLU-Cortef INJ IVP SCH ×3 (05:16→21:03)
[2018-06-16] MEDS: TESSALON PERLES PO SCH ×3 (05:16→21:04)
[2018-06-16 05:20] LABS: BASOPHILS % (AUTO) 0.2 % (0.2-1.0); EOSINOPHILS # (AUTO) 0.1 x10^3/uL (0.0-0.2); EOSINOPHILS % (AUTO) 0.6 % (0.9-2.9); HEMATOCRIT 27.5 % (42.0-54.0); HEMOGLOBIN 8.9 g/dL (13.5-18.0); LYMPHOCYTES # (AUTO) 0.9 X10^3/uL (1.3-2.9); LYMPHOCYTES % (AUTO) 7.4 % (21.0-51.0); MEAN CORPUSCULAR HEMOGLOBIN 25.1 pg (27.0-34.0); MEAN CORPUSCULAR HGB CONC 32.5 g/dL (33.0-35.0); MEAN CORPUSCULAR VOLUME 77.3 fL (80.0-100.0); MEAN PLATELET VOLUME 8.5 fL (7.4-11.0); MONOCYTES # (AUTO) 0.8 x10^3/uL (0.3-0.8); MONOCYTES % (AUTO) 7.1 % (0.0-13.0); NEUTROPHILS # (AUTO) 10.1 x10^3/uL (2.2-4.8); NEUTROPHILS % (AUTO) 84.7 % (42.0-75.0); PLATELET COUNT 345 X10^3/uL (150.0-450.0); RED BLOOD COUNT 3.56 X10^6/uL (4.7-6.0); RED CELL DISTRIBUTION WIDTH 18.7 % (11.6-16.5)
[2018-06-16 05:30] LABS: ALANINE AMINOTRANSFERASE 30 Units/L (12-78); ALBUMIN 1.9 g/dL (3.4-5.0); ALKALINE PHOSPHATASE 86 Units/L (46-116); ASPARTATE AMINO TRANSFERASE 23 Units/L (15-37); BLOOD UREA NITROGEN 12 mg/dL (7-18); CALCIUM 8.5 mg/dL (8.5-10.1); CARBON DIOXIDE 28.8 mmol/L (21-32); CHLORIDE 104 mmol/L (98-107); COR CA(FOR HYPOALB) 10.2 mg/dL (8.5-10.1); COR NA(FOR HYPERGLY) 142 mmol/L (136-145); SODIUM 140 mmol/L (136-145); TOTAL PROTEIN 5.7 g/dL (6.4-8.2); eGFR NON BLACK RACES > 60 (>60)
[2018-06-16 06:06] LABS: BAND NEUTROPHILS % 2 % (0-10)
[2018-06-16 06:07] LABS: ANISOCYTOSIS SLIGHT; HYPOCHROMASIA SLIGHT; PLATELET MORPHOLOGY COMMENT NORMAL (NORMAL)
[2018-06-16] MEDS: K-DUR TAB 20 MEQ PO PRN (06:11)
--- NOTE | 2018-06-16 06:42 | RAD ---
HISTORY: Shortness of breath Study: Chest AP portable Comparison: 06/15/2018 Findings: There is a pacemaker present on the right partially obscuring the right upper lobe. There is a port present on the left. The heart is within normal limits in size. The lungs remain hyperinflated demonstrating emphysematous changes in the upper lobes and interstitial lung changes in the lower lobes. Left hilar mass with pleuro parenchymal scarring in the left upper lobe unchanged. The bony thorax is unremarkable. IMPRESSION: No significant change from the prior examination Reported By:
[2018-06-16] MEDS ORDERED: GLUCOPHAGE ONE ×2 (07:28→20:09)
[2018-06-16] MEDS: MAGNESIUM SULFATE 1 GRAM/100 mL PREMIX 2 G/200 ML BAG IV SCH ×2 (08:02→09:34)
[2018-06-16] MEDS: DIFLUCAN 200 MG IV PREMIX* 200 MG/100 ML BAG IV SCH (08:05)
[2018-06-16] MEDS: AMARYL TAB 4 MG PO SCH ×2 (08:07→21:02)
[2018-06-16] MEDS: CARDIZEM CD 180 MG PO SCH (08:07)
[2018-06-16] MEDS: ROBITUSSIN DM PO SCH ×4 (08:07→21:00)
[2018-06-16] MEDS: INVANZ INJ 1 GM VIAL 1 GM in NS 100 ML IV + SPIKE MINIBAG* 100 ML IV SCH (08:07)
[2018-06-16] MEDS: PROSCAR PO SCH (08:08)
[2018-06-16] MEDS: LANOXIN PO SCH (08:08)
[2018-06-16] MEDS: ASPIRIN PO SCH (08:09)
[2018-06-16] MEDS: LOPRESSOR TAB 50 MG PO SCH ×2 (08:09→21:01)
[2018-06-16] MEDS: CULTURELLE PRO-WELL PROBIOTIC CAP PO SCH (08:09)
[2018-06-16] MEDS: GLUCOPHAGE PO SCH ×2 (08:09→21:01)
[2018-06-16] MEDS: MEGACE PO SCH ×2 (08:09→21:02)
[2018-06-16] MEDS: SINGULAIR TAB 10 MG PO SCH (08:09)
[2018-06-16] MEDS: IMDUR PO SCH (08:10)
[2018-06-16] MEDS: PROTONIX TAB 40 MG PO SCH ×2 (08:10→21:02)
[2018-06-16] MEDS: PRADAXA PO SCH ×2 (08:15→21:00)
[2018-06-16] MEDS: VIT D3 VIT K BERBERINE HOPS PO SCH (08:16)
[2018-06-16] MEDS: COLACE CAP 100 MG PO PRN (08:27)
[2018-06-16] MEDS: ULTRAM PO PRN ×2 (08:28→21:02)
[2018-06-16] MEDS: PULMICORT NEB TX 0.5 MG NEB SCH ×2 (09:08→21:11)
--- NOTE | 2018-06-16 11:08 | PCM.PROG ---
Progress Note - Progress Note for Day of Date of Exam: 06/12/18 - Subjective Subjective: WAS ADMITTED FOR BRONCHOPNEUMONIA AND COPD EXACERBATION. TODAY, HE IS ALERT AND ORIENTED, LYING IN BED ON MORNING ROUNDS. HE CONTINUES WITH A PRODUCTIVE COUGH AND SHORTNESS OF BREATH, SLIGHTLY IMPROVED SINCE YESTERDAY. ON EXAMINATION, HEART IS REGULAR IN RATE AND RHYTHM. BILATERAL LUNGS CONTINUE WITH COURSE, SCATTERED WHEEZING. ABDOMEN IS ROUND, SOFT, AND NON-TENDER WITH NORMAL BOWEL SOUNDS NOTED IN ALL QUADRANTS. HIS VITALS THIS MORNING ARE 98.0-110-22-94%-135/64. LABS WERE OBTAINED. ABNORMAL LAB VALUES INCLUDE THE FOLLOWING: WBC 12.8, RBC 3.36, HGB 9.2, HCT 28.7, BUN 23, GLUCOSE 287, TOTAL PROTEIN 6.0, ALBUMIN 2.3. A CHEST XRAY WAS OBTAINED AND REVEALED: Stable hyperinflation with diffuse chronic interstitial lung disease, consistent with COPD in the appropriate clinical setting. No change left hilar mass. SPUTUM CULTURE IS POSITIVE FOR ENTEROBACTER AEROGENES. HE IS CURRENTLY RECEIVING INVANZ 1GM IV DAILY, DIFLUCAN 200MG IV DAILY, RESPIRATORY TREATMENTS, SUPPLEMENTAL OXYGEN, AND SOLU-MEDROL 80MG IV Q8H. WE WILL CONTINUE WITH CURRENT PLAN OF CARE TODAY. OTHERWISE, WE PLAN TO FOLLOW UP WITH AM LABS AND CONTINUE TO MONITOR. - Past Medical Family Social History Past Med/Fam/Surg Hx: No changes since H&P Allergies: Allergies codeine Allergy (Unknown, Verified 04/27/18 04:54) cefdinir Allergy (Verified 04/27/18 04:55) Sulfa (Sulfonamide Antibiotics) Allergy (Verified 04/27/18 04:55) - Review of Systems ROS: No change since H&P - Vital Signs and I&O's Vital Signs: Temperature 99.7 F Pulse Rate [Right Brachial] 95 Pulse Rate 94 Respiratory Rate 18 Blood Pressure [Right Arm] 148/67 Blood Pressure [Left Arm] 112/58 Blood Pressure 112/58 O2 Sat by Pulse Oximetry 94 Intake and Output: Intake & Output 06/13/18 06/14/18 06/15/18 06/16/18 10:59 10:59 11:59 11:59 Intake Total 2296 / 2296 Output Total 1500 / 1500 Balance 796 / 796 - Physical Exam Oriented: Normal Eyes: Normal Ear: Normal Nose: Normal Throat: Normal Respiratory: Generalized, Wheezes, Rhonchi Cardiovascular: Normal : Normal Auscultation: Bowel Sounds: Normal Palpation: Normal Tenderness: Normal Skin: Normal Musculoskeletal: Normal Psychiatric: Normal Mood Description: Calm Affect: Normal Speech Pattern: Clear, Appropriate - Laboratory and Diagnostics Result Diagrams: 06/16/18 04:30 06/16/18 04:30 Labs: 06/05/18 12:03 Blood Blood Culture - Final 06/05/18 11:58 Blood Blood Culture - Final 06/05/18 12:19 Sputum - Expectorated Sputum Sputum Culture - Final Enterobacter Aerogenes 06/05/18 12:19 Sputum - Expectorated Sputum - Final Laboratory WBC 12.0 X10^3/uL (3.6-10.0) H 06/16/18 04:30 RBC 3.56 X10^6/uL (4.7-6.0) L 06/16/18 04:30 Hgb 8.9 g/dL (13.5-18.0) L 06/16/18 04:30 Hct 27.5 % (42.0-54.0) L 06/16/18 04:30 MCV 77.3 fL (80.0-100.0) L 06/16/18 04:30 MCH 25.1 pg (27.0-34.0) L 06/16/18 04:30 MCHC 32.5 g/dL (33.0-35.0) L 06/16/18 04:30 RDW 18.7 % (11.6-16.5) H 06/16/18 04:30 Plt Count 345 X10^3/uL (150.0-450.0) 06/16/18 04:30 Plt Count Comment Adequate (ADEQUATE) 06/16/18 04:30 MPV 8.5 fL (7.4-11.0) 06/16/18 04:30 Neut % (Auto) 84.7 % (42.0-75.0) H 06/16/18 04:30 Lymph % (Auto) 7.4 % (21.0-51.0) L 06/16/18 04:30 [place] % (Auto) 7.1 % (0.0-13.0) 06/16/18 04:30 Eos % (Auto) 0.6 % (0.9-2.9) L 06/16/18 04:30 Baso % (Auto) 0.2 % (0.2-1.0) 06/16/18 04:30 Neut # (Auto) 10.1 x10^3/uL (2.2-4.8) H 06/16/18 04:30 Lymph # (Auto) 0.9 X10^3/uL (1.3-2.9) L 06/16/18 04:30 [place] # (Auto) 0.8 x10^3/uL (0.3-0.8) 06/16/18 04:30 Eos # (Auto) 0.1 x10^3/uL (0.0-0.2) 06/16/18 04:30 Baso # (Auto) 0.0 X10^3/uL (0.0-0.1) 06/16/18 04:30 Absolute Nucleated RBC 0.0 /100WBC 06/16/18 04:30 Total Counted 100 06/16/18 04:30 Neutrophils % (Manual) 86 % (39-76) H 06/16/18 04:30 Band Neutrophils % 2 % (0-10) 06/16/18 04:30 Lymphocytes % (Manual) 8 % (13-43) L 06/16/18 04:30 Monocytes % (Manual) 4 % (4-9) 06/16/18 04:30 Atypical Lymphocytes 2 06/15/18 04:40 Plt Morphology Comment Normal (NORMAL) 06/16/18 04:30 RBC Morphology Abnormal (NORMAL) 06/16/18 04:30 Hypochromasia Slight A 06/16/18 04:30 Anisocytosis Slight A 06/16/18 04:30 Microcytosis Slight A 06/15/18 04:40 Sodium 140 mmol/L (136-145) 06/16/18 04:30 Corrected Sodium 142 mmol/L (136-145) 06/16/18 04:30 Potassium 3.7 mmol/L (3.5-5.1) 06/16/18 04:30 Chloride 104 mmol/L (98-107) 06/16/18 04:30 Carbon Dioxide 28.8 mmol/L (21-32) 06/16/18 04:30 BUN 12 mg/dL (7-18) 06/16/18 04:30 Creatinine 0.70 mg/dL (0.70-1.30) 06/16/18 04:30 Est GFR (MDRD) Af Amer > 60 (>60) 06/16/18 04:30 Est GFR (MDRD) Non-Af > 60 (>60) 06/16/18 04:30 Glucose 188 mg/dL (65-99) H 06/16/18 04:30 POC Glucose (mg/dL) 163 mg/dL (65-99) H 06/16/18 05:02 Calcium 8.5 mg/dL (8.5-10.1) 06/16/18 04:30 Corrected Calcium 10.2 mg/dL (8.5-10.1) H 06/16/18 04:30 Magnesium 1.7 mg/dL (1.7-2.9) 06/16/18 04:30 Iron 12 ug/dL (50-175) L 06/14/18 10:00 Transferrin 182 mg/dL (202-364) L 06/14/18 10:00 Ferritin 93 ng/mL (26-388) 06/14/18 10:00 Total Bilirubin 0.20 mg/dL (0.2-1.0) 06/16/18 04:30 AST 23 Units/L (15-37) 06/16/18 04:30 ALT 30 Units/L (12-78) 06/16/18 04:30 Alkaline Phosphatase 86 Units/L (46-116) 06/16/18 04:30 Total Protein 5.7 g/dL (6.4-8.2) L 06/16/18 04:30 Albumin 1.9 g/dL (3.4-5.0) L 06/16/18 04:30 Globulin 3.8 g/dL (2.5-4.5) 06/16/18 04:30 Albumin/Globulin Ratio 0.5 Ratio (1.1-2.1) L 06/16/18 04:30 Vitamin B12 1437 pg/mL (193-986) H 06/14/18 10:00 Folate 13.7 ng/mL (>8.6) 06/14/18 10:00 Vancomycin Trough 8.3 ug/mL (15-20) L 06/15/18 20:43 Digoxin 1.00 ng/mL (0.9-2) 06/16/18 04:30 - Plan (1) Bronchopneumonia Status: Acute Plan: INVANZ 1GM IV DAILY, SOLU-MEDROL 80MG IV Q8H, RESPIRATORY TX, MUCOMYST IN NEB [place], SUPPLEMENTAL OXYGEN, SMART VEST, CONTINUE TO MONITOR (2) COPD exacerbation Status: Acute Plan: RESPIRATORY TX, SUPPLEMENTAL OXYGEN, SMART VEST, CONTINUE TO MONITOR
--- NOTE | 2018-06-16 11:13 | PCM.PROG ---
Progress Note - Progress Note for Day of Date of Exam: 06/13/18 - Subjective Subjective: WAS ADMITTED FOR BRONCHOPNEUMONIA AND COPD EXACERBATION. TODAY, HE IS ALERT AND ORIENTED, LYING IN BED ON MORNING ROUNDS. HE CONTINUES WITH A PRODUCTIVE COUGH AND INCREASED SHORTNESS OF BREATH TODAY. ON EXAMINATION, HEART IS REGULAR IN RATE AND RHYTHM. BILATERAL LUNGS CONTINUE WITH COURSE, SCATTERED WHEEZING AND RHONCHI. ABDOMEN IS ROUND, SOFT, AND NON-TENDER WITH NORMAL BOWEL SOUNDS NOTED IN ALL QUADRANTS. HIS VITALS THIS MORNING ARE 97.6-93-20-93%-138/71. LABS WERE OBTAINED. ABNORMAL LAB VALUES INCLUDE THE FOLLOWING: WBC 11.9, RBC 3.68, HGB 9.3, HCT 28.7, BUN 19, GLUCOSE 169, TOTAL PROTEIN 5.6, ALBUMIN 2.2. A CHEST XRAY WAS OBTAINED AND REVEALED: NO SIGNIFICANT CHANGE FROM YESTERDAY. SPUTUM CULTURE IS POSITIVE FOR ENTEROBACTER AEROGENES. HE IS CURRENTLY RECEIVING INVANZ 1GM IV DAILY, DIFLUCAN 200MG IV DAILY, RESPIRATORY TREATMENTS, SUPPLEMENTAL OXYGEN, AND SOLU-MEDROL 80MG IV Q8H. TODAY, WE WILL HEPLOCK HIS IV FLUIDS AND ADMINISTER LASIX 40MG IV BID X 2 DOSES. WE MATT L ALSO OBTAIN A CHEST CT WITH CONTRAST. OTHERWISE, WE WILL CONTINUE WITH CURRENT PLAN OF CARE TODAY. WE PLAN TO FOLLOW UP WITH AM LABS AND CONTINUE TO MONITOR. - Past Medical Family Social History Past Med/Fam/Surg Hx: No changes since H&P Allergies: Allergies codeine Allergy (Unknown, Verified 04/27/18 04:54) cefdinir Allergy (Verified 04/27/18 04:55) Sulfa (Sulfonamide Antibiotics) Allergy (Verified 04/27/18 04:55) - Review of Systems ROS: No change since H&P - Vital Signs and I&O's Vital Signs: Temperature 99.7 F Pulse Rate [Right Brachial] 95 Pulse Rate 94 Respiratory Rate 18 Blood Pressure [Right Arm] 148/67 Blood Pressure [Left Arm] 112/58 Blood Pressure 112/58 O2 Sat by Pulse Oximetry 94 Intake and Output: Intake & Output 06/13/18 06/14/18 06/15/18 06/16/18 10:59 10:59 11:59 11:59 Intake Total 2296 / 2296 Output Total 1500 / 1500 Balance 796 / 796 - Physical Exam Oriented: Normal Eyes: Normal Ear: Normal Nose: Normal Throat: Normal Respiratory: Generalized, Wheezes, Rhonchi Cardiovascular: Normal : Normal Auscultation: Bowel Sounds: Normal Palpation: Normal Tenderness: Normal Skin: Normal Musculoskeletal: Normal Psychiatric: Normal Mood Description: Calm Affect: Normal Speech Pattern: Clear, Appropriate - Laboratory and Diagnostics Result Diagrams: 06/16/18 04:30 06/16/18 04:30 Labs: 06/05/18 12:03 Blood Blood Culture - Final 06/05/18 11:58 Blood Blood Culture - Final 06/05/18 12:19 Sputum - Expectorated Sputum Sputum Culture - Final Enterobacter Aerogenes 06/05/18 12:19 Sputum - Expectorated Sputum - Final Laboratory WBC 12.0 X10^3/uL (3.6-10.0) H 06/16/18 04:30 RBC 3.56 X10^6/uL (4.7-6.0) L 06/16/18 04:30 Hgb 8.9 g/dL (13.5-18.0) L 06/16/18 04:30 Hct 27.5 % (42.0-54.0) L 06/16/18 04:30 MCV 77.3 fL (80.0-100.0) L 06/16/18 04:30 MCH 25.1 pg (27.0-34.0) L 06/16/18 04:30 MCHC 32.5 g/dL (33.0-35.0) L 06/16/18 04:30 RDW 18.7 % (11.6-16.5) H 06/16/18 04:30 Plt Count 345 X10^3/uL (150.0-450.0) 06/16/18 04:30 Plt Count Comment Adequate (ADEQUATE) 06/16/18 04:30 MPV 8.5 fL (7.4-11.0) 06/16/18 04:30 Neut % (Auto) 84.7 % (42.0-75.0) H 06/16/18 04:30 Lymph % (Auto) 7.4 % (21.0-51.0) L 06/16/18 04:30 [place] % (Auto) 7.1 % (0.0-13.0) 06/16/18 04:30 Eos % (Auto) 0.6 % (0.9-2.9) L 06/16/18 04:30 Baso % (Auto) 0.2 % (0.2-1.0) 06/16/18 04:30 Neut # (Auto) 10.1 x10^3/uL (2.2-4.8) H 06/16/18 04:30 Lymph # (Auto) 0.9 X10^3/uL (1.3-2.9) L 06/16/18 04:30 [place] # (Auto) 0.8 x10^3/uL (0.3-0.8) 06/16/18 04:30 Eos # (Auto) 0.1 x10^3/uL (0.0-0.2) 06/16/18 04:30 Baso # (Auto) 0.0 X10^3/uL (0.0-0.1) 06/16/18 04:30 Absolute Nucleated RBC 0.0 /100WBC 06/16/18 04:30 Total Counted 100 06/16/18 04:30 Neutrophils % (Manual) 86 % (39-76) H 06/16/18 04:30 Band Neutrophils % 2 % (0-10) 06/16/18 04:30 Lymphocytes % (Manual) 8 % (13-43) L 06/16/18 04:30 Monocytes % (Manual) 4 % (4-9) 06/16/18 04:30 Atypical Lymphocytes 2 06/15/18 04:40 Plt Morphology Comment Normal (NORMAL) 06/16/18 04:30 RBC Morphology Abnormal (NORMAL) 06/16/18 04:30 Hypochromasia Slight A 06/16/18 04:30 Anisocytosis Slight A 06/16/18 04:30 Microcytosis Slight A 06/15/18 04:40 Sodium 140 mmol/L (136-145) 06/16/18 04:30 Corrected Sodium 142 mmol/L (136-145) 06/16/18 04:30 Potassium 3.7 mmol/L (3.5-5.1) 06/16/18 04:30 Chloride 104 mmol/L (98-107) 06/16/18 04:30 Carbon Dioxide 28.8 mmol/L (21-32) 06/16/18 04:30 BUN 12 mg/dL (7-18) 06/16/18 04:30 Creatinine 0.70 mg/dL (0.70-1.30) 06/16/18 04:30 Est GFR (MDRD) Af Amer > 60 (>60) 06/16/18 04:30 Est GFR (MDRD) Non-Af > 60 (>60) 06/16/18 04:30 Glucose 188 mg/dL (65-99) H 06/16/18 04:30 POC Glucose (mg/dL) 163 mg/dL (65-99) H 06/16/18 05:02 Calcium 8.5 mg/dL (8.5-10.1) 06/16/18 04:30 Corrected Calcium 10.2 mg/dL (8.5-10.1) H 06/16/18 04:30 Magnesium 1.7 mg/dL (1.7-2.9) 06/16/18 04:30 Iron 12 ug/dL (50-175) L 06/14/18 10:00 Transferrin 182 mg/dL (202-364) L 06/14/18 10:00 Ferritin 93 ng/mL (26-388) 06/14/18 10:00 Total Bilirubin 0.20 mg/dL (0.2-1.0) 06/16/18 04:30 AST 23 Units/L (15-37) 06/16/18 04:30 ALT 30 Units/L (12-78) 06/16/18 04:30 Alkaline Phosphatase 86 Units/L (46-116) 06/16/18 04:30 Total Protein 5.7 g/dL (6.4-8.2) L 06/16/18 04:30 Albumin 1.9 g/dL (3.4-5.0) L 06/16/18 04:30 Globulin 3.8 g/dL (2.5-4.5) 06/16/18 04:30 Albumin/Globulin Ratio 0.5 Ratio (1.1-2.1) L 06/16/18 04:30 Vitamin B12 1437 pg/mL (193-986) H 06/14/18 10:00 Folate 13.7 ng/mL (>8.6) 06/14/18 10:00 Vancomycin Trough 8.3 ug/mL (15-20) L 06/15/18 20:43 Digoxin 1.00 ng/mL (0.9-2) 06/16/18 04:30 - Plan (1) Bronchopneumonia Status: Acute Plan: INVANZ 1GM IV DAILY, SOLU-MEDROL 80MG IV Q8H, RESPIRATORY TX, MUCOMYST IN NEB [place], SUPPLEMENTAL OXYGEN, SMART VEST, CONTINUE TO MONITOR (2) COPD exacerbation Status: Acute Plan: RESPIRATORY TX, SUPPLEMENTAL OXYGEN, SMART VEST, CONTINUE TO MONITOR
[2018-06-16] MEDS: VITAMIN B-12 PO SCH (11:28)
[2018-06-16] MEDS: TAB-A-VITE PO SCH (11:28)
[2018-06-16] MEDS: THEO-DUR TAB 200 MG PO SCH ×2 (11:28→21:01)
[2018-06-16] MEDS: LUTEIN 20 MG PO SCH (11:29)
[2018-06-16] MEDS: HumuLIN R SUBCUT PRN ×2 (11:42→21:15)
[2018-06-16] MEDS: VANCOMYCIN HCL 500 MG VIAL 250 MG, VANCOMYCIN HCL 1 GM VIAL 1 G in NS 250 ML IV 250 ML IV SCH ×2 (12:50→22:27)
[2018-06-16] MEDS: SNACK - Diabetic Appropriate PO SCH (20:00)
[2018-06-16] MEDS: KLONOPIN TAB 0.5 MG PO SCH (21:01)
[2018-06-16] MEDS: LIPITOR TAB 40 MG PO SCH (21:01)
[2018-06-16] MEDS: FLOMAX PO SCH (21:02)
[2018-06-16] MEDS: ZyrTEC TAB 10 MG PO SCH (21:02)
[2018-06-16] MEDS: INSULIN DEGLUDEC 30 UNIT SUBCUT SCH (21:05)
--- NOTE | 2018-06-16 23:31 | PCM.PROG ---
Progress Note - Progress Note for Day of Date of Exam: 06/16/18 - Subjective Subjective: WAS ADMITTED FOR BRONCHOPNEUMONIA AND COPD EXACERBATION. TODAY, HE IS ALERT AND ORIENTED, LYING IN BED ON MORNING ROUNDS. HE CONTINUES WITH A PRODUCTIVE COUGH AND INCREASED SHORTNESS OF BREATH TODAY. HE WAS STARTED ON VANCOMYCIN OVER THE WEEKEND. HE WAS ALSO GIVEN SOME IRON AND TESTOSTERONE. ON EXAMINATION, HEART IS REGULAR IN RATE AND RHYTHM. BILATERAL LUNGS CONTINUE WITH COURSE, SCATTERED WHEEZING AND RHONCHI. ABDOMEN IS ROUND, SOFT, AND NON-TENDER WITH NORMAL BOWEL SOUNDS NOTED IN ALL QUADRANTS. HIS VITALS THIS MORNING ARE 99.7-95-22-95%HHF-148/67. HE CONTINUES TO REQUIRE A HIGHER CONCENTRATION OF OXYGEN THAN WHAT HE IS USE TO RECEIVING AT HOME. LABS WERE OBTAINED. ABNORMAL LAB VALUES INCLUDE THE FOLLOWING: WBC 12.0, RBC 3.56, HGB 8.9, HCT 27.5, GLUCOSE 188, TOTAL PROTEIN 5.7, ALBUMIN 1.9. A CHEST XRAY WAS OBTAINED AND REVEALED: NO SIGNIFICANT CHANGE FROM YESTERDAY. SPUTUM CULTURE IS POSITIVE FOR ENTEROBACTER AEROGENES. HE IS CURRENTLY RECEIVING INVANZ 1GM IV DAILY, DIFLUCAN 200MG IV DAILY, RESPIRATORY TREATMENTS, SUPPLEMENTAL OXYGEN, AND SOLU-CORTEF IV. TODAY, WE WILL ADD CONSUELO-DUR 200MG PO BID. OTHERWISE, WE WILL CONTINUE WITH CURRENT PLAN OF CARE TODAY. WE PLAN TO FOLLOW UP WITH AM LABS AND CONTINUE TO MONITOR. - Past Medical Family Social History Past Med/Fam/Surg Hx: No changes since H&P Allergies: Allergies codeine Allergy (Unknown, Verified 04/27/18 04:54) cefdinir Allergy (Verified 04/27/18 04:55) Sulfa (Sulfonamide Antibiotics) Allergy (Verified 04/27/18 04:55) - Review of Systems ROS: No change since H&P - Vital Signs and I&O's Vital Signs: Temperature 98.4 F Pulse Rate [Right Brachial] 90 Pulse Rate 84 Respiratory Rate 19 Blood Pressure [Right Arm] 140/71 Blood Pressure [Left Arm] 112/58 Blood Pressure 112/58 O2 Sat by Pulse Oximetry 95 Intake and Output: Intake & Output 06/14/18 06/15/18 06/16/18 06/17/18 10:59 11:59 11:59 11:59 Intake Total 2296 / 2296 1750 / 1750 Output Total 1500 / 1500 1350 / 1350 Balance 796 / 796 400 / 400 - Physical Exam Oriented: Normal Eyes: Normal Ear: Normal Nose: Normal Throat: Normal Respiratory: Generalized, Wheezes, Rhonchi Cardiovascular: Normal : Normal Auscultation: Bowel Sounds: Normal Tenderness: Normal Skin: Normal Musculoskeletal: Normal Psychiatric: Normal Mood Description: Calm Affect: Normal Speech Pattern: Clear, Appropriate - Laboratory and Diagnostics Result Diagrams: 06/16/18 04:30 06/16/18 04:30 Labs: 06/05/18 12:03 Blood Blood Culture - Final 06/05/18 11:58 Blood Blood Culture - Final 06/05/18 12:19 Sputum - Expectorated Sputum Sputum Culture - Final Enterobacter Aerogenes 06/05/18 12:19 Sputum - Expectorated Sputum - Final Laboratory WBC 12.0 X10^3/uL (3.6-10.0) H 06/16/18 04:30 RBC 3.56 X10^6/uL (4.7-6.0) L 06/16/18 04:30 Hgb 8.9 g/dL (13.5-18.0) L 06/16/18 04:30 Hct 27.5 % (42.0-54.0) L 06/16/18 04:30 MCV 77.3 fL (80.0-100.0) L 06/16/18 04:30 MCH 25.1 pg (27.0-34.0) L 06/16/18 04:30 MCHC 32.5 g/dL (33.0-35.0) L 06/16/18 04:30 RDW 18.7 % (11.6-16.5) H 06/16/18 04:30 Plt Count 345 X10^3/uL (150.0-450.0) 06/16/18 04:30 Plt Count Comment Adequate (ADEQUATE) 06/16/18 04:30 MPV 8.5 fL (7.4-11.0) 06/16/18 04:30 Neut % (Auto) 84.7 % (42.0-75.0) H 06/16/18 04:30 Lymph % (Auto) 7.4 % (21.0-51.0) L 06/16/18 04:30 [place] % (Auto) 7.1 % (0.0-13.0) 06/16/18 04:30 Eos % (Auto) 0.6 % (0.9-2.9) L 06/16/18 04:30 Baso % (Auto) 0.2 % (0.2-1.0) 06/16/18 04:30 Neut # (Auto) 10.1 x10^3/uL (2.2-4.8) H 06/16/18 04:30 Lymph # (Auto) 0.9 X10^3/uL (1.3-2.9) L 06/16/18 04:30 [place] # (Auto) 0.8 x10^3/uL (0.3-0.8) 06/16/18 04:30 Eos # (Auto) 0.1 x10^3/uL (0.0-0.2) 06/16/18 04:30 Baso # (Auto) 0.0 X10^3/uL (0.0-0.1) 06/16/18 04:30 Absolute Nucleated RBC 0.0 /100WBC 06/16/18 04:30 Total Counted 100 06/16/18 04:30 Neutrophils % (Manual) 86 % (39-76) H 06/16/18 04:30 Band Neutrophils % 2 % (0-10) 06/16/18 04:30 Lymphocytes % (Manual) 8 % (13-43) L 06/16/18 04:30 Monocytes % (Manual) 4 % (4-9) 06/16/18 04:30 Atypical Lymphocytes 2 06/15/18 04:40 Plt Morphology Comment Normal (NORMAL) 06/16/18 04:30 RBC Morphology Abnormal (NORMAL) 06/16/18 04:30 Hypochromasia Slight A 06/16/18 04:30 Anisocytosis Slight A 06/16/18 04:30 Microcytosis Slight A 06/15/18 04:40 Sodium 140 mmol/L (136-145) 06/16/18 04:30 Corrected Sodium 142 mmol/L (136-145) 06/16/18 04:30 Potassium 3.7 mmol/L (3.5-5.1) 06/16/18 04:30 Chloride 104 mmol/L (98-107) 06/16/18 04:30 Carbon Dioxide 28.8 mmol/L (21-32) 06/16/18 04:30 BUN 12 mg/dL (7-18) 06/16/18 04:30 Creatinine 0.70 mg/dL (0.70-1.30) 06/16/18 04:30 Est GFR (MDRD) Af Amer > 60 (>60) 06/16/18 04:30 Est GFR (MDRD) Non-Af > 60 (>60) 06/16/18 04:30 Glucose 188 mg/dL (65-99) H 06/16/18 04:30 POC Glucose (mg/dL) 189 mg/dL (65-99) H 06/16/18 20:58 Calcium 8.5 mg/dL (8.5-10.1) 06/16/18 04:30 Corrected Calcium 10.2 mg/dL (8.5-10.1) H 06/16/18 04:30 Magnesium 1.7 mg/dL (1.7-2.9) 06/16/18 04:30 Iron 12 ug/dL (50-175) L 06/14/18 10:00 Transferrin 182 mg/dL (202-364) L 06/14/18 10:00 Ferritin 93 ng/mL (26-388) 06/14/18 10:00 Total Bilirubin 0.20 mg/dL (0.2-1.0) 06/16/18 04:30 AST 23 Units/L (15-37) 06/16/18 04:30 ALT 30 Units/L (12-78) 06/16/18 04:30 Alkaline Phosphatase 86 Units/L (46-116) 06/16/18 04:30 Total Protein 5.7 g/dL (6.4-8.2) L 06/16/18 04:30 Albumin 1.9 g/dL (3.4-5.0) L 06/16/18 04:30 Globulin 3.8 g/dL (2.5-4.5) 06/16/18 04:30 Albumin/Globulin Ratio 0.5 Ratio (1.1-2.1) L 06/16/18 04:30 Vitamin B12 1437 pg/mL (193-986) H 06/14/18 10:00 Folate 13.7 ng/mL (>8.6) 06/14/18 10:00 Vancomycin Trough 8.3 ug/mL (15-20) L 06/15/18 20:43 Digoxin 1.00 ng/mL (0.9-2) 06/16/18 04:30 - Plan (1) Bronchopneumonia Status: Acute Plan: INVANZ 1GM IV DAILY, SOLU-CORTEF 80MG IV Q8H, RESPIRATORY TX, MUCOMYST IN NEB TX, SUPPLEMENTAL OXYGEN, SMART VEST, CONTINUE TO MONITOR (2) COPD exacerbation Status: Acute Plan: CONSUELO-DUR 200MG PO BID, RESPIRATORY TX, SUPPLEMENTAL OXYGEN, SMART VEST, CONTINUE TO MONITOR
[2018-06-17] MEDS: DUONEB 0.5 MG/3 MG NEB SCH ×6 (01:00→20:09)
[2018-06-17 05:20] LABS: BASOPHILS % (AUTO) 0.1 % (0.2-1.0); EOSINOPHILS # (AUTO) 0.1 x10^3/uL (0.0-0.2); EOSINOPHILS % (AUTO) 0.7 % (0.9-2.9); HEMATOCRIT 27.9 % (42.0-54.0); HEMOGLOBIN 8.9 g/dL (13.5-18.0); LYMPHOCYTES # (AUTO) 1.3 X10^3/uL (1.3-2.9); LYMPHOCYTES % (AUTO) 9.4 % (21.0-51.0); MEAN CORPUSCULAR HEMOGLOBIN 24.6 pg (27.0-34.0); MEAN CORPUSCULAR VOLUME 76.8 fL (80.0-100.0); MEAN PLATELET VOLUME 8.5 fL (7.4-11.0); MONOCYTES # (AUTO) 1.1 x10^3/uL (0.3-0.8); MONOCYTES % (AUTO) 7.9 % (0.0-13.0); NEUTROPHILS # (AUTO) 10.9 x10^3/uL (2.2-4.8); NEUTROPHILS % (AUTO) 81.9 % (42.0-75.0); PLATELET COUNT 360 X10^3/uL (150.0-450.0); RED BLOOD COUNT 3.63 X10^6/uL (4.7-6.0); WHITE BLOOD COUNT 13.4 X10^3/uL (3.6-10.0)
[2018-06-17 05:39] LABS: ALANINE AMINOTRANSFERASE 30 Units/L (12-78); ALKALINE PHOSPHATASE 88 Units/L (46-116); ASPARTATE AMINO TRANSFERASE 26 Units/L (15-37); BLOOD UREA NITROGEN 10 mg/dL (7-18); CALCIUM 8.4 mg/dL (8.5-10.1); CHLORIDE 104 mmol/L (98-107); CREATININE 0.72 mg/dL (0.70-1.30); MAGNESIUM 1.8 mg/dL (1.7-2.9); SODIUM 139 mmol/L (136-145); TOTAL PROTEIN 5.7 g/dL (6.4-8.2); eGFR NON BLACK RACES > 60 (>60)
[2018-06-17] MEDS: TESSALON PERLES PO SCH ×3 (06:06→21:00)
[2018-06-17] MEDS: SOLU-Cortef INJ IVP SCH ×3 (06:06→21:00)
[2018-06-17] MEDS: NEURONTIN CAP 300 MG PO SCH ×3 (06:06→21:00)
[2018-06-17 06:23] LABS: BAND NEUTROPHILS % 1 % (0-10); PLATELET MORPHOLOGY COMMENT NORMAL (NORMAL)
[2018-06-17 06:24] LABS: ANISOCYTOSIS SLIGHT; HYPOCHROMASIA SLIGHT
[2018-06-17] MEDS ORDERED: GLUTOSE 15 GEL ORAL PO PRN (06:36)
[2018-06-17] MEDS ORDERED: GLUTOSE 15 GEL ORAL PO ONE (06:38)
--- NOTE | 2018-06-17 06:51 | RAD ---
HISTORY: Shortness of breath Study: Chest AP portable Comparison: 06/16/2018 Findings: There is a pacemaker present on the right. There is a port present on the left. The heart is within normal limits in size. The lungs remain hyperinflated. Chronic interstitial lung changes are present. Emphysematous changes are present. No acute alveolar infiltrates or pleural effusions are identified. Left hilar mass and left-sided pleuro parenchymal scarring unchanged. The bony thorax is unremarkable. IMPRESSION: No significant change from the prior examination Reported By:
[2018-06-17] MEDS ORDERED: GLUCOPHAGE ONE ×2 (07:21→19:14)
[2018-06-17] MEDS: INVANZ INJ 1 GM VIAL 1 GM in NS 100 ML IV + SPIKE MINIBAG* 100 ML IV SCH (08:24)
[2018-06-17] MEDS: DIFLUCAN 200 MG IV PREMIX* 200 MG/100 ML BAG IV SCH (08:24)
[2018-06-17] MEDS: VIT D3 VIT K BERBERINE HOPS PO SCH (08:25)
[2018-06-17] MEDS: SINGULAIR TAB 10 MG PO SCH (08:25)
[2018-06-17] MEDS: ULTRAM PO PRN ×2 (08:25→21:08)
[2018-06-17] MEDS: ROBITUSSIN DM PO SCH ×4 (08:25→20:42)
[2018-06-17] MEDS: THEO-DUR TAB 200 MG PO SCH ×2 (08:26→20:41)
[2018-06-17] MEDS: GLUCOPHAGE PO SCH ×2 (08:26→20:41)
[2018-06-17] MEDS: PROSCAR PO SCH (08:27)
[2018-06-17] MEDS: CULTURELLE PRO-WELL PROBIOTIC CAP PO SCH (08:27)
[2018-06-17] MEDS: ASPIRIN PO SCH (08:27)
[2018-06-17] MEDS: IMDUR PO SCH (08:27)
[2018-06-17] MEDS: PROTONIX TAB 40 MG PO SCH ×2 (08:27→20:42)
[2018-06-17] MEDS: AMARYL TAB 4 MG PO SCH ×2 (08:27→20:42)
[2018-06-17] MEDS: COLACE CAP 100 MG PO PRN (08:27)
[2018-06-17] MEDS: MEGACE PO SCH ×2 (08:28→20:42)
[2018-06-17] MEDS: LOPRESSOR TAB 50 MG PO SCH ×2 (08:28→20:42)
[2018-06-17] MEDS: LANOXIN PO SCH (08:28)
[2018-06-17] MEDS: CARDIZEM CD 180 MG PO SCH (08:28)
[2018-06-17] MEDS: PRADAXA PO SCH ×2 (08:29→20:42)
[2018-06-17] MEDS ORDERED: PHARMACY COMMENT IV NR (08:30)
[2018-06-17] MEDS: PULMICORT NEB TX 0.5 MG NEB SCH ×2 (08:41→20:09)
[2018-06-17 10:30] LABS: ABG BASE EXCESS 4.9 mmol/L (-2.0-2.0); ABG HCO3 27.9 mmol/L (22-26)
[2018-06-17 10:31] LABS: ABG ALLEN TEST POS
[2018-06-17 10:46] LABS: CREATININE 0.82 mg/dL (0.70-1.30); VANCOMYCIN,TROUGH 11.6 ug/mL (15-20)
[2018-06-17] MEDS: VANCOMYCIN HCL 500 MG VIAL 250 MG, VANCOMYCIN HCL 1 GM VIAL 1 G in NS 250 ML IV 250 ML IV SCH (10:59)
[2018-06-17] MEDS ORDERED: VANCOMYCIN HCL 1 GM VIAL 1 G in NS 250 ML IV 250 ML IV SCH (11:00)
[2018-06-17] MEDS: TAB-A-VITE PO SCH (11:34)
[2018-06-17] MEDS: LUTEIN 20 MG PO SCH (11:34)
[2018-06-17] MEDS: VITAMIN B-12 PO SCH (11:34)
[2018-06-17] MEDS: HumuLIN R SUBCUT PRN (11:35)
[2018-06-17] MEDS: VANCOMYCIN HCL 1 GM VIAL 1 G in NS 250 ML IV 250 ML IV SCH ×2 (14:09→21:00)
[2018-06-17] MEDS: SNACK - Diabetic Appropriate PO SCH (20:41)
[2018-06-17] MEDS: LIPITOR TAB 40 MG PO SCH (20:41)
[2018-06-17] MEDS: KLONOPIN TAB 0.5 MG PO SCH (20:41)
[2018-06-17] MEDS: FLOMAX PO SCH (20:42)
[2018-06-17] MEDS: ZyrTEC TAB 10 MG PO SCH (20:43)
[2018-06-17] MEDS ORDERED: INSULIN DEGLUDEC 15 UNIT SUBCUT SCH (21:00)
--- NOTE | 2018-06-17 22:32 | PCM.PROG ---
Progress Note - Progress Note for Day of Date of Exam: 06/17/18 - Subjective Subjective: WAS ADMITTED FOR BRONCHOPNEUMONIA AND COPD EXACERBATION. TODAY, HE IS ALERT AND ORIENTED, LYING IN BED ON MORNING ROUNDS. HE CONTINUES WITH A PRODUCTIVE COUGH AND INCREASED SHORTNESS OF BREATH TODAY. HE REMAINS ON OXYGEN VIA NASAL CANNULA AT 4L/MIN. HE DOES UTILIZE OXYGEN AT HOME DUE TO CHRONIC HYPOXIA AND RESPIRATORY FAILURE. HE HAS A HISTORY OF COPD AND EMPHYSEMA. ON EXAMINATION, HEART IS REGULAR IN RATE AND RHYTHM. BILATERAL LUNGS CONTINUE WITH COURSE, SCATTERED WHEEZING AND RHONCHI. ABDOMEN IS ROUND, SOFT, AND NON- TENDER WITH NORMAL BOWEL SOUNDS NOTED IN ALL QUADRANTS. HIS VITALS THIS MORNING ARE 97.9-97-20-89%NC-137/77. LABS WERE OBTAINED. ABNORMAL LAB VALUES INCLUDE THE FOLLOWING: WBC 13.4, RBC 3.63, HGB 8.9, HCT 27.9, GLUCOSE 107, CALCIUM 8.4, TOTAL BILI 0.10, TOTAL PROTEIN 5.7, ALBUMIN 2.0. A CHEST XRAY WAS OBTAINED AND REVEALED: NO SIGNIFICANT CHANGE FROM YESTERDAY. SPUTUM CULTURE IS POSITIVE FOR ENTEROBACTER AEROGENES. HE IS CURRENTLY RECEIVING INVANZ 1GM IV DAILY, DIFLUCAN 200MG IV DAILY, RESPIRATORY TREATMENTS, SUPPLEMENTAL OXYGEN, SOLU-CORTEF IV, AND CONSUELO-DUR 200MG PO BID. TODAY, WE WILL CONSULT [facility] FOR TRILOGY AND OBTAIN AN ABG. HE ALSO REQUIRES THE USE OF A HOSPITAL BED TO OBTAIN OPTIMAL POSITIONING FOR MAINTENANCE OF INCREASED OXYGEN SATURATIONS. WE WILL OBTAIN A HOSPITAL BED FOR USE AT HOME. OTHERWISE, WE WILL CONTINUE WITH CURRENT PLAN OF CARE TODAY. WE PLAN TO FOLLOW UP WITH AM LABS AND CONTINUE TO MONITOR. - Past Medical Family Social History Past Med/Fam/Surg Hx: No changes since H&P Allergies: Allergies codeine Allergy (Unknown, Verified 04/27/18 04:54) cefdinir Allergy (Verified 04/27/18 04:55) Sulfa (Sulfonamide Antibiotics) Allergy (Verified 04/27/18 04:55) - Review of Systems ROS: No change since H&P - Vital Signs and I&O's Vital Signs: Temperature 97.7 F Pulse Rate [Right Brachial] 92 Pulse Rate 90 Respiratory Rate 20 Blood Pressure [Right Arm] 105/59 Blood Pressure [Left Arm] 112/58 Blood Pressure 112/58 O2 Sat by Pulse Oximetry 93 Intake and Output: Intake & Output 06/15/18 06/16/18 06/17/18 06/18/18 11:59 11:59 11:59 11:59 Intake Total 2296 / 2296 1850 / 1850 600 / 600 Output Total 1500 / 1500 2500 / 2500 400 / 400 Balance 796 / 796 -650 / -650 200 / 200 - Physical Exam Oriented: Normal Eyes: Normal Ear: Normal Nose: Normal Throat: Normal Respiratory: Generalized, Wheezes, Rhonchi Cardiovascular: Normal : Normal Auscultation: Bowel Sounds: Normal Palpation: Normal Tenderness: Normal Skin: Normal Musculoskeletal: Normal Psychiatric: Normal Mood Description: Calm Affect: Normal Speech Pattern: Clear, Appropriate - Laboratory and Diagnostics Result Diagrams: 06/18/18 04:20 06/18/18 04:20 Labs: 06/05/18 12:03 Blood Blood Culture - Final 06/05/18 11:58 Blood Blood Culture - Final 06/05/18 12:19 Sputum - Expectorated Sputum Sputum Culture - Final Enterobacter Aerogenes 06/05/18 12:19 Sputum - Expectorated Sputum - Final Laboratory WBC 13.4 X10^3/uL (3.6-10.0) H 06/17/18 04:00 RBC 3.63 X10^6/uL (4.7-6.0) L 06/17/18 04:00 Hgb 8.9 g/dL (13.5-18.0) L 06/17/18 04:00 Hct 27.9 % (42.0-54.0) L 06/17/18 04:00 MCV 76.8 fL (80.0-100.0) L 06/17/18 04:00 MCH 24.6 pg (27.0-34.0) L 06/17/18 04:00 MCHC 32.0 g/dL (33.0-35.0) L 06/17/18 04:00 RDW 19.0 % (11.6-16.5) H 06/17/18 04:00 Plt Count 360 X10^3/uL (150.0-450.0) 06/17/18 04:00 Plt Count Comment Adequate (ADEQUATE) 06/17/18 04:00 MPV 8.5 fL (7.4-11.0) 06/17/18 04:00 Neut % (Auto) 81.9 % (42.0-75.0) H 06/17/18 04:00 Lymph % (Auto) 9.4 % (21.0-51.0) L 06/17/18 04:00 [place] % (Auto) 7.9 % (0.0-13.0) 06/17/18 04:00 Eos % (Auto) 0.7 % (0.9-2.9) L 06/17/18 04:00 Baso % (Auto) 0.1 % (0.2-1.0) L 06/17/18 04:00 Neut # (Auto) 10.9 x10^3/uL (2.2-4.8) H 06/17/18 04:00 Lymph # (Auto) 1.3 X10^3/uL (1.3-2.9) 06/17/18 04:00 [place] # (Auto) 1.1 x10^3/uL (0.3-0.8) H 06/17/18 04:00 Eos # (Auto) 0.1 x10^3/uL (0.0-0.2) 06/17/18 04:00 Baso # (Auto) 0.0 X10^3/uL (0.0-0.1) 06/17/18 04:00 Absolute Nucleated RBC 0.1 /100WBC 06/17/18 04:00 Total Counted 100 06/17/18 04:00 Neutrophils % (Manual) 74 % (39-76) 06/17/18 04:00 Band Neutrophils % 1 % (0-10) 06/17/18 04:00 Lymphocytes % (Manual) 17 % (13-43) 06/17/18 04:00 Monocytes % (Manual) 6 % (4-9) 06/17/18 04:00 Eosinophils % (Manual) 1 % (0-6) 06/17/18 04:00 Atypical Lymphocytes 1 06/17/18 04:00 Plt Morphology Comment Normal (NORMAL) 06/17/18 04:00 RBC Morphology Abnormal (NORMAL) 06/17/18 04:00 Hypochromasia Slight A 06/17/18 04:00 Anisocytosis Slight A 06/17/18 04:00 Microcytosis Slight A 06/15/18 04:40 Sample Site Rr 06/17/18 10:26 ABG pH 7.510 (7.35-7.45) H 06/17/18 10:26 ABG pCO2 35.0 mmHg (35.0-45.0) 06/17/18 10:26 ABG pO2 40.0 mmHg (80.0-100.0) L* 06/17/18 10:26 ABG HCO3 27.9 mmol/L (22-26) H 06/17/18 10:26 ABG O2 Saturation 81.0 % (90-100) L* 06/17/18 10:26 ABG Base Excess 4.9 mmol/L (-2.0-2.0) H 06/17/18 10:26 Alexander Test Pos 06/17/18 10:26 A-a Gradient 66.0 mmHg 06/17/18 10:26 FiO2 21.0 06/17/18 10:26 Blood Gas Comments Pt suresh well. cdn 06/17/18 10:26 Sodium 139 mmol/L (136-145) 06/17/18 04:00 Corrected Sodium TNP 06/17/18 04:00 Potassium 3.5 mmol/L (3.5-5.1) 06/17/18 04:00 Chloride 104 mmol/L (98-107) 06/17/18 04:00 Carbon Dioxide 30.0 mmol/L (21-32) 06/17/18 04:00 BUN 10 mg/dL (7-18) 06/17/18 04:00 Creatinine 0.82 mg/dL (0.70-1.30) 06/17/18 10:15 Est GFR (MDRD) Af Amer > 60 (>60) 06/17/18 04:00 Est GFR (MDRD) Non-Af > 60 (>60) 06/17/18 04:00 Glucose 107 mg/dL (65-99) H 06/17/18 04:00 POC Glucose (mg/dL) 152 mg/dL (65-99) H 06/17/18 20:13 Calcium 8.4 mg/dL (8.5-10.1) L 06/17/18 04:00 Corrected Calcium 10.0 mg/dL (8.5-10.1) 06/17/18 04:00 Magnesium 1.8 mg/dL (1.7-2.9) 06/17/18 04:00 Iron 12 ug/dL (50-175) L 06/14/18 10:00 Transferrin 182 mg/dL (202-364) L 06/14/18 10:00 Ferritin 93 ng/mL (26-388) 06/14/18 10:00 Total Bilirubin 0.10 mg/dL (0.2-1.0) L 06/17/18 04:00 AST 26 Units/L (15-37) 06/17/18 04:00 ALT 30 Units/L (12-78) 06/17/18 04:00 Alkaline Phosphatase 88 Units/L (46-116) 06/17/18 04:00 Total Protein 5.7 g/dL (6.4-8.2) L 06/17/18 04:00 Albumin 2.0 g/dL (3.4-5.0) L 06/17/18 04:00 Globulin 3.7 g/dL (2.5-4.5) 06/17/18 04:00 Albumin/Globulin Ratio 0.5 Ratio (1.1-2.1) L 06/17/18 04:00 Vitamin B12 1437 pg/mL (193-986) H 06/14/18 10:00 Folate 13.7 ng/mL (>8.6) 06/14/18 10:00 Vancomycin Trough 11.6 ug/mL (15-20) L 06/17/18 10:15 Digoxin 1.00 ng/mL (0.9-2) 06/16/18 04:30 - Plan (1) Bronchopneumonia Status: Acute Plan: INVANZ 1GM IV DAILY, SOLU-CORTEF 80MG IV Q8H, RESPIRATORY TX, MUCOMYST IN NEB [place], SUPPLEMENTAL OXYGEN, SMART VEST, CONTINUE TO MONITOR (2) COPD exacerbation Status: Acute Plan: CONSUELO-DUR 200MG PO BID, RESPIRATORY TX, SUPPLEMENTAL OXYGEN, SMART VEST, CONTINUE TO MONITOR (3) Respiratory failure with hypoxia Status: Acute Qualifiers: Chronicity: acute on chronic Qualified Code(s): J96.21 - Acute and chronic respiratory failure with hypoxia Plan: RESPIRATORY TX, SUPPLEMENTAL OXYGEN, IV STEROIDS, CONSULT FOR TRILOGY, CONTINUE TO MONITOR
[2018-06-18] MEDS: DUONEB 0.5 MG/3 MG NEB SCH ×4 (00:41→12:05)
[2018-06-18] MEDS: NEURONTIN CAP 300 MG PO SCH (05:02)
[2018-06-18] MEDS: VANCOMYCIN HCL 1 GM VIAL 1 G in NS 250 ML IV 250 ML IV SCH (05:02)
[2018-06-18] MEDS: TESSALON PERLES PO SCH (05:02)
[2018-06-18] MEDS: SOLU-Cortef INJ IVP SCH (05:03)
[2018-06-18 05:42] LABS: BASOPHILS % (AUTO) 0.1 % (0.2-1.0); EOSINOPHILS % (AUTO) 0.3 % (0.9-2.9); HEMATOCRIT 27.6 % (42.0-54.0); HEMOGLOBIN 8.8 g/dL (13.5-18.0); LYMPHOCYTES # (AUTO) 1.4 X10^3/uL (1.3-2.9); LYMPHOCYTES % (AUTO) 10.4 % (21.0-51.0); MEAN CORPUSCULAR HEMOGLOBIN 24.9 pg (27.0-34.0); MEAN CORPUSCULAR HGB CONC 31.8 g/dL (33.0-35.0); MEAN CORPUSCULAR VOLUME 78.4 fL (80.0-100.0); MEAN PLATELET VOLUME 8.7 fL (7.4-11.0); MONOCYTES # (AUTO) 1.2 x10^3/uL (0.3-0.8); MONOCYTES % (AUTO) 8.7 % (0.0-13.0); NEUTROPHILS # (AUTO) 10.9 x10^3/uL (2.2-4.8); NEUTROPHILS % (AUTO) 80.5 % (42.0-75.0); PLATELET COUNT 351 X10^3/uL (150.0-450.0); RED BLOOD COUNT 3.52 X10^6/uL (4.7-6.0); RED CELL DISTRIBUTION WIDTH 19.2 % (11.6-16.5); WHITE BLOOD COUNT 13.5 X10^3/uL (3.6-10.0)
[2018-06-18 05:59] LABS: ALANINE AMINOTRANSFERASE 30 Units/L (12-78); ALKALINE PHOSPHATASE 90 Units/L (46-116); ASPARTATE AMINO TRANSFERASE 27 Units/L (15-37); BLOOD UREA NITROGEN 10 mg/dL (7-18); CALCIUM 8.7 mg/dL (8.5-10.1); CARBON DIOXIDE 25.5 mmol/L (21-32); CHLORIDE 103 mmol/L (98-107); COR CA(FOR HYPOALB) 10.3 mg/dL (8.5-10.1); COR NA(FOR HYPERGLY) 140 mmol/L (136-145); CREATININE 0.89 mg/dL (0.70-1.30); SODIUM 138 mmol/L (136-145); TOTAL PROTEIN 5.7 g/dL (6.4-8.2); eGFR NON BLACK RACES > 60 (>60)
[2018-06-18 06:23] LABS: BAND NEUTROPHILS % 3 % (0-10); HYPOCHROMASIA SLIGHT; PLATELET MORPHOLOGY COMMENT NORMAL (NORMAL)
[2018-06-18] MEDS: K-DUR TAB 20 MEQ PO PRN (06:36)
--- NOTE | 2018-06-18 06:49 | RAD ---
HISTORY: Shortness of breath Study: Chest AP portable Comparison: 06/17/2018 Findings: There is a pacemaker present on the right obscuring a portion of the right upper lobe. There is a port present on the left. The heart is within normal limits in size. The lungs remain hyperinflated and diffusely involved with chronic interstitial lung changes. Emphysematous changes are present in the upper lobes. Left hilar mass is unchanged. No pleural effusions are identified. The bony thorax is unremarkable. IMPRESSION: No significant change from the prior examination Reported By:
[2018-06-18] MEDS: PULMICORT NEB TX 0.5 MG NEB SCH (08:11)
[2018-06-18] MEDS ORDERED: GLUCOPHAGE ONE (08:32)
[2018-06-18] MEDS: PRADAXA PO SCH (09:06)
[2018-06-18] MEDS: LOPRESSOR TAB 50 MG PO SCH (09:06)
[2018-06-18] MEDS: PROSCAR PO SCH (09:06)
[2018-06-18] MEDS: GLUCOPHAGE PO SCH (09:07)
[2018-06-18] MEDS: THEO-DUR TAB 200 MG PO SCH (09:08)
[2018-06-18] MEDS: ROBITUSSIN DM PO SCH (09:08)
[2018-06-18] MEDS: ASPIRIN PO SCH (09:08)
[2018-06-18] MEDS: SINGULAIR TAB 10 MG PO SCH (09:08)
[2018-06-18] MEDS: AMARYL TAB 4 MG PO SCH (09:08)
[2018-06-18] MEDS: LANOXIN PO SCH (09:08)
[2018-06-18] MEDS: CARDIZEM CD 180 MG PO SCH (09:10)
[2018-06-18] MEDS: MEGACE PO SCH (09:10)
[2018-06-18] MEDS: PROTONIX TAB 40 MG PO SCH (09:10)
[2018-06-18] MEDS: DIFLUCAN 200 MG IV PREMIX* 200 MG/100 ML BAG IV SCH (09:10)
[2018-06-18] MEDS: CULTURELLE PRO-WELL PROBIOTIC CAP PO SCH (09:10)
[2018-06-18] MEDS: IMDUR PO SCH (09:10)
[2018-06-18] MEDS: VIT D3 VIT K BERBERINE HOPS PO SCH (10:35)
[2018-06-18] MEDS: INVANZ INJ 1 GM VIAL 1 GM in NS 100 ML IV + SPIKE MINIBAG* 100 ML IV SCH (11:25)
[2018-06-18 11:36] VITALS: BP 161/76
[2018-06-18 12:12] LABS: ABG ALLEN TEST POS; ABG BASE EXCESS 6.1 mmol/L (-2.0-2.0); ABG HCO3 29.6 mmol/L (22-26)
[2018-06-18] MEDS ORDERED: PHARMACY COMMENT IV NR (13:30)
== END 2018-06-18 13:53 | disposition home or self-care (01) | DRG 193 ==
LOC: MED/SURG 11:18
PROVIDERS: ADMIT Internal Medicine; ATTEND Internal Medicine
DX: E11.65 Type 2 diabetes mellitus with hyperglycemia; A00-B99 Certain infectious and parasitic diseases; J18.0 Bronchopneumonia, unspecified organism; Z95.0 Presence of cardiac pacemaker; B96.89 Other specified bacterial agents as the cause of diseases classified elsewhere; J44.1 Chronic obstructive pulmonary disease with (acute) exacerbation; R26.89 Other abnormalities of gait and mobility; C34.90 Malignant neoplasm of unspecified part of unspecified bronchus or lung; J96.21 Acute and chronic respiratory failure with hypoxia
CPT/HCPCS: 36415; 36600; 71010; 71020; 71045; 71046; 71260; 80053; 80162; 80202; 82565; 82607; 82728; 82746; 82803; 83540; 83735; 84403; 84466; 85025; 87040; 87070; 87077; 87186; 87205; 94640; 94669; 94760; 97162; 97530; A4222; S0138; S0179; J1335; J1450; J1720; J1756; J1815; J1885; J1940; J1956; J2920; J3370; J3475; J7050; J7512; J7608; J7620; J7626; J7644